=== PATIENT | female | born 1955 | race Caucasian/White ===

== ENCOUNTER → 2017-03-09 | Outpatient (CLI) | payer MEDICAID, SELFPAY | PROVIDERS: Visit Provider Internal Medicine | DX: R91.8 Other nonspecific abnormal finding of lung field (principal) | CPT/HCPCS: 71250 ==

== ENCOUNTER → 2017-06-13 14:07 | Outpatient (POV) | payer MEDICAID, SELFPAY | PROVIDERS: PCP Surgery; Visit Provider Internal Medicine | DX: Z00.00 Encounter for general adult medical examination without abnormal findings (principal) ==

== ENCOUNTER → 2017-10-31 14:48 | Outpatient (CLI) | payer MEDICAID, SELFPAY ==
--- NOTE | 2017-10-31 14:53 | CT_ITS ---
CT chest wo con HISTORY: Follow-up lung nodules ITS.REASON: MULTIPLE LUNG NODULES ORDERING PHYSICIAN: Jonh Baird MD PATIENT AGE: 62 years COMPARISON: None Technique: Axial images obtained with sagittal and coronal reformats. All CT scans at the facility use one or more dose reduction, viz: automated exposure control, ma/kV adjustment per patient size (including targeted exams where dose is matched to indication, i.e. head), or iterative reconstruction technique. FINDINGS: Scattered small lymph nodes are present within the mediastinum. Although these nodes do not meet criteria for adenopathy, they do appear slightly more bulkier than when compared to the previous exam. 4 extends, there is an AP window node which measured 1 x 0.7 cm previously measuring 0.7 x 0.6 cm. No hilar adenopathy is evident. There are coronary artery calcifications. There is mild pericardial thickening with normal heart size. No evidence of aortic aneurysm. Diffuse centrilobular emphysematous change. There is a new noncalcified nodule in the right upper lobe superiorly and posteriorly measures 8 mm x 5 mm. This is just superior to the previously mentioned nodule in the right upper lobe medially measuring approximately 6 mm. That nodules not significantly changed. There is mild diffuse bronchial thickening. A peripheral nodules present in the right upper lobe posteriorly at 6 mm only with some minimal linear thickening at this region. Small nodule in the right lung base laterally measures 4 mm only slightly larger. There are peripheral subpleural opacities in the left lower lobe laterally and inferiorly which are more prominent with a few small nodular opacities in this region with no change in the 4 mm subpleural nodule left lower lobe laterally. Upper abdominal images are unremarkable. No bony destructive process. IMPRESSION: 1. Multiple small pulmonary nodules are once again noted some of which are more prominent. There is a new nodule in the right upper lobe superiorly and posteriorly. These findings are concerning for metastatic disease. An ongoing inflammatory/infectious process is also a consideration. Does the patient have a known primary carcinoma? There are small nodes in mediastinum which do not meet criteria for adenopathy but are slightly larger when compared to previous exam. None of these nodules are readily accessible to percutaneous CT directed biopsy. 2. Centrilobular emphysema/COPD. Mild pericardial thickening. Coronary artery calcifications.
== END ==
PROVIDERS: PCP Physician Assistant; Visit Provider Internal Medicine
DX: R91.8 Other nonspecific abnormal finding of lung field (principal)
CPT/HCPCS: 71250

== ENCOUNTER → 2017-11-14 14:40 | Outpatient (POV) | payer MEDICAID, SELFPAY | PROVIDERS: PCP Physician Assistant; Visit Provider Internal Medicine | DX: Z00.00 Encounter for general adult medical examination without abnormal findings (principal) ==

== ENCOUNTER → 2018-06-18 14:19 | Outpatient (POV) | payer MEDICAID, SELFPAY | PROVIDERS: Visit Provider Internal Medicine | DX: Z00.00 Encounter for general adult medical examination without abnormal findings (principal) ==

== ENCOUNTER → 2019-11-27 14:46 | Outpatient (CLI) | payer MEDICAID, SELFPAY ==
[2019-11-27 15:33] LABS: ABG Base Excess 8.7 mmol/L (-2.4-2.3); ABG HCO3 34.7 mmhg (22.0-26.0); ABG Oxygen Saturation 99 % (90-100); ABG PH 7.33 mmol/L (7.35-7.45); ABG PO2 155.4 mmhg (80-100); ABG TCO2 36.7 mmhg (23-27)
[2019-11-27 15:34] LABS: Oxygen 4LPM %
[2019-11-27 15:35] LABS: ABG PCO2 67.1 mmhg (35.0-45.0); Source R BRACHIAL
== END ==
PROVIDERS: PCP Nurse Practitioner Family; Visit Provider Internal Medicine Pulmonary Disease
DX: J44.9 Chronic obstructive pulmonary disease, unspecified (principal)
CPT/HCPCS: 82803

== ENCOUNTER → 2019-12-03 10:54 | Outpatient (CLI) | payer MEDICAID, SELFPAY ==
--- NOTE | 2019-12-03 11:09 | CT_ITS ---
PROCEDURE: CT CHEST WO CON CLINICAL INDICATION: PULMONARY NODULES nodules f/u copd emphysema follow-up pulmonary nodules COMPARISON: CT [facility] CT CHEST W/O CONTRAST from 11/18/[address] CHEST W/O CONTRAST from 03/09/[address] chest wo con from 10/31/2017 TECHNIQUE: Axial images obtained with sagittal and coronal reformats. All CT scans at the facility use one or more dose reduction, viz: automated exposure control, ma/kV adjustment per patient size (including targeted exams where dose is matched to indication, i.e. head), or iterative reconstruction technique. FINDINGS: HEART AND MEDIASTINAL STRUCTURES: There is extensive coronary artery calcification. There is minimal pericardial thickening anteriorly. No mediastinal or hilar mass or adenopathy. There is a stable 1 cm AP window node as well small nodes in the precarinal region not significantly changed. LUNGS AND PLEURAL SPACES: COPD changes with centrilobular emphysema. Previously noted 8 mm right upper lobe nodule is less apparent with only some minimal parenchymal opacity noted at this region. There is an ill-defined 7 mm right upper lobe nodule medially which is not significantly changed. There are scattered areas of scarring. Nodularity once again noted in the right minor fissure region not significantly changed. There is mild diffuse bronchial thickening. There is a parenchymal opacity in the right middle lobe laterally measuring 6 mm. This has developed since the previous exam and is nonspecific possibly due to an area of developing scarring or atelectatic change. Developing nodule not entirely excluded. 4 mm nodule right lower lobe laterally unchanged. There is a stable parenchymal opacity in left upper lobe laterally and may be due to an area of scarring. There are some atelectatic changes in the lingula laterally. Atelectasis or scarring noted in the left lung base. There is a stable 4 mm nodule in the left lower lobe laterally. Peripheral parenchymal opacity is present in the left lower lobe consistent with an area of atelectasis or fibrosis. No lobar consolidation or collapse. BONY STRUCTURES: There are degenerative changes in the thoracic spine. UPPER ABDOMEN: Unremarkable. ADDITIONAL FINDINGS: No other significant abnormalities. IMPRESSION: 1. COPD with centrilobular emphysema with multiple parenchymal abnormalities consistent with atelectasis or fibrosis as detailed above. Previously noted right upper lobe nodule is not significantly changed. There is a new 6 mm parenchymal opacity in the right middle lobe laterally. Consider six-month follow-up to confirm stability. 2. Severe coronary artery calcifications Dictated by: Liban Jaime MD 12/04/2019 10:51 Liban Jaime MD in [place] 12/04/2019 10:51
== END ==
PROVIDERS: PCP Nurse Practitioner Family; Visit Provider Internal Medicine Pulmonary Disease
DX: R91.1 Solitary pulmonary nodule (principal); R91.8 Other nonspecific abnormal finding of lung field
CPT/HCPCS: 71250

== ENCOUNTER 2020-02-12 18:14 | Inpatient (IN) | payer MEDICAID, SELFPAY ==
[2020-02-12] VITALS (7 sets, daily range): BP systolic 123–150; BP diastolic 79–91; PULSE 99–110; RESP 14–30; TEMP 36.6–37.2; O2SAT 91–98; BMI 28.8; BMI 28.7
--- NOTE | 2020-02-12 18:16 | XR_ITS ---
PROCEDURE: XR CHEST PORTABLE CLINICAL HISTORY: soa Shortness of breath COMPARISON: CR Chest from 09/18/[address] CHEST WO CON from 12/03/2019 FINDINGS: The cardiomediastinal silhouette and pulmonary vascularity are within normal limits. There are atelectatic changes in both lower lobes. Upper lobes are clear. No acute bony abnormalities. IMPRESSION: Bilateral lower lobe atelectasis Dictated by: Liban Jaime MD 02/12/2020 18:38 Liban Jaime MD in [place] 02/12/2020 18:38
--- NOTE | 2020-02-12 18:19 | HMH.EDGENADL ---
ED Disposition Clinical Impression: Acute exacerbation of chronic obstructive airways disease, COPD (chronic obstructive pulmonary disease), Community acquired pneumonia Disposition: Admitted As Inpatient Condition on Discharge: Good Referrals: Tashia De La Cruz APRN [Primary Care Provider] - - Critical Care Critical Care Time: No Attestation: On , the high probability of a clinically significant, sudden or life threatening deterioration of the following system(s) required my full and direct attention, intervention and personal management. The time I documented below is in addition to time spent performing reported procedures but includes the following listed in this critical care notation. Medical Decision Making - Medical Records Medical records reviewed: Yes: I reviewed the patient's medical records. - [place] Inquiry Pt receiving controlled substance: No Vital Signs: 02/12/20 18:14 Temperature 98.9 F Temperature Source Oral Pulse Rate [Right Radial] 107 H Respiratory Rate 28 H Blood Pressure [Right Arm] 136/88 Blood Pressure Mean [Right Arm] 104 02 Sat by Pulse Oximetry 94 L Oxygen Delivery Method Nasal Cannula Oxygen Flow Rate (LPM) 4 - Lab Data Lab Results 02/12/20 18:16: VBG pH 7.41, VBG pCO2 55.9 H, VBG pO2 84.7 H, VBG HCO3 34.6 H 02/12/20 18:24: Sodium 137, Potassium 5.0, Chloride 96 L, Carbon Dioxide 38 H, Anion Gap 8.0, BUN 25 H, Creatinine 0.60, Estimated Creat Clear 68, Estimated GFR 101, Est GFR ( Amer) 122, Glucose 231 H, Calcium 9.8, Magnesium 1.9 02/12/20 18:24: NT-Pro-B Natriuret Pep 3930 H Result diagrams: 02/12/20 18:24 Orders (Tests/Meds): ED MEDICATIONS Generic Name Dose Route Start Last Admin Trade Name Freq PRN Reason Stop Dose Admin Acetaminophen 650 mg 02/12/20 19:12 Acetaminophen 325mg Tab PO 03/13/20 19:11 Q4HP PRN As Needed for Fever or Pain Albuterol/Ipratropium 3 ml 02/12/20 18:15 Albuterol/Ipratropium 3 Ml Neb IH 03/13/20 18:14 Q1H NADIA Enoxaparin Sodium 40 mg 02/12/20 19:15 Enoxaparin 40mg/0.4ml Syringe SQ 03/13/20 19:14 DAILY NADIA Azithromycin 500 mg/ Sodium 250 mls @ 250 mls/hr 02/12/20 18:30 02/12/20 18:40 Chloride IV 02/26/20 18:29 250 mls/hr Q24H NADIA Administration Protocol Ceftriaxone Sodium 1 gm/ 50 mls @ 100 mls/hr 02/12/20 19:15 Sodium Chloride IV 02/26/20 19:14 Q24H NADIA Protocol Discontinued Medications Generic Name Dose Route Start Last Admin Trade Name Farhat PRN Reason Stop Dose Admin Dexamethasone Sodium Phosphate 8 mg 02/12/20 18:16 02/12/20 18:31 Dexamethasone 4mg/Ml 1ml Vial IV 02/12/20 18:17 8 mg ONCE ONE Administration ORDERS Category Date Time Status Complete Blood Count Auto Diff AMLAB Lab 02/13/20 06:00 Ordered Complete Blood Count Auto Diff Stat Lab 02/12/20 19:18 Received Comprehensive Metabolic Panel AMLAB Lab 02/13/20 06:00 Ordered Lactic Acid Stat Lab 02/12/20 19:18 Received Lipid Panel AMLAB Lab 02/13/20 06:00 Ordered Magnesium AMLAB Lab 02/13/20 06:00 Ordered Phosphorous AMLAB Lab 02/13/20 06:00 Ordered Blood Culture Stat Micro 02/12/20 19:18 Received VBG [Venous Blood Gas] Stat RT 02/12/20 18:16 Results Medical Decision Narrative: 64-year-old female with COPD exacerbation. She presented on her oxygen stable from home. Given DuoNeb dexamethasone and azithromycin upon arrival. Chest x-ray shows no pneumothorax Unlikely to be pulmonary embolism in the setting of known COPD. Chest x-ray without pulmonary edema that is overt. Symptomatically the patient has symptoms consistent with COPD exacerbation and pneumonia. On reexamination she is persistently tachypneic however her VBG did look within normal limits. I discussed the possibility that she is still recovering from her pneumonia that put her into [facility] and she requires longer time with antibiotics and treatment. Plan to admit for DuoNeb's a
[2020-02-12 18:33] LABS: VBG HCO3 34.6 mmol/L (23-30); VBG PH 7.41 mmol/L (7.31-7.41); VBG PO2 84.7 mmol/L (28-40)
[2020-02-12 18:34] LABS: VBG PCO2 55.9 mmol/L (35-51)
--- NOTE | 2020-02-12 18:35 | PC.NURSE ---
VBG results given to BORA MCMULLEN at this time
[2020-02-12 18:37] LABS: Chloride 96 mmol/L (98-107)
[2020-02-12 18:38] LABS: Sodium 137 mmol/L (136-145)
[2020-02-12 18:41] LABS: Blood Urea Nitrogen 25 mg/dl (7-17); Calcium 9.8 mg/dl (8.4-10.2); Carbon Dioxide 38 mmol/L (22.0-30.0); Creatinine Clearance Estimated 68 mL/min (50-200); Estimated Glomerular Filt Rate 101 ml/min (>60); GFR (African American) 122 ML/MIN (>60); Glucose 231 mg/dl (74-100); Magnesium 1.9 mg/dl (1.6-2.3)
[2020-02-12 18:51] LABS: NT Pro Brain Natriuretic Pep. 3930 pg/mL (0-125)
--- NOTE | 2020-02-12 19:09 | PC.NURSE ---
Dr. Honeycutt paged, for unassigned, Dr. De La Cruz on phone with Dr. Honeycutt at this time
--- NOTE | 2020-02-12 19:27 | PC.NURSE ---
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 information given: observation, pneumonia, [place]
[2020-02-12 19:33] LABS: Basophils # 0.1 K/mm3 (0-0.2); Basophils % 0.8 % (0.1-2.0); Hematocrit 39.2 % (37.0-47.0); Hemoglobin 12.6 g/dL (12.2-16.2); Lactic Acid 1.7 mmol/L (0.7-2.1); Lymphocytes % 9.2 % (10-50); Mean Corpuscular Volume 90.5 fl (81-99); Mean Platelet Volume 7.9 fl (7.4-10.4); Monocytes # 0.3 K/mm3 (0.1-1.0); Monocytes % 2.7 % (1.7-9.3); Neutrophils % 87.3 % (37.0-80.0); Platelet Count 276 K/mm3 (142-424); Red Blood Count 4.33 M/mm3 (4.20-5.40); Red Cell Distribution Width 15.4 % (11.5-17.5); White Blood Count 10.3 K/mm3 (4.8-10.8)
[2020-02-12 19:36] LABS: MANUAL DIFFERENTIAL MANUAL DIFFERENTIAL (MANUAL DIFF)
--- NOTE | 2020-02-12 19:36 | PC.NURSE ---
received report from day nurse to hold off on azithromycin until lab had collected the blood cultures and lactic. azithromycin hung at this time per this nurse.
[2020-02-12 19:48] LABS: Lymphocytes % 16 % (10-50); Monocytes % 3 % (2-9); Neutrophils % 79 % (42-76); Platelet Estimate Normal; RBC Morphology Normal; Total Cells Counted 100
[2020-02-12 20:22] LABS: Coronavirus 19 IgG Antibody Negative (Negative); Coronavirus 19 IgM Antibody Negative (Negative)
--- NOTE | 2020-02-12 21:03 | PC.NURSE ---
patient up to floor via stretcher.
[2020-02-13] VITALS (12 sets, daily range): BP systolic 117–157; BP diastolic 55–91; PULSE 91–120; RESP 18–30; TEMP 36.3–37; O2SAT 90–96; BMI 28.5
--- NOTE | 2020-02-13 02:43 | PC.NURSE ---
called at 2311, home meds reordered, at 2347 Luc Crowe called to verify dosage of morphine and to discuss hydroxyzine not being available in the correct form and dose that was needed, Luc stated that morphine dose should be 0.4 mg and that if patient had home hydroxyzine that it was ok to give for tonight, night dose verified with RICA Gaxiola
--- NOTE | 2020-02-13 05:34 | PC.NURSE ---
pt has rested well since putting trilogy on, did have some anxiety about putting it on but anxiety meds given per MAY and anxiety lessened, pt O2 on trilogy has been 90-93%, respirations on admission to floor were 30/min, respirations are now between 20-24/min, fine crackes on auscultation of lungs, other vital signs stable
[2020-02-13 06:59] LABS: VBG Base Excess 8.6 mmol/L (-2.4-2.3)
--- NOTE | 2020-02-13 07:13 | HMH.PHAVTE ---
[facility] Pharmacy VTE Monitoring - Patient Demographics Admission date: 02/13/20 Report Date: 02/13/20 Time: 07:13 Allergies/Adverse Reactions: Patient Allergies codeine Allergy (Intermediate, Verified 02/13/20 01:28) CHEST PAIN ketorolac [From Toradol] Allergy (Intermediate, Verified 02/13/20 01:28) MENTAL STATUS CHANGES prednisone Allergy (Intermediate, Verified 02/13/20 01:28) SWELLING Height: 1.63 m Weight: 76.005 kg Patient Problems: Current Active Problems COPD (chronic obstructive pulmonary disease) (Acute) Acute exacerbation of chronic obstructive airways disease (Acute) Community acquired pneumonia (Acute) - VTE Risk Labs: VTE Related Lab Results Hgb 12.6 g/dL (12.2-16.2) 02/12/20 19:18 Hct 39.2 % (37.0-47.0) 02/12/20 19:18 Plt Count 276 K/mm3 (142-424) 02/12/20 19:18 BUN 25 mg/dl (7-17) H 02/12/20 18:24 Creatinine 0.60 mg/dl (0.52-1.04) 02/12/20 18:24 Estimated Creat Clear 68 mL/min (50-200) 02/12/20 18:24 VTE Score: 8 VTE Risk Level: Moderate Risk - Prophylaxis VTE Prophylaxis Ordered?: Yes Types of VTE Prophylaxis: TEDS Knee High Location of Applied Device: Bilateral Lower Extremeties
--- NOTE | 2020-02-13 08:43 | HMH.HP ---
*Admission Date: 02/13/20 *Chief complaint: shortness of breath, cough *History of present illness: Ms. Barragan is a 64-year-old female who was just recently discharged from [facility] due to pneumonia. She states she went home and within a few days was feeling poorly again. She states she has felt bad for a total of 2 to 3 weeks. She is oxygen dependent at home on 4 L and states her shortness of breath became so bad that she presented to the emergency room here at [facility]. She is followed by the pulmonology at [facility]. She was evaluated and admitted with a COPD exacerbation. Her chest x-ray showed bilateral lower lobe atelectasis but no pneumonia. She was started on Zithromax, Rocephin, and duo nebs. She states she does have a history of anxiety and depression and became very anxious last night when she could not breathe. She was given some hydroxyzine, Seroquel, and some morphine and this seemed to calm her down and she was able to rest. She does feel better this morning. [facility] History Medical History: Reports:: Anxiety, Congestive Heart Failure, Chronic Obstructive Pulmonary Disease (COPD), Diabetes Mellitus Type 2, Hypertension Denies:: Cancer, Diabetes Mellitus Type 1, MRSA *Have you ever received a pneumonia vaccine?: No *Have you received a flu vaccine this season?: No Other Surgeries: Yes: Cholecystectomy, Colonoscopy, Hysterectomy-Total, Sinus Surgery Amputation: No Fractures: No - *Social History Smoking Status: Former smoker Tobacco Type: cigarettes Alcohol Intake: never *Occupational Status:: retired Housing: house Household Members: family *Travel in the last 8 weeks: None - Psychiatric History Pschychiatric History:: Reports:: Anxiety Family Hx:: Cancer, Heart Attack Review of Systems - Constitutional Reports fatigue, Reports weakness - Eyes Denies blurry vision, Denies double vision - ENT Reports nasal congestion, Reports sore throat - *Cardiovascular Reports shortness of breath, Reports rapid, pounding, or irregular heartbeat, Denies chest pain, Denies leg swelling - *Respiratory Reports chest congestion, Reports cough, Reports shortness of breath - *Gastrointestinal Reports abdominal pain (suprapubic pain), Denies loose stools, Denies nausea, Denies vomiting - *Genitourinary Reports painful urination - *Musculoskeletal Denies joint pain - *Neurologic Reports dizziness, Reports weakness, Denies abnormal walking, Denies abnormal speech Meds Home Medications Medication Instructions Recorded Confirmed Type aspirin 81 mg tablet,delayed 81 mg PO DAILY 11/27/19 02/13/20 History release carvedilol 25 mg tablet 25 mg PO BID 11/27/19 02/13/20 History cholecalciferol (vitamin D3) 25 25 mcg PO DAILY 11/27/19 02/13/20 History mcg (1,000 unit) capsule donepezil 10 mg tablet 10 mg PO DAILY 11/27/19 02/13/20 History famotidine 40 mg tablet 40 mg PO DAILY 11/27/19 02/13/20 History ferrous sulfate 325 mg (65 mg 65 mg PO DAILY tab 11/27/19 02/13/20 History iron) tablet fluticasone propionate 50 2 spray INTRANASAL DAILY 11/27/19 02/13/20 History mcg/actuation nasal spray,suspension furosemide 20 mg tablet 20 mg PO DAILY 11/27/19 02/13/20 History loratadine 10 mg tablet 10 mg PO DAILY 11/27/19 02/13/20 History montelukast 10 mg tablet 10 mg PO DAILY 11/27/19 02/13/20 History nitroglycerin 0.4 mg sublingual 0.4 mg SUBLINGUAL Q5M PRN 11/27/19 02/13/20 History tablet omeprazole 40 mg capsule,delayed 40 mg PO DAILY 11/27/19 02/13/20 History release Albuterol Sulfate [Albuterol 1.25 mg INHALATION QID PRN 02/13/20 02/13/20 History 0.042% 1.25mg/3mL neb] Albuterol Sulfate [Proventil Hfa] 1 inh INHALATION QID PRN 02/13/20 02/13/20 History Budesonide/Formoterol Fumarate 2 puff INHALATION BID 02/13/20 02/13/20 History [Budesonide-Formoterol 160-4.5] Fenofibrate Nanocrystallized 145 mg PO DAILY 02/13/20 02/13/20 History [Fenofibrate] Morphi
--- NOTE | 2020-02-13 08:44 | HMH.PHAINT ---
Medication reconciliation completed using pharmacy claims data and patient interview.
[2020-02-13 10:50] LABS: Microscopic, Urine URINE MICROSCOPIC (MICROSCOPIC)
[2020-02-13 11:02] LABS: Appearance,Urine CLEAR (Clear); Bilirubin,Urine Negative (Negative); Blood, Urine Negative (Negative); Color,Urine YELLOW (Yellow); Glucose,Urine (UA) Negative (Negative); Ketones,Urine Negative (Negative); Leukocyte Esterase,Urine Negative (Negative); Nitrate,Urine Negative (Negative); Protein,Urine Negative (Negative); Specific Gravity, Urine >= 1.030 (1.005-1.030); Urobilinogen,Urine 0.2 EU/dl (0.2)
[2020-02-13 11:17] LABS: Bacteria,Urine Trace /lpf
--- NOTE | 2020-02-13 18:40 | PC.NURSE ---
Pt is alert and oriented x 4 this shift and able to make needs known. RR even, has been slightly labored at times. 02 remains wnl on 4 L. Did recently give prn vistaril r/t anxiousness and shaking. Pt is still shaking slightly and states she is less anxious. Med given per mar. Lungs cta, bs x 4, s1s2. No edema noted. Will cont to mx. VSS.
[2020-02-13 22:42] LABS: POC Glucose,Bedside 129 (70-110)
--- NOTE | 2020-02-13 22:43 | PC.NURSE ---
Pt requested FS GLU to be obtained. Noted at 129.
--- NOTE | 2020-02-13 23:43 | PC.NURSE ---
Pt's daughter at bedside. Came out to [place] to inform this RN that her mother felt like she was going to pass out. Pt noted pallor and warm to touch. Applied cold wet washcloth to forehead and obtained V/S. B/P 121/55 HR 101 RR 24 O2 94% on 4 lnc Administered Vistaril at this time for anxiety. Checked O2 tubing for leaks, none found. Pt states that she felt her O2 was not coming out properly. Encouraged pt to wear Trilogy this HS. Pt more relaxed. Will continue to monitor. Daughter remains at bedside.
[2020-02-14] VITALS (7 sets, daily range): BP systolic 107–151; BP diastolic 68–95; PULSE 74–118; RESP 19–24; TEMP 36.4–36.7; O2SAT 83–92; BMI 28.1; BMI 28.2
--- NOTE | 2020-02-14 04:00 | PC.NURSE ---
Pt noted 88% O2 on trilogy this am. No respiratory distress noted. Pt lying in bed with calm demeanor. Denies SOA. RR noted even and unlabored. Encouraged deep breathing while sitting upright in bed.
--- NOTE | 2020-02-14 04:17 | PC.NURSE ---
Pt is alert and oriented x4. Noted very anxious this shift. Vistaril admin per MAR x1 thus far this shift, pt tolerated very well. Morphine admin x1 thus far as well. Pt tolerated very well. Rested well with eyes closed after administration of both meds per MAR. No acute changes noted from previous shift. Tolerated both 4 lnc and trilogy well with no c/o SOA. RR noted even and unlabored. BSC placed by bed, does well with standby assist. SOA noted with ambulation to and from BSC. Encouraged pt to focus on deep breathing and catching her breath. Adequate urine output noted. No edema noted. VSS. Remains safe. Call light within reach. Will continue to monitor.
--- NOTE | 2020-02-14 08:38 | PC.NURSE ---
RN aware of low o2 sats.
--- NOTE | 2020-02-14 08:46 | P.PN_ITS ---
Internal Medicine - PN: Subj *Date: 02/14/20 *Time: 08:46 Interval history: Patient states she feels much better today. She is still short of breath but it has improved slightly from yesterday. She slept better last night and ate breakfast this morning. She denies any pain. Exam Vital signs and Labs for Last 24 Hours: Temp Pulse Resp BP Pulse Ox 98.0 F 99 H 24 151/73 H 83 L 02/14/20 08:00 02/14/20 08:00 02/14/20 08:00 02/14/20 08:00 02/14/20 08:00 Laboratory Results - last 24 hr 02/13/20 10:06: Urine Color Yellow, Urine Appearance Clear, Urine pH 6.0, Ur Specific Sargeant >= 1.030, Urine Protein Negative, Urine Glucose (UA) Negative, Urine Ketones Negative, Urine Blood Negative, Urine Nitrate Negative, Urine Bilirubin Negative, Urine Urobilinogen 0.2, Ur Leukocyte Esterase Negative, Urine RBC 3-5, Urine WBC 10-20, Ur Squamous Epith Cells 3-5, Urine Bacteria Trace 02/13/20 22:35: POC Glucose 129 H I & O for Last 24 hours: Intake & Output 02/11/20 02/12/20 02/13/20 02/14/20 11:59 11:59 11:59 11:59 Intake Total 270 / 270 1030 / 1030 Output Total 700 / 700 2650 / 2650 Balance -430 / -430 -1620 / -1620 Weight 167 lb 9 oz 165 lb Microbiology Reports for the Last 24 Hours: Microbiology 02/13/20 11:40 Sputum - Expectorated Sputum Gram Stain - Final - Constitutional no acute distress - *Routine Respiratory Exam Present: decreased breath sounds - *Routine Cardiovascular Exam Present: RRR - *Routine Abdominal Exam Present: soft, normoactive bowel sounds. Absent: tenderness - *Routine Extremities Exam Absent: cyanosis, clubbing, edema - *Routine Skin Exam Present: warm. Absent: rash - *Routine Neurological Exam Present: alert, oriented X3 Assessment and Plan (1) Acute exacerbation of chronic obstructive airways disease Status: Acute Category: Medical Code(s): J44.1 - Chronic obstructive pulmonary disease with (acute) exacerbation (2) COPD (chronic obstructive pulmonary disease) Status: Chronic Category: Medical Code(s): J44.9 - Chronic obstructive pulmonary disease, unspecified (3) Anxiety Status: Chronic Category: Medical Code(s): F41.9 - Anxiety disorder, unspecified (4) Type 2 diabetes mellitus Status: Chronic Category: Medical Code(s): E11.9 - Type 2 diabetes mellitus without complications (5) Hyperlipidemia Status: Chronic Category: Medical Code(s): E78.5 - Hyperlipidemia, unspecified - Assessment and plan all Dx Assessment and Plan for all problems:: Still awaiting sputum culture results. We will continue antibiotics. Patient's oxygen sat is in the 80s on 4 L. She is normally on 4 L at home with sats in the low 90s. May need Vapotherm. Will discuss with Dr. Honeycutt.
[2020-02-14 10:28] LABS: ABG HCO3 41.1 mmhg (22.0-26.0); ABG Oxygen Saturation 96 % (90-100); ABG PH 7.38 mmol/L (7.35-7.45); ABG PO2 81.1 mmhg (80-100); ABG TCO2 43.2 mmhg (23-27)
[2020-02-14 10:31] LABS: Allen's Test Non Applicable; Source Left Brachial
[2020-02-14 10:34] LABS: ABG PCO2 70.7 mmhg (35.0-45.0)
--- NOTE | 2020-02-14 11:48 | XR_ITS ---
PROCEDURE: XR CHEST PORTABLE CLINICAL HISTORY: Follow up on lower lobe abnormalities Shortness of air, follow-up atelectasis COMPARISON: CR Chest from 09/18/[address] CHEST WO CON from 12/03/2019 CR XR CHEST PORTABLE from 02/12/2020 FINDINGS: The cardiomediastinal silhouette and pulmonary vascularity are within normal limits. COPD changes. Atelectatic changes are present in the right lower lobe not significantly changed. Atelectatic or fibrotic changes present in the left lower lobe also unchanged. Upper lobes are clear. IMPRESSION: No change COPD with bilateral lower lobe atelectatic change Dictated by: Liban Jaime MD 02/14/2020 13:47 Liban Jaime MD in [place] 02/14/2020 13:47
--- NOTE | 2020-02-14 11:49 | CA_ITS ---
APPROVED REPORT EXAM: Comprehensive 2D, Doppler, and color-flow Echocardiogram Point Of Care Specialist: Opal Pizano RT(R) Ht: 5 ft 4 in Wt: 168lbs BSA: 1.82 BP: 151/78 mmHg Indications: COPD, HTN, Hyperlipidemia, pneumonia, CHF, FILOMENA, anxiety, Patient was sitting completely upright due to extreme shortness of breath with pursed lip breathing. Limited imaging M-Mode Dimensions RVDd 2.98 cm (0.9-2.6) LVDd 4.16 cm (3.5-5.7) LVDs 3.16 cm (3.5-5.7) IVSd 0.72 cm (0.6-1.1) PWd 0.97 cm (0.6-1.1) EF (Teich) 48.30% FS 24.00% EDV (Teich) 76.80 mL ESV (Teich) 39.70 mL LV Diastology E Decel Time 150.00 (160-240 msec) E/A Ratio 0.6 MED E' 5.90 (< 7 cm/sec) E'/MED E' Ratio 7.17 (>14) LAT E' 7.60 (<10 cm/sec) E/LAT E' Ratio 5.57 (>14) Mitral Valve MV E Max Garry. 42.00 (40-130 cm/s) MV A Velocity 66.00 (40-130 cm/s) E/A Ratio 0.64 MV Decel. Time 150.00 (160-240 ms) MV PHT 44.00 ms Tricuspid Valve TR P. Velocity 325.00 cm/s RAP Estimate 15.00 mmHg RVSP 57.40 mmHg Left Ventricle Left atrium is mildly enlarged, left ventricle is normal size, hyperdynamic left ventricular systolic function, visually estimated ejection fraction over 65% with no regional wall motion abnormality, endocardial surfaces are poorly visualized, grade 1 diastolic dysfunction seen without tissue Doppler evidence of raise left atrial pressure. Right Ventricle Right atrium and right ventricle moderately enlarged, contractility of the right ventricle is moderately reduced. Aortic Valve Aortic valve is minimally thickened and fibrosed, there is no aortic stenosis or aortic insufficiency. Mitral Valve Mitral valve is grossly normal, there is mild mitral regurgitation. Tricuspid Valve Tricuspid valve is grossly normal, there is mild tricuspid regurgitation, calculated right ventricular systolic pressure is 57 mmHg. Pulmonic Valve Pulmonic valve is poorly visualized. Great Vessels Aortic root is normal size. Pericardium No significant pericardial effusion noted. Conclusion 1. Biatrial enlargement, normal left ventricular size, hyperdynamic left ventricular systolic function, visually estimated ejection fraction was 65% with no regional wall motion abnormality, grade 1 diastolic dysfunction seen without tissue Doppler evidence of raise left atrial pressure. 2. Moderately enlarged right ventricle with moderate reduction in right ventricular contractility. 3. Mild mitral and tricuspid regurgitation, calculated right ventricular systolic pressure is 57 mmHg. Inferior vena cava is not well visualized 4. No significant pericardial effusion noted. Electronically signed by : Maximo Yeung, 02/14/2020 13:57:28
--- NOTE | 2020-02-14 11:50 | HMH.CNCARD ---
History of Present Illness Consult date: 02/14/20 Requesting physician: Neris Honeycutt Consult reason: congestive heart failure, shortness of breath Chief complaint: SOA Additional Medical History:: 1. Diabetes mellitus type 2, treated for about 5 years 2. History of tobacco use, 1 pack/day - 2 packs/day for 20 years, discontinued in 2004 A. COPD with home oxygen use up to 4 L by nasal cannula 3. FILOMENA, home BiPAP therapy 4. Remote history of congestive heart failure per patient 5. History of cardiac catheterization several years ago by Dr. Reese in [place], [place] with no intervention needed. Reportedly had a branch disease that rerouted itself . 6. History of anxiety and chronic antianxiety medication use 7. Hyperlipidemia 8. History of hypertension History of present illness: Ms. Barragan is a 64-year-old female who was just recently discharged from [facility] due to pneumonia. She states she went home and within a few days was feeling poorly again. She states she has felt bad for a total of 2 to 3 weeks. She is oxygen dependent at home on 4 L and states her shortness of breath became so bad that she presented to the emergency room here at [facility]. She is followed by the pulmonology at [facility] [place] [facility]. She was evaluated and admitted with a COPD exacerbation. Her chest x-ray showed bilateral lower lobe atelectasis but no pneumonia. She was started on Zithromax, Rocephin, and duo nebs. She states she does have a history of anxiety and depression and became very anxious last night when she could not breathe. She was given some hydroxyzine, Seroquel, and some morphine and this seemed to calm her down and she was able to rest. She does feel better this morning. The above per Aleksandra Oconnell PA-C for Dr. Honeycutt Patient confirms the above events and also relates some chest heaviness but denies pain. Breathing is only slightly better today versus admission. Cardiology consulted due to history of congestive heart failure with elevated BNP at 3930. Initial troponin is normal. EKG is pending. Patient has conversational dyspnea just a few words. [facility] History Medical History: Reports:: Anxiety, Congestive Heart Failure, Chronic Obstructive Pulmonary Disease (COPD), Diabetes Mellitus Type 2, Hypertension Denies:: Cancer, Diabetes Mellitus Type 1, MRSA *Have you ever received a pneumonia vaccine?: No *Have you received a flu vaccine this season?: No Other Surgeries: Yes: Cholecystectomy, Colonoscopy, Hysterectomy-Total, Sinus Surgery Amputation: No Fractures: No - *Social History Smoking Status: Former smoker Tobacco Type: cigarettes Alcohol Intake: never *Occupational Status:: retired Housing: house Household Members: family *Travel in the last 8 weeks: None - Psychiatric History Pschychiatric History:: Reports:: Anxiety Family Hx:: Cancer, Heart Attack Meds Home Medications Medication Instructions Recorded Confirmed Type aspirin 81 mg tablet,delayed 81 mg PO DAILY 11/27/19 02/13/20 History release carvedilol 25 mg tablet 25 mg PO BID 11/27/19 02/13/20 History cholecalciferol (vitamin D3) 25 25 mcg PO DAILY 11/27/19 02/13/20 History mcg (1,000 unit) capsule donepezil 10 mg tablet 10 mg PO DAILY 11/27/19 02/13/20 History famotidine 40 mg tablet 40 mg PO DAILY 11/27/19 02/13/20 History ferrous sulfate 325 mg (65 mg 65 mg PO DAILY tab 11/27/19 02/13/20 History iron) tablet fluticasone propionate 50 2 spray INTRANASAL DAILY 11/27/19 02/13/20 History mcg/actuation nasal spray,suspension furosemide 20 mg tablet 20 mg PO DAILY 11/27/19 02/13/20 History loratadine 10 mg tablet 10 mg PO DAILY 11/27/19 02/13/20 History montelukast 10 mg tablet 10 mg PO DAILY 11/27/19 02/13/20 History nitroglycerin 0.4 mg sublingual 0.4 mg SUBLINGUAL Q5M PRN 11/27/19 02/13/20 History tablet omeprazole 40 mg capsule,delayed 40 mg PO DAILY 11/27/19 02/13/20 History release Albuterol Sulfate [
--- NOTE | 2020-02-14 14:12 | ECG_ITS ---
APPROVED REPORT Exam: Resting ECG HR:100 bpm ECG Measurements Heart Rate 100 AXES MA 86 P 43 QRSd 74 QRS 56 QT 308 T 217 QTc 397 Conclusion Sinus rhythm with short MA Nonspecific T wave abnormality Abnormal ECG Electronically signed by : Ricardo Myers, 02/16/2020 20:00:08
--- NOTE | 2020-02-14 14:29 | CT_ITS ---
PROCEDURE: CT ANGIO CHEST CLINCIAL INDICATION: Hypoxemia, SOA, Right heart failure COMPARISON: No exams were available for comparison TECHNIQUE: IV Contrast: 70ML Isovue 370 Axial images obtained with sagittal and coronal reformats. All CT scans at the facility use one or more dose reduction, viz: automated exposure control, ma/kV adjustment per patient size (including targeted exams where dose is matched to indication, i.e. head), or iterative reconstruction technique. FINDINGS: HEART AND MEDIASTINAL STRUCTURES: No evidence of aortic aneurysm or dissection. Coronary artery calcifications are present. There are numerous bilateral pulmonary emboli present within the segmental branches of upper and lower lobes on both sides. There is straightening of the interventricular septum and the inferior vena cava is slightly prominent at 3 cm with some reflux of contrast into the hepatic portion of the IVC. These findings may be seen with right heart strain. Pulmonary arteries are somewhat prominent. The pulmonary artery/aortic ratio is approximately 1 with mild prominence of both right and left main pulmonary artery. LUNGS AND PLEURAL SPACES: There is hyperinflation consistent with small airway disease/air trapping. There are scattered areas of scarring/atelectatic change. BONY STRUCTURES: Degenerative changes thoracic spine UPPER ABDOMEN: Unremarkable. ADDITIONAL FINDINGS: No other significant abnormalities. IMPRESSION: 1. Acute bilateral pulmonary emboli with a moderate burden with possible mild right heart strain. No saddle embolus evident. No emboli evident within the main pulmonary artery. 2. Hyperinflation with suspected small airway disease with scattered areas of atelectasis or fibrosis. 3. Coronary artery calcification. 4. Nelsy Yang, the patient's nurse was notified of the above findings by telephone 02/14/2020 at 4:40 p.m. Dictated by: Liban Jaime MD 02/14/2020 16:49 Liban Jaime MD in OV 02/14/2020 16:49
[2020-02-14 18:28] LABS: Prothrombin Time 11.5 seconds (9.4-11.8)
[2020-02-14 18:29] LABS: INR 1.04 (0.9-1.1)
--- NOTE | 2020-02-14 21:27 | PC.NURSE ---
PT IS SITTING UP IN BED. NO COMPLAINTS OF DISCOMFORT. PT GETS VERY SOA WITH ANY EXERTION. O2 SATURATION HAS MAINTAINED 88-92% ON 4 L NC. NEW IV ACCESS NOTED TO THE LAC FOR CT. PCP WAS NOTIFIED ABOUT PT'S CT RESULTS. PCP ORDERED FOR PT TO BE ON HEPARIN DRIP. BASELINE PTT WAS ORDERED. DONALD VICK FROM PHARMACY WAS NOTIFIED. HEPARIN 5000 UNIT BOLUS ORDERED AND HEPARIN DRIP TO START AT 1300 UNITS/HR. PHARMACY NOTIFIED ABOUT BASELINE PTT. REPEAT PTT ORDERED FOR 0100. PT HAS BEEN ALERT AND ORIENTED T/O THE SHIFT. UP TO THE [facility] WITH 1 ASSIST. LUNG SOUNDS HAVE SCATTERED WHEEZES. ABDOMEN SOFT/ NON TENDER WITH ACTIVE BOWEL SOUNDS. VSS. REPORT HANDOFF TO POLINA NIEVES RN
[2020-02-15] VITALS (9 sets, daily range): BP systolic 106–160; BP diastolic 70–92; PULSE 82–107; RESP 17–25; TEMP 36.4–37.2; O2SAT 90–94; BMI 28.2
[2020-02-15 01:42] LABS: Activated Partial Thrombo Time 60.3 seconds (23.6-34.0)
--- NOTE | 2020-02-15 03:00 | PC.NURSE ---
0142 Bobbi called and stated to leave heparin at 26 mL/hr as it was currently set at, also stated that it was ok to give hydroxyzine from pt's home medications since we didn't have it available in the building
--- NOTE | 2020-02-15 03:52 | PC.NURSE ---
pt has rested on and off this shift, remained on 4L NC until around 0130 when she switched to her trilogy, pt anxious about putting it on, PRN morphine and vistaril given, lung sounds diminished with expiratory wheezing heard in the upper lobes, O2 sats 91-93%, HR 118 at beginning of shift, HR 82 at 0400 vitals, heparin remains at 1300 u/hr
--- NOTE | 2020-02-15 09:00 | HMH.ACPN2 ---
Internal Medicine - PN: Subj *Date: 02/15/20 *Time: 09:00 Interval history: Patient states she is feeling a little bit better today. CTA from yesterday revealed bilateral PEs and she was started on heparin. She states she did sleep well last night and ate a good breakfast this morning. She denies any pain. Exam Vital signs and Labs for Last 24 Hours: Temp Pulse Resp BP Pulse Ox 98.4 F 103 H 17 106/79 L 90 L 02/15/20 08:00 02/15/20 08:00 02/15/20 08:00 02/15/20 08:00 02/15/20 08:00 Laboratory Results - last 24 hr 02/14/20 09:18: Specimen Source Left brachial, O2 % 4lmp nc, ABG pH 7.38, ABG pCO2 70.7 H, ABG pO2 81.1, ABG HCO3 41.1 H, ABG Total CO2 43.2 H, ABG O2 Saturation 96, ABG Base Excess 16.0 H, Liban Test Non applicable 02/14/20 17:17: PT 11.5, INR 1.04, APTT 21.0 L 02/15/20 01:20: APTT 60.3 H* D I & O for Last 24 hours: Intake & Output 02/12/20 02/13/20 02/14/20 02/15/20 11:59 11:59 11:59 11:59 Intake Total 270 / 270 1030 / 1030 1036 / 1036 Output Total 700 / 700 2850 / 2850 4000 / 4000 Balance -430 / -430 -1820 / -1820 -2964 / -2964 Weight 167 lb 9 oz 165 lb 165 lb 5 oz Microbiology Reports for the Last 24 Hours: Microbiology 02/12/20 19:18 Blood Blood Culture - Preliminary Gram Positive Cocci 02/13/20 11:40 Sputum - Expectorated Sputum Gram Stain - Final 02/13/20 11:40 Sputum - Expectorated Sputum Sputum Culture - Final Normal Respiratory Barbie 02/12/20 19:18 Blood Blood Culture - Preliminary NO GROWTH AFTER 48 HOURS 02/13/20 10:06 Urine,Clean Catch Urine Culture - Preliminary NO GROWTH AFTER 24 HOURS - Constitutional no acute distress - *Routine Respiratory Exam Present: decreased breath sounds Comments: Pursed lip breathing - *Routine Cardiovascular Exam Present: RRR - *Routine Abdominal Exam Present: soft, normoactive bowel sounds. Absent: tenderness - *Routine Extremities Exam Absent: cyanosis, clubbing, edema - *Routine Skin Exam Present: warm. Absent: rash - *Routine Neurological Exam Present: alert, oriented X3 Assessment and Plan (1) Pulmonary emboli Status: Acute Category: Medical Code(s): I26.99 - Other pulmonary embolism without acute cor pulmonale (2) Acute exacerbation of chronic obstructive airways disease Status: Acute Category: Medical Code(s): J44.1 - Chronic obstructive pulmonary disease with (acute) exacerbation (3) COPD (chronic obstructive pulmonary disease) Status: Chronic Category: Medical Code(s): J44.9 - Chronic obstructive pulmonary disease, unspecified (4) Anxiety Status: Chronic Category: Medical Code(s): F41.9 - Anxiety disorder, unspecified (5) Type 2 diabetes mellitus Status: Chronic Category: Medical Code(s): E11.9 - Type 2 diabetes mellitus without complications (6) Hyperlipidemia Status: Chronic Category: Medical Code(s): E78.5 - Hyperlipidemia, unspecified (7) History of congestive heart failure Status: Acute Category: Medical Code(s): Z86.79 - Personal history of other diseases of the circulatory system (8) Elevated brain natriuretic peptide (BNP) level Status: Acute Category: Medical Code(s): R79.89 - Other specified abnormal findings of blood chemistry (9) Bacteremia Status: Acute Category: Medical Code(s): R78.81 - Bacteremia - Assessment and plan all Dx Assessment and Plan for all problems:: Patient has been started on a heparin drip and will likely need to be converted over to Coumadin or Xarelto depending on insurance coverage. Her blood cultures are growing gram-positive cocci. Will await final culture report.
[2020-02-15 09:08] LABS: Chloride 84 mmol/L (98-107); Potassium 4.2 mmoL/L (3.5-5.1); Sodium 134 mmol/L (136-145)
[2020-02-15 09:11] LABS: Blood Urea Nitrogen 29 mg/dl (7-17); Creatinine Clearance Estimated 67 mL/min (50-200); Estimated Glomerular Filt Rate 72 ml/min (>60); GFR (African American) 87 ML/MIN (>60)
[2020-02-15 09:12] LABS: Calcium 9.1 mg/dl (8.4-10.2); Glucose 327 mg/dl (74-100)
--- NOTE | 2020-02-15 09:15 | CA_ITS ---
APPROVED REPORT Bilateral Lower Extremity Venous Study for DVT. Landscaper: RISHABH Indications Pulmonary Embolism Shortness of breath History of Smoking Pulmonary emboli Risk Factors Immobility History of Smoking Patient leads a sedentary lifestyle secondary to COPD and difficulty breathing. Past History DVT : Date : 2004 per patient Medications Aspirin 81 mg ASA daily. Patient is currently on a Heparin drip Vein Imaging CFV (R): compressive, spontaneous, phasic, augmentation FEM (R): compressive, spontaneous, phasic, augmentation POP (R): Thrombus PTV (R): Compressible GSV (R): compressive, spontaneous, phasic, augmentation Peroneals (R):Not Visualized CFV (L): compressive, spontaneous, phasic, augmentation FEM (L): compressive, spontaneous, phasic, augmentation POP (L): compressive, spontaneous, phasic, augmentation PTV (L): Compressible GSV (L): compressive, spontaneous, phasic, augmentation Peroneals (L):Compressible Findings DVT seen in the Right Popliteal vein. No SVT seen in the right lower extremity. No evidence of DVT or superficial thrombophlebitis in the veins scanned of the left lower extremity. Conclusion DVT seen in the Right Popliteal vein. No SVT seen in the right lower extremity. No evidence of DVT or superficial thrombophlebitis in the veins scanned of the left lower extremity. Critical Notification Critical Value: Yes Date: 02/15/2020 Time: 15:20 Physician Name: Enmanuel, 2nd floor cashier, RN unavailable Electronically signed by : Liban Jaime MD 02/17/2020 17:34:15
[2020-02-15 09:20] LABS: Anion Gap 13.2 mEq/L (5-15); Carbon Dioxide 41 mmol/L (22.0-30.0)
[2020-02-15 09:38] LABS: Activated Partial Thrombo Time 68.3 seconds (23.6-34.0)
--- NOTE | 2020-02-15 15:04 | HMH.PHAHEP ---
[facility] Pharmacy Heparin Dosing - Demographic Data Admission date:: 02/14/20 Date: 02/15/20 Time: 15:14 Allergies/Adverse Reactions: Allergies Allergy/AdvReac Type Severity Reaction Status Date / Time codeine Allergy Intermediate CHEST PAIN Verified 02/13/20 01:28 ketorolac [From Toradol] Allergy Intermediate MENTAL Verified 02/13/20 01:28 STATUS CHANGES prednisone Allergy Intermediate SWELLING Verified 02/13/20 01:28 Height: 1.63 m Weight: 74.9 kg - Indication Medication therapy:: Heparin Current Indications:: PE Patient Problems: Current Active Problems COPD (chronic obstructive pulmonary disease) (Chronic) Acute exacerbation of chronic obstructive airways disease (Acute) Community acquired pneumonia (Acute) Anxiety (Chronic) Type 2 diabetes mellitus (Chronic) Hyperlipidemia (Chronic) History of congestive heart failure (Acute) Elevated brain natriuretic peptide (BNP) level (Acute) Pulmonary emboli (Acute) Bacteremia (Acute) Deep vein thrombosis (DVT) of popliteal vein of left lower extremity (Acute) Deep vein thrombosis (DVT) of popliteal vein of right lower extremity (Acute) CVA?: No Bleeding problem?: No Kidney disease?: No [place]?: No Desired PTT range:: 60-80 seconds - Monitoring Dose Monitor 1 Date: 02/14/20 Time: 17:17 PTT Result:: 21.0 Infusion Rate:: 1,300 UNITS/HR Comment:: 5,000 UNIT BOLUS [id number] Dose Monitor 2 Date: 02/15/20 Time: 01:20 PTT Result:: 60.3 Infusion Rate:: 1,300 UNITS/HR Dose Monitor 3 Date: 02/15/20 Time: 08:08 PTT Result:: 68.3 Infusion Rate:: 1,300 UNITS/HR Dose Monitor 4 Date: 02/15/20 Time: 14:00 PTT Result:: 37.2 Infusion Rate:: INCREASE TO 1,400 UNITS/HR Dose Monitor 5 Date: 02/16/20 Time: 01:15 PTT Result:: 56.3 Infusion Rate:: RATE INCREASED TO 1,450 UNITS/HR Dose Monitor 6 Date: 02/16/20 Time: 09:14 PTT Result:: 88.5 Infusion Rate:: RATE DECREASED TO 1,350 UNITS/HR Dose Monitor 7 Date: 02/16/20 Time: 17:00 PTT Result:: 65.9 Infusion Rate:: 1350 UNITS/HR Dose Monitor 8 Date: 02/16/20 Time: 23:30 PTT Result:: 71.7 Infusion Rate:: 1,350 UNITS/HR Dose Monitor 9 Date: 02/17/20 Time: 05:52 PTT Result:: 77.1 Infusion Rate:: DECREASE TO 1,300 UNITS/HR Comment:: CBC ORDERED PLT 334K Dose Monitor 10 Date: 02/17/20 Time: 15:00 PTT Result:: 19.4 Infusion Rate:: 1300 UNITS/HR Comment:: GAVE ONE DOSE OF WARFARIN 10MG Dose Monitor 11 Date: 02/17/20 Time: 23:30 PTT Result:: 21.3 Infusion Rate:: INCREASE RATE TO 1,400 UNITS/HR Comment:: 3000 UNIT BOLUS Dose Monitor 12 Date: 02/18/20 Time: 05:30 PTT Result:: 83.1 Infusion Rate:: 1,400 UNITS/HR Comment:: [id number] Dose Monitor 13 Date: 02/18/20 Time: 12:00 Comment:: STOPPING DRIP. WARFARIN ONLY INR=2.04 - Core Measures Is INR > or = 2 at discharge?: Yes Most Recent Labs:: Laboratory Results - last 24 hr 02/14/20 17:17: PT 11.5, INR 1.04, APTT 21.0 L 02/15/20 01:20: APTT 60.3 H* D 02/15/20 08:08: Sodium 134 L, Potassium 4.2, Chloride 84 L, Carbon Dioxide 41 H*, Anion Gap 13.2, BUN 29 H, Creatinine 0.80 D, Glucose 327 H, Calcium 9.1 02/15/20 08:08: APTT 68.3 H* D Were Heparin and Warfarin started on the same day?: Yes
--- NOTE | 2020-02-15 18:29 | PC.NURSE ---
SHE IS AO*4, ABLE TO MAKE NEEDS KNOW TO STAFF, HAS BEEN TOLERATING 3LNC T/O SHIFT, SHE IS TOSHE DENIES PAIN, N/V/D, VITAL SINGS STABLE WEAR TRILOGY FOR O2 SUPPORT HS, WILL CONTINUE TO MONITOR.
--- NOTE | 2020-02-15 18:36 | PC.NURSE ---
CALLED AND REPORTED FINDINGS OF DVT ULTASOUND OF LOWER EXTREMITIES TO MD HAYDEN. CONTINUE HEPARIN
[2020-02-15 18:49] LABS: Activated Partial Thrombo Time 37.2 seconds (23.6-34.0)
--- NOTE | 2020-02-15 19:35 | PC.NURSE ---
CONTACTED PHARM ASSIGNMENT EDITOR Remington CAMARENA R/T INFILTRATION OF SOLU-MEDROL. NO ACTION NEED BECAUSE DRUG IS NOT A VESICANT.
--- NOTE | 2020-02-15 21:00 | PC.NURSE ---
Pt's daughter is at bedside at this time. She is requesting another ABG to be drawn to see if the pt's CO2 has went down with use of Trilogy at PM. Told her we would have to speak with MD in am upon rounds about her request.
--- NOTE | 2020-02-15 23:35 | PC.NURSE ---
Pt rang out with c/o SOA. Upon administering PM meds at 2039, this RN encouraged pt to use Trilogy after catching her breath. Pt easily gets SOA with talking or getting OOB. Upon answering her call light due to SOA, pt is noted with [address] Pt refusing to use trilogy per daughter in room. Pt states she does not want to wear the trilogy until she catches her breath. This RN this educated pt that the Trilogy machine helps blow off her CO2, in which she needs right now. CO2 noted elevated per last ABG. pt states she understands what the Trilogy machine does. Encouraged pt to wear Trilogy in which would decrease her SOA. Pt agreed to try it . Remains sitting upright in bed with HOB elevated.
[2020-02-16] VITALS (11 sets, daily range): BP systolic 116–142; BP diastolic 67–88; PULSE 71–106; RESP 18–28; TEMP 36.4–36.9; O2SAT 87–96; BMI 28.5
--- NOTE | 2020-02-16 01:18 | PC.NURSE ---
Nurse aware of high vitals
[2020-02-16 01:49] LABS: Activated Partial Thrombo Time 56.3 seconds (23.6-34.0)
--- NOTE | 2020-02-16 01:51 | PC.NURSE ---
Spoke with Maninder Narayan nuclear weapons mechanical specialist. He gave new orders to increase Heparin gtt rate to 1,450 units/hr and to redraw PTT levels at 0800.
--- NOTE | 2020-02-16 03:13 | PC.NURSE ---
Pt is alert and oriented x4. Noted restless and anxious with SOA before wearing Trilogy. After agreeing to wear her Trilogy, she has rested comfortably with eyes closed and no further c/o SOA. Tolerated Trilogy well. Bilateral lungs noted clear upon auscultation. No edema noted. Refused teds. Heparin gtt infusing at 29 ml/hr. VSS. Remains safe. Call light within reach. Will continue to monitor.
[2020-02-16 10:51] LABS: Activated Partial Thrombo Time 88.5 seconds (23.6-34.0)
--- NOTE | 2020-02-16 12:05 | P.PN_ITS ---
Internal Medicine - PN: Subj *Date: 02/16/20 *Time: 12:05 Interval history: Feeling somewhat better. She sits up in bed and is blow breathing. Her daughter is present and we discussed the patient's situation. The patient is on Medicaid. I am not sure if this will impact her receiving Coumadin versus Eliquis or Xarelto. We will involve case management tomorrow. Exam Vital signs and Labs for Last 24 Hours: Temp Pulse Resp BP Pulse Ox 98.2 F 91 H 18 116/79 93 L 02/16/20 08:00 02/16/20 10:35 02/16/20 08:00 02/16/20 08:00 02/16/20 10:35 Laboratory Results - last 24 hr 02/15/20 08:08: Estimated Creat Clear 67, Estimated GFR 72, Est GFR ( Amer) 87 D 02/15/20 17:55: APTT 37.2 H D 02/16/20 01:15: APTT 56.3 H* D 02/16/20 09:14: APTT 88.5 H* D I & O for Last 24 hours: Intake & Output 02/14/20 02/15/20 02/16/20 02/17/20 11:59 11:59 11:59 11:59 Intake Total 1030 / 1030 1036 / 1036 1088 / 1088 Output Total 2850 / 2850 4000 / 4000 3000 / 3000 Balance -1820 / -1820 -2964 / -2964 -1912 / -1912 Weight 165 lb 165 lb 5 oz 167 lb 2 oz Microbiology Reports for the Last 24 Hours: Microbiology 02/12/20 19:18 Blood Blood Culture - Final Staphylococcus epidermidis 02/13/20 10:06 Urine,Clean Catch Urine Culture - Final NO GROWTH AFTER 48 HOURS - Constitutional no acute distress - *Routine HEENT Exam Eye: Present: PERRL ENT: Present: mucous membranes moist - *Routine Respiratory Exam Present: decreased breath sounds, wheezes - *Routine Cardiovascular Exam Present: RRR - *Routine Extremities Exam Present: edema (Trace to 1+) Assessment and Plan (1) Pulmonary emboli Status: Acute Category: Medical Code(s): I26.99 - Other pulmonary embolism without acute cor pulmonale (2) Acute exacerbation of chronic obstructive airways disease Status: Acute Category: Medical Code(s): J44.1 - Chronic obstructive p ulmonary disease with (acute) exacerbation (3) COPD (chronic obstructive pulmonary disease) Status: Chronic Category: Medical Code(s): J44.9 - Chronic obstructive pulmonary disease, unspecified (4) Anxiety Status: Chronic Category: Medical Code(s): F41.9 - Anxiety disorder, unspecified (5) Type 2 diabetes mellitus Status: Chronic Category: Medical Code(s): E11.9 - Type 2 diabetes mellitus without complications (6) Hyperlipidemia Status: Chronic Category: Medical Code(s): E78.5 - Hyperlipidemia, unspecified (7) History of congestive heart failure Status: Acute Category: Medical Code(s): Z86.79 - Personal history of other diseases of the circulatory system (8) Elevated brain natriuretic peptide (BNP) level Status: Acute Category: Medical Code(s): R79.89 - Other specified abnormal findings of blood chemistry (9) Bacteremia Status: Acute Category: Medical Code(s): R78.81 - Bacteremia - Assessment and plan all Dx Assessment and Plan for all problems:: Continue heparin at this point. Coumadin versus Eliquis versus Xarelto as outpatient.
--- NOTE | 2020-02-16 13:06 | HMH.ACPN ---
Internal Medicine - PN: Subj *Date: 02/16/20 *Time: 13:06 Exam Vital signs and Labs for Last 24 Hours: Temp Pulse Resp BP Pulse Ox 98.1 F 98 H 20 142/88 H 90 L 02/16/20 12:00 02/16/20 12:00 02/16/20 12:00 02/16/20 12:00 02/16/20 12:00 Laboratory Results - last 24 hr 02/15/20 08:08: Estimated Creat Clear 67, Estimated GFR 72, Est GFR ( Amer) 87 D 02/15/20 17:55: APTT 37.2 H D 02/16/20 01:15: APTT 56.3 H* D 02/16/20 09:14: APTT 88.5 H* D I & O for Last 24 hours: Intake & Output 02/13/20 02/14/20 02/15/20 02/16/20 23:59 23:59 23:59 23:59 Intake Total 930 / 930 850 / 850 1036 / 1036 608 / 608 Output Total 2200 / 2200 4650 / 4650 1999 / 1999 1000 / 1000 Balance -1270 / -1270 -3800 / -3800 -964 / -964 -392 / -392 Weight 76.005 kg 75 kg 74.9 kg 75.807 kg Microbiology Reports for the Last 24 Hours: Microbiology 02/12/20 19:18 Blood Blood Culture - Final Staphylococcus epidermidis 02/13/20 10:06 Urine,Clean Catch Urine Culture - Final NO GROWTH AFTER 48 HOURS Assessment and Plan (1) Pulmonary emboli Status: Acute Category: Medical Code(s): I26.99 - Other pulmonary embolism without acute cor pulmonale (2) Acute exacerbation of chronic obstructive airways disease Status: Acute Category: Medical Code(s): J44.1 - Chronic obstructive pulmonary disease with (acute) exacerbation (3) COPD (chronic obstructive pulmonary disease) Status: Chronic Category: Medical Code(s): J44.9 - Chronic obstructive pulmonary disease, unspecified (4) Anxiety Status: Chronic Category: Medical Code(s): F41.9 - Anxiety disorder, unspecified (5) Type 2 diabetes mellitus Status: Chronic Category: Medical Code(s): E11.9 - Type 2 diabetes mellitus without complications (6) Hyperlipidemia Status: Chronic Category: Medical Code(s): E78.5 - Hyperlipidemia, unspecified (7) History of congestive heart failure Status: Acute Category: Medical Code(s): Z86.79 - Personal history of other diseases of the circulatory system (8) Elevated brain natriuretic peptide (BNP) level Status: Acute Category: Medical Code(s): R79.89 - Other specified abnormal findings of blood chemistry (9) Bacteremia Status: Acute Category: Medical Code(s): R78.81 - Bacteremia The patient's infection will respond to the chosen ABx?: Yes Is the patient receiving the right drug, dose, and route?: Yes Could a more targeted ABx be ordered?: No (WBC WNL, AFEBRILE, STAPH EPI BLD CX X1, OTHER BLD CX NO GROWTH.)
[2020-02-16 17:57] LABS: Activated Partial Thrombo Time 65.9 seconds (23.6-34.0)
--- NOTE | 2020-02-16 18:32 | PC.NURSE ---
PER [facility], HEPARIN DRIP IS TO STAY AT 27ML/HR
--- NOTE | 2020-02-16 19:58 | PC.NURSE ---
PATIENT A&O X4, LUNGS DIMINISHED, PULSES EQUAL. PATIENT WAS ANXIOUS THRU THIS RN SHIFT. PATIENT TOLERATED MEALS WELL, TOLERATED LASIX ADMINISTRATION WITH ADEQUATE OUTPUT. NO NEW CONCERNS AT THIS TIME.
[2020-02-17] VITALS (11 sets, daily range): BP systolic 119–162; BP diastolic 80–86; PULSE 48–104; RESP 16–24; TEMP 36.3–36.8; O2SAT 86–96; BMI 28.4
[2020-02-17 00:47] LABS: Activated Partial Thrombo Time 71.7 seconds (23.6-34.0)
--- NOTE | 2020-02-17 00:50 | PC.NURSE ---
Spoke with elvie rivera pension agent. Gave okay to continue infusing Heparin at current rate of 27 ml/hr.
--- NOTE | 2020-02-17 01:26 | PC.NURSE ---
Nurse notified of low O2.
--- NOTE | 2020-02-17 06:31 | PC.NURSE ---
Pt rested well with eyes closed. Alert and oriented x4. Tolerated Trilogy well t/o night. Sats noted 86-88% while on trilogy and resting. No respiratory distress noted. 94% noted on 4 lnc while awake this shift. No SOA noted while resting with eyes closed this shift. Pt tolerated Vistaril and Morphine per MAR well with no further complaints. No edema noted. VSS. Remains safe. Call light within reach. Will continue to monitor.
[2020-02-17 07:47] LABS: Activated Partial Thrombo Time 77.1 seconds (23.6-34.0)
[2020-02-17 08:28] LABS: Basophils % 0.2 % (0.1-2.0); Hemoglobin 13.3 g/dL (12.2-16.2); Lymphocytes # 0.8 K/mm3 (0.7-4.5); Lymphocytes % 5.4 % (10-50); Mean Corpuscular HGB Conc 31.6 g/dL (31.8-35.4); Mean Corpuscular Hemoglobin 28.8 pg (27.0-31.2); Mean Corpuscular Volume 91.3 fl (81-99); Mean Platelet Volume 8.9 fl (7.4-10.4); Monocytes # 0.5 K/mm3 (0.1-1.0); Monocytes % 3.3 % (1.7-9.3); Neutrophils # 12.6 K/mm3 (1.8-7.8); Platelet Count 334 K/mm3 (142-424); Red Cell Distribution Width 15.7 % (11.5-17.5); White Blood Count 13.9 K/mm3 (4.8-10.8)
[2020-02-17 08:30] LABS: MANUAL DIFFERENTIAL MANUAL DIFFERENTIAL (MANUAL DIFF)
--- NOTE | 2020-02-17 08:30 | HMH.ACPN2 ---
Internal Medicine - PN: Subj *Date: 02/17/20 *Time: 08:30 Interval history: Patient does not know if she is feeling better or not. She states her breathing is at baseline. She denies chest pain. She is eating and drinking without difficulty. Is been up to the bedside commode several times. She did sleep last night. She is voiding QS. CBC with a white blood cell count of 13,900 hemoglobin is 13.3 and hematocrit 42. Blood culture reveals staph epi dermatitis, possible contaminant. Sputum culture reveals normal respiratory benjamin urine culture shows no growth after 48 hours. Venous Doppler study to be completed today. Patient remains on a heparin drip and is receiving Solu-Medrol 80 mg IV every 8 hours. She still requires morphine for pain Exam Vital signs and Labs for Last 24 Hours: Temp Pulse Resp BP Pulse Ox 97.4 F L 101 H 16 134/80 92 L 02/17/20 04:00 02/17/20 06:20 02/17/20 04:00 02/17/20 04:00 02/17/20 06:31 Laboratory Results - last 24 hr 02/16/20 09:14: APTT 88.5 H* D 02/16/20 17:25: APTT 65.9 H* D 02/16/20 23:30: APTT 71.7 H* 02/17/20 05:52: APTT 77.1 H* I & O for Last 24 hours: Intake & Output 02/14/20 02/15/20 02/16/20 02/17/20 11:59 11:59 11:59 11:59 Intake Total 1030 / 1030 1036 / 1036 1088 / 1088 1067 / 1067 Output Total 2850 / 2850 4000 / 4000 3000 / 3000 3650 / 3650 Balance -1820 / -1820 -2964 / -2964 -1912 / -1912 -2583 / -2583 Weight 165 lb 165 lb 5 oz 167 lb 2 oz 166 lb 8 oz Microbiology Reports for the Last 24 Hours: Microbiology 02/12/20 19:18 Blood Blood Culture - Final Staphylococcus epidermidis - Constitutional no acute distress Comments: Sitting up in the bed eating breakfast. She appears comfortable. - *Routine Respiratory Exam Present: crackles (Few fine bibasilar crackles posteriorly) - *Routine Cardiovascular Exam Present: RRR - *Routine Abdominal Exam Present: soft, normoactive bowel sounds. Absent: tenderness - *Routine Extremities Exam Absent: edema, calf tenderness - *Routine Neurological Exam Present: alert, oriented X3 Assessment and Plan (1) Pulmonary emboli Status: Acute Category: Medical Code(s): I26.99 - Other pulmonary embolism without acute cor pulmonale (2) Acute exacerbation of chronic obstructive airways disease Status: Acute Category: Medical Code(s): J44.1 - Chronic obstructive pulmonary disease with (acute) exacerbation (3) COPD (chronic obstructive pulmonary disease) Status: Chronic Category: Medical Code(s): J44.9 - Chronic obstructive pulmonary disease, unspecified (4) Anxiety Status: Chronic Category: Medical Code(s): F41.9 - Anxiety disorder, unspecified (5) Type 2 diabetes mellitus Status: Chronic Category: Medical Code(s): E11.9 - Type 2 diabetes mellitus without complications (6) Hyperlipidemia Status: Chronic Category: Medical Code(s): E78.5 - Hyperlipidemia, unspecified (7) History of congestive heart failure Status: Acute Category: Medical Code(s): Z86.79 - Personal history of other diseases of the circulatory system (8) Elevated brain natriuretic peptide (BNP) level Status: Acute Category: Medical Code(s): R79.89 - Other specified abnormal findings of blood chemistry (9) Bacteremia Status: Acute Category: Medical Code(s): R78.81 - Bacteremia - Assessment and plan all Dx Assessment and Plan for all problems:: Continue with heparin drip. Encourage ambulation. Increase in white blood cell count may be due to steroids
[2020-02-17 08:51] LABS: Eosinophils % 4 % (0-3); Lymphocytes % 4 % (10-50); Monocytes % 2 % (2-9); Neutrophils % 88 % (42-76); Platelet Estimate Normal; RBC Morphology Normal; Total Cells Counted 100
--- NOTE | 2020-02-17 13:15 | DIET.NUTRFU ---
PO intakes 75-100%. BG moderate-high- 231, 129, 327. Weight stable. Pt to start Coumadin therapy today, diet education for possible diet/medication interaction with Vit K given. Pt voiced understanding, written education provided for daughter/roofing machine operator as well. No further nutritional concerns at this time, continuing to monitor.
--- NOTE | 2020-02-17 14:07 | HMH.PNCARD ---
Subjective Date: 02/17/20 Time: 01:00 Principal diagnosis: COPD, Pneumonia Interval history: 65 year old female admitted to [facility] for Pneumonia and COPD. While being admitted to this facility, Chest CTA was performed and revealed: 1. Acute bilateral pulmonary emboli with a moderate burden with possible mild right heart strain. No saddle embolus evident. No emboli evident within the main pulmonary artery. 2. Hyperinflation with suspected small airway disease with scattered areas of atelectasis or fibrosis. 3. Coronary artery calcification. PCP started on Heparin and Coumadin. Pt continues to have increase shortness of breath and requires non-rebreather. Pt stated that she feels some better. Pt has history of COPD and CAD. Pt denies chest pain, tightness or pressure. Pt does follow a [employer] in [place], [place]. Last seen Cardiology unknown per pt. Pt is resting quietly in her bed. Denies fever, nausea or vomiting. Spoke with Dr. Honeycutt regarding pt's plan of care. Will defer plan of care to PCP unless Cardiology is notified. Thank you for letting Cardiology participate in the care of this pt. Exam Vital signs and Labs for Last 24 Hours: Temp Pulse Resp BP Pulse Ox 98.3 F 103 H 22 162/84 H 90 L 02/17/20 08:00 02/17/20 14:03 02/17/20 08:00 02/17/20 08:00 02/17/20 10:16 Laboratory Results - last 24 hr 02/16/20 17:25: APTT 65.9 H* D 02/16/20 23:30: APTT 71.7 H* 02/17/20 05:52: APTT 77.1 H* 02/17/20 05:52: WBC 13.9 H, RBC 4.60, Hgb 13.3, Hct 42.0, MCV 91.3, MCH 28.8, MCHC 31.6 L, RDW 15.7, Plt Count 334, MPV 8.9, Neut % (Auto) 91.0 H, Lymph % (Auto) 5.4 L, [place] % (Auto) 3.3, Eos % (Auto) 0.0 L, Baso % (Auto) 0.2, Neut # (Auto) 12.6 H, Lymph # (Auto) 0.8, [place] # (Auto) 0.5, Eos # (Auto) 0.0, Baso # (Auto) 0.0, Total Counted 100, Neutrophils % (Manual) 88 H, Band Neutrophils % 2.0, Lymphocytes % (Manual) 4 L, Monocytes % (Manual) 2, Eosinophils % (Manual) 4 H, Platelet Estimate Normal, RBC Morphology Normal I & O for Last 24 hours: Intake & Output 02/14/20 02/15/20 02/16/20 02/17/20 23:59 23:59 23:59 23:59 Intake Total 850 / 850 1036 / 1036 1314 / 1314 1321 / 1321 Output Total 4650 / 4650 1999 / 1999 3800 / 3800 2350 / 2350 Balance -3800 / -3800 -964 / -964 -2486 / -2486 -1029 / -1029 Weight 165 lb 5.547 oz 165 lb 2.02 oz 167 lb 2 oz 166 lb 8 oz Microbiology Reports for the Last 24 Hours: Microbiology 02/12/20 19:18 Blood Blood Culture - Final Staphylococcus epidermidis - Constitutional moderate distress, cooperative - *Routine HEENT Exam ENT: Present: mucous membranes dry - *Routine Neck Exam Present: supple, full ROM, normal carotid upstroke. Absent: JVD, carotid bruit, lymphadenopathy - Routine Chest/Breast/Axilla Exam Chest wall: Present: tenderness. Absent: mass, pacemaker - *Routine Respiratory Exam Present: wheezes, diminished air movement - *Routine Cardiovascular Exam Present: RRR, Normal S1, Normal S2. Absent: irregular rhythm, irregularly irregular, JVD - *Routine Abdominal Exam Present: soft, normoactive bowel sounds. Absent: guarding, firm - *Routine Extremities Exam Present: full ROM, pulses intact, normal capillary refill. Absent: edema - *Routine Skin Exam Present: intact, warm. Absent: erythema, lesions - *Routine Neurological Exam Present: alert, oriented X3, CN II-XII intact, normal reflexes, moving all extremities, normal speech - Routine Psychiatric Exam Present: normal affect, normal thought process, cooperative Progress Note: A&P (1) Pulmonary emboli Status: Acute (2) Acute exacerbation of chronic obstructive airways disease Status: Acute (3) COPD (chronic obstructive pulmonary disease) Status: Chronic (4) Anxiety Status: Chronic (5) Type 2 diabetes mellitus Status: Chronic (6) Hyperlipidemia Status: Chronic (7) History of congestive heart failure Status: Acute
[2020-02-17 19:23] LABS: Activated Partial Thrombo Time 19.4 seconds (23.6-34.0)
[2020-02-18] VITALS (10 sets, daily range): BP systolic 143–158; BP diastolic 79–89; PULSE 78–118; RESP 17–22; TEMP 36.4–36.9; O2SAT 90–94; BMI 28.5
[2020-02-18 00:29] LABS: Activated Partial Thrombo Time 21.3 seconds (23.6-34.0)
--- NOTE | 2020-02-18 01:29 | PC.NURSE ---
Spoke with Irena Sprague, pharmacy regarding pt's 2330 APTT value of 21.3. New Orders: 3,000 unit bolus of Heparin increase Heparin gtt to 28 ml/hr repeat PTT labs drawn in 6 hours All orders repeated verbally, sent to [facility] pharmacy, and administered to pt.
--- NOTE | 2020-02-18 04:34 | PC.NURSE ---
Pt is A&Ox4. Lung sounds are diminished t/o. Pt is currently wearing her Trilogy appropriately. Pt has requested PRN anxiety meds x1 this shift and has favorable results from them. Heparin gtt is currently set to 28 ml/hr per pharmacy, SEE PREVIOUS NOTE. No BM noted this shift. No other complaints or acute changes. Will continue to monitor.
[2020-02-18 06:10] LABS: Chloride 81 mmol/L (98-107); Potassium 3.8 mmoL/L (3.5-5.1); Sodium 133 mmol/L (136-145)
[2020-02-18 06:13] LABS: Blood Urea Nitrogen 39 mg/dl (7-17); Calcium 9.2 mg/dl (8.4-10.2); Creatinine Clearance Estimated 68 mL/min (50-200); Estimated Glomerular Filt Rate 101 ml/min (>60); GFR (African American) 122 ML/MIN (>60); Glucose 273 mg/dl (74-100)
[2020-02-18 06:31] LABS: Basophils # 0.1 K/mm3 (0-0.2); Basophils % 0.4 % (0.1-2.0); Hematocrit 41.4 % (37.0-47.0); Hemoglobin 13.3 g/dL (12.2-16.2); Lymphocytes # 0.7 K/mm3 (0.7-4.5); Lymphocytes % 5.5 % (10-50); Mean Corpuscular HGB Conc 32.1 g/dL (31.8-35.4); Mean Corpuscular Hemoglobin 29.7 pg (27.0-31.2); Mean Corpuscular Volume 92.5 fl (81-99); Mean Platelet Volume 8.9 fl (7.4-10.4); Monocytes # 0.6 K/mm3 (0.1-1.0); Monocytes % 4.6 % (1.7-9.3); Neutrophils # 10.7 K/mm3 (1.8-7.8); Neutrophils % 89.5 % (37.0-80.0); Platelet Count 305 K/mm3 (142-424); Red Blood Count 4.47 M/mm3 (4.20-5.40); Red Cell Distribution Width 15.7 % (11.5-17.5)
[2020-02-18 06:39] LABS: Anion Gap 7.8 mEq/L (5-15); Carbon Dioxide 48 mmol/L (22.0-30.0)
[2020-02-18 07:06] LABS: MANUAL DIFFERENTIAL MANUAL DIFFERENTIAL (MANUAL DIFF)
[2020-02-18 07:59] LABS: Activated Partial Thrombo Time 83.1 seconds (23.6-34.0)
[2020-02-18 08:35] LABS: Lymphocytes % 5 % (10-50); Monocytes % 2 % (2-9); Neutrophils % 93 % (42-76); Platelet Estimate Normal; RBC Morphology Normal; Total Cells Counted 100
--- NOTE | 2020-02-18 09:03 | HMH.ACPN2 ---
Internal Medicine - PN: Subj *Date: 02/18/20 *Time: 09:03 Interval history: Patient states she is somewhat better. Her breathing has been stable. She denies chest pain. She eats satisfactory. She has been up to the bedside commode as necessary and does well. This a.m. CBC shows a white blood cell count of 12,000. Blood chemistries show sodium of 133 and potassium of 3.8. Renal function with a BUN of 39 and creatinine of 0.6. Venous Doppler study reveals a DVT seen in the right popliteal vein. Exam Vital signs and Labs for Last 24 Hours: Temp Pulse Resp BP Pulse Ox 98.1 F 101 H 17 158/87 H 90 L 02/18/20 08:00 02/18/20 08:00 02/18/20 08:00 02/18/20 08:00 02/18/20 08:00 Laboratory Results - last 24 hr 02/17/20 13:00: APTT 02/17/20 18:36: APTT 19.4 L 02/17/20 23:30: APTT 21.3 L 02/18/20 05:28: WBC 12.0 H, RBC 4.47, Hgb 13.3, Hct 41.4, MCV 92.5, MCH 29.7, MCHC 32.1, RDW 15.7, Plt Count 305, MPV 8.9, Neut % (Auto) 89.5 H, Lymph % (Auto) 5.5 L, [place] % (Auto) 4.6, Eos % (Auto) 0.0 L, Baso % (Auto) 0.4, Neut # (Auto) 10.7 H, Lymph # (Auto) 0.7, [place] # (Auto) 0.6, Eos # (Auto) 0.0, Baso # (Auto) 0.1, Total Counted 100, Neutrophils % (Manual) 93 H, Lymphocytes % (Manual) 5 L, Monocytes % (Manual) 2, Platelet Estimate Normal, RBC Morphology Normal 02/18/20 05:28: Sodium 133 L, Potassium 3.8, Chloride 81 L, Carbon Dioxide 48 H*, Anion Gap 7.8, BUN 39 H D, Creatinine 0.60 D, Estimated Creat Clear 68, Estimated GFR 101, Est GFR ( Amer) 122 D, Glucose 273 H, Calcium 9.2 02/18/20 05:28: APTT 83.1 H* D I & O for Last 24 hours: Intake & Output 02/15/20 02/16/20 02/17/20 02/18/20 11:59 11:59 11:59 11:59 Intake Total 1036 / 1036 1088 / 1088 1787 / 1787 840 / 840 Output Total 4000 / 4000 3000 / 3000 5150 / 5150 450 / 450 Balance -2964 / -2964 -1912 / -1912 -3363 / -3363 390 / 390 Weight 165 lb 5 oz 167 lb 2 oz 166 lb 8 oz 167 lb Microbiology Reports for the Last 24 Hours: Microbiology 02/12/20 19:18 Blood Blood Culture - Final NO GROWTH AFTER 5 DAYS - Constitutional no acute distress Comments: Sitting up in the bed and has just completed breakfast. - *Routine Respiratory Exam Present: CTA bilaterally (Anteriorly and posteriorly), prolonged expiratory phase, distant breath sounds - *Routine Cardiovascular Exam Present: RRR - *Routine Abdominal Exam Present: soft, normoactive bowel sounds. Absent: tenderness, distended - *Routine Extremities Exam Absent: edema, calf tenderness - *Routine Neurological Exam Present: alert, oriented X3 Assessment and Plan (1) Pulmonary emboli Status: Acute Category: Medical Code(s): I26.99 - Other pulmonary embolism without acute cor pulmonale (2) Acute exacerbation of chronic obstructive airways disease Status: Acute Category: Medical Code(s): J44.1 - Chronic obstructive pulmonary disease with (acute) exacerbation (3) COPD (chronic obstructive pulmonary disease) Status: Chronic Category: Medical Code(s): J44.9 - Chronic obstructive pulmonary disease, unspecified (4) Anxiety Status: Chronic Category: Medical Code(s): F41.9 - Anxiety disorder, unspecified (5) Type 2 diabetes mellitus Status: Chronic Category: Medical Code(s): E11.9 - Type 2 diabetes mellitus without complications (6) Hyperlipidemia Status: Chronic Category: Medical Code(s): E78.5 - Hyperlipidemia, unspecified (7) History of congestive heart failure Status: Acute Category: Medical Code(s): Z86.79 - Personal history of other diseases of the circulatory system (8) Elevated brain natriuretic peptide (BNP) level Status: Acute Category: Medical Code(s): R79.89 - Other specified abnormal findings of blood chemistry (9) Bacteremia Status: Acute Category: Medical Code(s): R78.81 - Bacteremia (10) Deep vein thrombosis (DVT) of popliteal vein of left lower extremity Status: Acute Category: Medica
[2020-02-18 10:23] LABS: INR 2.04 (0.9-1.1); Prothrombin Time 21.2 seconds (9.4-11.8)
--- NOTE | 2020-02-18 11:35 | HMH.PHAINT ---
INR = 2.04 THIS MORNING. CONTINUE WARFARIN ONLY AND STOP HEPARIN DRIP PER DR HAYDEN.
--- NOTE | 2020-02-18 11:35 | PC.NURSE ---
Made dr jacques aware of INR of 2.04 and he is going to stop heparin gtt and made Yudelka in pharmacy aware as well.
--- NOTE | 2020-02-18 12:02 | HMH.PTEV ---
Physical Therapy Evaluation Rehab PT IP Evaluation Start: 02/18/20 09:19 Freq: ONCE Status: Active Protocol: Document 02/18/20 11:57 RACQUEL (Rec: 02/18/20 12:02 RACQUEL [id number]) Subjective/History History History THis is the initial IP PT evaluation for Tyrese Barragan. Pt is a 64 y/o female admitted to [facility] for COPD exacerbation. Pt reports she was in [facility] for a time and returned home. Pt reports after she came home she did not progress, and got worse w/ breathing. Pt came to [facility] thru ED for sig. breathing distress. Subjective Subjective Pt reports she is willing to participate w/ therapy but needs to take her time. Pt reports she uses w/c and electric scooter at [facility] for most motorvation, but can transfer Independently Rehab PT IP Eval Objective Appearance Patient Behavior Appropriate,Cooperative Patient Orientation Person,Place,Time Difficulty following instructions none Speech Pattern Clear,Appropriate Ambulation Patient Able to Ambulate Yes Ambulation Observation IP General Gait Pattern Observation Shuffling Step Ambulation Distance (feet) 5 Ambulation Assistive Device None Ambulation Ability Supervision/Stand by Balance Ability to Arise Able, uses arms to help Sitting Balance Steady, safe Standing Balance Narrow stance w/o support Dynamic Sitting Balance Ability Normal Dynamic Standing Balance Ability Good Transfers Bed Transfer Ability Independent Chair Transfer Ability Independent Sit to Stand Bed Transfer Ability Independent Sit to Stand Chair Transfer Ability Independent ROM All Extremities PT ROM Status WFL MMT All Extremities PT MMT WFL Rehab PT IP prob,goals,plan Problems Date of Evaluation: 02/18/20 Rehab Potential Rehab Potential Innapropriate for Skilled Therapy Discharge Plan PT Discharge Plan Pt safe to return home at [facility] once medically stable G -code Required No Eval Complexity Eval Charge Codes 45605 - Low Complexity
--- NOTE | 2020-02-18 13:58 | HMH.ACPN ---
Internal Medicine - PN: Subj *Date: 02/18/20 *Time: 13:58 Exam Vital signs and Labs for Last 24 Hours: Temp Pulse Resp BP Pulse Ox 98.1 F 91 H 17 158/87 H 94 L 02/18/20 08:00 02/18/20 10:01 02/18/20 08:00 02/18/20 08:00 02/18/20 10:01 Laboratory Results - last 24 hr 02/17/20 13:00: APTT 02/17/20 18:36: APTT 19.4 L 02/17/20 23:30: APTT 21.3 L 02/18/20 05:28: WBC 12.0 H, RBC 4.47, Hgb 13.3, Hct 41.4, MCV 92.5, MCH 29.7, MCHC 32.1, RDW 15.7, Plt Count 305, MPV 8.9, Neut % (Auto) 89.5 H, Lymph % (Auto) 5.5 L, [place] % (Auto) 4.6, Eos % (Auto) 0.0 L, Baso % (Auto) 0.4, Neut # (Auto) 10.7 H, Lymph # (Auto) 0.7, [place] # (Auto) 0.6, Eos # (Auto) 0.0, Baso # (Auto) 0.1, Total Counted 100, Neutrophils % (Manual) 93 H, Lymphocytes % (Manual) 5 L, Monocytes % (Manual) 2, Platelet Estimate Normal, RBC Morphology Normal 02/18/20 05:28: Sodium 133 L, Potassium 3.8, Chloride 81 L, Carbon Dioxide 48 H*, Anion Gap 7.8, BUN 39 H D, Creatinine 0.60 D, Estimated Creat Clear 68, Estimated GFR 101, Est GFR ( Amer) 122 D, Glucose 273 H, Calcium 9.2 02/18/20 05:28: APTT 83.1 H* D 02/18/20 09:48: PT 21.2 H, INR 2.04 H I & O for Last 24 hours: Intake & Output 02/15/20 02/16/20 02/17/20 02/18/20 23:59 23:59 23:59 23:59 Intake Total 1036 / 1036 1314 / 1314 1561 / 1561 360 / 360 Output Total 1999 3800 / 3800 2800 / 2800 Balance -964 / -964 -2486 / -2486 -1239 / -1239 360 / 360 Weight 74.9 kg 75.807 kg 75.523 kg 75.75 kg Microbiology Reports for the Last 24 Hours: Microbiology 02/12/20 19:18 Blood Blood Culture - Final NO GROWTH AFTER 5 DAYS Assessment and Plan (1) Pulmonary emboli Status: Acute Category: Medical Code(s): I26.99 - Other pulmonary embolism without acute cor pulmonale (2) Acute exacerbation of chronic obstructive airways disease Status: Acute Category: Medical Code(s): J44.1 - Chronic obstructive pulmonary disease with (acute) exacerbation (3) COPD (chronic obstructive pulmonary disease) Status: Chronic Category: Medical Code(s): J44.9 - Chronic obstructive pulmonary disease, unspecified (4) Anxiety Status: Chronic Category: Medical Code(s): F41.9 - Anxiety disorder, unspecified (5) Type 2 diabetes mellitus Status: Chronic Category: Medical Code(s): E11.9 - Type 2 diabetes mellitus without complications (6) Hyperlipidemia Status: Chronic Category: Medical Code(s): E78.5 - Hyperlipidemia, unspecified (7) History of congestive heart failure Status: Acute Category: Medical Code(s): Z86.79 - Personal history of other diseases of the circulatory system (8) Elevated brain natriuretic peptide (BNP) level Status: Acute Category: Medical Code(s): R79.89 - Other specified abnormal findings of blood chemistry (9) Bacteremia Status: Acute Category: Medical Code(s): R78.81 - Bacteremia (10) Deep vein thrombosis (DVT) of popliteal vein of left lower extremity Status: Acute Category: Medical Code(s): I82.432 - Acute embolism and thrombosis of left popliteal vein (11) Deep vein thrombosis (DVT) of popliteal vein of right lower extremity Status: Acute Category: Medical Code(s): I82.431 - Acute embolism and thrombosis of right popliteal vein The patient's infection will respond to the chosen ABx?: Yes Is the patient receiving the right drug, dose, and route?: Yes Could a more targeted ABx be ordered?: No
--- NOTE | 2020-02-18 19:23 | PC.NURSE ---
Alert and oriented x4 and able to make needs known. Remains on 4 L NC. IV's both SL. CB in reach. Lungs cta, s1,s2, BS x 4. Pt did have episode this am of abd pain and anxiety. Encouraged deep breathing and helped pt to bsc where she had a XL BM and abd felt much better. Pt has been calm since. VSS. Meds given per may.
[2020-02-19] VITALS: BP 133/90; PULSE 68; RESP 20; TEMP -14.1; TEMP 6.7; O2SAT 90
[2020-02-19 04:00] VITALS: BP 137/89; PULSE 87; RESP 18; TEMP 36.4; O2SAT 93
[2020-02-19 05:17] VITALS: BMI 28.5
--- NOTE | 2020-02-19 05:40 | PC.NURSE ---
Pt is A&Ox4. Expiratory wheezing heard t/o per auscultation. No edema noted. No BM noted. Pt wore Trilogy during sleeping hours and 4 L NC during awake hours. PRN anxiety meds given per MAR with favorable results. Pt took self to BSC x2 this shift and urinated clear, yellow urine. No other acute changes or complaints at this time. Will continue to monitor.
[2020-02-19 05:55] VITALS: PULSE 94; PULSE 96; O2SAT 90
[2020-02-19 07:45] VITALS: O2SAT 92
[2020-02-19 08:00] VITALS: BP 154/82; PULSE 113; RESP 18; TEMP 36.4; O2SAT 92
--- NOTE | 2020-02-19 08:18 | HMH.ACPN2 ---
Internal Medicine - PN: Subj *Date: 02/19/20 *Time: 08:18 Interval history: Patient states she seems a little bit more short of breath this morning. She did sleep well last night and ate breakfast. She had a breathing treatment approximately an hour and a half ago. She denies any pain this morning. Exam Vital signs and Labs for Last 24 Hours: Temp Pulse Resp BP Pulse Ox 97.6 F 96 H 18 137/89 90 L 02/19/20 04:00 02/19/20 05:55 02/19/20 04:00 02/19/20 04:00 02/19/20 05:55 Laboratory Results - last 24 hr 02/18/20 05:28: Total Counted 100, Neutrophils % (Manual) 93 H, Lymphocytes % (Manual) 5 L, Monocytes % (Manual) 2, Platelet Estimate Normal, RBC Morphology Normal 02/18/20 09:48: PT 21.2 H, INR 2.04 H I & O for Last 24 hours: Intake & Output 02/16/20 02/17/20 02/18/20 02/19/20 11:59 11:59 11:59 11:59 Intake Total 1088 / 1088 1787 / 1787 840 / 840 2140 / 2140 Output Total 3000 / 3000 5150 / 5150 450 / 450 1810 / 1810 Balance -1912 / -1912 -3363 / -3363 390 / 390 330 / 330 Weight 167 lb 2 oz 166 lb 8 oz 167 lb 167 lb 5 oz - Constitutional no acute distress - *Routine Respiratory Exam Present: decreased breath sounds - *Routine Cardiovascular Exam Present: RRR - *Routine Abdominal Exam Present: soft, normoactive bowel sounds. Absent: tenderness - *Routine Extremities Exam Absent: cyanosis, clubbing, edema - *Routine Skin Exam Present: warm. Absent: rash - *Routine Neurological Exam Present: alert, oriented X3 Assessment and Plan (1) Pulmonary emboli Status: Acute Category: Medical Code(s): I26.99 - Other pulmonary embolism without acute cor pulmonale (2) Acute exacerbation of chronic obstructive airways disease Status: Acute Category: Medical Code(s): J44.1 - Chronic obstructive pulmonary disease with (acute) exacerbation (3) COPD (chronic obstructive pulmonary disease) Status: Chronic Category: Medical Code(s): J44.9 - Chronic obstructive pulmonary disease, unspecified (4) Anxiety Status: Chronic Category: Medical Code(s): F41.9 - Anxiety disorder, unspecified (5) Type 2 diabetes mellitus Status: Chronic Category: Medical Code(s): E11.9 - Type 2 diabetes mellitus without complications (6) Hyperlipidemia Status: Chronic Category: Medical Code(s): E78.5 - Hyperlipidemia, unspecified (7) History of congestive heart failure Status: Acute Category: Medical Code(s): Z86.79 - Personal history of other diseases of the circulatory system (8) Elevated brain natriuretic peptide (BNP) level Status: Acute Category: Medical Code(s): R79.89 - Other specified abnormal findings of blood chemistry (9) Bacteremia Status: Acute Category: Medical Code(s): R78.81 - Bacteremia (10) Deep vein thrombosis (DVT) of popliteal vein of left lower extremity Status: Acute Category: Medical Code(s): I82.432 - Acute embolism and thrombosis of left popliteal vein (11) Deep vein thrombosis (DVT) of popliteal vein of right lower extremity Status: Acute Category: Medical Code(s): I82.431 - Acute embolism and thrombosis of right popliteal vein - Assessment and plan all Dx Assessment and Plan for all problems:: Steroid dose was decreased and she has been started on Coumadin. Will discuss further care with Dr. Honeycutt.
[2020-02-19 09:24] VITALS: PULSE 88; PULSE 89; O2SAT 95
[2020-02-19 09:36] LABS: INR 5.78 (0.9-1.1); Prothrombin Time 54.7 seconds (9.4-11.8)
--- NOTE | 2020-02-19 10:50 | PC.NURSE ---
Late Entry 08:20- Routine assessment completed. Lungs CTA, Heart at RR, BS present x4. Pt. denies pain and needs, will continue to monitor.
--- NOTE | 2020-02-19 10:58 | SW/DCPLANNER ---
Addendum entered by Melissa Galloway 02/26/20 10:33: PATIENT IS DISCHARGING HOME TODAY AND WILL BE FOLLOWED BY [facility]... I HAVE SENT REFERRAL FOR SERVICES TO START IN THE AM.... Addendum entered by Pam Castro 02/19/20 11:36: Jacqueline with [facility] called back stating that patient information has been reviewed and services will begin this week for this patient. Original Note: I have spoke with this patient regarding discharge plans. Patient resides at home with family and PT has stated that patient is stable for discharge back home. Patient is agreeable to home health services and prefers [facility]. Patient information has been faxed to [facility]. Patient already has home O2 and Trilogy from [facility] and stated that everything is fine with home O2 and Trilogy. Patient will discharge home today.
--- NOTE | 2020-02-19 14:48 | HMH.DCSUM ---
General - General Admission date:: 02/12/20 Discharge date: 02/19/20 HPI HPI: Ms. Barragan is a 64-year-old female who was just recently discharged from [facility] due to pneumonia. She states she went home and within a few days was feeling poorly again. She states she has felt bad for a total of 2 to 3 weeks. She is oxygen dependent at home on 4 L and states her shortness of breath became so bad that she presented to the emergency room here at [facility]. She is followed by the pulmonology at [facility]. She was evaluated and admitted with a COPD exacerbation. Her chest x-ray showed bilateral lower lobe atelectasis but no pneumonia. She was started on Zithromax, Rocephin, and duo nebs. She states she does have a history of anxiety and depression and became very anxious last night when she could not breathe. She was given some hydroxyzine, Seroquel, and some morphine and this seemed to calm her down and she was able to rest. She does feel better this morning. Hospital Course Hospital Course: The patient was admitted and started on Zithromax and Rocephin as well as duo nebs. She was also given dexamethasone in the ER. Cardiology was consulted due to an elevated BNP. They ordered a CTA and increased her Lasix. She was also started on Solu-Medrol 80 mg IV every 8 hours. Her sats were in the 80s on 4 L. Her CTA came back positive for bilateral PEs. She was immediately started on a heparin drip. Cardiology also ordered an echo which showed an EF of 65% with grade 1 diastolic dysfunction and a right ventricular systolic pressure of 57 mmHg. Venous Dopplers were ordered and a DVT was seen in the right popliteal vein. The patient began feeling somewhat better. Her blood cultures did return positive for Staph epidermidis. The patient was initiated on Coumadin. Her breathing returned to baseline. Her Solu-Medrol dose was weaned and her pro time became therapeutic. She was stable and ready for discharge and was continued on Coumadin 5 mg a day and will need to follow-up with her PCP. She was also discharged on cefdinir and will need to follow-up with pulmonology. Objective Vital signs: Temp Pulse Resp BP Pulse Ox 97.6 F 89 18 154/82 H 95 02/19/20 08:00 02/19/20 09:24 02/19/20 08:00 02/19/20 08:00 02/19/20 09:24 Narrative: - Constitutional no acute distress - *Routine HEENT Exam Head: Present: normocephalic Eye: Present: EOMI, PERRL ENT: Present: mucous membranes dry - *Routine Neck Exam Present: supple. Absent: lymphadenopathy - *Routine Respiratory Exam Present: decreased breath sounds - *Routine Cardiovascular Exam Present: RRR - *Routine Abdominal Exam Present: soft, normoactive bowel sounds, tenderness (suprapubic) - *Routine Extremities Exam Present: edema (trace bilaterally). Absent: cyanosis, clubbing - *Routine Skin Exam Present: warm. Absent: rash - *Routine Neurological Exam Present: alert, oriented X3 Results Labs on day of discharge: Labs from last 24 hours 02/19/20 08:49 PT 54.7 H INR 5.78 H DS: Diagnosis - Discharge Diagnosis (1) Pulmonary emboli Status: Acute (2) Acute exacerbation of chronic obstructive airways disease Status: Acute (3) COPD (chronic obstructive pulmonary disease) Status: Chronic (4) Anxiety Status: Chronic (5) Type 2 diabetes mellitus Status: Chronic (6) Hyperlipidemia Status: Chronic (7) History of congestive heart failure Status: Acute (8) Elevated brain natriuretic peptide (BNP) level Status: Acute (9) Bacteremia Status: Acute (10) Deep vein thrombosis (DVT) of popliteal vein of left lower extremity Status: Acute (11) Deep vein thrombosis (DVT) of popliteal vein of right lower extremity Status: Acute Discharge Plan - Patient Discharge Instructions ACTIVITY: Limited activity DIET: advance to your usual diet Patient Instruc
== END 2020-02-19 12:45 | disposition home health service (06) | DRG 175 ==
LOC: ER 19:34 → 2ND 19:48
PROVIDERS: Nurse Practitioner Family; Physician Assistant; Admitting Provider Family Medicine; Emergency Provider Emergency Medicine; PCP Nurse Practitioner Family; Visit Provider Family Medicine
DX: I26.99 Other pulmonary embolism without acute cor pulmonale (principal); I50.33 Acute on chronic diastolic (congestive) heart failure; J44.1 Chronic obstructive pulmonary disease with (acute) exacerbation; I82.431 Acute embolism and thrombosis of right popliteal vein; R78.81 Bacteremia; I11.0 Hypertensive heart disease with heart failure; E11.9 Type 2 diabetes mellitus without complications; Z99.81 Dependence on supplemental oxygen; Z88.8 Allergy status to other drugs, medicaments and biological substances; Z88.5 Allergy status to narcotic agent; Z79.82 Long term (current) use of aspirin; Z79.51 Long term (current) use of inhaled steroids; Z79.01 Long term (current) use of anticoagulants
CPT/HCPCS: 36415; 71045; 71275; 80048; 81001; 81241; 82803; 82962; 83605; 83735; 83880; 85007; 85025; 85610; 85730; 86328; 87040; 87070; 87077; 87086; 87186; 87205; 93005; 93306; 93970; 94640; 94761; 96365; 96375; 97161; 99283; J0456; Q9967

== ENCOUNTER 2020-02-20 10:36 | Emergency (ER) | payer MEDICAID, SELFPAY ==
[2020-02-20 10:36] VITALS: BP 188/113; PULSE 68; RESP 22; TEMP 36.6; O2SAT 98; BMI 28.8
--- NOTE | 2020-02-20 10:44 | HMH.EDGENADL ---
ED Disposition Clinical Impression: Epistaxis Disposition: Home, Self-Care Condition on Discharge: Good Instructions: DI for Nosebleed Additional Instructions: Additional instructions for NOSE BLEED: Use Afrin spray in each nostril twice a day for 3 days. Avoid blowing your nose, bending forward at the waist, or straining. If nosebleed starts again, squeeze your nostrils together with thumb and forefinger for 5 minutes. If unable to stop the bleeding, return to the emergency department. Call Dr. Ash, your ENT doctor, for follow-up if nosebleeds recur. Referrals: PCP,No [Primary Care Provider] - - Critical Care Critical Care Time: No Attestation: On , the high probability of a clinically significant, sudden or life threatening deterioration of the following system(s) required my full and direct attention, intervention and personal management. The time I documented below is in addition to time spent performing reported procedures but includes the following listed in this critical care notation. Medical Decision Making - [place] Inquiry Pt receiving controlled substance: No Vital Signs: 02/20/20 10:36 02/20/20 10:52 02/20/20 11:06 Temperature 98 F Temperature Source Oral Pulse Rate [Radial] 68 115 H 121 H Respiratory Rate 22 Blood Pressure [Right Arm] 188/113 H 179/105 H 165/113 H Blood Pressure Mean [Right Arm] 138 129 130 Blood Pressure Source [Right Arm] Automatic Cuff Automatic Cuff Blood Pressure Position [Right Arm] Sitting Sitting Sitting 02 Sat by Pulse Oximetry 98 100 90 L Oxygen Delivery Method Nasal Cannula Nasal Cannula Room Air Oxygen Flow Rate (LPM) 4 4 02/20/20 11:31 Temperature Temperature Source Pulse Rate [Radial] 105 H Respiratory Rate Blood Pressure [Right Arm] 155/100 H Blood Pressure Mean [Right Arm] 118 Blood Pressure Source [Right Arm] Automatic Cuff Blood Pressure Position [Right Arm] Sitting 02 Sat by Pulse Oximetry 93 L Oxygen Delivery Method Nasal Cannula Oxygen Flow Rate (LPM) 4 - Lab Data Lab Results 02/20/20 10:50: WBC 16.3 H D, RBC 4.88, Hgb 14.1, Hct 49.2 H, MCV 101.0 H, MCH 28.9, MCHC 28.7 L, RDW 17.6 H, Plt Count 311, MPV 13.0 H, Neut % (Auto) 81.1 H, Lymph % (Auto) 11.0, Morrison % (Auto) 4.6, Eos % (Auto) 1.4, Baso % (Auto) 1.8, Neut # (Auto) 13.2 H, Lymph # (Auto) 1.8, Morrison # (Auto) 0.8, Eos # (Auto) 0.2, Baso # (Auto) 0.3 H, Total Counted 100, Neutrophils % (Manual) 81 H, Lymphocytes % (Manual) 9 L, Monocytes % (Manual) 9, Eosinophils % (Manual) 1, Platelet Estimate Normal, Microcytosis 1+ 02/20/20 10:50: PT 35.3 H, INR 3.57 H 02/20/20 10:50: Sodium 133 L, Potassium 3.8, Chloride 79 L, Carbon Dioxide 51 H*, Anion Gap 6.8, BUN 39 H, Creatinine 0.70, Estimated Creat Clear 68, Estimated GFR 84, Est GFR ( Amer) 102, Glucose 182 H, Calcium 9.3, Total Bilirubin 0.6, AST 52 H, ALT 42, Alkaline Phosphatase 53, Total Protein 6.4, Albumin 3.8, Globulin 2.6, Albumin/Globulin Ratio 1.5 Result diagrams: 02/20/20 10:50 02/20/20 10:50 Orders (Tests/Meds): ED MEDICATIONS Discontinued Medications Generic Name Dose Route Start Last Admin Trade Name Thompsonq PRN Reason Stop Dose Admin Oxymetazoline HCl 2 ml 02/20/20 10:50 02/20/20 10:51 Oxymetazoline Nasal [place] 0.05% 15ml NS 02/20/20 10:51 2 sprays ONCE ONE Administration Silver Nitrate 1 each 02/20/20 11:10 02/20/20 11:16 Silver Nitrate Applicator TP 02/20/20 11:11 1 each ONCE ONE Administration - Reevaluation(s) Time: 12:10 Reevaluation #1: No bleeding. Daughter is here with patient. Home health care is to draw her blood tomorrow for INR to determine what her Coumadin dose will be. She is not going to take Coumadin today. I cut off the right prong on her nasal cannula to keep it from rubbing the area of epistaxis. I instructed her on how to stop a nosebleed with pressure if it recurs. General Adult HPI - General Stated complaint: Nose Bleed Time Seen by Jeffry
[2020-02-20 10:52] VITALS: BP 179/105; PULSE 115; O2SAT 100
[2020-02-20 11:05] LABS: Potassium 3.8 mmoL/L (3.5-5.1); Sodium 133 mmol/L (136-145)
[2020-02-20 11:06] VITALS: BP 165/113; PULSE 121; O2SAT 90
[2020-02-20 11:06] LABS: Basophils # 0.3 K/mm3 (0-0.2); Basophils % 1.8 % (0.1-2.0); Eosinophils # 0.2 K/mm3 (0.0-0.4); Eosinophils % 1.4 % (0.1-12.0); Hematocrit 49.2 % (37.0-47.0); Hemoglobin 14.1 g/dL (12.2-16.2); Lymphocytes # 1.8 K/mm3 (0.7-4.5); Mean Corpuscular HGB Conc 28.7 g/dL (31.8-35.4); Mean Corpuscular Hemoglobin 28.9 pg (27.0-31.2); Monocytes # 0.8 K/mm3 (0.1-1.0); Monocytes % 4.6 % (1.7-9.3); Neutrophils # 13.2 K/mm3 (1.8-7.8); Neutrophils % 81.1 % (37.0-80.0); Platelet Count 311 K/mm3 (142-424); Red Blood Count 4.88 M/mm3 (4.20-5.40); Red Cell Distribution Width 17.6 % (11.5-17.5); White Blood Count 16.3 K/mm3 (4.8-10.8)
[2020-02-20 11:07] LABS: Chloride 79 mmol/L (98-107)
[2020-02-20 11:08] LABS: Alanine Aminotransferase 42 U/L (12-78); Albumin Level 3.8 g/dl (3.5-5.0); Albumin/Globulin Ratio 1.5 (1.1-1.8); Alkaline Phosphatase 53 U/L (38-126); Aspartate Amino Transferase 52 U/L (14-36); Bilirubin,Total 0.6 mg/dl (0.2-1.3); Blood Urea Nitrogen 39 mg/dl (7-17); Creatinine Clearance Estimated 68 mL/min (50-200); Estimated Glomerular Filt Rate 84 ml/min (>60); GFR (African American) 102 ML/MIN (>60); Globulin 2.6 g/dL (1.3-3.2); MANUAL DIFFERENTIAL MANUAL DIFFERENTIAL (MANUAL DIFF); Total Protein,Serum 6.4 g/dl (6.3-8.2)
[2020-02-20 11:09] LABS: Calcium 9.3 mg/dl (8.4-10.2); Glucose 182 mg/dl (74-100)
[2020-02-20 11:19] LABS: Anion Gap 6.8 mEq/L (5-15); Carbon Dioxide 51 mmol/L (22.0-30.0)
--- NOTE | 2020-02-20 11:19 | PC.NURSE ---
DR BUTLER INFORMED OF CO2 OF 51
[2020-02-20 11:24] LABS: Eosinophils % 1 % (0-3); Lymphocytes % 9 % (10-50); Monocytes % 9 % (2-9); Neutrophils % 81 % (42-76); Platelet Estimate Normal; Total Cells Counted 100
[2020-02-20 11:25] LABS: Microcytosis 1+
[2020-02-20 11:26] LABS: INR 3.57 (0.9-1.1); Prothrombin Time 35.3 seconds (9.4-11.8)
[2020-02-20 11:31] VITALS: BP 155/100; PULSE 105; O2SAT 93
[2020-02-20 12:17] VITALS: BP 153/104; PULSE 115; O2SAT 100
[2020-02-20 12:37] VITALS: BP 145/99; PULSE 78; RESP 22; TEMP 36.6; O2SAT 94
[2020-02-20 23:24] LABS: ABG Base Excess 19.5 mmol/L (-2.4-2.3); ABG HCO3 44.4 mmhg (22.0-26.0); ABG Oxygen Saturation 82 % (90-100); ABG PH 7.39 mmol/L (7.35-7.45); ABG TCO2 46.7 mmhg (23-27)
[2020-02-20 23:25] LABS: Allen's Test Patient Unable; Source Right Radial
[2020-02-20 23:26] LABS: ABG PCO2 74.9 mmhg (35.0-45.0); ABG PO2 46.8 mmhg (80-100)
== END 2020-02-20 12:40 | disposition home or self-care (01) ==
PROVIDERS: Emergency Provider Emergency Medicine
DX: R04.0 Epistaxis (principal); J44.9 Chronic obstructive pulmonary disease, unspecified; Z99.81 Dependence on supplemental oxygen; I10 Essential (primary) hypertension; E11.9 Type 2 diabetes mellitus without complications; F41.9 Anxiety disorder, unspecified; I50.9 Heart failure, unspecified; Z87.891 Personal history of nicotine dependence
CPT/HCPCS: 30901; 80053; 82803; 85007; 85025; 85610; 99283

== ENCOUNTER 2020-02-20 23:36 | Inpatient (IN) | payer MEDICAID, SELFPAY ==
--- NOTE | 2020-02-20 23:27 | ECG_ITS ---
APPROVED REPORT Exam: Resting ECG HR:113 bpm ECG Measurements Heart Rate 113 AXES [place] 82 P 72 QRSd 78 QRS 76 QT 330 T 65 QTc 452 Conclusion Sinus tachycardia with short [place] with premature atrial complexes with aberrant conduction Nonspecific T wave abnormality Abnormal ECG Electronically signed by : Ricardo Myers, 02/21/2020 08:03:07
[2020-02-20 23:36] VITALS: BP 100/78; PULSE 113; RESP 24; TEMP 37.4; O2SAT 86; BMI 32.2
[2020-02-20 23:37] VITALS: BMI 32.2
--- NOTE | 2020-02-20 23:38 | XR_ITS ---
PROCEDURE: XR CHEST PORTABLE CLINICAL HISTORY: SOA COMPARISON: CR Chest from 09/18/2018 CR XR CHEST PORTABLE from 02/12/[address] ANGIO CHEST from 02/14/2020 CR XR CHEST PORTABLE from 02/14/2020 FINDINGS: The cardiomediastinal silhouette and pulmonary vascularity are within normal limits. No lobar consolidation or collapse. There is increased density in the right lower lobe which is felt to be related to soft tissue attenuation. No acute bony abnormalities. IMPRESSION: No acute findings. Dictated by: Liban Jaime MD 02/21/2020 06:48 Liban Jaime MD in OV 02/21/2020 06:48
[2020-02-20 23:49] LABS: Basophils # 0.1 K/mm3 (0-0.2); Basophils % 0.4 % (0.1-2.0); Eosinophils # 0.2 K/mm3 (0.0-0.4); Eosinophils % 1.5 % (0.1-12.0); Hematocrit 43.9 % (37.0-47.0); Hemoglobin 13.9 g/dL (12.2-16.2); Lymphocytes # 1.5 K/mm3 (0.7-4.5); Lymphocytes % 11.2 % (10-50); Mean Corpuscular HGB Conc 31.6 g/dL (31.8-35.4); Mean Corpuscular Hemoglobin 29.1 pg (27.0-31.2); Mean Platelet Volume 8.2 fl (7.4-10.4); Monocytes # 0.6 K/mm3 (0.1-1.0); Monocytes % 4.7 % (1.7-9.3); Neutrophils # 10.8 K/mm3 (1.8-7.8); Platelet Count 263 K/mm3 (142-424); Red Blood Count 4.77 M/mm3 (4.20-5.40); Red Cell Distribution Width 15.4 % (11.5-17.5); White Blood Count 13.2 K/mm3 (4.8-10.8)
[2020-02-20 23:57] LABS: Alanine Aminotransferase 37 U/L (12-78); Albumin Level 3.7 g/dl (3.5-5.0); Albumin/Globulin Ratio 1.5 (1.1-1.8); Alkaline Phosphatase 54 U/L (38-126); Aspartate Amino Transferase 29 U/L (14-36); Bilirubin,Total 0.7 mg/dl (0.2-1.3); Blood Urea Nitrogen 35 mg/dl (7-17); Calcium 9.3 mg/dl (8.4-10.2); Creatinine Clearance Estimated 77 mL/min (50-200); Estimated Glomerular Filt Rate 72 ml/min (>60); GFR (African American) 87 ML/MIN (>60); Globulin 2.5 g/dL (1.3-3.2); Glucose 290 mg/dl (74-100); Lactic Acid 1.2 mmol/L (0.7-2.1); Potassium 4.1 mmoL/L (3.5-5.1); Sodium 131 mmol/L (136-145); Total Protein,Serum 6.2 g/dl (6.3-8.2)
[2020-02-21] VITALS (23 sets, daily range): BP systolic 92–166; BP diastolic 53–114; PULSE 80–116; RESP 6–29; TEMP 36.2–37.4; O2SAT 88–99; BMI 25.1; BMI 25.0
[2020-02-21] LABS: Microscopic, Urine URINE MICROSCOPIC (MICROSCOPIC)
[2020-02-21 00:02] LABS: C-Reactive Protein 14.5 mg/L (0-4)
[2020-02-21 00:08] LABS: NT Pro Brain Natriuretic Pep. 1890 pg/mL (0-125)
[2020-02-21 00:11] LABS: Anion Gap 8.1 mEq/L (5-15); Chloride 76 mmol/L (98-107)
[2020-02-21 00:12] LABS: Carbon Dioxide 51 mmol/L (22.0-30.0)
[2020-02-21 00:14] LABS: Appearance,Urine Turbid (Clear); Bilirubin,Urine Negative (Negative); Blood, Urine Negative (Negative); Color,Urine YELLOW (Yellow); Glucose,Urine (UA) Negative (Negative); Ketones,Urine Negative (Negative); Leukocyte Esterase,Urine Negative (Negative); Nitrate,Urine Negative (Negative); Protein,Urine Negative (Negative); Specific Gravity, Urine >= 1.030 (1.005-1.030); Urobilinogen,Urine 0.2 EU/dl (0.2)
[2020-02-21 00:16] LABS: Procalcitonin 0.132 ng/mL (0.0-2.0)
[2020-02-21 00:20] LABS: Coronavirus 19 IgG Antibody Negative (Negative); Coronavirus 19 IgM Antibody Negative (Negative)
[2020-02-21 00:24] LABS: Bacteria,Urine Trace /lpf
[2020-02-21 00:42] LABS: Adenovirus,PCR Not Detected (NotDetected); Bordetella Pertussis Not Detected (NotDetected); Chlamydophila Pneumoniae, PCR Not Detected (NotDetected); Coronavirus 19, PCR Not Detected (NotDetected); Coronavirus 229E Not Detected (NotDetected); Coronavirus NL63 Not Detected (NotDetected); Coronavirus OC43 Not Detected (NotDetected); Coronovirus HKU1,PCR Not Detected (NotDetected); Human Metapneumovirus Not Detected (NotDetected); Influenza A, PCR Not Detected (NotDetected); Influenza AH1, 2009 Not Detected (NotDetected); Influenza AH1, PCR Not Detected (NotDetected); Influenza AH3,PCR Not Detected (NotDetected); Influenza B, PCR Not Detected (NotDetected); Mycoplasma Pneumoniae, PCR Not Detected (NotDetected); Parainfluenza 1, PCR Not Detected (NotDetected); Parainfluenza 2, PCR Not Detected (NotDetected); Parainfluenza 3, PCR Not Detected (NotDetected); Parainfluenza 4, PCR Not Detected (NotDetected); Respiratory Syncytial Virus Not Detected (NotDetected); Rhinovirus/Enterovirus Not Detected (NotDetected)
--- NOTE | 2020-02-21 01:06 | PC.NURSE ---
Pt placed on BIPAP at 0000
[2020-02-21 01:12] LABS: Erythrocyte Sedimentation Rate 20 mm/hr (0-30)
[2020-02-21 01:16] LABS: INR 2.34 (0.9-1.1)
--- NOTE | 2020-02-21 01:20 | HMH.EDSOB ---
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 The time I documented below is in addition to time spent performing reported procedures but includes the following listed in this critical care notation. Medical Decision Making - Medical Records Medical records reviewed: Yes: I reviewed the patient's medical records. - [place] Inquiry Pt receiving controlled substance: No Vital Signs: 02/20/20 23:36 02/21/20 00:00 02/21/20 00:30 Temperature 99.4 F Temperature Source Rectal Pulse Rate [Apical] 113 H 87 101 H Respiratory Rate 24 28 H 24 Blood Pressure [Right Arm] 100/78 L 114/68 103/69 L Blood Pressure Mean [Right Arm] 85 83 80 Blood Pressure Source [Right Arm] Automatic Cuff Automatic Cuff Automatic Cuff Blood Pressure Position [Right Arm] Supine Supine Supine 02 Sat by Pulse Oximetry 86 L 88 L 97 Oxygen Delivery Method CPAP Trilogy BiPAP Oxygen Flow Rate (LPM) 6 6 02/21/20 01:02 02/21/20 01:30 02/21/20 02:00 Temperature Temperature Source Pulse Rate [Apical] 99 H 98 H 108 H Respiratory Rate 20 20 21 Blood Pressure [Right Arm] 111/73 107/73 L 121/79 Blood Pressure Mean [Right Arm] 85 84 93 Blood Pressure Source [Right Arm] Automatic Cuff Automatic Cuff Automatic Cuff Blood Pressure Position [Right Arm] Supine Supine Supine 02 Sat by Pulse Oximetry 97 92 L 90 L Oxygen Delivery Method BiPAP BiPAP BiPAP Oxygen Flow Rate (LPM) 02/21/20 02:45 Temperature Temperature Source Pulse Rate [Apical] 107 H Respiratory Rate 25 H Blood Pressure [Right Arm] 120/68 Blood Pressure Mean [Right Arm] 85 Blood Pressure Source [Right Arm] Automatic Cuff Blood Pressure Position [Right Arm] Right Lateral 02 Sat by Pulse Oximetry 94 L Oxygen Delivery Method BiPAP Oxygen Flow Rate (LPM) - Lab Data Lab results reviewed: Yes: I reviewed the patient's lab results. Lab Results 02/20/20 00:00: PT 24.0 H, INR 2.34 H 02/20/20 23:35: WBC 13.2 H, RBC 4.77, Hgb 13.9, Hct 43.9, MCV 92.0, MCH 29.1, MCHC 31.6 L, RDW 15.4, Plt Count 263, MPV 8.2, Neut % (Auto) 82.0 H, Lymph % (Auto) 11.2, [place] % (Auto) 4.7, Eos % (Auto) 1.5, Baso % (Auto) 0.4, Neut # (Auto) 10.8 H, Lymph # (Auto) 1.5, [place] # (Auto) 0.6, Eos # (Auto) 0.2, Baso # (Auto) 0.1, ESR 20 02/20/20 23:35: Sodium 131 L, Potassium 4.1, Chloride 76 L, Carbon Dioxide 51 H*, Anion Gap 8.1, BUN 35 H, Creatinine 0.80, Estimated Creat Clear 77, Estimated GFR 72, Est GFR ( Amer) 87, Glucose 290 H D, Calcium 9.3, Total Bilirubin 0.7, AST 29 D, ALT 37, Alkaline Phosphatase 54, C-Reactive Protein 14.5 H, Total Protein 6.2 L, Albumin 3.7, Globulin 2.5, Albumin/Globulin Ratio 1.5, Procalcitonin 0.132 02/20/20 23:35: Lactate 1.2 02/20/20 23:35: SARS-CoV-2 IgG Ab (Rapid) Negative, SARS-CoV-2 IgM Ab (Rapid) Negative 02/20/20 23:35: NT-Pro-B Natriuret Pep 1890 H 02/20/20 23:58: Urine Color Yellow, Urine Appearance Turbid, Urine pH 5.0, Ur Specific Gravit
[2020-02-21 01:59] LABS: Troponin I 0.06 ng/ml (0.00-0.034)
[2020-02-21 02:18] LABS: ABG Base Excess 19.8 mmol/L (-2.4-2.3); ABG HCO3 44.8 mmhg (22.0-26.0); ABG Oxygen Saturation 92 % (90-100); ABG PH 7.39 mmol/L (7.35-7.45); ABG PO2 64.2 mmhg (80-100); ABG TCO2 47.1 mmhg (23-27)
[2020-02-21 02:20] LABS: Oxygen 40% %; Vent Rate BIPAP 20/10
[2020-02-21 02:21] LABS: ABG PCO2 75.3 mmhg (35.0-45.0); Allen's Test Patient Unable; Source Right Radial
--- NOTE | 2020-02-21 02:53 | PC.NURSE ---
Mathew Echevarria at 0360
--- NOTE | 2020-02-21 02:54 | PC.NURSE ---
Devin speaking to Wale
--- NOTE | 2020-02-21 04:08 | PC.NURSE ---
Pt meets severe sepsis with organ disfunction, pt has High BNP with CHF, pt not given bolus due to CHF exacerbation
--- NOTE | 2020-02-21 04:22 | PC.NURSE ---
Pt escorted to 2nd floor by this RN and Luli, Medic, pt arrived to floor at this time.
--- NOTE | 2020-02-21 04:23 | PC.NURSE ---
PT ARRIVED TO THE FLOOR VIA STRETCHER FROM ED W/STAFF AT 1322
--- NOTE | 2020-02-21 04:35 | PC.NURSE ---
Pt's home meds are with her daughter Ifrah.
[2020-02-21 05:38] LABS: Basophils # 0.1 K/mm3 (0-0.2); Basophils % 0.6 % (0.1-2.0); Chloride 83 mmol/L (98-107); Eosinophils % 0.3 % (0.1-12.0); Hematocrit 40.6 % (37.0-47.0); Hemoglobin 13.3 g/dL (12.2-16.2); Lymphocytes # 0.4 K/mm3 (0.7-4.5); Lymphocytes % 3.6 % (10-50); Mean Corpuscular HGB Conc 32.8 g/dL (31.8-35.4); Mean Corpuscular Hemoglobin 29.8 pg (27.0-31.2); Mean Platelet Volume 8.1 fl (7.4-10.4); Monocytes # 0.3 K/mm3 (0.1-1.0); Monocytes % 2.6 % (1.7-9.3); Neutrophils # 11.6 K/mm3 (1.8-7.8); Platelet Count 234 K/mm3 (142-424); Red Blood Count 4.47 M/mm3 (4.20-5.40); Red Cell Distribution Width 15.5 % (11.5-17.5); White Blood Count 12.5 K/mm3 (4.8-10.8)
[2020-02-21 05:39] LABS: Potassium 4.7 mmoL/L (3.5-5.1); Sodium 133 mmol/L (136-145)
[2020-02-21 05:42] LABS: Blood Urea Nitrogen 34 mg/dl (7-17); Calcium 8.4 mg/dl (8.4-10.2); Estimated Glomerular Filt Rate 124 ml/min (>60); GFR (African American) 150 ML/MIN (>60); Glucose 288 mg/dl (74-100); Magnesium 1.8 mg/dl (1.6-2.3)
[2020-02-21 05:48] LABS: MANUAL DIFFERENTIAL MANUAL DIFFERENTIAL (MANUAL DIFF)
[2020-02-21 05:54] LABS: Troponin I 0.04 ng/ml (0.00-0.034)
--- NOTE | 2020-02-21 06:17 | PC.NURSE ---
Pt requesting a one time dose of Vistaril as she takes it at home for anxiety, she states that with the bipap, it is making her anxiety worse. Order obtained for Vistaril 10mg PO x once from , however medication is unavailable at this time. Pharmacy paged at this time as this medication is not available, patient requesting to take her home medication.
[2020-02-21 06:18] LABS: Anion Gap 9.7 mEq/L (5-15); Carbon Dioxide 45 mmol/L (22.0-30.0); Creatinine Clearance Estimated 67 mL/min (50-200)
--- NOTE | 2020-02-21 06:42 | PC.NURSE ---
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
--- NOTE | 2020-02-21 06:42 | PC.NURSE ---
Since arriving to floor, patient has rested off and on. She reports being anxious, more so with the bipap on. Pt respirations have slowed down to around 20 per minute. Pt still using abdominal muscles with breathing. Requesting to sit straight up in the bed. Respirations do seem to be less labored. LS still very diminished t/o. F/C patent and draining at bedside. F/C care performed. Pt has had good urine output. Bipap remains in place at 40% FiO2. VSS. No other complaints at this time, just requesting Vistaril, informed patient that medication was unavailable. Informed patient and daughter that I was still waiting on pharmacy.
--- NOTE | 2020-02-21 06:49 | HMH.PHAVTE ---
[facility] Pharmacy VTE Monitoring - Patient Demographics Admission date: 02/21/20 Report Date: 02/21/20 Time: 06:49 Allergies/Adverse Reactions: Patient Allergies codeine Allergy (Intermediate, Verified 02/21/20 05:18) CHEST PAIN ketorolac [From Toradol] Allergy (Intermediate, Verified 02/21/20 05:18) MENTAL STATUS CHANGES prednisone Allergy (Intermediate, Verified 02/21/20 05:18) SWELLING Height: 1.73 m Weight: 75.013 kg Patient Problems: Current Active Problems Acute exacerbation of chronic obstructive airways disease (Acute) Type 2 diabetes mellitus (Chronic) Elevated brain natriuretic peptide (BNP) level (Acute) Respiratory failure (Acute) Obesity (BMI 30-39.9) (Acute) - VTE Risk Labs: VTE Related Lab Results Hgb 13.3 g/dL (12.2-16.2) 02/21/20 04:55 Hct 40.6 % (37.0-47.0) 02/21/20 04:55 Plt Count 234 K/mm3 (142-424) 02/21/20 04:55 PT 24.0 seconds (9.4-11.8) H 02/20/20 00:00 INR 2.34 (0.9-1.1) H 02/20/20 00:00 BUN 34 mg/dl (7-17) H 02/21/20 04:55 Creatinine 0.50 mg/dl (0.52-1.04) L D 02/21/20 04:55 Estimated Creat Clear 67 mL/min (50-200) 02/21/20 04:55 Was VTE Risk Assessment Performed: Yes VTE Score: 8 VTE Risk Level: Moderate Risk - Prophylaxis VTE Prophylaxis Ordered?: Yes Types of VTE Prophylaxis: TEDS Knee High, Pharmacological Location of Applied Device: Bilateral Lower Extremeties Pharmacologic Type: Warfarin
[2020-02-21 06:59] LABS: INR 2.19 (0.9-1.1); Prothrombin Time 22.6 seconds (9.4-11.8)
[2020-02-21 07:09] LABS: POC Glucose,Bedside 287 (70-110)
--- NOTE | 2020-02-21 07:16 | HMH.PHAINT ---
Medication reconciliation completed using discharge summary from 02/19/20 and pharmacy claims data.
[2020-02-21 07:49] LABS: Lymphocytes % 3 % (10-50); Monocytes % 3 % (2-9); Neutrophils % 94 % (42-76); Total Cells Counted 100
[2020-02-21 07:50] LABS: Platelet Estimate Normal; RBC Morphology Normal
[2020-02-21 08:38] LABS: Troponin I 0.03 ng/ml (0.00-0.034)
--- NOTE | 2020-02-21 10:33 | HMH.HP ---
*Admission Date: 02/21/20 *Chief complaint: shortness of breath, hypoxia *History of present illness: Ms. Barragan is a 64-year-old female who was just recently discharged from [facility] after an admission for COPD exacerbation and bilateral pulmonary emboli. She went home and yesterday morning her daughter states she had a severe nosebleed. She presented to the ER and had to have electrocautery of the nosebleed. Her daughter states she went home and after this began getting more more short of breath. She states her oxygen sats dropped into the 80s and then into the 70s. She began having altered mental status and her daughter was able to place her trilogy device. Her oxygen did not improve and she called 911. She was transported to the emergency room for further evaluation and treatment. Her chest x-ray showed nothing acute. Her white blood cell count was slightly elevated. Her blood gas showed a pH of 7.39 with a PCO2 of 75 and a PO2 of 64. Her sodium was low and her troponin was slightly elevated. She had a BNP of 1890. She was admitted and placed on BiPAP. [facility] History I have reviewed the patient's past medical history: Yes Medical History: Reports:: Anxiety, Congestive Heart Failure, Chronic Obstructive Pulmonary Disease (COPD), Deep Vein Thrombosis, Diabetes Mellitus Type 2, Hypertension, Pulmonary Embolism Denies:: Cancer, Diabetes Mellitus Type 1, Internal Pacemaker, MRSA *Have you ever received a pneumonia vaccine?: No (ref) *Have you received a flu vaccine this season?: No (ref) Other Surgeries: Yes: Cholecystectomy, Colonoscopy, Hysterectomy-Total, Sinus Surgery. No: Pacemaker Amputation: No Fractures: No - *Social History Last grade of school completed: High school graduate Smoking Status: Former smoker Tobacco Type: cigarettes # Packs/Day (cigarettes): 1 Alcohol Intake: never *Occupational Status:: retired, disabled Housing: house Household Members: family *Travel in the last 8 weeks: None - Psychiatric History Pschychiatric History:: Reports:: Anxiety Family Hx:: Cancer, Heart Attack Review of Systems - Constitutional Reports weakness, Denies chills, Denies fever(s) - Eyes Denies blurry vision, Denies double vision - ENT Reports nasal congestion, Denies sore throat - *Cardiovascular Reports shortness of breath, Denies chest pain - *Respiratory Reports shortness of breath, Denies cough - *Gastrointestinal Denies abdominal pain, Denies loose stools, Denies nausea, Denies vomiting - *Genitourinary Denies difficulty urinating, Denies painful urination - *Musculoskeletal Denies joint pain - *Neurologic Reports dizziness, Reports weakness, Denies seizure-like activity Meds Home Medications Medication Instructions Recorded Confirmed Type aspirin 81 mg tablet,delayed 81 mg PO DAILY 11/27/19 02/21/20 History release carvedilol 25 mg tablet 25 mg PO BID 11/27/19 02/21/20 History cholecalciferol (vitamin D3) 25 25 mcg PO DAILY 11/27/19 02/21/20 History mcg (1,000 unit) capsule donepezil 10 mg tablet 10 mg PO DAILY 11/27/19 02/21/20 History ferrous sulfate 325 mg (65 mg 325 mg PO DAILY tab 11/27/19 02/21/20 History iron) tablet fluticasone propionate 50 2 spray INTRANASAL DAILY 11/27/19 02/21/20 History mcg/actuation nasal spray,suspension furosemide 20 mg tablet 20 mg PO DAILY 11/27/19 02/21/20 History nitroglycerin 0.4 mg sublingual 0.4 mg SUBLINGUAL Q5M PRN 11/27/19 02/21/20 History tablet omeprazole 40 mg capsule,delayed 40 mg PO DAILY 11/27/19 02/21/20 History release Albuterol Sulfate [Albuterol 1.25 mg INHALATION QID PRN 02/13/20 02/21/20 History 0.042% 1.25mg/3mL neb] Albuterol Sulfate [Proventil Hfa] 1 inh INHALATION QID PRN 02/13/20 02/21/20 History Budesonide/Formoterol Fumarate 2 puff INHALATION BID 02/13/20 02/21/20 History [Budesonide-Formoterol 160-4.5] Morphine Sulfate 0.25 ml SUBLINGUAL BID 02/13/20 02/21/20 History Quetiapine Fumarate 200 mg PO
--- NOTE | 2020-02-21 10:39 | CT_ITS ---
PROCEDURE: CT ANGIO CHEST CLINCIAL INDICATION: hx PE's, decline in status Follow-up pulmonary embolus, declining status COMPARISON: CT CT ANGIO CHEST from 02/14/2020 TECHNIQUE: IV Contrast: 70ML Isovue 370 Axial images obtained with sagittal and coronal reformats. All CT scans at the facility use one or more dose reduction, viz: automated exposure control, ma/kV adjustment per patient size (including targeted exams where dose is matched to indication, i.e. head), or iterative reconstruction technique. FINDINGS: HEART AND MEDIASTINAL STRUCTURES: Extensive bilateral pulmonary emboli are once again noted.. Overall the emboli burden appears somewhat less on today's exam. No evidence of aortic aneurysm or dissection. LUNGS AND PLEURAL SPACES: COPD changes. Patchy areas of peripheral increased density are noted as before. No effusions. BONY STRUCTURES: No acute bony abnormalities apparent. UPPER ABDOMEN: Unremarkable. ADDITIONAL FINDINGS: No other significant abnormalities. IMPRESSION: Overall slight improvement in the pulmonary emboli. No new areas of embolic disease evident. COPD with no change scattered areas of atelectasis versus patchy infiltrate or fibrosis Dictated by: Liban Jaime MD 02/21/2020 16:24 Liban Jiame MD in OV 02/21/2020 16:24
[2020-02-21 12:32] LABS: ABG PH 7.39 mmol/L (7.35-7.45)
[2020-02-21 12:33] LABS: ABG Base Excess 19.5 mmol/L (-2.4-2.3); ABG HCO3 44.4 mmhg (22.0-26.0); ABG Oxygen Saturation 82 % (90-100); ABG PCO2 74.9 mmhg (35.0-45.0); ABG PO2 46.8 mmhg (80-100); ABG TCO2 46.7 mmhg (23-27); Allen's Test ACCEPTABLE; Oxygen 6LPM %
[2020-02-21 12:34] LABS: Source R RADIAL
[2020-02-21 13:07] LABS: POC Glucose,Bedside 194 (70-110)
[2020-02-21 16:46] LABS: POC Glucose,Bedside 149 (70-110)
--- NOTE | 2020-02-21 18:43 | PC.NURSE ---
PT IS RESTING IN BED WITH FAMILY IN THE ROOM. PT CONTINUES ON BIPAP. ATTEMPTED TO SWITCH PT OVER TO 4 L NC FOR DINNER BUT PT WAS ONLY ABLE TO TOLERATE A FEW BITES BEFORE O2 SATURATION DROPPED TO THE 70'S. PT IS BACK ON BIPAP AT 40%. 02 SATURATION 95%.PT HAS BEEN SINUS TACH ON THE MONITOR T/O THE SHIFT. LUNG SOUNDS DIMINISHED. ABDOMEN SOFT/NON TENDER WITH ACTIVE BOWEL SOUNDS. ALERT AND ORIENTED X4. NEW IV ACCESS NOTED TO THE JAVAD (ULTRASOUND GUIDED) SCATTERED BRUISING NOTED TO BUE. WILL CONTINUE TO MONITOR.
[2020-02-21 20:39] LABS: POC Glucose,Bedside 207 (70-110)
[2020-02-22] VITALS (14 sets, daily range): BP systolic 123–146; BP diastolic 73–87; PULSE 71–98; RESP 2–28; TEMP 36.1–36.9; O2SAT 88–97
--- NOTE | 2020-02-22 05:08 | PC.NURSE ---
patient has not rested well due to bipap alarm sounding. moving more air throughout all lung dugan this am. sats remained greater than 90% on 4 l nc with rr less than 30 while doing oral care and nasal care this am. breathing pattern much less labored. director asset shows sr-sa from 70s to 90s. martinez draining to gravity clear yellow urine.
[2020-02-22 05:42] LABS: POC Glucose,Bedside 161 (70-110)
--- NOTE | 2020-02-22 08:40 | PC.NURSE ---
let nurse know that patient's o2 was below 90
[2020-02-22 11:31] LABS: POC Glucose,Bedside 183 (70-110)
--- NOTE | 2020-02-22 11:47 | HMH.ACPN2 ---
Internal Medicine - PN: Subj *Date: 02/22/20 *Time: 11:47 Interval history: She is better. She is sitting up in chair and states that she feels better when she is sitting up. Her heart rhythm is controlled and regular. She is moving air better. She is on 4 L of nasal O2. She was on BiPAP during the night. We discussed the use of prednisone. She has had some swelling with it in the past but no true allergic reactions. I will add 20 mg of prednisone daily. Exam Vital signs and Labs for Last 24 Hours: Temp Pulse Resp BP Pulse Ox 98.5 F 77 18 145/74 H 93 L 02/22/20 08:00 02/22/20 10:48 02/22/20 08:00 02/22/20 08:00 02/22/20 10:48 Laboratory Results - last 24 hr 02/20/20 23:27: Specimen Source R radial, O2 % 6lpm, ABG pH 7.39, ABG pCO2 74.9 H, ABG pO2 46.8 L, ABG HCO3 44.4 H, ABG Total CO2 46.7 H, ABG O2 Saturation 82 L*, ABG Base Excess 19.5 H, Liban Test Acceptable 02/21/20 12:32: POC Glucose 194 H 02/21/20 16:39: POC Glucose 149 H 02/21/20 20:14: POC Glucose 207 H 02/22/20 05:35: POC Glucose 161 H 02/22/20 10:38: POC Glucose 183 H I & O for Last 24 hours: Intake & Output 02/19/20 02/20/20 02/21/20 02/22/20 11:59 11:59 11:59 11:59 Intake Total 1050 / 1050 1530 / 1530 Output Total 900 / 900 850 / 850 Balance 150 / 150 680 / 680 Weight 165 lb 6 oz 165 lb 5.547 oz - Constitutional no acute distress - *Routine HEENT Exam Head: Present: normocephalic Eye: Present: PERRL ENT: Present: mucous membranes moist - *Routine Neck Exam Absent: JVD - *Routine Respiratory Exam Present: decreased breath sounds, CTA bilaterally - *Routine Cardiovascular Exam Present: RRR - *Routine Abdominal Exam Present: soft. Absent: tenderness - *Routine Extremities Exam Absent: edema - *Routine Neurological Exam Present: alert, oriented X3 Assessment and Plan (1) Respiratory failure Status: Acute Qualifiers: Chronicity: acute on chronic Respiratory failure complication: hypoxia and hypercapnia Qualified Code(s): J96.21 - Acute and chronic respiratory failure with hypoxia; J96.22 - Acute and chronic respiratory failure with hypercapnia Category: Medical Code(s): J96.90 - Respiratory failure, unspecified, unspecified whether with hypoxia or hypercapnia (2) Acute exacerbation of chronic obstructive airways disease Status: Acute Category: Medical Code(s): J44.1 - Chronic obstructive pulmonary disease with (acute) exacerbation (3) Elevated brain natriuretic peptide (BNP) level Status: Acute Category: Medical Code(s): R79.89 - Other specified abnormal findings of blood chemistry (4) Type 2 diabetes mellitus Status: Chronic Qualifiers: Diabetes mellitus alf insulin use: unspecified alf insulin use status Diabetes mellitus complication status: with other specified complication Qualified Code(s): E11.69 - Type 2 diabetes mellitus with other specified complication Category: Medical Code(s): E11.9 - Type 2 diabetes mellitus without complications (5) Bacteremia Status: Acute Category: Medical Code(s): R78.81 - Bacteremia (6) Deep vein thrombosis (DVT) of popliteal vein of left lower extremity Status: Acute Category: Medical Code(s): I82.432 - Acute embolism and thrombosis of left popliteal vein (7) Epistaxis Status: Resolved Category: Medical Code(s): R04.0 - Epistaxis (8) History of congestive heart failure Status: Chronic Category: Medical Code(s): Z86.79 - Personal history of other diseases of the circulatory system (9) Pulmonary emboli Status: Acute Category: Medical Code(s): I26.99 - Other pulmonary embolism without acute cor pulmonale (10) COPD (chronic obstructive pulmonary disease) Status: Chronic Category: Medical Code(s): J44.9 - Chronic obstructive pulmonary disease, unspecified (11) Hyperlipidemia Status: Chronic Category: Medical Code(s): E78.5 - Hyperlipidemia, unspecified
--- NOTE | 2020-02-22 12:01 | PC.NURSE ---
Delaney is allergic to prednisone, states that it makes her swell. MD is aware of allergy and spoke at patient bedside regarding the allergy and is proceeding with ordering prednisone as he does not feel that the risks outweigh the benefits. Will monitor patient for reactions and issues.
[2020-02-22 16:29] LABS: POC Glucose,Bedside 233 (70-110)
--- NOTE | 2020-02-22 18:06 | PC.NURSE ---
Patient is resting in bed eating supper. Has had moments of anxiety today, was able to get vistiril dosage changed to accomodate patient anxiety. Patient is alert and oriented x 4, just gets anxious when she feels like she can't breathe. Pupils are equal, marketing systems analyst equal. GI patient has had 2 large loose bowel movements. Appetite is good, patient has eaten 100% of meals. No n/v. Blood glucose levels monitored, insulin given to treat blood glucose levels. : amrtinez catheter. Urine output is adequate. Urine pale yellow. Skin is intact, scattered bruising. Patient states that the bruising is from the IV attempts. Patient has been on the bipap today 2hrs on, 2 hrs off. Bipap is at 40%. Oxygen is at 4L nc. Patient has an incentive spirometer but only uses it when prompted. Patient has been ordered po prednisone today, which patient is allergic to and causes swelling per patient. No swelling noted. MD aware of the allergy and spoke with patient prior to giving the medication. Patient spent several hours in her recliner today. Ambulates assist x 1. Will continue to monitor patient.
[2020-02-22 21:03] LABS: POC Glucose,Bedside 266 (70-110)
[2020-02-23] VITALS (14 sets, daily range): BP systolic 125–159; BP diastolic 76–89; PULSE 60–100; RESP 19–22; TEMP 36.3–36.8; O2SAT 31–98; BMI 25.0
[2020-02-23 05:51] LABS: INR 3.84 (0.9-1.1); Prothrombin Time 36.3 seconds (9.4-11.8)
--- NOTE | 2020-02-23 05:56 | PC.NURSE ---
patient has rested well throughout shift. patient had no significant desat periods last night. when up to bsc patietn continued to sat greater than 90% with rr below 24 on 4 l nc. has tolerated bipap without difficulty. moving more air throughout lungs this am
[2020-02-23 10:16] LABS: POC Glucose,Bedside 109 (70-110)
[2020-02-23 10:44] LABS: POC Glucose,Bedside 202 (70-110)
--- NOTE | 2020-02-23 13:32 | HMH.ACPN2 ---
Internal Medicine - PN: Subj *Date: 02/23/20 *Time: 13:32 Interval history: She seems to be doing better but she does not admit to that. Still not resting well. She does not want her catheter removed. She complains of pain in the right knee. She does not have a history of gout. Exam Vital signs and Labs for Last 24 Hours: Temp Pulse Resp BP Pulse Ox 97.8 F 83 22 150/85 H 98 02/23/20 12:00 02/23/20 12:00 02/23/20 12:00 02/23/20 12:00 02/23/20 12:00 Laboratory Results - last 24 hr 02/22/20 16:21: POC Glucose 233 H 02/22/20 20:31: POC Glucose 266 H 02/23/20 05:19: POC Glucose 109 02/23/20 05:30: PT 36.3 H, INR 3.84 H 02/23/20 10:30: POC Glucose 202 H I & O for Last 24 hours: Intake & Output 02/21/20 02/22/20 02/23/20 02/24/20 11:59 11:59 11:59 11:59 Intake Total 1050 / 1050 1530 / 1530 1755 / 1755 Output Total 900 / 900 850 / 850 800 / 800 Balance 150 / 150 680 / 680 955 / 955 Weight 165 lb 6 oz 165 lb 5.547 oz 165 lb Microbiology Reports for the Last 24 Hours: Microbiology 02/20/20 23:35 Blood Blood Culture - Preliminary NO GROWTH AFTER 48 HOURS 02/20/20 23:35 Blood Blood Culture - Preliminary NO GROWTH AFTER 48 HOURS - Constitutional no acute distress - *Routine HEENT Exam Head: Present: normocephalic Eye: Present: PERRL ENT: Present: mucous membranes moist - *Routine Respiratory Exam Present: decreased breath sounds, CTA bilaterally (Moving air better) - *Routine Cardiovascular Exam Present: RRR - *Routine Abdominal Exam Present: soft. Absent: tenderness - *Routine Extremities Exam Absent: edema (The right knee does not appear swollen.) - *Routine Neurological Exam Present: alert, oriented X3 Assessment and Plan (1) Respiratory failure Status: Acute Qualifiers: Chronicity: acute on chronic Respiratory failure complication: hypoxia and hypercapnia Qualified Code(s): J96.21 - Acute and chronic respiratory failure with hypoxia; J96.22 - Acute and chronic respiratory failure with hypercapnia Category: Medical Code(s): J96.90 - Respiratory failure, unspecified, unspecified whether with hypoxia or hypercapnia (2) Acute exacerbation of chronic obstructive airways disease Status: Acute Category: Medical Code(s): J44.1 - Chronic obstructive pulmonary disease with (acute) exacerbation (3) Elevated brain natriuretic peptide (BNP) level Status: Acute Category: Medical Code(s): R79.89 - Other specified abnormal findings of blood chemistry (4) Type 2 diabetes mellitus Status: Chronic Qualifiers: Diabetes mellitus penitentiary insulin use: unspecified penitentiary insulin use status Diabetes mellitus complication status: with other specified complication Qualified Code(s): E11.69 - Type 2 diabetes mellitus with other specified complication Category: Medical Code(s): E11.9 - Type 2 diabetes mellitus without complications (5) Bacteremia Status: Acute Category: Medical Code(s): R78.81 - Bacteremia (6) Deep vein thrombosis (DVT) of popliteal vein of left lower extremity Status: Acute Category: Medical Code(s): I82.432 - Acute embolism and thrombosis of left popliteal vein (7) Epistaxis Status: Resolved Category: Medical Code(s): R04.0 - Epistaxis (8) History of congestive heart failure Status: Chronic Category: Medical Code(s): Z86.79 - Personal history of other diseases of the circulatory system (9) Pulmonary emboli Status: Acute Category: Medical Code(s): I26.99 - Other pulmonary embolism without acute cor pulmonale (10) COPD (chronic obstructive pulmonary disease) Status: Chronic Category: Medical Code(s): J44.9 - Chronic obstructive pulmonary disease, unspecified (11) Hyperlipidemia Status: Chronic Category: Medical Code(s): E78.5 - Hyperlipidemia, unspecified (12) Right knee pain Status: Acute Category:
[2020-02-23 14:08] LABS: Uric Acid 5.6 mg/dl (2.5-6.2)
[2020-02-23 14:27] LABS: Erythrocyte Sedimentation Rate 18 mm/hr (0-30)
[2020-02-23 17:22] LABS: POC Glucose,Bedside 253 (70-110)
--- NOTE | 2020-02-23 18:36 | PC.NURSE ---
Pt remains on 4 L O2 per nasal cannula, tolerated well. Remains on cont pulse ox. W/ movement and ambulation pt will desat to low 80's but recovers w/in 10 minutes. At times pt does admit anxiety and SOA, prn vesteril given per MAY. Pt c/o pain in (L) knee, reported to Dr. Honeycutt. Orders placed by Md for work-up for gout. Pt is a standby assist when using BSC, staff there for safety. Milton cath to drain at bedside w/ clear yellow urine noted. Pt has ate most of all meals this shift. No needs voiced this shift. Call dimitri w/in reach.
[2020-02-23 20:23] LABS: POC Glucose,Bedside 187 (70-110)
--- NOTE | 2020-02-23 23:09 | PC.NURSE ---
o2 sats 97% on 4 lnc, o2 titrated down to 3.[address] about home chinyere rose am
[2020-02-24] VITALS (13 sets, daily range): BP systolic 131–165; BP diastolic 71–97; PULSE 65–98; RESP 19–24; TEMP 36.4–36.9; O2SAT 88–97; BMI 26.2
--- NOTE | 2020-02-24 02:26 | PC.NURSE ---
patient has been unable to sleep tonight, feeling anxious on bipap. dose of vistaril given po.
--- NOTE | 2020-02-24 05:21 | PC.NURSE ---
patient only wore bipap approximately 5 hours tonight, more anxious requiring additional dose of vistaril then previous 2 nights. breath sounds remain diminished. cardiac exercise specialist has shown sr to st throughout shift. nasal spray done per patient request due to nares sticking together
[2020-02-24 05:24] LABS: POC Glucose,Bedside 109 (70-110)
[2020-02-24 06:01] LABS: Basophils % 0.3 % (0.1-2.0); Eosinophils # 0.2 K/mm3 (0.0-0.4); Eosinophils % 2.2 % (0.1-12.0); Hematocrit 36.2 % (37.0-47.0); Hemoglobin 11.5 g/dL (12.2-16.2); Lymphocytes # 2.4 K/mm3 (0.7-4.5); Lymphocytes % 23.5 % (10-50); Mean Corpuscular HGB Conc 31.8 g/dL (31.8-35.4); Mean Corpuscular Hemoglobin 29.7 pg (27.0-31.2); Mean Corpuscular Volume 93.5 fl (81-99); Mean Platelet Volume 7.8 fl (7.4-10.4); Monocytes # 0.6 K/mm3 (0.1-1.0); Neutrophils # 6.9 K/mm3 (1.8-7.8); Platelet Count 206 K/mm3 (142-424); Red Blood Count 3.87 M/mm3 (4.20-5.40); Red Cell Distribution Width 15.8 % (11.5-17.5); White Blood Count 10.1 K/mm3 (4.8-10.8)
[2020-02-24 06:09] LABS: Blood Urea Nitrogen 15 mg/dl (7-17); Calcium 8.5 mg/dl (8.4-10.2); Chloride 99 mmol/L (98-107); Creatinine Clearance Estimated 70 mL/min (50-200); Estimated Glomerular Filt Rate 124 ml/min (>60); GFR (African American) 150 ML/MIN (>60); Glucose 95 mg/dl (74-100); Potassium 3.6 mmoL/L (3.5-5.1); Sodium 138 mmol/L (136-145)
[2020-02-24 06:16] LABS: Anion Gap 4.6 mEq/L (5-15); Carbon Dioxide 38 mmol/L (22.0-30.0)
--- NOTE | 2020-02-24 08:23 | HMH.ACPN2 ---
Internal Medicine - PN: Subj *Date: 02/24/20 *Time: 08:23 Interval history: States she feels badly this morning. She is cold. She did not sleep last night. She thinks insomnia is because she is not receiving her usual nighttime Seroquel. She denies chest pain. She is short of breath at times. She is not hungry this morning but denies nausea. Bowels have not moved. She does state she has some pain around her right knee. She continues with Milton catheter to bedside drainage. CBC with normal white blood cell count this morning blood chemistries show normal sodium and potassium. Uric acid is 5.6. INR is 3.84 today. Exam Vital signs and Labs for Last 24 Hours: Temp Pulse Resp BP Pulse Ox 97.9 F 86 19 159/86 H 94 L 02/24/20 07:16 02/24/20 07:16 02/24/20 07:16 02/24/20 07:16 02/24/20 07:16 Laboratory Results - last 24 hr 02/23/20 05:19: POC Glucose 109 02/23/20 10:30: POC Glucose 202 H 02/23/20 13:19: ESR 18 02/23/20 13:19: Uric Acid 5.6 02/23/20 16:07: POC Glucose 253 H 02/23/20 20:15: POC Glucose 187 H 02/24/20 05:07: POC Glucose 109 02/24/20 05:10: WBC 10.1, RBC 3.87 L, Hgb 11.5 L, Hct 36.2 L, MCV 93.5, MCH 29.7, MCHC 31.8, RDW 15.8, Plt Count 206, MPV 7.8, Neut % (Auto) 68.0, Lymph % (Auto) 23.5, [place] % (Auto) 6.0, Eos % (Auto) 2.2, Baso % (Auto) 0.3, Neut # (Auto) 6.9, Lymph # (Auto) 2.4, [place] # (Auto) 0.6, Eos # (Auto) 0.2, Baso # (Auto) 0.0 02/24/20 05:10: Sodium 138, Potassium 3.6, Chloride 99, Carbon Dioxide 38 H, Anion Gap 4.6 L, BUN 15, Creatinine 0.50 L, Estimated Creat Clear 70, Estimated GFR 124, Est GFR ( Amer) 150, Glucose 95, Calcium 8.5 I & O for Last 24 hours: Intake & Output 02/21/20 02/22/20 02/23/20 02/24/20 11:59 11:59 11:59 11:59 Intake Total 1050 / 1050 1530 / 1530 1755 / 1755 1297 / 1297 Output Total 900 / 900 850 / 850 800 / 800 300 / 300 Balance 150 / 150 680 / 680 955 / 955 997 / 997 Weight 165 lb 6 oz 165 lb 5.547 oz 165 lb 173 lb 2 oz - Constitutional no acute distress Comments: Appears pale. - *Routine Respiratory Exam Present: wheezes (Occasional), diminished air movement (Posteriorly) Comments: Dyspnea with talking - *Routine Cardiovascular Exam Present: RRR (Monitor showing sinus rhythm in the 80s) - *Routine Extremities Exam Absent: edema, calf tenderness Comments: Right popliteal and right knee is nontender to palpation. No edema, no masses or cords felt - *Routine Neurological Exam Present: alert, oriented X3 Assessment and Plan (1) Respiratory failure Status: Acute Qualifiers: Chronicity: acute on chronic Respiratory failure complication: hypoxia and hypercapnia Qualified Code(s): J96.21 - Acute and chronic respiratory failure with hypoxia; J96.22 - Acute and chronic respiratory failure with hypercapnia Category: Medical Code(s): J96.90 - Respiratory failure, unspecified, unspecified whether with hypoxia or hypercapnia (2) Acute exacerbation of chronic obstructive airways disease Status: Acute Category: Medical Code(s): J44.1 - Chronic obstructive pulmonary disease with (acute) exacerbation (3) Elevated brain natriuretic peptide (BNP) level Status: Acute Category: Medical Code(s): R79.89 - Other specified abnormal findings of blood chemistry (4) Type 2 diabetes mellitus Status: Chronic Qualifiers: Diabetes mellitus watermaster insulin use: unspecified watermaster insulin use status Diabetes mellitus complication status: with other specified complication Qualified Code(s): E11.69 - Type 2 diabetes mellitus with other specified complication Category: Medical Code(s): E11.9 - Type 2 diabetes mellitus without complications (5) Bacteremia Status: Acute Category: Medical Code(s): R78.81 - Bacteremia (6) Deep vein thrombosis (DVT) of popliteal vein of left lower extremity Status: Acute Category: Medical Code(s): I82.432 - Acute embolism and thrombosis of left popliteal vein
--- NOTE | 2020-02-24 12:16 | PC.NURSE ---
turned oxygen up to 5l while eating. patient sats dropped in low 80s upper 70s while eating.
--- NOTE | 2020-02-24 13:06 | DIET.NUTRFU ---
PO intakes 75%. Pt with 6# total weight gain t/o stay-3 days. BG are moderate-high- ~200. No further nutritional needs at this time, continuing to monitor.
[2020-02-24 13:57] LABS: POC Glucose,Bedside 204 (70-110)
--- NOTE | 2020-02-24 15:27 | PC.NURSE ---
patient has been sleeping off and on most of day. when daughter was here was more awake. starting to move left arm more now. has been answering yes or no questions, but is still drowsy. still breathing fast. would not take a sip of water so no po meds at this time. phosphorus level given to md. bp with automatic cuff has been slightly elevated. manually it had been 140/80s. patient is warm. rectal temp of 99.0. has remained tachy. daughter felt patient was at baseline considering her condition. no complaints. did not want to set up a password at this time, stated if patient came and visited to ask him. lovenox injection give. remains at 15units/hr of insulin, but is also on d5ns with 20k per md order. just switched fluids over remains at 150ml/hr. continues to have acetone. placed orders for next bmp and acetone level per written protocol. daughter voiced concerns about patient possibly needing placement, but would readdress once discussion of possible discharge. some moaning still noted at times when asked if okay she nods yes. turned every 2 hours. some dried blood on tongue, so oral care provided frequently. vitals stable will continue to monitor.
--- NOTE | 2020-02-24 15:36 | PC.NURSE ---
patient has done okay this shift. some decrease in sats to lower 80s at times but is able to recover back. currently sating about 88-91% on the 4 l. humidification applied to oxygen. rings out as needed. one episode of leaking from martinez with a large amount of urine. upon assessment martinez remained intact and draining. will continue to monitor this. patient up to chair now. stated she did not feel she could get up and down a lot at this time. vital stable will continue to monitor.
[2020-02-24 17:06] LABS: POC Glucose,Bedside 218 (70-110)
--- NOTE | 2020-02-24 20:51 | PC.NURSE ---
nurse made aware of blood pressure
[2020-02-25] VITALS (13 sets, daily range): BP systolic 111–162; BP diastolic 57–92; PULSE 70–112; RESP 20–32; TEMP 36.4–36.9; O2SAT 81–99; BMI 26.5
[2020-02-25 00:24] LABS: POC Glucose,Bedside 159 (70-110)
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
--- NOTE | 2020-02-25 05:05 | PC.NURSE ---
0400 room air O2 saturation not done per order of nurse
[2020-02-25 05:16] LABS: POC Glucose,Bedside 103 (70-110)
--- NOTE | 2020-02-25 07:47 | PC.NURSE ---
pt sats in the mid 80s while eating breakfast. She has finished eating and sats are now in the high 70s/low 80s on 4L NC. She is able to pull 1000mL on IS. Denies dyspnea. Has COPD. Called RT (Jeannie) and asked that pt be placed back on Bipap.
--- NOTE | 2020-02-25 08:12 | PC.NURSE ---
RT (Jeannie) increased liter flow to 5L cont. Pt refused Bipap at this time. O2 sat 90% on 5L NC.
--- NOTE | 2020-02-25 08:44 | HMH.PULMCON ---
*Admission Date: 02/21/20 *Reason for consult:: COPD exacerbation *History of present illness: Ms. Barragan is 64-year-old male with severe COPD follows with the pulmonary clinic severe anxiety issues on long-term oxygen therapy for chronic hypoxic respiratory failure, on trilogy for hypercarbic respiratory failure recent diagnosis of PE during her admission was presented to the hospital again for worsening hypoxic hypercarbic respiratory failure and pulmonary was consulted for further management. Patient on this further questioning states that her recent episode of hypoxia [place] respiratory failure did more suddenly triggered by her anxiety issues. Patient denies any cough or fevers or any chills. Patient admits compliance with her inhalers, however stated that she is not using her BiPAP early since her recent discharge given her anxiety issues. Patient admits compliance with that before. [facility] History Medical History: Reports:: Anxiety, Congestive Heart Failure, Chronic Obstructive Pulmonary Disease (COPD), Deep Vein Thrombosis, Diabetes Mellitus Type 2, Hypertension, Pulmonary Embolism Denies:: Cancer, Diabetes Mellitus Type 1, Internal Pacemaker, MRSA *Have you ever received a pneumonia vaccine?: No (ref) *Have you received a flu vaccine this season?: No (ref) Other Surgeries: Yes: Cholecystectomy, Colonoscopy, Hysterectomy-Total, Sinus Surgery. No: Pacemaker Amputation: No Fractures: No - *Social History Last grade of school completed: High school graduate Smoking Status: Former smoker Tobacco Type: cigarettes # Packs/Day (cigarettes): 1 Alcohol Intake: never *Occupational Status:: retired, disabled Housing: house Household Members: family *Travel in the last 8 weeks: None - Psychiatric History Pschychiatric History:: Reports:: Anxiety Family Hx:: Cancer, Heart Attack ROS - Review of Systems Review of systems:: pertinent systems reviewed and negative unless documented below - Card Reports shortness of breath with activity, Denies generalized swelling, Denies leg swelling - Resp Respiratory: Yes system reviewed and no additional complaints, except as docu, No change in phlegm color, Yes chest congestion, Yes cough, Yes non-productive cough, Yes dyspnea, Yes dyspnea on exertion, No excessive phlegm production, No coughing up blood - GI Gastrointestingal: Reports: system reviewed and no additional complaints, except as docu - [place] Musculoskeletal: Reports system reviewed and no additional complaints, except as docu - Psych Reports abnormal sleep pattern Meds Home Medications Medication Instructions Recorded Confirmed Type aspirin 81 mg tablet,delayed 81 mg PO DAILY 11/27/19 02/21/20 History release carvedilol 25 mg tablet 25 mg PO BID 11/27/19 02/21/20 History cholecalciferol (vitamin D3) 25 25 mcg PO DAILY 11/27/19 02/21/20 History mcg (1,000 unit) capsule donepezil 10 mg tablet 10 mg PO DAILY 11/27/19 02/21/20 History ferrous sulfate 325 mg (65 mg 325 mg PO DAILY tab 11/27/19 02/21/20 History iron) tablet fluticasone propionate 50 2 spray INTRANASAL DAILY 11/27/19 02/21/20 History mcg/actuation nasal spray,suspension furosemide 20 mg tablet 20 mg PO DAILY 11/27/19 02/21/20 History nitroglycerin 0.4 mg sublingual 0.4 mg SUBLINGUAL Q5M PRN 11/27/19 02/21/20 History tablet omeprazole 40 mg capsule,delayed 40 mg PO DAILY 11/27/19 02/21/20 History release Albuterol Sulfate [Albuterol 1.25 mg INHALATION QID PRN 02/13/20 02/21/20 History 0.042% 1.25mg/3mL neb] Albuterol Sulfate [Proventil Hfa] 1 inh INHALATION QID PRN 02/13/20 02/21/20 History Budesonide/Formoterol Fumarate 2 puff INHALATION BID 02/13/20 02/21/20 History [Budesonide-Formoterol 160-4.5] Morphine Sulfate 0.25 ml SUBLINGUAL BID 02/13/20 02/21/20 History Quetiapine Fumarate 200 mg PO BID 02/13/20 02/21/20 History Tiotropium [place] [Spiriva 2 puff INHALATION DAILY 02/13/20 02/21/20 History Respimat] hydrOXYzi
--- NOTE | 2020-02-25 08:44 | HMH.ACPN2 ---
<Frida Egan - Last Filed: 02/25/20 08:44> Internal Medicine - PN: Subj *Date: 02/25/20 *Time: 08:44 Interval history: Patient feels about the same today. Her oxygen did drop when choking on her breakfast this morning. She also states she awakened frightened on the BiPAP last night due to the difference in the messaging here and when she has at home. She states it was horrifying. She was to keep her Milton because she was so dyspneic when getting out of bed. She did sit up in a chair yesterday. She is eating some now. Bowels have moved. She denies chest pain Exam Vital signs and Labs for Last 24 Hours: Temp Pulse Resp BP Pulse Ox 98.5 F 98 H 29 H 120/57 L 90 L 02/25/20 07:45 02/25/20 07:45 02/25/20 07:45 02/25/20 07:45 02/25/20 08:09 Laboratory Results - last 24 hr 02/24/20 11:35: POC Glucose 204 H 02/24/20 16:26: POC Glucose 218 H 02/24/20 20:38: POC Glucose 159 H 02/25/20 05:10: POC Glucose 103 I & O for Last 24 hours: Intake & Output 02/22/20 02/23/20 02/24/20 02/25/20 11:59 11:59 11:59 11:59 Intake Total 1530 / 1530 1755 / 1755 1297 / 1297 1040 / 1040 Output Total 850 / 850 800 / 800 300 / 300 1000 / 1000 Balance 680 / 680 955 / 955 997 / 997 40 / 40 Weight 165 lb 5.547 oz 165 lb 173 lb 2 oz 175 lb 4 oz - Constitutional no acute distress Comments: Awakened for exam. - *Routine Respiratory Exam Present: wheezes (Rare), diminished air movement (Posteriorly) - *Routine Cardiovascular Exam Present: RRR (Monitor showing sinus rhythm in the 80s) - *Routine Abdominal Exam Present: soft, normoactive bowel sounds. Absent: tenderness - *Routine Extremities Exam Absent: edema, calf tenderness - *Routine Neurological Exam Present: alert, oriented X3 Assessment and Plan (1) Respiratory failure Status: Acute Category: Medical Code(s): J96.90 - Respiratory failure, unspecified, unspecified whether with hypoxia or hypercapnia (2) Acute exacerbation of chronic obstructive airways disease Status: Acute Category: Medical Code(s): J44.1 - Chronic obstructive pulmonary disease with (acute) exacerbation (3) Elevated brain natriuretic peptide (BNP) level Status: Acute Category: Medical Code(s): R79.89 - Other specified abnormal findings of blood chemistry (4) Type 2 diabetes mellitus Status: Chronic Category: Medical Code(s): E11.9 - Type 2 diabetes mellitus without complications (5) Bacteremia Status: Acute Category: Medical Code(s): R78.81 - Bacteremia (6) Deep vein thrombosis (DVT) of popliteal vein of left lower extremity Status: Acute Category: Medical Code(s): I82.432 - Acute embolism and thrombosis of left popliteal vein (7) Epistaxis Status: Resolved Category: Medical Code(s): R04.0 - Epistaxis (8) History of congestive heart failure Status: Chronic Category: Medical Code(s): Z86.79 - Personal history of other diseases of the circulatory system (9) Pulmonary emboli Status: Acute Category: Medical Code(s): I26.99 - Other pulmonary embolism without acute cor pulmonale (10) COPD (chronic obstructive pulmonary disease) Status: Chronic Category: Medical Code(s): J44.9 - Chronic obstructive pulmonary disease, unspecified (11) Hyperlipidemia Status: Chronic Category: Medical Code(s): E78.5 - Hyperlipidemia, unspecified (12) Right knee pain Status: Acute Category: Medical Code(s): M25.561 - Pain in right knee - Assessment and plan all Dx Assessment and Plan for all problems:: Continue with current pulmonary care. Dr. Orozco to see today. <Alfonso Echevarria - Last Filed: 02/25/20 18:25> Internal Medicine - PN: Subj *Date: 02/25/20 *Time: 18:25 Exam Vital signs and Labs for Last 24 Hours: Temp Pulse Resp BP Pulse Ox 98.1 F 101 H 31 H 142/92 H 96 02/25/20 16:00 02/25/20 18:02 02/25/20 16:00 02/25/20 16:00 02/25/20 16:00 Laboratory Results - last 24 hr 1
[2020-02-25 10:29] LABS: INR 1.51 (0.9-1.1); Prothrombin Time 16.1 seconds (9.4-11.8)
[2020-02-25 11:24] LABS: POC Glucose,Bedside 208 (70-110)
--- NOTE | 2020-02-25 14:10 | HMH.ACPN ---
Internal Medicine - PN: Subj *Date: 02/25/20 *Time: 14:10 Exam Vital signs and Labs for Last 24 Hours: Temp Pulse Resp BP Pulse Ox 97.8 F 92 H 32 H 140/83 96 02/25/20 12:00 02/25/20 12:00 02/25/20 12:00 02/25/20 12:00 02/25/20 12:00 Laboratory Results - last 24 hr 02/24/20 16:26: POC Glucose 218 H 02/24/20 20:38: POC Glucose 159 H 02/25/20 05:10: POC Glucose 103 02/25/20 09:08: PT 16.1 H, INR 1.51 H 02/25/20 11:16: POC Glucose 208 H I & O for Last 24 hours: Intake & Output 02/22/20 02/23/20 02/24/20 02/25/20 23:59 23:59 23:59 23:59 Intake Total 2040 / 2040 1657 / 1657 840 / 860 560 / 560 Output Total 900 / 900 500 / 500 300 / 300 700 / 700 Balance 1140 / 1140 1157 / 1157 540 / 560 -140 / -140 Weight 74.843 kg 78.528 kg 79.492 kg Assessment and Plan (1) Respiratory failure Status: Acute Qualifiers: Chronicity: acute on chronic Respiratory failure complication: hypoxia and hypercapnia Qualified Code(s): J96.21 - Acute and chronic respiratory failure with hypoxia; J96.22 - Acute and chronic respiratory failure with hypercapnia Category: Medical Code(s): J96.90 - Respiratory failure, unspecified, unspecified whether with hypoxia or hypercapnia (2) Acute exacerbation of chronic obstructive airways disease Status: Acute Category: Medical Code(s): J44.1 - Chronic obstructive pulmonary disease with (acute) exacerbation (3) Elevated brain natriuretic peptide (BNP) level Status: Acute Category: Medical Code(s): R79.89 - Other specified abnormal findings of blood chemistry (4) Type 2 diabetes mellitus Status: Chronic Qualifiers: Diabetes mellitus ferry terminal 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 insulin use: unspecified ferry terminal supervisor insulin use status Diabetes mellitus complication status: with other specified complication Qualified Code(s): E11.69 - Type 2 diabetes mellitus with other specified complication Category: Medical Code(s): E11.9 - Type 2 diabetes mellitus without complications (5) Bacteremia Status: Acute Category: Medical Code(s): R78.81 - Bacteremia (6) Deep vein thrombosis (DVT) of popliteal vein of left lower extremity Status: Acute Category: Medical Code(s): I82.432 - Acute embolism and thrombosis of left popliteal vein (7) Epistaxis Status: Resolved Category: Medical Code(s): R04.0 - Epistaxis (8) History of congestive heart failure Status: Chronic Category: Medical Code(s): Z86.79 - Personal history of other diseases of the circulatory system (9) Pulmonary emboli Status: Acute Category: Medical Code(s): I26.99 - Other pulmonary embolism without acute cor pulmonale (10) COPD (chronic obstructive pulmonary disease) Status: Chronic Category: Medical Code(s): J44.9 - Chronic obstructive pulmonary disease, unspecified (11) Hyperlipidemia Status: Chronic Category: Medical Code(s): E78.5 - Hyperlipidemia, unspecified (12) Right knee pain Status: Acute Category: Medical Code(s): M25.561 - Pain in right knee The patient's infection will respond to the chosen ABx?: Yes Is the patient receiving the right drug, dose, and route?: Yes Could a more targeted ABx be ordered?: No
--- NOTE | 2020-02-25 16:19 | PC.NURSE ---
martinez catheter leaking around insertion site. Martinez taken out and pt is agreeable to use BSC.
[2020-02-25 17:40] LABS: POC Glucose,Bedside 192 (70-110)
--- NOTE | 2020-02-25 18:25 | PC.NURSE ---
shift note: has been on 5L NC most of the shift. Lives on 4L NC cont @ home. Sats drop to 70s when eating, drinking, or getting OOB. Offered Bipap or Trelogy multiple times today but she refused. Milton catheter taken out secondary to it leaking. She is now using BSC. Tolerates a diabetic diet. No other issues noted.
[2020-02-25 20:18] LABS: POC Glucose,Bedside 265 (70-110)
--- NOTE | 2020-02-25 20:50 | PC.NURSE ---
respiratory therapist at bedside
[2020-02-26] VITALS (7 sets, daily range): BP systolic 122–152; BP diastolic 73–83; PULSE 70–98; RESP 18–24; TEMP 36.5–36.8; O2SAT 90–96; BMI 26.7
--- NOTE | 2020-02-26 00:05 | PC.NURSE ---
patient has been resting with trilogy on. heart rate 60s to 80s while asleep, rr 16 to 20, sats 92-96%
--- NOTE | 2020-02-26 02:40 | PC.NURSE ---
patient continues to rest with trilogy on sats remaining 92-92% rr remains below 20
[2020-02-26 05:50] LABS: POC Glucose,Bedside 88 (70-110)
--- NOTE | 2020-02-26 06:00 | PC.NURSE ---
since 2200 patient has rested all night [facility] without incident. sats have remained greater than 90% with rr below 20. monitor and storage bin tender has shown sr/sa with rate from 60 to 90. patient awakens for care then returns to sleep. breath sound remain diminished throughout all dugan. one medium sized, formed bowel movement noted. voiding clear yellow urine.
--- NOTE | 2020-02-26 08:33 | HMH.ACPN2 ---
Internal Medicine - PN: Subj *Date: 02/26/20 *Time: 08:33 Interval history: Patient states she feels about the same today. She did sleep well last night. She continues with some shortness of breath at rest. She states she ate all her breakfast this morning and denies any pain. Exam Vital signs and Labs for Last 24 Hours: Temp Pulse Resp BP Pulse Ox 97.7 F 80 18 126/78 90 L 02/26/20 04:00 02/26/20 06:08 02/26/20 04:00 02/26/20 04:00 02/26/20 06:08 Laboratory Results - last 24 hr 02/25/20 09:08: PT 16.1 H, INR 1.51 H 02/25/20 11:16: POC Glucose 208 H 02/25/20 17:17: POC Glucose 192 H 02/25/20 19:49: POC Glucose 265 H 02/26/20 05:43: POC Glucose 88 I & O for Last 24 hours: Intake & Output 02/23/20 02/24/20 02/25/20 02/26/20 11:59 11:59 11:59 11:59 Intake Total 1755 / 1755 1297 / 1297 1040 / 1040 600 / 600 Output Total 800 / 800 300 / 300 1000 / 1000 601 / 601 Balance 955 / 955 997 / 997 40 / 40 -1 / -1 Weight 165 lb 173 lb 2 oz 175 lb 4 oz 176 lb 5 oz Microbiology Reports for the Last 24 Hours: Microbiology 02/20/20 23:35 Blood Blood Culture - Final NO GROWTH AFTER 5 DAYS 02/20/20 23:35 Blood Blood Culture - Final NO GROWTH AFTER 5 DAYS - Constitutional no acute distress - *Routine Respiratory Exam Present: decreased breath sounds - *Routine Cardiovascular Exam Present: RRR - *Routine Abdominal Exam Present: soft, normoactive bowel sounds. Absent: tenderness - *Routine Extremities Exam Absent: cyanosis, clubbing, edema - *Routine Skin Exam Present: warm. Absent: rash - *Routine Neurological Exam Present: alert, oriented X3 Assessment and Plan (1) Respiratory failure Status: Acute Qualifiers: Chronicity: acute on chronic Respiratory failure complication: hypoxia and hypercapnia Qualified Code(s): J96.21 - Acute and chronic respiratory failure with hypoxia; J96.22 - Acute and chronic respiratory failure with hypercapnia Category: Medical Code(s): J96.90 - Respiratory failure, unspecified, unspecified whether with hypoxia or hypercapnia (2) Acute exacerbation of chronic obstructive airways disease Status: Acute Category: Medical Code(s): J44.1 - Chronic obstructive pulmonary disease with (acute) exacerbation (3) Elevated brain natriuretic peptide (BNP) level Status: Acute Category: Medical Code(s): R79.89 - Other specified abnormal findings of blood chemistry (4) Type 2 diabetes mellitus Status: Chronic Qualifiers: Diabetes mellitus termite treater helper insulin use: unspecified termite treater helper insulin use status Diabetes mellitus complication status: with other specified complication Qualified Code(s): E11.69 - Type 2 diabetes mellitus with other specified complication Category: Medical Code(s): E11.9 - Type 2 diabetes mellitus without complications (5) Bacteremia Status: Acute Category: Medical Code(s): R78.81 - Bacteremia (6) Deep vein thrombosis (DVT) of popliteal vein of left lower extremity Status: Acute Category: Medical Code(s): I82.432 - Acute embolism and thrombosis of left popliteal vein (7) Epistaxis Status: Resolved Category: Medical Code(s): R04.0 - Epistaxis (8) History of congestive heart failure Status: Chronic Category: Medical Code(s): Z86.79 - Personal history of other diseases of the circulatory system (9) Pulmonary emboli Status: Acute Category: Medical Code(s): I26.99 - Other pulmonary embolism without acute cor pulmonale (10) COPD (chronic obstructive pulmonary disease) Status: Chronic Category: Medical Code(s): J44.9 - Chronic obstructive pulmonary disease, unspecified (11) Hyperlipidemia Status: Chronic Category: Medical Code(s): E78.5 - Hyperlipidemia, unspecified (12) Right knee pain Status: Acute Category: Medical Code(s): M25.561 - Pain in right knee - Assessment and plan al
--- NOTE | 2020-02-26 09:04 | HMH.PULMPN ---
Internal Medicine - PN: Subj *Date: 02/26/20 *Time: 10:28 Interval history: Acute events overnight. Patient respiratory status remained stable. Exam - Constitutional Constitutional:: no acute distress, comfortable - HENMT Exam HENMT: normocephalic - Eye Exam Eyes:: normal appearance both eyes and related structures - Neck Exam Neck:: normal visual inspection, thyroid normal, no lymphadenopathy - Respiratory Exam Respiratory:: able to speak in complete sentences Comments: Bilateral distant breath sounds. No audible wheeze heard. - Cardiovascular Exam Cardiac:: regular rhythm, S1, S2 - GI Exam GI:: soft, no hepatosplenomegaly - Skin Exam Skin: warm, no rash - Neurological Exam Neurological: alert, awake, normal cognition - Extremities Exam Extremities: no cyanosis, no clubbing, no edema - Psychiatric Exam Psychiatric: normal affect Assessment and Plan (1) Respiratory failure Status: Acute Qualifiers: Chronicity: acute on chronic Respiratory failure complication: hypoxia and hypercapnia Qualified Code(s): J96.21 - Acute and chronic respiratory failure with hypoxia; J96.22 - Acute and chronic respiratory failure with hypercapnia Category: Medical Code(s): J96.90 - Respiratory failure, unspecified, unspecified whether with hypoxia or hypercapnia (2) Acute exacerbation of chronic obstructive airways disease Status: Acute Category: Medical Code(s): J44.1 - Chronic obstructive pulmonary disease with (acute) exacerbation (3) Elevated brain natriuretic peptide (BNP) level Status: Acute Category: Medical Code(s): R79.89 - Other specified abnormal findings of blood chemistry (4) Type 2 diabetes mellitus Status: Chronic Qualifiers: Diabetes mellitus 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 marine oil terminal insulin use: unspecified alf insulin use status Diabetes mellitus complication status: with other specified complication Qualified Code(s): E11.69 - Type 2 diabetes mellitus with other specified complication Category: Medical Code(s): E11.9 - Type 2 diabetes mellitus without complications (5) Bacteremia Status: Acute Category: Medical Code(s): R78.81 - Bacteremia (6) Deep vein thrombosis (DVT) of popliteal vein of left lower extremity Status: Acute Category: Medical Code(s): I82.432 - Acute embolism and thrombosis of left popliteal vein (7) Epistaxis Status: Resolved Category: Medical Code(s): R04.0 - Epistaxis (8) History of congestive heart failure Status: Chronic Category: Medical Code(s): Z86.79 - Personal history of other diseases of the circulatory system (9) Pulmonary emboli Status: Acute Category: Medical Code(s): I26.99 - Other pulmonary embolism without acute cor pulmonale (10) COPD (chronic obstructive pulmonary disease) Status: Chronic Category: Medical Code(s): J44.9 - Chronic obstructive pulmonary disease, unspecified (11) Hyperlipidemia Status: Chronic Category: Medical Code(s): E78.5 - Hyperlipidemia, unspecified (12) Right knee pain Status: Acute Category: Medical Code(s): M25.561 - Pain in right knee - Assessment and plan all Dx Assessment and Plan for all problems:: #Acute on chronic hypoxic and hypercarbic respiratory failure: #COPD exacerbation: #Recent history of PE on warfarin: 64-year-old with severe COPD chronic hypoxic hyper respiratory failure on long-term 4 L nasal cannula on triple inhaler therapy recent diagnosis of PE presented with hypoxic hypercarbic respiratory failure. CT did not show any evidence of pulmonary consolidation or pneumonia. Clot burden decreasing in size, compliant with her warfarin. Trilogy usage has been copliant (reviewed data sheet), except after her recent admission she has been noncompliant. Patient etiology for current is likely from noncompliance with trilogy along with her anxiety COPD exacerbation. ABG this morning showed baseline hypercarbia normal pH and hypoxic respiratory fail
[2020-02-26 09:52] LABS: ABG Base Excess 10.9 mmol/L (-2.4-2.3); ABG HCO3 35.8 mmhg (22.0-26.0); ABG Oxygen Saturation 93 % (90-100); ABG PO2 67.2 mmhg (80-100); ABG TCO2 37.6 mmhg (23-27)
[2020-02-26 09:54] LABS: Allen's Test Acceptable; Oxygen 4 LPM NC %; Source Right Brachial
[2020-02-26 09:56] LABS: ABG PCO2 59.8 mmhg (35.0-45.0)
[2020-02-26 11:03] LABS: POC Glucose,Bedside 139 (70-110)
--- NOTE | 2020-02-26 11:44 | PC.NURSE ---
1024 - Notified daughter of DC order @ this time. Daughter states pt has home health that was previously set up at last discharge. Follow up appointments have been made w/ Dr. Orozco and Mitra De La Cruz @ [facility] (formerly [facility] Pharmacy has also been in to speak w/ pt about medications @ DC, pt verbalized understanding.
--- NOTE | 2020-02-26 11:57 | HMH.DCSUM ---
General - General Admission date:: 02/21/20 Discharge date: 02/26/20 HPI HPI: Ms. Barragan is a 64-year-old female who was just recently discharged from & after an admission for COPD exacerbation and bilateral pulmonary emboli. She went home and yesterday morning her daughter states she had a severe nosebleed. She presented to the ER and had to have electrocautery of the nosebleed. Her daughter states she went home and after this began getting more more short of breath. She states her oxygen sats dropped into the 80s and then into the 70s. She began having altered mental status and her daughter was able to place her trilogy device. Her oxygen did not improve and she called 911. She was transported to the emergency room for further evaluation and treatment. Her chest x-ray showed nothing acute. Her white blood cell count was slightly elevated. Her blood gas showed a pH of 7.39 with a PCO2 of 75 and a PO2 of 64. Her sodium was low and her troponin was slightly elevated. She had a BNP of 1890. She was admitted and placed on BiPAP. Hospital Course Hospital Course: The patient's initial chest x-ray showed nothing acute. She was admitted and placed on BiPAP due to respiratory failure. She was also started on antibiotics. A CTA was reordered to check the status of her pulmonary emboli. The CTA showed slight improvement and no new areas of embolic disease. The patient did improve with BiPAP. She was able to be weaned down to 4 L of nasal oxygen during the day but remained on BiPAP at night. Prednisone was added to her medication regimen. She did complain of some knee pain and a uric acid was ordered and was normal. Her sed rate was also normal. She had a respiratory panel along with Covid antibodies and all were negative. Seroquel was added to help her sleep and pulmonology was consulted. Dr. Orozco did see the patient and recommended changing her Rocephin to Levaquin and completing a total of a 5-day course for COPD exacerbation. He also wanted to continue her on duo nebs every 6 hours and remain on BiPAP at night. She did began feeling better and her shortness of breath was back to baseline. She was stable to be discharged home and will follow up with pulmonology next week. Objective Vital signs: Temp Pulse Resp BP Pulse Ox 98.1 F 98 H 22 141/73 H 91 L 02/26/20 08:00 02/26/20 09:44 02/26/20 08:00 02/26/20 08:00 02/26/20 08:00 Narrative: - Constitutional Comments: History obtained from patient's daughter as she has AMS. She sleeps through the entire exam. - *Routine HEENT Exam Head: Present: normocephalic Eye: Present: EOMI, PERRL ENT: Present: mucous membranes dry - *Routine Respiratory Exam Present: decreased breath sounds Comments: BIPAP in place - *Routine Cardiovascular Exam Present: RRR - *Routine Abdominal Exam Present: soft, normoactive bowel sounds. Absent: tenderness - *Routine Extremities Exam Present: edema (1+ pretibial edema bilaterally). Absent: cyanosis, clubbing - *Routine Skin Exam Present: warm. Absent: rash - *Routine Neurological Exam Present: altered mental status Results Labs on day of discharge: Labs from last 24 hours 02/26/20 02/26/20 02/26/20 10:51 09:45 05:43 Specimen Source Right brachial O2 % 4 lpm nc ABG pH 7.40 ABG pCO2 59.8 H ABG pO2 67.2 L ABG HCO3 35.8 H ABG Total CO2 37.6 H ABG O2 Saturation 93 ABG Base Excess 10.9 H Liban Test Acceptable POC Glucose 139 H 88 02/25/20 02/25/20 19:49 17:17 Specimen Source O2 % ABG pH ABG pCO2 ABG pO2 ABG HCO3 ABG Total CO2 ABG O2 Saturation ABG Base Excess Liban Test POC Glucose 265 H 192 H DS: Diagnosis - Discharge Diagnosis (1) Respiratory failure Status: Acute (2) Acute exacerbation of chronic obstructive airways disease Status: Acute (3) Elevated brain natriuretic peptide (BNP) level
[2020-02-27 16:08] LABS: Antinuclear Antibodies (ANA) NEGATIVE
== END 2020-02-26 13:20 | disposition home health service (06) | DRG 175 ==
LOC: ER 02-21 03:02 → 2ND 02-21 03:10
PROVIDERS: Admitting Provider Family Medicine; Emergency Provider Emergency Medicine; PCP Nurse Practitioner Family; Visit Provider Family Medicine
DX: I26.99 Other pulmonary embolism without acute cor pulmonale (principal); J96.21 Acute and chronic respiratory failure with hypoxia; J96.22 Acute and chronic respiratory failure with hypercapnia; I82.432 Acute embolism and thrombosis of left popliteal vein; I11.0 Hypertensive heart disease with heart failure; I50.9 Heart failure, unspecified; M25.561 Pain in right knee; Z87.891 Personal history of nicotine dependence; Z79.01 Long term (current) use of anticoagulants; Z79.82 Long term (current) use of aspirin; Z88.5 Allergy status to narcotic agent; Z79.51 Long term (current) use of inhaled steroids; Z79.899 Other long term (current) drug therapy; E11.9 Type 2 diabetes mellitus without complications; R04.0 Epistaxis; Z99.81 Dependence on supplemental oxygen
CPT/HCPCS: 36415; 71045; 71275; 80048; 80053; 81001; 82803; 82962; 83605; 83735; 83880; 84145; 84484; 84550; 85007; 85025; 85610; 85651; 86038; 86140; 86328; 87040; 87581; 87633; 87798; 93005; 94640; 94660; 96365; 96367; 96375; 99283; 99285; Q9967

== ENCOUNTER → 2020-03-09 11:15 | Outpatient (CLI) | payer MEDICAID, SELFPAY ==
[2020-03-09 14:39] LABS: INR 1.77 (0.9-1.1); Prothrombin Time 18.7 seconds (9.4-11.8)
== END ==
PROVIDERS: Visit Provider Nurse Practitioner Family
DX: R79.1 Abnormal coagulation profile (principal)
CPT/HCPCS: 85610

== ENCOUNTER → 2020-03-16 11:21 | Outpatient (CLI) | payer MEDICAID, SELFPAY ==
[2020-03-16 15:24] LABS: INR 3.22 (0.9-1.1); Prothrombin Time 32.1 seconds (9.4-11.8)
== END ==
PROVIDERS: Visit Provider Nurse Practitioner Family
DX: Z51.81 Encounter for therapeutic drug level monitoring (principal); Z79.01 Long term (current) use of anticoagulants
CPT/HCPCS: 85610

== ENCOUNTER → 2020-03-23 11:24 | Outpatient (CLI) | payer MEDICAID, SELFPAY ==
[2020-03-23 16:08] LABS: INR 2.65 (0.9-1.1); Prothrombin Time 26.9 seconds (9.4-11.8)
== END ==
PROVIDERS: Visit Provider Nurse Practitioner Family
DX: R79.1 Abnormal coagulation profile (principal)
CPT/HCPCS: 85610

== ENCOUNTER → 2020-04-06 11:06 | Outpatient (CLI) | payer MEDICAID, SELFPAY ==
[2020-04-06 15:23] LABS: Prothrombin Time 35.6 seconds (9.4-11.8)
== END ==
PROVIDERS: Visit Provider Nurse Practitioner Family
DX: Z51.81 Encounter for therapeutic drug level monitoring (principal); Z79.01 Long term (current) use of anticoagulants
CPT/HCPCS: 85610

== ENCOUNTER → 2020-04-20 11:46 | Outpatient (CLI) | payer MEDICARE, MEDICAID, SELFPAY ==
[2020-04-20 15:23] LABS: INR 2.54 (0.9-1.1); Prothrombin Time 24.6 seconds (9.4-11.8)
== END ==
PROVIDERS: Visit Provider Nurse Practitioner Family
DX: Z51.81 Encounter for therapeutic drug level monitoring (principal); Z79.01 Long term (current) use of anticoagulants
CPT/HCPCS: 85610

== ENCOUNTER → 2020-04-27 11:21 | Outpatient (CLI) | payer MEDICARE, MEDICAID, SELFPAY ==
[2020-04-27 15:28] LABS: INR 2.88 (0.9-1.1); Prothrombin Time 27.7 seconds (9.4-11.8)
== END ==
PROVIDERS: Visit Provider Nurse Practitioner Family
DX: Z51.81 Encounter for therapeutic drug level monitoring (principal); Z79.01 Long term (current) use of anticoagulants
CPT/HCPCS: 85610

== ENCOUNTER → 2020-05-25 11:58 | Outpatient (CLI) | payer MEDICARE, MEDICAID, SELFPAY ==
[2020-05-25 16:41] LABS: INR 2.42 (0.9-1.1); Prothrombin Time 26.7 seconds (9.4-11.8)
== END ==
PROVIDERS: Visit Provider Nurse Practitioner Family
DX: Z51.81 Encounter for therapeutic drug level monitoring (principal); Z79.01 Long term (current) use of anticoagulants
CPT/HCPCS: 85610

== ENCOUNTER → 2020-06-02 10:59 | Outpatient (CLI) | payer MEDICARE, MEDICAID, SELFPAY ==
[2020-06-02 14:58] LABS: INR 2.02 (0.9-1.1); Prothrombin Time 22.6 seconds (10.1-12.5)
== END ==
PROVIDERS: Visit Provider Nurse Practitioner Family
DX: Z51.81 Encounter for therapeutic drug level monitoring (principal); Z79.01 Long term (current) use of anticoagulants
CPT/HCPCS: 85610

== ENCOUNTER → 2020-06-08 14:15 | Outpatient (CLI) | payer MEDICARE, MEDICAID, SELFPAY ==
[2020-06-08 16:16] LABS: INR 2.24 (0.9-1.1); Prothrombin Time 24.9 seconds (10.1-12.5)
== END ==
PROVIDERS: Visit Provider Nurse Practitioner Family
DX: Z51.81 Encounter for therapeutic drug level monitoring (principal); Z79.01 Long term (current) use of anticoagulants
CPT/HCPCS: 85610

== ENCOUNTER → 2020-06-23 11:54 | Outpatient (CLI) | payer MEDICARE, MEDICAID, SELFPAY ==
[2020-06-23 14:34] LABS: INR 2.31 (0.9-1.1); Prothrombin Time 25.6 seconds (10.1-12.5)
== END ==
PROVIDERS: Visit Provider Nurse Practitioner Family
DX: Z51.81 Encounter for therapeutic drug level monitoring (principal); Z79.01 Long term (current) use of anticoagulants
CPT/HCPCS: 85610

== ENCOUNTER 2020-08-27 15:51 | Emergency (ER) | payer MEDICARE, MEDICAID, SELFPAY ==
[2020-08-27] VITALS (8 sets, daily range): BP systolic 147–158; BP diastolic 76–91; PULSE 86–89; RESP 16–28; TEMP 36.6; O2SAT 94–98; BMI 27.1
--- NOTE | 2020-08-27 15:44 | ECG_ITS ---
APPROVED REPORT Exam: Resting ECG HR:87 bpm ECG Measurements Heart Rate 87 AXES RI 100 P 44 QRSd 66 QRS 52 QT 376 T 42 QTc 452 Conclusion Undetermined rhythm Nonspecific ST and T wave abnormality Abnormal ECG Electronically signed by : Ricardo Myers, 08/27/2020 21:58:28
--- NOTE | 2020-08-27 15:59 | XR_ITS ---
PROCEDURE: XR CHEST PORTABLE CLINICAL HISTORY: SOB COMPARISON: CR XR CHEST PORTABLE from 02/12/2020 CR XR CHEST PORTABLE from 02/14/2020 CR XR CHEST PORTABLE from 02/20/[address] ANGIO CHEST from 02/21/2020 FINDINGS: Some underlying COPD changes with mild bibasilar scar versus atelectasis. No definite focal infiltrate. No pleural effusion or pneumothorax. No acute bony abnormality. Heart is mildly enlarged. IMPRESSION: Some underlying COPD changes with mild bibasilar scar versus atelectasis. No focal infiltrate or overt failure. Dictated by: Jonh Pepe MD 08/27/2020 16:14 Jonh Pepe MD in [place] 08/27/2020 16:14
[2020-08-27 16:16] LABS: Basophils # 0.1 K/mm3 (0-0.2); Basophils % 0.9 % (0.1-2.0); Eosinophils # 0.2 K/mm3 (0.0-0.4); Eosinophils % 3.1 % (0.1-12.0); Hemoglobin 11.2 g/dL (12.2-16.2); Lymphocytes # 1.6 K/mm3 (0.7-4.5); Lymphocytes % 24.1 % (10-50); Mean Corpuscular HGB Conc 32.1 g/dL (31.8-35.4); Mean Corpuscular Hemoglobin 26.3 pg (27.0-31.2); Mean Corpuscular Volume 82.1 fl (81-99); Mean Platelet Volume 7.6 fl (7.4-10.4); Monocytes # 0.5 K/mm3 (0.1-1.0); Monocytes % 6.8 % (1.7-9.3); Neutrophils # 4.4 K/mm3 (1.8-7.8); Neutrophils % 65.2 % (37.0-80.0); Platelet Count 394 K/mm3 (142-424); Red Blood Count 4.27 M/mm3 (4.20-5.40); Red Cell Distribution Width 14.6 % (11.5-17.5); White Blood Count 6.8 K/mm3 (4.8-10.8)
--- NOTE | 2020-08-27 16:17 | HMH.EDSOB ---
ED Disposition Clinical Impression: Acute exacerbation of chronic obstructive airways disease, Subtherapeutic international normalized ratio (INR) Disposition: Home, Self-Care Condition on Discharge: Good Instructions: DI for Chronic Obstructive Pulmonary Disease, DI for Shortness of Breath Additional Instructions: Call your case technician tomorrow morning to ascertain that you are to start Xarelto. It is important that you either increase your dose of Coumadin as directed by your physician, or start Xarelto for appropriate anticoagulation. Take steroids as prescribed starting tomorrow 08/28/2020. Prescriptions: predniSONE [Prednisone 50mg Tab] 50 mg PO DAILY #5 tab Prescription Printed Referrals: Tashia De La Cruz APRN [Primary Care Provider] - 08/31/20 - Critical Care Critical Care Time: No Attestation: On 08/27/20, the high probability of a clinically significant, sudden or life threatening deterioration of the following system(s) required my full and direct attention, intervention and personal management. The time I documented below is in addition to time spent performing reported procedures but includes the following listed in this critical care notation. Medical Decision Making - Medical Records Medical records reviewed: Yes: I reviewed the patient's medical records. - [place] Inquiry Pt receiving controlled substance: No Vital Signs: 08/27/20 15:52 08/27/20 17:00 08/27/20 17:07 Temperature 98 F Temperature Source Oral Pulse Rate 87 Pulse Rate [Radial] 86 Respiratory Rate 28 H 16 Blood Pressure 158/76 H 152/87 H Blood Pressure [Right Arm] 153/86 H Blood Pressure Mean 115 115 Blood Pressure Mean [Right Arm] 108 Blood Pressure Position [Right Arm] Sitting 02 Sat by Pulse Oximetry 96 96 Oxygen Delivery Method Nasal Cannula Oxygen Flow Rate (LPM) 4 - Lab Data Lab results reviewed: Yes: I reviewed the patient's lab results. Lab Results 08/27/20 15:58: WBC 6.8, RBC 4.27, Hgb 11.2 L, Hct 35.0 L, MCV 82.1, MCH 26.3 L, MCHC 32.1, RDW 14.6, Plt Count 394, MPV 7.6, Neut % (Auto) 65.2, Lymph % (Auto) 24.1, [place] % (Auto) 6.8, Eos % (Auto) 3.1, Baso % (Auto) 0.9, Neut # (Auto) 4.4, Lymph # (Auto) 1.6, [place] # (Auto) 0.5, Eos # (Auto) 0.2, Baso # (Auto) 0.1 08/27/20 15:58: Sodium 136, Potassium 4.9, Chloride 93 L, Carbon Dioxide 38 H, Anion Gap 9.9, BUN 5 L, Creatinine 0.50 L, Estimated Creat Clear 63, Estimated GFR 124, Est GFR ( Amer) 150, Glucose 114 H, Calcium 8.9, Troponin I < 0.01 08/27/20 16:23: PT 14.5 H, INR 1.25 H Result diagrams: 08/27/20 15:58 08/27/20 15:58 Orders (Tests/Meds): ED MEDICATIONS Discontinued Medications Generic Name Dose Route Start Last Admin Trade Name Freq PRN Reason Stop Dose Admin Albuterol/Ipratropium 3 ml 08/27/20 16:00 08/27/20 16:28 Ipratropium/Albuterol 3 Ml Neb IH 08/27/20 16:01 3 ml ONCE ONE Administration Methylprednisolone Sodium Succinate 125 mg 08/27/20 16:49 08/27/20 16:51 Methylprednisolone Sod Succ 125mg Vial IV 08/27/20 16:50 125 mg ONCE ONE Administration ORDERS Category Date Time Status Troponin I Q3H Lab 08/27/20 19:00 Ordered Troponin I Q3H Lab 08/27/20 22:00 Ordered - Radiology Data #1 Image(s): Chest Image Reviewed: Yes I reviewed the patient's radiology results Some underlying COPD changes with mild bibasilar scar versus atelectasis. No focal infiltrate or overt failure. - ECG Data Tracing #1 EKG at 1544 shows a a lot of motion artifact, but grossly no STEMI in a rate of 87. EKG interpreted by me. Medical Decision Narrative: Patient with no hypoxia here. She speaks in complete sentences though she is somewhat tachypneic. She has improvement with DuoNeb and Solu-Medrol. Suspect acute on chronic COPD problems associated with nasal congestion and seasonal allergies. She has no chest pain or hypoxia, lower suspicion for PE. Daughter later arrives and stat
[2020-08-27 16:19] LABS: Chloride 93 mmol/L (98-107); Potassium 4.9 mmoL/L (3.5-5.1); Sodium 136 mmol/L (136-145)
[2020-08-27 16:22] LABS: Blood Urea Nitrogen 5 mg/dl (7-17); Calcium 8.9 mg/dl (8.4-10.2); Carbon Dioxide 38 mmol/L (22.0-30.0); Creatinine Clearance Estimated 63 mL/min (50-200); Estimated Glomerular Filt Rate 124 ml/min (>60); GFR (African American) 150 ML/MIN (>60); Glucose 114 mg/dl (74-100)
[2020-08-27 16:23] LABS: Anion Gap 9.9 mEq/L (5-15)
[2020-08-27 16:37] LABS: Troponin I < 0.01 ng/ml (0.00-0.034)
[2020-08-27 17:08] LABS: Prothrombin Time 14.5 seconds (10.1-12.5)
[2020-08-27 17:12] LABS: INR 1.25 (0.9-1.1)
== END 2020-08-27 18:13 | disposition home or self-care (01) ==
PROVIDERS: Emergency Provider Emergency Medicine; PCP Nurse Practitioner Family
DX: J44.1 Chronic obstructive pulmonary disease with (acute) exacerbation (principal); R79.1 Abnormal coagulation profile; E11.9 Type 2 diabetes mellitus without complications; I10 Essential (primary) hypertension; I50.9 Heart failure, unspecified; Z86.718 Personal history of other venous thrombosis and embolism; Z79.01 Long term (current) use of anticoagulants; F41.9 Anxiety disorder, unspecified; Z87.891 Personal history of nicotine dependence; Z79.899 Other long term (current) drug therapy
CPT/HCPCS: 71045; 80048; 84484; 85025; 85610; 93005; 96374; 96375; 99282

== ENCOUNTER 2021-01-24 21:56 | Inpatient (IN) | payer MEDICAID, MEDICARE, SELFPAY ==
[2021-01-24 21:51] VITALS: BP 115/66; PULSE 97; RESP 24; TEMP 36.9; O2SAT 89; BMI 25.7
[2021-01-24 22:00] VITALS: BP 115/66; PULSE 90; O2SAT 94
--- NOTE | 2021-01-24 22:08 | XR_ITS ---
PROCEDURE INFORMATION: Exam: XR Chest Exam date and time: 01/24/2021 10:08 PM Age: 65 years old Clinical indication: Shortness of breath; Additional info: SOA TECHNIQUE: Imaging protocol: XR of the chest. Views: 1 view. COMPARISON: CR XR CHEST PORTABLE 08/27/2020 4:07 PM FINDINGS: Lungs: The hyperinflation with diffuse interstitial coarsening suggesting COPD. Chronic linear scarring at the lung bases. There is new patchy airspace disease throughout the right lung base, either pneumonia or atelectasis. Pleural spaces: Small layering right pleural effusion. No definite left pleural effusion. No pneumothorax. Heart/Mediastinum: Normal heart size. Aortic atherosclerosis. Bones/joints: Unremarkable. IMPRESSION: 1. Right lung base pneumonia or atelectasis. 2. Small right pleural effusion. 3. COPD.
--- NOTE | 2021-01-24 22:09 | ECG_ITS ---
APPROVED REPORT Exam: Resting ECG HR:89 bpm ECG Measurements Heart Rate 89 AXES CO 114 P 41 QRSd 74 QRS 53 QT 352 T 53 QTc 428 Conclusion Normal sinus rhythm Normal ECG Electronically signed by : Ricardo Myers MD 01/25/2021 20:15:59
[2021-01-24 22:28] LABS: ABG Base Excess 1.4 mmol/L (-2.4-2.3); ABG HCO3 27.6 mmhg (22.0-26.0); ABG Oxygen Saturation 94 % (90-100); ABG PH 7.31 mmol/L (7.35-7.45); ABG PO2 75.7 mmhg (80-100); ABG TCO2 29.4 mmhg (23-27)
[2021-01-24 22:29] LABS: Allen's Test Y; Oxygen 4 %; Source R/R
[2021-01-24 22:30] LABS: ABG PCO2 56.3 mmhg (35.0-45.0)
[2021-01-24 22:31] VITALS: BP 117/81; PULSE 92; O2SAT 91
[2021-01-24 22:36] LABS: Coronavirus 19, PCR Not Detected (NotDetected); Influenza A, PCR Not Detected (NotDetected); Influenza B, PCR Not Detected (NotDetected)
--- NOTE | 2021-01-24 22:41 | CT_ITS ---
PROCEDURE INFORMATION: Exam: CTA Chest With Contrast Exam date and time: 01/24/2021 10:41 PM Age: 65 years old Clinical indication: Shortness of breath; Additional info: SOA, pleuritic cp h/o pulm emboli TECHNIQUE: Imaging protocol: Computed tomographic angiography of the chest with contrast. 3D rendering (Not supervised by radiologist): MIP and/or 3D reconstructed images were created by the technologist. Radiation optimization: All CT scans at this facility use at least one of these dose optimization techniques: automated exposure control; mA and/or kV adjustment per patient size (includes targeted exams where dose is matched to clinical indication); or iterative reconstruction. Contrast material: ISOVUE 370; Contrast volume: 70 ml; Contrast route: INTRAVENOUS (IV); COMPARISON: CT ANGIO CHEST 02/21/2020 3:36 PM FINDINGS: Pulmonary arteries: There are linear, nonocclusive, peripheral web-like filling defects present within scattered segmental/subsegmental pulmonary arteries bilaterally. 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 There is also mild artifactual heterogeneity affecting the distal segmental and subsegmental pulmonary arteries. No convincing new/acute embolus. Aorta: Fusiform ectasia of the ascending thoracic aorta measuring up to 3.6 cm in caliber, unchanged. No dissection. Scattered atherosclerotic plaque. Left vertebral artery arises directly from the aortic arch, normal anatomic variation. Lungs: Emphysema/hyperinflation compatible with COPD. Scattered linear scarring is noted. There is airspace consolidation involving the majority of the right middle lobe, compatible with pneumonia. Dependent atelectasis. Pleural spaces: Trace right pleural effusion. No pneumothorax. Heart: Heart size is within normal limits. There is trace pericardial effusion, nonspecific. Lymph nodes: There is a new enlarged right hilar lymph node measuring 1.1 cm in short axis, probably reactive to the pneumonia. There is interval enlarged right pretracheal lymph node, now measuring 1.4 x 2.0 cm. Gallbladder and bile ducts: Cholecystectomy with mild prominence of the common bile duct likely reflecting reservoir effect. Kidneys and ureters: Exophytic 1.5 x 1.0 cm right renal cyst. Bones/joints: Osteopenia. Exaggerated thoracic kyphosis. Few old rib fractures are noted. No acute fracture. Lower cervical degenerative changes, with mild thoracic spondylosis. Soft tissues: Unremarkable. IMPRESSION: 1. Since 02/21/2020, interval resolution of most previously demonstrated pulmonary emboli. Scattered linear, nonocclusive, web-like filling defects within bilateral segmental/subsegmental pulmonary arteries are favored to reflect a combination of chronic embolic disease and artifact. No convincing new/acute emboli. 2. Right middle lobe pneumonia. Follow-up to resolution advised. 3. Trace right pleural effusion. 4. COPD. Other chronic/ancillary findings as above. COMMENTS: Consistent with the [employer]'s Incidental Findings Committee white paper (J Am Fredy Radiol 2018): Any incidental renal lesion less than 1 cm or classified as too small to characterize, or any incidental cystic renal lesion characterized as simple-appearing, is likely benign. No follow-up imaging is recommended for these lesions per consensus recommendations based on imaging criteria.
[2021-01-24 22:44] LABS: Chloride 93 mmol/L (98-107); Potassium 4.9 mmoL/L (3.5-5.1); Sodium 135 mmol/L (136-145)
[2021-01-24 22:47] LABS: Alanine Aminotransferase 8 U/L (12-78); Albumin/Globulin Ratio 1.4 (1.1-1.8); Alkaline Phosphatase 74 U/L (38-126); Anion Gap 9.9 mEq/L (5-15); Aspartate Amino Transferase 26 U/L (14-36); Bilirubin,Total 0.2 mg/dl (0.2-1.3); Blood Urea Nitrogen 9 mg/dl (7-17); Calcium 8.8 mg/dl (8.4-10.2); Carbon Dioxide 37 mmol/L (22.0-30.0); Creatinine Clearance Estimated 60 mL/min (50-200); Estimated Glomerular Filt Rate 124 ml/min (>60); GFR (African American) 150 ML/MIN (>60); Globulin 2.9 g/dL (1.3-3.2); Glucose 133 mg/dl (74-100); Lactic Acid 0.6 mmol/L (0.7-2.1); Total Protein,Serum 6.9 g/dl (6.3-8.2)
[2021-01-24 22:48] LABS: Basophils # 0.1 K/mm3 (0-0.2); Basophils % 0.8 % (0.1-2.0); Eosinophils # 0.2 K/mm3 (0.0-0.4); Eosinophils % 1.8 % (0.1-12.0); Hematocrit 35.7 % (37.0-47.0); Hemoglobin 11.4 g/dL (12.2-16.2); Lymphocytes # 1.7 K/mm3 (0.7-4.5); Lymphocytes % 19.4 % (10-50); Mean Corpuscular HGB Conc 31.9 g/dL (31.8-35.4); Mean Corpuscular Hemoglobin 27.3 pg (27.0-31.2); Mean Corpuscular Volume 85.6 fl (81-99); Mean Platelet Volume 8.1 fl (7.4-10.4); Monocytes # 0.5 K/mm3 (0.1-1.0); Monocytes % 5.6 % (1.7-9.3); Neutrophils # 6.3 K/mm3 (1.8-7.8); Neutrophils % 72.3 % (37.0-80.0); Platelet Count 255 K/mm3 (142-424); Red Blood Count 4.17 M/mm3 (4.20-5.40); Red Cell Distribution Width 13.9 % (11.5-17.5); White Blood Count 8.7 K/mm3 (4.8-10.8)
[2021-01-24 22:56] LABS: Microscopic, Urine URINE MICROSCOPIC (MICROSCOPIC)
[2021-01-24 22:57] LABS: Appearance,Urine CLEAR (Clear); Bilirubin,Urine Negative (Negative); Blood, Urine Negative (Negative); Color,Urine YELLOW (Yellow); Glucose,Urine (UA) Negative (Negative); Ketones,Urine Negative (Negative); Leukocyte Esterase,Urine 1+ (Negative); Nitrate,Urine Negative (Negative); Protein,Urine Negative (Negative); Urobilinogen,Urine 0.2 EU/dl (0.2)
[2021-01-24 23:00] VITALS: BP 114/66; PULSE 88; O2SAT 93
[2021-01-24 23:15] LABS: Troponin I < 0.01 ng/ml (0.00-0.034)
[2021-01-25] VITALS (14 sets, daily range): BP systolic 115–143; BP diastolic 68–82; PULSE 78–114; RESP 18–23; TEMP 36.6–37; O2SAT 90–100; BMI 25.6
--- NOTE | 2021-01-25 00:05 | PC.NURSE ---
updated daughter on pt status and poc. She does have trilogy machine if pt is going to be adx.
--- NOTE | 2021-01-25 01:02 | HMH.EDGENADL ---
ED Disposition Clinical Impression: COPD with exacerbation Pneumonia Qualifiers: Pneumonia type: due to unspecified organism Laterality: right Lung location: middle lobe of lung Qualified Code(s): J18.9 - Pneumonia, unspecified organism Urinary tract infection Qualifiers: Urinary tract infection type: acute cystitis Disposition: Admitted As Inpatient Condition on Discharge: Fair Referrals: Tashia De La Cruz APRN [Primary Care Provider] - - Critical Care Critical Care Time: No Attestation: On 01/24/21, the high probability of a clinically significant, sudden or life threatening deterioration of the following system(s) required my full and direct attention, intervention and personal management. The time I documented below is in addition to time spent performing reported procedures but includes the following listed in this critical care notation. Medical Decision Making - Medical Records Medical records reviewed: Yes: I reviewed the patient's medical records. - [place] Inquiry Pt receiving controlled substance: No Vital Signs: 01/24/21 21:51 01/24/21 22:00 01/24/21 22:31 Temperature 98.4 F Temperature Source Oral Pulse Rate 90 92 H Pulse Rate [Right] 97 H Respiratory Rate 24 Blood Pressure 115/66 117/81 Blood Pressure [Right Arm] 115/66 Blood Pressure Mean [Right Arm] 82 02 Sat by Pulse Oximetry 89 L 94 L 91 L Oxygen Delivery Method Nasal Cannula Nasal Cannula Nasal Cannula Oxygen Flow Rate (LPM) 4 4 4 01/24/21 23:00 01/25/21 00:00 01/25/21 00:30 Temperature Temperature Source Pulse Rate 88 91 H 96 H Pulse Rate [Right] Respiratory Rate Blood Pressure 114/66 124/72 129/82 Blood Pressure [Right Arm] Blood Pressure Mean [Right Arm] 02 Sat by Pulse Oximetry 93 L 92 L 90 L Oxygen Delivery Method Nasal Cannula Nasal Cannula Nasal Cannula Oxygen Flow Rate (LPM) 4 4 4 - Lab Data Lab results reviewed: Yes: I reviewed the patient's lab results. Lab Results 01/24/21 22:09: Specimen Source R/r, O2 % 4, ABG pH 7.31 L, ABG pCO2 56.3 H, ABG pO2 75.7 L, ABG HCO3 27.6 H, ABG Total CO2 29.4 H, ABG O2 Saturation 94, ABG Base Excess 1.4, [place] Test Y 01/24/21 22:22: WBC 8.7, RBC 4.17 L, Hgb 11.4 L, Hct 35.7 L, MCV 85.6, MCH 27.3, MCHC 31.9, RDW 13.9, Plt Count 255, MPV 8.1, Neut % (Auto) 72.3, Lymph % (Auto) 19.4, [place] % (Auto) 5.6, Eos % (Auto) 1.8, Baso % (Auto) 0.8, Neut # (Auto) 6.3, Lymph # (Auto) 1.7, [place] # (Auto) 0.5, Eos # (Auto) 0.2, Baso # (Auto) 0.1 01/24/21 22:22: Sodium 135 L, Potassium 4.9, Chloride 93 L, Carbon Dioxide 37 H, Anion Gap 9.9, BUN 9, Creatinine 0.50 L, Estimated Creat Clear 60, Estimated GFR 124, Est GFR ( Amer) 150, Glucose 133 H, Calcium 8.8, Total Bilirubin 0.2, AST 26, ALT 8 L, Alkaline Phosphatase 74, Total Protein 6.9, Albumin 4.0, Globulin 2.9, Albumin/Globulin Ratio 1.4 01/24/21 22:22: Lactate 0.6 L 01/24/21 22:22: Troponin I < 0.01 01/24/21 22:32: SARS-CoV-2 (PCR) Not detected, Influenza A Untype (PCR) Not detected, Influenza Type B (PCR) Not detected 01/24/21 22:53: Urine Color Yellow, Urine Appearance Clear, Urine pH 6.0, Ur Specific [place] 1.010, Urine Protein Negative, Urine Glucose (UA) Negative, Urine Ketones Negative, Urine Blood Negative, Urine Nitrate Negative, Urine Bilirubin Negative, Urine Urobilinogen 0.2, Ur Leukocyte Esterase 1+ A, Urine WBC 10-20 Result diagrams: 01/24/21 22:22 01/24/21 22:22 Orders (Tests/Meds): ED MEDICATIONS Generic Name Dose Route Start Last Admin Trade Name Freq PRN Reason Stop Dose Admin Sodium Chloride 10 ml 01/24/21 23:42 Sodium Chloride 0.9% 10ml Vial IV 02/23/21 23:41 NEEDED PRN to Dilute Lorazepam inj Discontinued Medications Generic Name Dose Route Start Last Admin Trade Name Freq PRN Reason Stop Dose Admin Magnesium Sulfate 2 gm/ Sodium 104 mls @ 100 mls/hr 01/24/21 22:44 01/24/21 22:55 Chloride IV 01/24/21 23:46 100 mls/hr ONCE ONE Administratio
--- NOTE | 2021-01-25 01:22 | PC.NURSE ---
Repeat abg ordered by md. Will with respiratory notified. States he is en route.
--- NOTE | 2021-01-25 02:00 | PC.NURSE ---
s/w Dr. Echevarria for poss admission
--- NOTE | 2021-01-25 02:10 | PC.NURSE ---
Notified House for bed assignment.
--- NOTE | 2021-01-25 02:26 | PC.NURSE ---
Gave report to Agustina Toussaint RN
[2021-01-25 02:31] LABS: Troponin I < 0.01 ng/ml (0.00-0.034)
--- NOTE | 2021-01-25 02:52 | PC.NURSE ---
patient up to floor via stretcher @ this time.
--- NOTE | 2021-01-25 03:35 | PC.NURSE ---
MD Echevarria notified that pt meets criteria for sepsis due to new placement of Bipap. No new orders at time. Pt is currently resting in bed. She is tolerating Bipap. Will continue to monitor.
--- NOTE | 2021-01-25 07:29 | P.CONPHA_ITS ---
[facility] Pharmacy VTE Monitoring - Patient Demographics Admission date: 01/25/21 Report Date: 01/25/21 Time: 07:29 Allergies/Adverse Reactions: Patient Allergies codeine Allergy (Intermediate, Verified 07/09/20 11:24) CHEST PAIN ketorolac [From Toradol] Allergy (Intermediate, Verified 07/09/20 11:24) MENTAL STATUS CHANGES Height: 1.63 m Weight: 68.039 kg Patient Problems: Current Active Problems COPD with exacerbation (Acute) Pneumonia (Acute) Urinary tract infection (Acute) - VTE Risk Labs: VTE Related Lab Results Hgb 11.4 g/dL (12.2-16.2) L 01/24/21 22:22 Hct 35.7 % (37.0-47.0) L 01/24/21 22:22 Plt Count 255 K/mm3 (142-424) 01/24/21 22:22 BUN 9 mg/dl (7-17) 01/24/21 22:22 Creatinine 0.50 mg/dl (0.52-1.04) L 01/24/21 22:22 Estimated Creat Clear 60 mL/min (50-200) 01/24/21 22:22 Clinical Trial Participant: No - Prophylaxis VTE Prophylaxis Ordered?: Yes Types of VTE Prophylaxis: TEDS Knee High Location of Applied Device: Bilateral Lower Extremeties
--- NOTE | 2021-01-25 08:09 | HMH.PHAINT ---
Addendum entered and electronically signed by Hyacinth Fraser PharmD 01/25/21 09:10: clarified home medication list using list from [facility] after nurse verified using prescription bottles. Original Note: Verified home medications with pharmacy
[2021-01-25 08:49] LABS: ABG PO2 79.4 mmhg (80-100)
[2021-01-25 08:50] LABS: ABG Base Excess 7.6 mmol/L (-2.4-2.3); ABG HCO3 36.5 mmhg (22.0-26.0); ABG Oxygen Saturation 95 % (90-100); ABG TCO2 38.8 mmhg (23-27); Oxygen 40% %; Tidal Volume BIPAP 14/7
--- NOTE | 2021-01-25 09:02 | HMH.PULMCON ---
*Admission Date: 01/25/21 *Reason for consult:: Acute on chronic hypercarbic respiratory failure. COPD exacerbation. *History of present illness: Ms. Noonan a 65-year-old female history of COPD on triple inhaler therapy, prior pulmonary embolism presented to the hospital with worsening respiratory and found to be COPD exacerbation needing noninvasive ventilator support and pulmonary was called for further management. [facility] History Medical History: Reports:: Anxiety, Cancer (uterine), Congestive Heart Failure, Chronic Obstructive Pulmonary Disease (COPD), Deep Vein Thrombosis, Diabetes Mellitus Type 2, Hypertension, Pulmonary Embolism Denies:: Diabetes Mellitus Type 1, Internal Pacemaker, MRSA *Have you ever received a pneumonia vaccine?: Yes *Have you received a flu vaccine this season?: Yes Other Surgeries: Yes: Cardiac Catheterization, Cholecystectomy, Colonoscopy, Hysterectomy-Total, Sinus Surgery. No: Pacemaker Amputation: No Fractures: No - *Social History Smoking Status: Former smoker Tobacco Type: cigarettes # Packs/Day (cigarettes): 2 Alcohol Intake: former *Occupational Status:: disabled Housing: house Household Members: family *Travel in the last 8 weeks: None - Psychiatric History Pschychiatric History:: Reports:: Anxiety Family Hx:: Asthma, Cancer, Diabetes, Hypertension ROS - Cons Reports chills, Denies anorexia, Denies body ache(s) - Eyes Denies sensitivity to light - ENT Denies bleeding gums - Card Reports shortness of breath, Reports shortness of breath with activity - Resp Respiratory: Reports shortness of breath, Reports dyspnea, Denies dyspnea on exertion, Reports excessive phlegm production, Denies coughing up blood, Reports cough with sputum production - GI Gastrointestingal: Denies: abdominal pain - Psych Reports abnormal sleep pattern Meds Home Medications Medication Instructions Recorded Confirmed Type aspirin 81 mg tablet,delayed 81 mg PO DAILY 11/27/19 01/24/21 History release carvedilol 25 mg tablet 25 mg PO BID 11/27/19 01/24/21 History cholecalciferol (vitamin D3) 25 25 mcg PO DAILY 11/27/19 01/24/21 History mcg (1,000 unit) capsule donepezil 10 mg tablet 10 mg PO DAILY 11/27/19 01/24/21 History fluticasone propionate 50 2 spray INTRANASAL DAILY 11/27/19 01/24/21 History mcg/actuation nasal spray,suspension furosemide 20 mg tablet 20 mg PO DAILY 11/27/19 01/24/21 History nitroglycerin 0.4 mg sublingual 0.4 mg SUBLINGUAL Q5M PRN 11/27/19 01/24/21 History tablet Albuterol Sulfate [Albuterol 1.25 mg INHALATION QID PRN 02/13/20 01/24/21 History 0.042% 1.25mg/3mL neb] Quetiapine Fumarate 200 mg PO BID 02/13/20 01/24/21 History hydrOXYzine HCL [Hydroxyzine HCl] 10 mg PO Q8HP PRN 02/13/20 01/25/21 History Montelukast Sodium [Singulair 10mg 10 mg PO HS 02/17/20 01/24/21 History tablet] Loratadine [Claritin] 10 mg PO DAILY 02/21/20 01/24/21 History albuterol sulfate 90 mcg/actuation 1 inh INHALATION QID PRN #8.5 g 07/09/20 01/24/21 Rx aerosol inhaler Azithromycin 250 mg PO MOWEFR 01/24/21 01/25/21 History Fluticasone/Vilanterol [Breo 1 inh INHALATION DAILY 01/24/21 01/24/21 History Ellipta] Metformin HCl 500 mg PO BID 01/24/21 01/24/21 History Rivaroxaban [Xarelto 20mg Tablet*] 20 mg PO DAILY 01/24/21 01/24/21 History Tiotropium [place] [Spiriva 2 puff INHALATION DAILY 01/24/21 01/24/21 History Respimat] Allergies Allergy/AdvReac Type Severity Reaction Status Date / Time codeine Allergy Intermediate CHEST PAIN Verified 07/09/20 11:24 ketorolac [From Toradol] Allergy Intermediate MENTAL Verified 07/09/20 11:24 STATUS CHANGES prednisone Allergy Intermediate Unknown Verified 01/25/21 08:04 allergy reaction Exam - Constitutional Constitutional:: Present: no acute distress, comfortable - HENMT Exam HENMT: Present: normocephalic - Eye Exam Eyes:: Present: normal appearance both eyes and related structur
--- NOTE | 2021-01-25 09:28 | HMH.HP ---
*Admission Date: 01/25/21 <Batsheva Martinez 01/25/21 09:43> *Chief complaint: COPD Exacerbation, Right Middle Lobe Pneumonia <Batsheva Martinez 01/25/21 09:43> *History of present illness: Ms. Barragan is a 65yo white female with history significant for COPD dependent on 4 L of O2 at home, CHF, T2DM, HTN, and bilateral pulmonary emboli on 20 mg of daily Xarelto is presenting for right-sided sharp chest pain associated with dyspnea, cough with sputum production. Differential diagnosis includes, but is not limited to, pneumonia, recurrent pulmonary embolus, pleural effusion, ACS, urinary tract infection, pyelonephritis, intra-abdominal pathology. On initial assessment, patient is hemodynamically stable, nontoxic-appearing and afebrile. She does have an increased oxygen requirement and requires 4.5 to 5 L to maintain SPO2 above 90. Exam is significant for rhonchi in the right lower lobe associated with right CVA tenderness. Patient was evaluated with lab work and imaging which showed mild acidemia with hypoxia and hypercarbia. No leukocytosis. In addition, for the last several days has been experiencing dysuria and UA is positive for infection. CT imaging showed resolving pulmonary emboli but was consistent with a new pneumonia in the right middle lobe. I spoke with the daughter on the phone who stated that patient has been confused at home for the past few days. Given patient's complex history she was admitted for inpatient treatment for acute on chronic COPD exacerbation due to community-acquired pneumonia and urinary tract infection. The above per ER physician This morning she is resting in bed and reports she feels she is breathing better, now on bipap. She denies any pain other than right rib/flank discomfort to touch or with deep breathing. She has no appetite. Pulmonology has been consulted. <Batsheva Martinez 01/25/21 09:43> [facility] History Medical History: Reports:: Anxiety, Cancer (uterine), Congestive Heart Failure, Chronic Obstructive Pulmonary Disease (COPD), Deep Vein Thrombosis, Diabetes Mellitus Type 2, Hypertension, Pulmonary Embolism Denies:: Diabetes Mellitus Type 1, Internal Pacemaker, MRSA <JuanBatsheva 01/25/21 09:43> *Have you ever received a pneumonia vaccine?: Yes <JuanBatsheva 01/25/21 09:43> *Have you received a flu vaccine this season?: Yes <Juan01/25/21 09:43> Other Surgeries: Yes: Cardiac Catheterization, Cholecystectomy, Colonoscopy, Hysterectomy-Total, Sinus Surgery. No: Pacemaker <Juan01/25/21 09:43> Amputation: No <01/25/21 09:43> Fractures: No <Juan01/25/21 09:43> - *Social History Smoking Status: Former smoker <Juan01/25/21 09:43> Tobacco Type: cigarettes <01/25/21 09:43> # Packs/Day (cigarettes): 2 <Juan,01/25/21 09:43> Alcohol Intake: former <01/25/21 09:43> *Occupational Status:: disabled <Juan01/25/21 09:43> Housing: house <Juan01/25/21 09:43> Household Members: family <01/25/21 09:43> *Travel in the last 8 weeks: None <01/25/21 09:43> - Psychiatric History Pschychiatric History:: Reports:: Anxiety <Juan01/25/21 09:43> Family Hx:: Asthma, Cancer, Diabetes, Hypertension <Juan01/25/21 09:43> Review of Systems - Constitutional Reports body ache(s), Reports fever(s), Reports headache(s) <Daniel Martinez01/25/21 09:43> - Eyes Denies change in vision <Juan01/25/21 09:43> - ENT Reports dizziness, Denies nasal congestion, Denies sore throat <Juan01/25/21 09:43> - *Cardiovascular Reports chest pain, Reports chest pain at rest, Reports shortness of breath, Reports shortness of breath with activity, Reports lightheadedness <Juan01/25/21 09:43> - *Respiratory Reports chest congestion, Reports cough, Reports shortness of breath, Reports shortness of breath with activity, Reports pain with cough <Batsheva Martinez - 01/25/21 09:43
[2021-01-25 12:52] LABS: POC Glucose,Bedside 114 (70-110)
[2021-01-26] VITALS (8 sets, daily range): BP systolic 100–148; BP diastolic 48–71; PULSE 96–113; RESP 18–22; TEMP 36.7–37.4; O2SAT 87–99
--- NOTE | 2021-01-26 02:55 | PC.NURSE ---
No acute changes. Pt has c/o nasal congestion this shift. She is currently on 6L high flow NC. Lungs are diminished. Has not c/o any other discomfort. Used bedpan x1 thus far. She has been tachycardic this shift. No other concerns. Medication administered per may. Will continue to monitor.
[2021-01-26 06:52] LABS: Basophils # 0.1 K/mm3 (0-0.2); Basophils % 0.7 % (0.1-2.0); Eosinophils # 0.3 K/mm3 (0.0-0.4); Eosinophils % 3.9 % (0.1-12.0); Hematocrit 36.2 % (37.0-47.0); Hemoglobin 11.2 g/dL (12.2-16.2); Lymphocytes # 1.3 K/mm3 (0.7-4.5); Lymphocytes % 17.2 % (10-50); Mean Corpuscular Hemoglobin 26.5 pg (27.0-31.2); Mean Corpuscular Volume 85.6 fl (81-99); Mean Platelet Volume 8.2 fl (7.4-10.4); Monocytes # 0.5 K/mm3 (0.1-1.0); Monocytes % 6.4 % (1.7-9.3); Neutrophils # 5.4 K/mm3 (1.8-7.8); Neutrophils % 71.8 % (37.0-80.0); Platelet Count 295 K/mm3 (142-424); Red Blood Count 4.23 M/mm3 (4.20-5.40); Red Cell Distribution Width 13.9 % (11.5-17.5); White Blood Count 7.5 K/mm3 (4.8-10.8)
[2021-01-26 07:07] LABS: Blood Urea Nitrogen 9 mg/dl (7-17); Calcium 8.7 mg/dl (8.4-10.2); Chloride 94 mmol/L (98-107); Creatinine Clearance Estimated 60 mL/min (50-200); Estimated Glomerular Filt Rate 100 ml/min (>60); GFR (African American) 121 ML/MIN (>60); Glucose 108 mg/dl (74-100); Potassium 4.8 mmoL/L (3.5-5.1); Sodium 137 mmol/L (136-145)
[2021-01-26 07:14] LABS: Anion Gap 7.8 mEq/L (5-15); Carbon Dioxide 40 mmol/L (22.0-30.0)
--- NOTE | 2021-01-26 08:26 | HMH.ACPN2 ---
<Batsheva Martinez - Last Filed: 01/26/21 08:35> Internal Medicine - PN: Subj *Date: 01/26/21 *Time: 08:35 Interval history: She is sitting up in bed eating breakfast. She is dyspneic with conversation and continues to have right lateral rib and flank pain with coughing and deep breathing. She has been maintaining sats >90% with O2 per nasal cannula. Exam Vital signs and Labs for Last 24 Hours: Temp Pulse Resp BP Pulse Ox 99.4 F 109 H 22 148/70 H 99 01/26/21 04:00 01/26/21 06:07 01/26/21 04:00 01/26/21 04:00 01/26/21 06:07 Laboratory Results - last 24 hr 01/25/21 01:40: O2 % 40%, ABG pH 7.30 L, ABG pCO2 76.0 H, ABG pO2 79.4 L, ABG HCO3 36.5 H, ABG Total CO2 38.8 H, ABG O2 Saturation 95, ABG Base Excess 7.6 H, Tidal Volume Bipap 147 01/25/21 12:37: POC Glucose 114 H 01/26/21 06:08: WBC 7.5, RBC 4.23, Hgb 11.2 L, Hct 36.2 L, MCV 85.6, MCH 26.5 L, MCHC 31.0 L, RDW 13.9, Plt Count 295, MPV 8.2, Neut % (Auto) 71.8, Lymph % (Auto) 17.2, Park % (Auto) 6.4, Eos % (Auto) 3.9, Baso % (Auto) 0.7, Neut # (Auto) 5.4, Lymph # (Auto) 1.3, Park # (Auto) 0.5, Eos # (Auto) 0.3, Baso # (Auto) 0.1 01/26/21 06:08: Sodium 137, Potassium 4.8, Chloride 94 L, Carbon Dioxide 40 H, Anion Gap 7.8, BUN 9, Creatinine 0.60, Estimated Creat Clear 60, Estimated GFR 100, Est GFR ( Amer) 121, Glucose 108 H, Calcium 8.7 I & O for Last 24 hours: Intake & Output 01/23/21 01/24/21 01/25/2121 11:59 11:59 11:59 11:59 Intake Total 400 / 400 120 / 120 Output Total 300 / 300 Balance 400 / 400 -180 / -180 Weight 150 lb 0.005 oz 149 lb 14.629 oz Microbiology Reports for the Last 24 Hours: Microbiology 01/25/21 16:00 Sputum - Expectorated Sputum Gram Stain - Final 01/25/21 16:00 Sputum - Expectorated Sputum Sputum Culture - Preliminary Gram Positive Cocci 01/24/21 22:53 Urine,Clean Catch Urine Culture - Preliminary NO GROWTH AFTER 24 HOURS - Constitutional no acute distress - *Routine HEENT Exam Head: Present: normocephalic ENT: Present: mucous membranes dry - *Routine Respiratory Exam Absent: respiratory distress Comments: breath sounds are diminished bilaterally with wheezes throughout, she is dyspneic with conversation - *Routine Cardiovascular Exam Present: RRR - *Routine Abdominal Exam Present: soft, normoactive bowel sounds, obese. Absent: tenderness, distended - *Routine Extremities Exam Present: pulses intact. Absent: edema, calf tenderness, extremity cold to touch Comments: bilateral LILA hose in place - *Routine Neurological Exam Present: alert, oriented X3, moving all extremities Assessment and Plan (1) Hx of pulmonary embolus Status: Acute Category: Medical Code(s): Z86.711 - Personal history of pulmonary embolism (2) Hypercapnic respiratory failure Status: Acute Category: Medical Code(s): J96.92 - Respiratory failure, unspecified with hypercapnia (3) COPD with exacerbation Status: Acute Category: Medical Code(s): J44.1 - Chronic obstructive pulmonary disease with (acute) exacerbation (4) Pneumonia Status: Acute Qualifiers: Pneumonia type: due to unspecified organism Laterality: right Lung location: middle lobe of lung Qualified Code(s): J18.9 - Pneumonia, unspecified organism Category: Medical Code(s): J18.9 - Pneumonia, unspecified organism (5) Urinary tract infection Status: Acute Qualifiers: Urinary tract infection type: acute cystitis Category: Medical Code(s): N39.0 - Urinary tract infection, site not specified - Assessment and plan all Dx Assessment and Plan for all problems:: Preliminary urine culture with no growth at 24hrs. Preliminary sputum culture with moderate growth of gram positive cocci. Blood cultures pending. Further per Dr. Echevarria. <Alfonso Echevarria - Last Filed: 01/26/21 18:23> Internal Medicine - PN: Subj *Date: 01/26/21 *
--- NOTE | 2021-01-26 11:34 | HMH.SLDYSPHA ---
Speech & Language Evaluation Speech/Language Dysphagia Evaluation Start: 01/26/21 11:22 Freq: ONCE Status: Active Protocol: Document 01/26/21 11:22 JHOANA (Rec: 01/26/21 11:34 JHOANA [id number]) Dysphagia Assess/Goals/Plan Assessment Date of Evaluation: 01/26/21 Evaluation Type Initial Certification Assessment/Problems Dysphagia Does Patient Qualify for Service No Qualify/Failure Comment No signs of dysphagia were noted during evaluation. Recommendations PHYSICIAN CERTIFICATION: The specified therapy services are required, authorized, and reviewed every 30 days. Diet Recommendations Mechanical Soft Liquid Type Recommendations Normal/Thin SL Swallow Guidelines Standard Aspiration Prec. Dysphagia Swallow Precautions/Strategies Small Bites and Sips,Alternate Liquids/Solids Plan Pt/Guardian verbally ack understanding Yes of dx/prognosis/goals G -code Required No Speech & Language HPI Language Primary Language [place] Islander General Information General Current Food Consistancy Mechanical Soft,Ground Meats, Thin Liquids Dentition Edentulous Oxygen Status Nasal Cannula Facial Symmetry Symmetrical Patient Orientation Person,Place,Time,Situation Ability to Follow Directions Excellent Communication Ability No Impairment Dysphagia:Food Presentation Evaluation Food Type Pureed,Mechanical Soft,Regular ,Liquid,Pudding Dysphagia Evaluation Summary Ms. Barragan was given the following consistencies: thins via straw and open cup, pudding, pureed, mechanical soft, and regular. Ms. Barragan exhibited a natural chin tuck and reached for her water to alternate bite and sip without any cues. At this time, it is recommended Ms. Barragan be placed on mechanical soft diet with chopped meats with sauce/gravy with thin liquids. Therapy is not warranted at this time. Stroke Dysphagia Assessment PHYSICIAN CERTIFICATION: I certify the specified therapy services for Tyrese Barragan are required, authorized, and reviewed every 30 days.
--- NOTE | 2021-01-26 13:05 | HMH.PULMPN ---
Internal Medicine - PN: Subj *Date: 01/26/21 *Time: 13:05 Interval history: Patient denies any new respiratory complaints. No acute respiratory events overnight. Exam - Constitutional Constitutional:: Present: no acute distress, comfortable - HENMT Exam HENMT: Present: normocephalic, atraumatic - Eye Exam Eyes:: Present: normal appearance both eyes and related structures - Neck Exam Neck:: Present: normal visual inspection - Respiratory Exam Respiratory:: Present: able to speak in complete sentences, respiratory distress. Absent: crackles, wheezing - Cardiovascular Exam Cardiac:: Present: S1, S2 - GI Exam GI:: Present: soft - Skin Exam Skin: Present: warm - Neurological Exam Neurological: Present: alert, awake, normal cognition - Extremities Exam Extremities: Present: no cyanosis, no clubbing, no edema - Psychiatric Exam Psychiatric: Present: normal affect Assessment and Plan (1) Hx of pulmonary embolus Status: Acute Category: Medical Code(s): Z86.711 - Personal history of pulmonary embolism (2) Hypercapnic respiratory failure Status: Acute Category: Medical Code(s): J96.92 - Respiratory failure, unspecified with hypercapnia (3) COPD with exacerbation Status: Acute Category: Medical Code(s): J44.1 - Chronic obstructive pulmonary disease with (acute) exacerbation (4) Pneumonia Status: Acute Qualifiers: Pneumonia type: due to unspecified organism Laterality: right Lung location: middle lobe of lung Qualified Code(s): J18.9 - Pneumonia, unspecified organism Category: Medical Code(s): J18.9 - Pneumonia, unspecified organism (5) Urinary tract infection Status: Acute Qualifiers: Urinary tract infection type: acute cystitis Category: Medical Code(s): N39.0 - Urinary tract infection, site not specified - Assessment and plan all Dx Assessment and Plan for all problems:: #COPD exacerbation: #Community-acquired pneumonia: Ms. Barragan is a 65-year-old female greater than [id number] smoking history prior smoker, chronic hypoxic respiratory failure on 3 to 4 L nasal cannula at baseline, was following in the pulmonary clinic for her exertional dyspnea, COPD, chronic hypoxic respiratory failure on long-term oxygen therapy, hypercarbic respiratory failure currently on trilogy noninvasive ventilation, lung cancer screening pulmonary nodules, unprovoked pulmonary embolism on February 14, 2020, initiated warfarin eventually changed to Xarelto secondary to noncompliance on presented to the hospital today complaining worsening respiratory distress CTA performed showed no new embolus however showed chronic clot burden improving from prior along with right middle lobe infiltrate. No evidence of leukocytosis. Afebrile. ABG on admission showed hypercarbic respiratory failure. Interval update: Patient weaned from BiPAP to nasal cannula at 4 L saturating 88% and above. Admits improvement in her symptoms. Urine culture no growth 48 hours, blood cultures pending. Sputum culture showing gram-positive cocci moderate growth. On auscultation breath sounds improved from yesterday. Plan: -Continue ceftriaxone azithromycin. Follow with final sputum, blood and urine cultures. -Change inhaler to DuoNebs every 6 hours scheduled along with budesonide every 12 scheduled. -Continue nasal cannula and supplementation to maintain O2 saturation goal of 88% and above. #Thank you involving pulmonary in this patient care. We will continue to follow.
--- NOTE | 2021-01-26 19:40 | PC.NURSE ---
NO ACUTE CHANGES THIS SHIFT. 6LNC T/O SHIFT AND PT PLACED ON TRELOGY THIS EVENING. MEDICATIONS ADMIN PER MAR
[2021-01-27] VITALS (12 sets, daily range): BP systolic 104–120; BP diastolic 64–72; PULSE 65–104; RESP 16–26; TEMP 36.2–37; O2SAT 88–98
--- NOTE | 2021-01-27 03:27 | PC.NURSE ---
A&OX4. TOLERATING BIPAP WHILE ASLEEP TONIGHT. PT HAS HAD DRY, HACKING AND INTERMITTENT COUGH. PT HAS BEEN ASLEEP MAJORITY OF NIGHT. PURE WICK IN PLACE, DRAINING BRIGHT YELLOW URINE, TOLERATING WELL. PT HAS C/O BACK PAIN X1 THIS SHIFT, REQUESTING TYLENOL. ON REASSESSMENT PT IS RESTING IN BED. NO OTHER C/O THUS FAR, VSS WILL CONTINUE TO MONITOR.
--- NOTE | 2021-01-27 08:34 | HMH.ACPN2 ---
<Aleksandra Oconnell - Last Filed: 01/27/21 08:34> Internal Medicine - PN: Subj *Date: 01/27/21 *Time: 08:34 Interval history: Patient states she is feeling a little bit better today. She is still coughing up sputum. She denies any pain. She states she slept better last night and is just tired this morning. Exam Vital signs and Labs for Last 24 Hours: Temp Pulse Resp BP Pulse Ox 98.6 F 88 16 112/72 96 01/27/21 08:00 01/27/21 08:00 01/27/21 08:00 01/27/21 08:00 01/27/21 08:00 I & O for Last 24 hours: Intake & Output 01/24/21 01/25/21 01/26/21 01/27/21 11:59 11:59 11:59 11:59 Intake Total 400 / 400 120 / 120 480 / 480 Output Total 300 / 300 500 / 500 Balance 400 / 400 -180 / -180 -20 / -20 Weight 150 lb 0.005 oz 149 lb 14.629 oz Microbiology Reports for the Last 24 Hours: Microbiology 01/24/21 22:53 Urine,Clean Catch Urine Culture - Final NO GROWTH AFTER 48 HOURS 01/24/21 22:22 Blood Blood Culture - Preliminary NO GROWTH AFTER 48 HOURS 01/24/21 22:22 Blood Blood Culture - Preliminary NO GROWTH AFTER 48 HOURS 01/25/21 16:00 Sputum - Expectorated Sputum Gram Stain - Final 01/25/21 16:00 Sputum - Expectorated Sputum Sputum Culture - Preliminary Gram Positive Cocci - Constitutional no acute distress - *Routine Respiratory Exam Present: decreased breath sounds, wheezes - *Routine Cardiovascular Exam Present: RRR - *Routine Abdominal Exam Present: soft, normoactive bowel sounds. Absent: tenderness - *Routine Extremities Exam Absent: cyanosis, clubbing, edema - *Routine Skin Exam Present: warm. Absent: rash - *Routine Neurological Exam Present: alert, oriented X3 Assessment and Plan (1) Hx of pulmonary embolus Status: Acute Category: Medical Code(s): Z86.711 - Personal history of pulmonary embolism (2) Hypercapnic respiratory failure Status: Acute Category: Medical Code(s): J96.92 - Respiratory failure, unspecified with hypercapnia (3) COPD with exacerbation Status: Acute Category: Medical Code(s): J44.1 - Chronic obstructive pulmonary disease with (acute) exacerbation (4) Pneumonia Status: Acute Qualifiers: Pneumonia type: due to unspecified organism Laterality: right Lung location: middle lobe of lung Qualified Code(s): J18.9 - Pneumonia, unspecified organism Category: Medical Code(s): J18.9 - Pneumonia, unspecified organism (5) Urinary tract infection Status: Acute Qualifiers: Urinary tract infection type: acute cystitis Category: Medical Code(s): N39.0 - Urinary tract infection, site not specified - Assessment and plan all Dx Assessment and Plan for all problems:: Blood and urine cultures have shown no growth at 48 hours. Still awaiting sputum culture results. We will discuss further care with Dr. Echevarria. <Alfonso Echevarria - Last Filed: 01/27/21 12:15> Internal Medicine - PN: Subj *Date: 01/27/21 *Time: 12:15 Exam Vital signs and Labs for Last 24 Hours: Temp Pulse Resp BP Pulse Ox 98.6 F 88 16 112/72 96 01/27/21 08:00 01/27/21 08:00 01/27/21 08:00 01/27/21 08:00 01/27/21 08:00 I & O for Last 24 hours: Intake & Output 01/25/21 01/26/21 01/27/21 01/28/21 11:59 11:59 11:59 11:59 Intake Total 400 / 400 120 / 120 480 / 480 Output Total 300 / 300 500 / 500 Balance 400 / 400 -180 / -180 -20 / -20 Weight 150 lb 0.005 oz 149 lb 14.629 oz Microbiology Reports for the Last 24 Hours: Microbiology 01/24/21 22:53 Urine,Clean Catch Urine Culture - Final NO GROWTH AFTER 48 HOURS 01/24/21 22:22 Blood Blood Culture - Preliminary NO GROWTH AFTER 48 HOURS 01/24/21 22:22 Blood Blood Culture - Preliminary NO GROWTH AFTER 48 HOURS 01/25
--- NOTE | 2021-01-27 09:23 | HMH.PULMPN ---
Internal Medicine - PN: Subj *Date: 01/27/21 *Time: 13:01 Interval history: No acute respiratory meds overnight. Patient remained stable on 4 L nasal cannula. Denies any new respiratory complaints. Admits continued improvement in symptoms. Exam - Constitutional Constitutional:: Present: no acute distress, comfortable - HENMT Exam HENMT: Present: normocephalic, atraumatic - Eye Exam Eyes:: Present: normal appearance both eyes and related structures - Neck Exam Neck:: Present: normal visual inspection - Respiratory Exam Respiratory:: Present: able to speak in complete sentences, respiratory distress, rhonchi, wheezing - Cardiovascular Exam Cardiac:: Present: S1, S2 - GI Exam GI:: Present: soft - Skin Exam Skin: Present: warm, no rash - Neurological Exam Neurological: Present: alert, awake, normal cognition - Extremities Exam Extremities: Present: no cyanosis, no clubbing, no edema Assessment and Plan (1) Hx of pulmonary embolus Status: Acute Category: Medical Code(s): Z86.711 - Personal history of pulmonary embolism (2) Hypercapnic respiratory failure Status: Acute Category: Medical Code(s): J96.92 - Respiratory failure, unspecified with hypercapnia (3) COPD with exacerbation Status: Acute Category: Medical Code(s): J44.1 - Chronic obstructive pulmonary disease with (acute) exacerbation (4) Pneumonia Status: Acute Qualifiers: Pneumonia type: due to unspecified organism Laterality: right Lung location: middle lobe of lung Qualified Code(s): J18.9 - Pneumonia, unspecified organism Category: Medical Code(s): J18.9 - Pneumonia, unspecified organism (5) Urinary tract infection Status: Acute Qualifiers: Urinary tract infection type: acute cystitis Category: Medical Code(s): N39.0 - Urinary tract infection, site not specified - Assessment and plan all Dx Assessment and Plan for all problems:: #COPD exacerbation: #Community-acquired pneumonia: Ms. Barragan is a 65-year-old female greater than [id number] smoking history prior smoker, chronic hypoxic hypercarbic respiratory failure on 3 to 4 L nasal cannula at baseline along with nocturnal noninvasive ventilatory therapy was following in the pulmonary clinic for her exertional dyspnea, COPD, chronic hypoxic respiratory failure on long-term oxygen therapy, hypercarbic respiratory failure currently on trilogy noninvasive ventilation, lung cancer screening pulmonary nodules, unprovoked pulmonary embolism on February 14, 2020, initiated warfarin eventually changed to Xarelto secondary to noncompliance on presented to the hospital today complaining worsening respiratory distress CTA performed showed no new embolus however showed chronic clot burden improving from prior along with right middle lobe infiltrate. No evidence of leukocytosis. Afebrile. ABG on admission showed hypercarbic respiratory failure. Urine culture no growth 48 hours, blood cultures pending. Sputum culture showing gram-positive cocci moderate growth. Interval update: Patient continued to admit improvement respiratory symptoms. She continued to maintain saturation 88% upon her home 4 L nasal oxygen supplementation. Continue to use BiPAP during the night, not used it yesterday. Plan: -CXR -Levofloxacin to complete a total of 7-day course. Follow with final sputum, blood and urine cultures. - DuoNebs every 6 hours scheduled along with budesonide every 12 scheduled. -Continue nasal cannula and supplementation to maintain O2 saturation goal of 88% and above. #Thank you involving pulmonary in this patient care. We will continue to follow.
--- NOTE | 2021-01-27 10:25 | PC.NURSE ---
RESP CARE NOTE: Oxygen decreased to [address] Orozco v/o, SPO2 decreased to 87%. Oxygen increased to previous setting of 4 lpm. 01/27/2021 102
--- NOTE | 2021-01-27 13:03 | XR_ITS ---
PROCEDURE: XR CHEST PORTABLE CLINICAL HISTORY: pnm, COMPARISON: CR XR CHEST PORTABLE from 02/20/2020 CR XR CHEST PORTABLE from 08/27/[address] ANGIO CHEST PE PROTOCOL from 01/24/2021 CR XR CHEST PORTABLE from 01/24/2021 FINDINGS: The cardiomediastinal silhouette and pulmonary vascularity are within normal limits. There is bibasilar airspace disease which is slightly worse on the right consistent with atelectasis and or infiltrate. Atelectatic changes have also developed on the left. Upper lobes are clear with COPD changes. No acute bony abnormalities. IMPRESSION: Worsening bibasilar airspace disease Dictated by: Liban Jaime MD 01/27/2021 16:40 Liban Jaime MD in [facility] 01/27/2021 16:40
--- NOTE | 2021-01-27 13:55 | HMH.PTEV ---
Physical Therapy Evaluation Rehab PT IP Evaluation Start: 01/27/21 12:16 Freq: ONCE Status: Active Protocol: Document 01/27/21 13:38 RACQUEL (Rec: 01/27/21 13:55 RACQUEL [id number]) Subjective/History History History This is the initial evaluation for Tyrese Barragan. Pt is a 65 y/o female admitted to [facility] for c/o right-sided sharp chest pain associated with dyspnea, cough with sputum production. Pt has significant PMH of COPD as well as CHF, T2DM, HTN, and bilateral pulmonary emboli treated with daily Xarelto. Pt dependent on 4 L of O2 at home. - note done by Arlen Boles, SPT Subjective Subjective Pt states she lives at home alone but her daughter stays with her at night. Pt reports she has friends visit with her some times during the day. Pt states she has both an electric w/c and walker, but that she rarely uses the w/c and only uses the walker to get to/from bathroom and car. Pt states that she doesn't move much and feels very weak . Rehab PT IP Eval Objective Appearance Patient Behavior Appropriate,Cooperative Patient Orientation Place,Name,Birthday,Situation Difficulty following instructions none Speech Pattern Clear,Appropriate,Coherent Ambulation Patient Able to Ambulate Yes Ambulation Observation IP General Gait Pattern Observation Narrow Based Gait,Shuffling Step Ambulation Distance (feet) 4 Ambulation Ability Contact Guard/Hand Hold Balance Ability to Arise Able, uses arms to help Sitting Balance Steady, safe Standing Balance Steady, wide stance Dynamic Sitting Balance Ability Good Dynamic Standing Balance Ability Fair Transfers Bed Transfer Ability Supervision/Stand by Chair Transfer Ability Supervision/Stand by Sit to Stand Bed Transfer Ability Contact Guard/Hand Hold Rehab PT IP prob,goals,plan Problems Date of Evaluation: 01/27/21 PT IP Problems Bed Mobility,Transfers,Gait, Balance,Self care,Safety Rehab Potential Rehab Potential
--- NOTE | 2021-01-27 14:13 | PC.NURSE ---
PT IS SITTING UP IN THE CHAIR. PT WAS 1 ASSIST TO GET OOB TO CHAIR. PT PARTICIPATED WITH PHYSICAL THERAPY. ALERT AND ORIENTED X4. LUNG SOUNDS DIMINISHED WITH SCATTERED WHEEZES. O2 SATURATION HAS MAINTAINED 90-94% ON 6 L NC. PT WAS UNABLE TO MAINTAIN O2 SATURATION >85 ON 4-5 L. ABDOMEN SOFT/NON TENDER WITH ACTIVE BOWEL SOUNDS. TEDS NOTED TO BLE. WILL CONTINUE TO MONITOR.
--- NOTE | 2021-01-27 14:25 | DIET.NUTRFU ---
Addendum entered by Makenna Barkley RD, LD 01/28/21 14:30: PO intakes 50%, BG moderate avg. 115. Original Note: PO intakes 50%, BG moderate avg. 115. Pt given soft mechanical diet per [employer] for edentulism. She does tell me she got a little choked on her meat at lunch, but states she does not think she needs ground meats and that she will eat slower/take sips between bites. Gravy with meats added to order.
[2021-01-28] VITALS (11 sets, daily range): BP systolic 115–163; BP diastolic 75–88; PULSE 78–105; RESP 10–27; TEMP 36.4–37.2; O2SAT 86–93; BMI 25.6
--- NOTE | 2021-01-28 05:15 | PC.NURSE ---
A&OX4. TOLERATING BIPAP T/O MAJORITY OF SHIFT. PT HAS HAD NO C/O THUS FAR. NO COUGH NOTED TONIGHT. PURE WICK DRAINING BRIGHT YELLOW URINE. PT HAS SLEPT INTERMITTENTLY T/O SHIFT. PT UP TO CHAIR WITH X1 STANDBY ASSIST. VSS WILL CONTINUE TO MONITOR.
--- NOTE | 2021-01-28 08:47 | HMH.ACPN2 ---
<Batsheva Martinez - Last Filed: 01/28/21 08:47> Internal Medicine - PN: Subj *Date: 01/28/21 *Time: 08:47 Interval history: Patient reports she is feeling better this morning. Her pain has improved. Her appetite is returning. She feels her breathing is closer to baseline. She is looking forward to being up in the chair today. Exam Vital signs and Labs for Last 24 Hours: Temp Pulse Resp BP Pulse Ox 98.9 F 104 H 22 159/84 H 86 L 01/28/21 07:24 01/28/21 07:24 01/28/21 07:24 01/28/21 07:24 01/28/21 08:00 I & O for Last 24 hours: Intake & Output 01/25/21 01/26/21 01/27/21 01/28/21 11:59 11:59 11:59 11:59 Intake Total 400 / 400 120 / 120 480 / 480 840 / 840 Output Total 300 / 300 500 / 500 Balance 400 / 400 -180 / -180 -20 / -20 840 / 840 Weight 150 lb 0.005 oz 149 lb 14.629 oz 149 lb 14.629 oz Microbiology Reports for the Last 24 Hours: Microbiology 01/25/21 16:00 Sputum - Expectorated Sputum Gram Stain - Final 01/25/21 16:00 Sputum - Expectorated Sputum Sputum Culture - Final Staphylococcus aureus - Constitutional no acute distress - *Routine HEENT Exam Head: Present: normocephalic, atraumatic ENT: Present: mucous membranes moist - *Routine Respiratory Exam Absent: respiratory distress Comments: generally diminished with wheezes throughout - *Routine Cardiovascular Exam Present: RRR - *Routine Abdominal Exam Present: soft, normoactive bowel sounds, obese. Absent: tenderness, distended - *Routine Extremities Exam Present: pulses intact. Absent: edema, calf tenderness, extremity cold to touch Comments: bilateral LILA hose in place - *Routine Neurological Exam Present: alert, oriented X3, moving all extremities Assessment and Plan (1) Hx of pulmonary embolus Status: Acute Category: Medical Code(s): Z86.711 - Personal history of pulmonary embolism (2) Hypercapnic respiratory failure Status: Acute Category: Medical Code(s): J96.92 - Respiratory failure, unspecified with hypercapnia (3) COPD with exacerbation Status: Acute Category: Medical Code(s): J44.1 - Chronic obstructive pulmonary disease with (acute) exacerbation (4) Pneumonia Status: Acute Qualifiers: Pneumonia type: due to unspecified organism Laterality: right Lung location: middle lobe of lung Qualified Code(s): J18.9 - Pneumonia, unspecified organism Category: Medical Code(s): J18.9 - Pneumonia, unspecified organism (5) Urinary tract infection Status: Acute Qualifiers: Urinary tract infection type: acute cystitis Category: Medical Code(s): N39.0 - Urinary tract infection, site not specified - Assessment and plan all Dx Assessment and Plan for all problems:: Oral clindamycin was started for growth of Staph aureus in her sputum. Further per Dr. Echevarria. <Alfonso Echevarria - Last Filed: 01/28/21 20:32> Internal Medicine - PN: Subj *Date: 01/28/21 *Time: 20:30 Exam Vital signs and Labs for Last 24 Hours: Temp Pulse Resp BP Pulse Ox 98.9 F 98 H 22 159/88 H 90 L 01/28/21 15:59 01/28/21 19:25 01/28/21 15:59 01/28/21 15:59 01/28/21 15:59 I & O for Last 24 hours: Intake & Output 01/26/21 01/27/21 01/28/21 01/29/21 11:59 11:59 11:59 11:59 Intake Total 120 / 120 480 / 480 840 / 840 720 / 720 Output Total 300 / 300 500 / 500 Balance -180 / -180 -20 / -20 840 / 840 720 / 720 Weight 149 lb 14.629 oz 149 lb 14.629 oz Assessment and Plan (1) Pneumonia Status: Acute Qualifiers: Pneumonia type: due to unspecified organism Laterality: right Lung location: middle lobe of lung Qualified Code(s): J18.9 - Pneumonia, unspecified organism Category: Medical Code(s): J18.9 - Pneumonia, unspecified organism (2) MSSA (methicillin susceptible Staphylococcus aureus) Status: Acute Category: Medical Code(s): A49.01 - Methicillin susceptible Staphylococcus aureus infect
--- NOTE | 2021-01-28 09:24 | SW/DCPLANNER ---
Addendum entered by Pam Castro 01/29/21 09:18: Jacqueline w/ [facility] called and said they plan to admit this patient on Monday. Addendum entered by Pam Castro 01/29/21 08:41: Patient information/order has been faxed to [facility]. I will follow up with Jacqueline from [facility] once patient information is reviewed. Original Note: This patient currently resides at home w/ family present most of the time. I had a discussion with patient regarding PT/OT evaluation and recommending placement. Patient is adamant to return home at time of discharge. Patient is not interested in placement but is willing to have home health and has requested [facility]. Patient is already established with [facility] for home O2. Patient has no further needs at this time. I will set patient up with home health services at time of discharge.
--- NOTE | 2021-01-28 09:28 | HMH.PULMPN ---
Internal Medicine - PN: Subj *Date: 01/28/21 *Time: 11:43 Interval history: No acute respiratory vents overnight. Patient has been noncompliant with her BiPAP. Exam - Constitutional Constitutional:: Present: no acute distress, comfortable - HENMT Exam HENMT: Present: normocephalic, atraumatic - Eye Exam Eyes:: Present: normal appearance both eyes and related structures - Neck Exam Neck:: Present: normal visual inspection - Respiratory Exam Respiratory:: Present: able to speak in complete sentences, respiratory distress, wheezing - Cardiovascular Exam Cardiac:: Present: S1, S2 - GI Exam GI:: Present: soft - Skin Exam Skin: Present: warm, no rash - Neurological Exam Neurological: Present: alert, awake, normal cognition - Extremities Exam Extremities: Present: no cyanosis, no clubbing, no edema Assessment and Plan (1) Hx of pulmonary embolus Status: Acute Category: Medical Code(s): Z86.711 - Personal history of pulmonary embolism (2) Hypercapnic respiratory failure Status: Acute Category: Medical Code(s): J96.92 - Respiratory failure, unspecified with hypercapnia (3) COPD with exacerbation Status: Acute Category: Medical Code(s): J44.1 - Chronic obstructive pulmonary disease with (acute) exacerbation (4) Pneumonia Status: Acute Qualifiers: Pneumonia type: due to unspecified organism Laterality: right Lung location: middle lobe of lung Qualified Code(s): J18.9 - Pneumonia, unspecified organism Category: Medical Code(s): J18.9 - Pneumonia, unspecified organism (5) Urinary tract infection Status: Acute Qualifiers: Urinary tract infection type: acute cystitis Category: Medical Code(s): N39.0 - Urinary tract infection, site not specified - Assessment and plan all Dx Assessment and Plan for all problems:: #COPD exacerbation: #Community-acquired pneumonia: Ms. Barragan is a 65-year-old female greater than [id number] smoking history prior smoker, chronic hypoxic hypercarbic respiratory failure on 3 to 4 L nasal cannula at baseline along with nocturnal noninvasive ventilatory therapy was following in the pulmonary clinic for her exertional dyspnea, COPD, chronic hypoxic respiratory failure on long-term oxygen therapy, hypercarbic respiratory failure currently on trilogy noninvasive ventilation, lung cancer screening pulmonary nodules, unprovoked pulmonary embolism on February 14, 2020, initiated warfarin eventually changed to Xarelto secondary to noncompliance on presented to the hospital today complaining worsening respiratory distress CTA performed showed no new embolus however showed chronic clot burden improving from prior along with right middle lobe infiltrate. No evidence of leukocytosis. Afebrile. ABG on admission showed hypercarbic respiratory failure. Urine culture no growth 48 hours, blood cultures pending. Sputum culture showing gram-positive cocci moderate growth. Interval update: Patient continued to remain on 4 L nasal cannula with nocturnal BiPAP therapy antibiotics were changed to clindamycin to cover her MRSA pneumonia. Chest x-ray showed slight worsening of right middle lobe pulmonary infiltrate. She has been noncompliant with her BiPAP in hospital and upon discussing with her daughter patient has been noncompliant even at home. Plan: - Continue clindamycin to complete a total of 14-day course for MRSA pneumonia. Sputum cultures positive for MRSA. Will resume azithromycin Monday after completion of current antibiotic course. - DuoNebs every 6 hours scheduled along with budesonide every 12 scheduled. - Continue nasal cannula and supplementation to maintain O2 saturation goal of 88% and above. #Thank you involving pulmonary in this patient care. We will follow the patient in pulmonary clinic in 4 weeks with a repeat chest x-ray.
--- NOTE | 2021-01-28 17:45 | PC.NURSE ---
pt is sitting up in the chair with family in the room. alert and oriented x4. eating and drinking well. pt has been voiding per bsc. lung sounds diminished. abdomen soft/non tender with active bowel sounds. vss. o2 saturation has maintained 88-94% on 4 l nc. will continue to monitor.
[2021-01-29] VITALS: BP 118/71; PULSE 84; RESP 18; TEMP 36.7; O2SAT 91
[2021-01-29 02:16] VITALS: RESP 20
[2021-01-29 04:00] VITALS: BP 131/75; PULSE 62; RESP 22; TEMP 36.8; O2SAT 100
[2021-01-29 06:16] VITALS: PULSE 82; PULSE 85; O2SAT 93
--- NOTE | 2021-01-29 08:33 | HMH.ACPN2 ---
<Batsheva Martinez - Last Filed: 01/29/21 08:33> Internal Medicine - PN: Subj *Date: 01/29/21 *Time: 08:33 Interval history: Pt is sitting up in the chair getting ready to eat breakfast. She denies pain and reports feeling better than she has since admission. She rested well overnight and feels her breathing has returned to baseline. Exam Vital signs and Labs for Last 24 Hours: Temp Pulse Resp BP Pulse Ox 98.3 F 85 22 131/75 93 L 01/29/21 04:00 01/29/21 06:16 01/29/21 04:00 01/29/21 04:00 01/29/21 06:16 I & O for Last 24 hours: Intake & Output 01/26/21 01/27/21 01/28/21 01/29/21 11:59 11:59 11:59 11:59 Intake Total 120 / 120 480 / 480 840 / 840 720 / 720 Output Total 300 / 300 500 / 500 Balance -180 / -180 -20 / -20 840 / 840 720 / 720 Weight 149 lb 14.629 oz 149 lb 14.629 oz - Constitutional no acute distress - *Routine HEENT Exam Head: Present: normocephalic, atraumatic ENT: Present: mucous membranes moist - *Routine Respiratory Exam Absent: respiratory distress Comments: generally diminished with wheezes throughout, improved air movement - *Routine Cardiovascular Exam Present: RRR - *Routine Abdominal Exam Present: soft, normoactive bowel sounds, obese. Absent: distended, rebound - *Routine Extremities Exam Present: full ROM, pulses intact. Absent: edema, calf tenderness, extremity cold to touch Comments: bilateral LILA hose in place - *Routine Neurological Exam Present: alert, oriented X3, moving all extremities Assessment and Plan (1) Pneumonia Status: Acute Qualifiers: Pneumonia type: due to unspecified organism Laterality: right Lung location: middle lobe of lung Qualified Code(s): J18.9 - Pneumonia, unspecified organism Category: Medical Code(s): J18.9 - Pneumonia, unspecified organism (2) MSSA (methicillin susceptible Staphylococcus aureus) Status: Acute Category: Medical Code(s): A49.01 - Methicillin susceptible Staphylococcus aureus infection, unspecified site (3) Hx of pulmonary embolus Status: Acute Category: Medical Code(s): Z86.711 - Personal history of pulmonary embolism (4) Hypercapnic respiratory failure Status: Acute Category: Medical Code(s): J96.92 - Respiratory failure, unspecified with hypercapnia (5) COPD with exacerbation Status: Acute Category: Medical Code(s): J44.1 - Chronic obstructive pulmonary disease with (acute) exacerbation (6) Urinary tract infection Status: Acute Qualifiers: Urinary tract infection type: acute cystitis Category: Medical Code(s): N39.0 - Urinary tract infection, site not specified - Assessment and plan all Dx Assessment and Plan for all problems:: Possible discharge today. <Alfonso Echevarria - Last Filed: 02/06/21 23:05> Internal Medicine - PN: Subj *Date: 02/06/21 *Time: 23:05 Exam Vital signs and Labs for Last 24 Hours: Temp Pulse Resp BP Pulse Ox 98.3 F 85 22 131/75 93 L 01/29/21 04:00 01/29/21 06:16 01/29/21 04:00 01/29/21 04:00 01/29/21 06:16 Assessment and Plan (1) Pneumonia Status: Acute Qualifiers: Pneumonia type: due to unspecified organism Laterality: right Lung location: middle lobe of lung Qualified Code(s): J18.9 - Pneumonia, unspecified organism Category: Medical Code(s): J18.9 - Pneumonia, unspecified organism (2) MSSA (methicillin susceptible Staphylococcus aureus) Status: Acute Category: Medical Code(s): A49.01 - Methicillin susceptible Staphylococcus aureus infection, unspecified site (3) Hx of pulmonary embolus Status: Acute Category: Medical Code(s): Z86.711 - Personal history of pulmonary embolism (4) Hypercapnic respiratory failure Status: Acute Category: Medical Code(s): J96.92 - Respiratory failure, unspecified with hypercapnia (5) COPD with exacerbation Status: Acute Category: Medical Code(s): J44.1 - Chronic obstructive pulmonary disease
--- NOTE | 2021-01-29 09:11 | XR_ITS ---
PROCEDURE: XR CHEST PORTABLE CLINICAL HISTORY: pnm COMPARISON: CR XR CHEST PORTABLE from 08/27/[address] ANGIO CHEST PE PROTOCOL from 01/24/2021 CR XR CHEST PORTABLE from 01/24/2021 CR XR CHEST PORTABLE from 01/27/2021 FINDINGS: The cardiomediastinal silhouette and pulmonary vascularity are within normal limits. Right basilar airspace disease once again noted there appears somewhat improved. No change left basilar atelectasis. No acute bony abnormalities. IMPRESSION: Improving right basilar airspace disease. No change in left basilar atelectasis Dictated by: Liban Jaime MD 01/29/2021 14:00 Liban Jaime MD in [facility] 01/29/2021 14:00
--- NOTE | 2021-01-29 12:09 | HMH.PULMPN ---
Internal Medicine - PN: Subj *Date: 01/29/21 *Time: 12:09 Exam - Constitutional Constitutional:: Present: no acute distress, comfortable - HENMT Exam HENMT: Present: normocephalic, atraumatic - Eye Exam Eyes:: Present: normal appearance both eyes and related structures - Neck Exam Neck:: Present: normal visual inspection - Respiratory Exam Respiratory:: Present: able to speak in complete sentences, respiratory distress. Absent: wheezing - Cardiovascular Exam Cardiac:: Present: S1, S2 - GI Exam GI:: Present: soft - Skin Exam Skin: Present: warm, no rash - Neurological Exam Neurological: Present: alert, awake, normal cognition - Extremities Exam Extremities: Present: no cyanosis, no clubbing, no edema Assessment and Plan (1) Pneumonia Status: Acute Qualifiers: Pneumonia type: due to unspecified organism Laterality: right Lung location: middle lobe of lung Qualified Code(s): J18.9 - Pneumonia, unspecified organism Category: Medical Code(s): J18.9 - Pneumonia, unspecified organism (2) MSSA (methicillin susceptible Staphylococcus aureus) Status: Acute Category: Medical Code(s): A49.01 - Methicillin susceptible Staphylococcus aureus infection, unspecified site (3) Hx of pulmonary embolus Status: Acute Category: Medical Code(s): Z86.711 - Personal history of pulmonary embolism (4) Hypercapnic respiratory failure Status: Acute Category: Medical Code(s): J96.92 - Respiratory failure, unspecified with hypercapnia (5) COPD with exacerbation Status: Acute Category: Medical Code(s): J44.1 - Chronic obstructive pulmonary disease with (acute) exacerbation (6) Urinary tract infection Status: Acute Qualifiers: Urinary tract infection type: acute cystitis Category: Medical Code(s): N39.0 - Urinary tract infection, site not specified - Assessment and plan all Dx Assessment and Plan for all problems:: #COPD exacerbation: #Community-acquired pneumonia: Ms. Barragan is a 65-year-old female greater than [id number] smoking history prior smoker, chronic hypoxic hypercarbic respiratory failure on 3 to 4 L nasal cannula at baseline along with nocturnal noninvasive ventilatory therapy was following in the pulmonary clinic for her exertional dyspnea, COPD, chronic hypoxic respiratory failure on long-term oxygen therapy, hypercarbic respiratory failure currently on trilogy noninvasive ventilation, lung cancer screening pulmonary nodules, unprovoked pulmonary embolism on February 14, 2020, initiated warfarin eventually changed to Xarelto secondary to noncompliance on presented to the hospital today complaining worsening respiratory distress CTA performed showed no new embolus however showed chronic clot burden improving from prior along with right middle lobe infiltrate. No evidence of leukocytosis. Afebrile. ABG on admission showed hypercarbic respiratory failure. Urine culture no growth 48 hours, blood cultures NG Patient was initially started on ceftriaxone azithromycin urinary her sputum cultures grew MRSA sensitive to clindamycin and she was changed to clindamycin. Chest x-ray immediately after changing to clindamycin showed slight worsening on 01/27/2021 however her subsequent chest x-ray from 01/29/2021 showed improvement in her right middle lobe pulmonary infiltrates. Patient on discharge appear at her baseline on 4 L nasal cannula. She appears to be noncompliant with her noninvasive ventilator therapy as per her daughter. Have talked to the patient and consents was her mouth getting dry and have advised the patient to use humidifier with her oxygen that will improve her symptoms. Patient also [facility] prior to discharge. Plan: - Continue clindamycin to complete a total of 14-day course for MRSA pneumonia. Sputum cultures positive for MRSA. Will resume azithromycin Monday after completion of current antibiotic co
--- NOTE | 2021-01-31 18:27 | HMH.DCSUM ---
General - General Admission date:: 01/25/21 <Alfonos Echevarria - 04/01/21 17:47> 01/25/21 <Aleksandra Oconnell - 01/31/21 18:36> Discharge date: 01/29/21 <AnishAleksandra - 01/31/21 18:36> HPI HPI: Ms. Barragan is a 65yo white female with history significant for COPD dependent on 4 L of O2 at home, CHF, T2DM, HTN, and bilateral pulmonary emboli on 20 mg of daily Xarelto is presenting for right-sided sharp chest pain associated with dyspnea, cough with sputum production. Differential diagnosis includes, but is not limited to, pneumonia, recurrent pulmonary embolus, pleural effusion, ACS, urinary tract infection, pyelonephritis, intra-abdominal pathology. On initial assessment, patient is hemodynamically stable, nontoxic-appearing and afebrile. She does have an increased oxygen requirement and requires 4.5 to 5 L to maintain SPO2 above 90. Exam is significant for rhonchi in the right lower lobe associated with right CVA tenderness. Patient was evaluated with lab work and imaging which showed mild acidemia with hypoxia and hypercarbia. No leukocytosis. In addition, for the last several days has been experiencing dysuria and UA is positive for infection. CT imaging showed resolving pulmonary emboli but was consistent with a new pneumonia in the right middle lobe. I spoke with the daughter on the phone who stated that patient has been confused at home for the past few days. Given patient's complex history she was admitted for inpatient treatment for acute on chronic COPD exacerbation due to community-acquired pneumonia and urinary tract infection. The above per ER physician This morning she is resting in bed and reports she feels she is breathing better, now on bipap. She denies any pain other than right rib/flank discomfort to touch or with deep breathing. She has no appetite. Pulmonology has been consulted. <Aleksandra Oconnell - 01/31/21 18:36> Hospital Course Hospital Course: The patient does follow with Dr. Orozco, therefore he was consulted. She was continued on Rocephin and Zithromax as well as BiPAP and duo nebs. Pulmonology did see the patient and he agreed with her care. He did want her weaned from BiPAP to nasal cannula. She was able to keep her sats above 90% with oxygen per nasal cannula. She continued to cough up sputum but denied any pain. Her blood cultures and urine culture showed no growth. A PT evaluation was ordered and they felt the patient would benefit from skilled therapy. Pulmonology wanted the patient to use BiPAP during the night and nasal cannula during the day. He switched her antibiotics to Levaquin due to gram-positive cocci growth in her sputum. A repeat chest x-ray showed worsening bibasilar airspace disease. Her sputum grew staph aureus and she was started on oral clindamycin. Care management spoke with the patient regarding discharge planning and she wished to return to her own home with home health. Pulmonology did discuss the patient's noncompliance with her BiPAP. By 01/29/2021, she was sitting up in a chair and eating well. She denies any pain and reported she was feeling much better. She felt her breathing had returned to baseline and she was resting well. She was stable to discharge home. She did have a repeat chest x-ray showing improved right basilar airspace disease. She will follow with pulmonology and will need to complete a 14-day course of clindamycin. She will also resume azithromycin Monday and Monday after completion of her clindamycin course. <Aleksandra Oconnell - 01/31/21 18:36> Objective Vital signs: Temp Pulse Resp BP Pulse Ox 98.3 F 85 22 131/75 93 L 01/29/21 04:00 01/29/21 06:16 01/29/21 04:00 01/29/21 04:00 01/29/21 06:16 <Alfonso Echevarria - 04/01/21 17:47> Temp Pulse Resp BP Pulse Ox 98.3 F 85 22 131/75 93 L 01/29/21 04:00 01/29/21 06:16 01/29/21 04:00 01/29/21 04:00 01/29/21 06:16 <Aleksandra Oconnell -
== END 2021-01-29 11:25 | disposition home health service (06) | DRG 177 ==
LOC: ER 01-25 01:30 → 2ND 01-25 07:43
PROVIDERS: Admitting Provider Family Medicine; Emergency Provider Emergency Medicine; PCP Nurse Practitioner Family; Visit Provider Family Medicine
DX: J15.211 Pneumonia due to Methicillin susceptible Staphylococcus aureus (principal); J96.02 Acute respiratory failure with hypercapnia; J44.1 Chronic obstructive pulmonary disease with (acute) exacerbation; N39.0 Urinary tract infection, site not specified; J96.11 Chronic respiratory failure with hypoxia; J44.0 Chronic obstructive pulmonary disease with (acute) lower respiratory infection; Z20.822 Contact with and (suspected) exposure to COVID-19; Z86.711 Personal history of pulmonary embolism; I11.0 Hypertensive heart disease with heart failure; I50.9 Heart failure, unspecified; E11.9 Type 2 diabetes mellitus without complications; Z79.01 Long term (current) use of anticoagulants; Z99.81 Dependence on supplemental oxygen; Z85.42 Personal history of malignant neoplasm of other parts of uterus; Z86.718 Personal history of other venous thrombosis and embolism; Z87.891 Personal history of nicotine dependence; Z79.84 Long term (current) use of oral hypoglycemic drugs
CPT/HCPCS: 36415; 71045; 71275; 80048; 80053; 81001; 82803; 82962; 83605; 84484; 85025; 87040; 87070; 87077; 87086; 87186; 87205; 92610; 93005; 94640; 94660; 94761; 96365; 96366; 96367; 96375; 97110; 97162; 99284; C9803; J0456; Q9967; U0003; U0005

== ENCOUNTER → 2021-02-02 11:18 | Outpatient (CLI) | payer MEDICARE, MEDICAID, SELFPAY ==
[2021-02-02 15:12] LABS: Hemoglobin A1C 5.6 % (4.0-6.0)
== END ==
PROVIDERS: Visit Provider Nurse Practitioner Family
DX: E11.9 Type 2 diabetes mellitus without complications (principal); Z79.84 Long term (current) use of oral hypoglycemic drugs
CPT/HCPCS: 83036

== ENCOUNTER → 2021-02-17 10:25 | Outpatient (CLI) | payer MEDICARE, MEDICAID, SELFPAY ==
[2021-02-17 14:37] LABS: Basophils # 0.1 K/mm3 (0-0.2); Basophils % 1.3 % (0.1-2.0); Eosinophils # 0.3 K/mm3 (0.0-0.4); Hematocrit 36.1 % (37.0-47.0); Hemoglobin 11.8 g/dL (12.2-16.2); Lymphocytes # 1.8 K/mm3 (0.7-4.5); Lymphocytes % 29.3 % (10-50); Mean Corpuscular HGB Conc 32.6 g/dL (31.8-35.4); Mean Corpuscular Hemoglobin 27.2 pg (27.0-31.2); Mean Corpuscular Volume 83.4 fl (81-99); Mean Platelet Volume 8.7 fl (7.4-10.4); Monocytes # 0.5 K/mm3 (0.1-1.0); Monocytes % 7.3 % (1.7-9.3); Neutrophils # 3.6 K/mm3 (1.8-7.8); Neutrophils % 57.1 % (37.0-80.0); Platelet Count 310 K/mm3 (142-424); Red Blood Count 4.33 M/mm3 (4.20-5.40); Red Cell Distribution Width 14.5 % (11.5-17.5); White Blood Count 6.3 K/mm3 (4.8-10.8)
[2021-02-17 14:43] LABS: Alanine Aminotransferase 11 U/L (12-78); Albumin Level 3.9 g/dl (3.5-5.0); Albumin/Globulin Ratio 1.6 (1.1-1.8); Alkaline Phosphatase 48 U/L (38-126); Anion Gap 6.8 mEq/L (5-15); Aspartate Amino Transferase 24 U/L (14-36); Bilirubin,Total 0.2 mg/dl (0.2-1.3); Blood Urea Nitrogen 12 mg/dl (7-17); Calcium 9.1 mg/dl (8.4-10.2); Carbon Dioxide 35 mmol/L (22.0-30.0); Chloride 95 mmol/L (98-107); Cholesterol 217 mg/dl (140-200); Estimated Glomerular Filt Rate 100 ml/min (>60); GFR (African American) 121 ML/MIN (>60); Globulin 2.5 g/dL (1.3-3.2); Glucose 91 mg/dl (74-100); HDL Cholesterol 73 mg/dl (40-60); Potassium 3.8 mmoL/L (3.5-5.1); Sodium 133 mmol/L (136-145); Total Protein,Serum 6.4 g/dl (6.3-8.2); Triglycerides 197 mg/dl (30-150); VLDL Cholesterol 39 mg/dL (0-40)
[2021-02-17 14:55] LABS: Direct LDL Cholesterol 116.59 mg/dL (100-129)
[2021-02-17 15:18] LABS: 25-OH Vitamin D, Total < 12.8 ng/mL (30-100); Hemoglobin A1C 5.7 % (4.0-6.0)
== END ==
PROVIDERS: Visit Provider Nurse Practitioner Family
DX: E11.9 Type 2 diabetes mellitus without complications (principal); E78.5 Hyperlipidemia, unspecified; I10 Essential (primary) hypertension; D64.9 Anemia, unspecified; E55.9 Vitamin D deficiency, unspecified; Z79.84 Long term (current) use of oral hypoglycemic drugs
CPT/HCPCS: 80053; 80061; 82306; 83036; 85025

== ENCOUNTER → 2021-02-18 13:56 | Outpatient (CLI) | payer MEDICARE, MEDICAID, SELFPAY ==
[2021-02-18 20:29] LABS: Microalbumin < 6.000 mg/L (0-16.7)
== END ==
PROVIDERS: Visit Provider Nurse Practitioner Family
DX: I10 Essential (primary) hypertension (principal); E11.9 Type 2 diabetes mellitus without complications; E55.9 Vitamin D deficiency, unspecified; E78.5 Hyperlipidemia, unspecified; D64.9 Anemia, unspecified; Z79.84 Long term (current) use of oral hypoglycemic drugs
CPT/HCPCS: 82043

== ENCOUNTER 2021-08-21 06:34 | Inpatient (IN) | payer MEDICAID, MEDICARE, SELFPAY ==
[2021-08-21] VITALS (33 sets, daily range): BP systolic 89–129; BP diastolic 49–68; PULSE 85–118; RESP 16–24; TEMP 36.4–37; O2SAT 4–100; BMI 31.4
--- NOTE | 2021-08-21 06:26 | ECG_ITS ---
APPROVED REPORT Exam: Resting ECG HR:111 bpm ECG Measurements Heart Rate 111 AXES OK 106 P 83 QRSd 71 QRS 73 QT 279 T 92 QTc 345 Conclusion SINUS TACHYCARDIA WITH SHORT OK INTERVAL WITH FREQUENT SUPRAVENTRICULAR PREMATURE COMPLEXES NONSPECIFIC ST & T-WAVE ABNORMALITY ABNORMAL RHYTHM ECG UNCONFIRMED REPORT Electronically signed by : Ricardo Myers MD 08/21/2021 20:16:33
--- NOTE | 2021-08-21 06:31 | HMH.EDGENADL ---
ED Disposition Clinical Impression: Symptomatic anemia Disposition: Still a Patient Condition on Discharge: Good Referrals: Tashia De La Cruz APRN [Primary Care Provider] - - Critical Care Critical Care Time: No Attestation: On , the high probability of a clinically significant, sudden or life threatening deterioration of the following system(s) required my full and direct attention, intervention and personal management. The time I documented below is in addition to time spent performing reported procedures but includes the following listed in this critical care notation. Medical Decision Making - Medical Records Medical records reviewed: Yes: I reviewed the patient's medical records. - [place] Inquiry Pt receiving controlled substance: No Vital Signs: 08/21/21 06:22 08/21/21 07:13 Temperature 98.0 F Temperature Source Oral Pulse Rate 104 H Pulse Rate [Right] 109 H Respiratory Rate 24 Blood Pressure [Right Arm] 129/68 Blood Pressure Mean [Right Arm] 88 Blood Pressure Source [Right Arm] Automatic Cuff 02 Sat by Pulse Oximetry 95 Oxygen Delivery Method Nasal Cannula Oxygen Flow Rate (LPM) 4 - Lab Data Lab Results 08/21/21 06:32: WBC 12.4 H, RBC 2.07 L, Hgb 5.0 L*, Hct 16.0 L*, MCV 77.4 L, MCH 23.6 L, MCHC 30.5 L, RDW 19.1 H, Plt Count 494 H, MPV 8.3, Neut % (Auto) 69.9, Lymph % (Auto) 21.2, [place] % (Auto) 7.9, Eos % (Auto) 0.4, Baso % (Auto) 0.6, Neut # (Auto) 8.6 H, Lymph # (Auto) 2.6, [place] # (Auto) 1.0, Eos # (Auto) 0.1, Baso # (Auto) 0.1 08/21/21 06:32: PT 14.1 H, INR 1.27 H 08/21/21 06:32: Sodium 132 L, Potassium 3.5, Chloride 97 L, Carbon Dioxide 34 H, Anion Gap 4.5 L, BUN 13, Creatinine 0.50 L, Estimated Creat Clear 77, Estimated GFR 123, Est GFR ( Amer) 149, Glucose 111 H, Calcium 8.2 L, Total Bilirubin 0.1 L, AST 24, ALT 12, Alkaline Phosphatase 44, Troponin I < 0.01, Total Protein 5.1 L, Albumin 2.7 L, Globulin 2.4, Albumin/Globulin Ratio 1.1, Lipase 106 08/21/21 06:32: D-Dimer 0.51 H 08/21/21 06:32: NT-Pro-B Natriuret Pep 2500 H Result diagrams: 08/21/21 06:32 08/21/21 06:32 Orders (Tests/Meds): ED MEDICATIONS Generic Name Dose Route Start Last Admin Trade Name [place] PRN Reason Stop Dose Admin Albuterol Sulfate 1.25 mg 08/21/21 07:51 Albuterol Sulfate 1.25 Mg/3 Ml Vial.[facility] 09/20/21 07:50 QID PRN Shortness Of Breath Carvedilol 25 mg 08/21/21 09:00 Carvedilol 25mg Tablet PO 09/20/21 08:59 BID NADIA Fluticasone Propionate 2 spray 08/21/21 09:00 Fluticasone Prop 50mcg Nasal [place] 16gm NS 09/20/21 08:59 DAILY NADIA Furosemide 20 mg 08/21/21 09:00 Furosemide 20mg Tablet PO 09/20/21 08:59 DAILY NADIA Sodium Chloride 1,000 mls @ 999 mls/hr 08/21/21 07:00 08/21/21 07:05 Sod Chlor 0.9% 1000ml Bag IV 08/21/21 08:00 999 mls/hr .Q1H1M NADIA Administration Montelukast Sodium 10 mg 08/21/21 21:00 Montelukast Sodium 10mg Tab PO 09/20/21 20:59 HS NADIA Non-Formulary Medication 1 inh 08/21/21 09:00 Fluticasone/Vilanterol [Breo Ellipta 100-25 Mcg Inh] INHALATION 09/20/21 08:59 DAILY NADIA Discontinued Medications Generic Name Dose Route Start Last Admin Trade Name Freq PRN Reason Stop Dose Admin Albuterol/Ipratropium 3 ml 08/21/21 06:51 08/21/21 07:13 Ipratropium/Albuterol 3 Ml [facility] 08/21/21 06:52 3 ml ONCE ONE Administration Methylprednisolone Sodium Succinate 125 mg 08/21/21 06:51 08/21/21 07:13 Methylprednisolone Sod Succ 125mg Vial IM 08/21/21 06:52 Not Given ONCE ONE Methylprednisolone Sodium Succinate 125 mg 08/21/21 07:16 08/21/21 07:16 Methylprednisolone Sod Succ 125mg Vial IV 08/21/21 07:17 125 mg ONCE ONE Administration ORDERS Category Date Time Status Type and Screen Stat BBK 08/21/21 07:40 Received Lactic Acid Stat Lab 08/21/21 07:40 Received Procalcitonin Stat Lab 08/21/21 06:32 Received Rapid PCR Covid and Flu A/B Stat Lab 08/21/21 07:4
--- NOTE | 2021-08-21 06:50 | XR_ITS ---
PROCEDURE INFORMATION: Exam: XR Chest Exam date and time: 08/21/2021 6:56 AM Age: 66 years old Clinical indication: Shortness of breath; Additional info: Dyspnea and chest pain TECHNIQUE: Imaging protocol: XR of the chest. Views: 1 view. COMPARISON: CR XR CHEST PORTABLE 01/29/2021 9:13 AM FINDINGS: Lungs: Unremarkable. No consolidation. There is no focal mass. Pleural spaces: Unremarkable. No pleural effusion. No pneumothorax. Heart/Mediastinum: Unremarkable. No cardiomegaly. Diaphragm: There is flattening of the hemidiaphragm with volume expansion. Bones/joints: Unremarkable. There is no acute fracture present. IMPRESSION: 1. COPD versus asthma. 2. No evidence for underlying pneumonia.
[2021-08-21 07:06] LABS: Basophils # 0.1 K/mm3 (0-0.2); Basophils % 0.6 % (0.1-2.0); Chloride 97 mmol/L (98-107); Eosinophils # 0.1 K/mm3 (0.0-0.4); Eosinophils % 0.4 % (0.1-12.0); Lymphocytes # 2.6 K/mm3 (0.7-4.5); Lymphocytes % 21.2 % (10-50); Mean Corpuscular HGB Conc 30.5 g/dL (31.8-35.4); Mean Corpuscular Hemoglobin 23.6 pg (27.0-31.2); Mean Corpuscular Volume 77.4 fl (81-99); Mean Platelet Volume 8.3 fl (7.4-10.4); Monocytes % 7.9 % (1.7-9.3); Neutrophils # 8.6 K/mm3 (1.8-7.8); Neutrophils % 69.9 % (37.0-80.0); Platelet Count 494 K/mm3 (142-424); Red Blood Count 2.07 M/mm3 (4.20-5.40); Red Cell Distribution Width 19.1 % (11.5-17.5); White Blood Count 12.4 K/mm3 (4.8-10.8)
[2021-08-21 07:07] LABS: Potassium 3.5 mmoL/L (3.5-5.1); Sodium 132 mmol/L (136-145)
[2021-08-21 07:09] LABS: Blood Urea Nitrogen 13 mg/dl (7-17); Creatinine Clearance Estimated 77 mL/min (50-200); Estimated Glomerular Filt Rate 123 ml/min (>60); GFR (African American) 149 ML/MIN (>60)
[2021-08-21 07:10] LABS: Alanine Aminotransferase 12 U/L (12-78); Albumin Level 2.7 g/dl (3.5-5.0); Albumin/Globulin Ratio 1.1 (1.1-1.8); Alkaline Phosphatase 44 U/L (38-126); Anion Gap 4.5 mEq/L (5-15); Aspartate Amino Transferase 24 U/L (14-36); Calcium 8.2 mg/dl (8.4-10.2); Carbon Dioxide 34 mmol/L (22.0-30.0); Globulin 2.4 g/dL (1.3-3.2); Glucose 111 mg/dl (74-100); Lipase 106 U/L (23-300); Total Protein,Serum 5.1 g/dl (6.3-8.2)
[2021-08-21 07:12] LABS: INR 1.27 (0.9-1.1); Prothrombin Time 14.1 seconds (10.1-12.5)
[2021-08-21 07:19] LABS: NT Pro Brain Natriuretic Pep. 2500 pg/mL (0-125)
[2021-08-21 07:25] LABS: Bilirubin,Total 0.1 mg/dl (0.2-1.3); Troponin I < 0.01 ng/ml (0.00-0.034)
--- NOTE | 2021-08-21 07:27 | PC.NURSE ---
Brittanie from lab called critical on patient, hemoglobin 4.9 and Hematacrit 16. Repeated and confirmed.
[2021-08-21 07:39] LABS: D-Dimer 0.51 ug/mL (0.0-0.5)
--- NOTE | 2021-08-21 07:40 | PC.NURSE ---
Brittanie from lab at the for blood collection
--- NOTE | 2021-08-21 07:46 | PC.NURSE ---
Called RT for vbg collection
--- NOTE | 2021-08-21 07:47 | PC.NURSE ---
speaking to dr howard for admission
[2021-08-21 07:49] LABS: Procalcitonin 0.092 ng/mL (0.0-2.0)
[2021-08-21 07:56] LABS: Coronavirus 19, PCR Not Detected (NotDetected); Influenza A, PCR Not Detected (NotDetected); Influenza B, PCR Not Detected (NotDetected)
[2021-08-21 07:56] LABS: VBG Base Excess 6.3 mmol/L (-2.4-2.3); VBG HCO3 30.9 mmol/L (23-30); VBG Oxygen Saturation 97.3 % (50-70); VBG PO2 101.9 mmol/L (28-40); VBG Total CO2 32.5 mmol/L (23-27)
[2021-08-21 07:57] LABS: VBG PCO2 49.8 mmol/L (35-51); VBG PH 7.41 mmol/L (7.31-7.41)
--- NOTE | 2021-08-21 08:08 | PC.NURSE ---
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
--- NOTE | 2021-08-21 08:11 | PC.NURSE ---
attempted to call report
[2021-08-21 08:18] LABS: Lactic Acid 0.9 mmol/L (0.7-2.1)
--- NOTE | 2021-08-21 08:20 | PC.NURSE ---
report called to Larisa miller
--- NOTE | 2021-08-21 08:20 | PC.NURSE ---
pt and daughter updated on plan of care
--- NOTE | 2021-08-21 09:08 | PC.NURSE ---
pt transported to med surg at this time
--- NOTE | 2021-08-21 10:40 | P.CONPHA_ITS ---
[facility] Pharmacy VTE Monitoring - Patient Demographics Admission date: 08/21/21 Report Date: 08/21/21 Time: 10:40 Allergies/Adverse Reactions: Patient Allergies codeine Allergy (Intermediate, Verified 07/09/20 11:24) CHEST PAIN ketorolac [From Toradol] Allergy (Intermediate, Verified 07/09/20 11:24) MENTAL STATUS CHANGES prednisone Allergy (Intermediate, Verified 01/25/21 08:04) Unknown allergy reaction Height: 1.68 m Weight: 88.451 kg Patient Problems: Current Active Problems Symptomatic anemia (Acute) - VTE Risk Labs: VTE Related Lab Results Hgb 5.0 g/dL (12.2-16.2) L* 08/21/21 06:32 Hct 16.0 % (37.0-47.0) L* 08/21/21 06:32 Plt Count 494 K/mm3 (142-424) H 08/21/21 06:32 PT 14.1 seconds (10.1-12.5) H 08/21/21 06:32 INR 1.27 (0.9-1.1) H 08/21/21 06:32 BUN 13 mg/dl (7-17) 08/21/21 06:32 Creatinine 0.50 mg/dl (0.52-1.04) L 08/21/21 06:32 Estimated Creat Clear 77 mL/min (50-200) 08/21/21 06:32 Clinical Trial Participant: No - Prophylaxis VTE Prophylaxis Ordered?: Yes Types of VTE Prophylaxis: TEDS Knee High
--- NOTE | 2021-08-21 10:45 | HMH.PHAINT ---
verified home medication list using lists from [facility] and Dr Orozco's office
[2021-08-21 11:01] LABS: Troponin I < 0.01 ng/ml (0.00-0.034)
[2021-08-21 14:16] LABS: Troponin I < 0.01 ng/ml (0.00-0.034)
--- NOTE | 2021-08-21 14:52 | HMH.HP ---
*Admission Date: 08/21/21 *Chief complaint: weakness *History of present illness: Ms. Barragan is a 66yo female with history significant for COPD dependent on 4 L of O2 at home, CHF, T2DM, HTN, and bilateral pulmonary emboli on 20 mg of daily Xarelto who presented to the ER for weakness, increased shortness of breath, and some mild chest/abdominal pain. Symptoms have been worsening for the past week. Pain in her belly worse when she eats. Her daughter is with her at bedside. States she has had a cough that is mildly productive. Denies melena, hematochezia, bright red blood per rectum. Initial work-up concerning for marked anemia, chest x-ray with some hyperinflation but no focal consolidation, tachycardia, mild electrolyte abnormalities, and elevated BNP. Admitted to medicine for severe anemia and COPD exacerbation. After arriving to the floor, I evaluated her at bedside. Daughter at bedside with her. Report consistent as per report from the ER. Currently on her home trilogy device. She wears it 4 hours on 4 hours off. Started on steroids, antibiotics, breathing treatments, diuretics, and receiving her second unit of blood. Feeling some slight improvement. Is alert and oriented and answers questions appropriately. Further history elicits that she has been in the hospital twice in the past 4 months necessitating intubation. Once in April and once again exactly a month ago. Both times were due to hypercarbic respiratory failure. First time in April there was discussion about possibly placing a trach. Follows with Dr. Fleming with pulmonology. [facility] History I have reviewed the patient's past medical history: Yes Medical History: Reports:: Anxiety, Atrial Fibrillation, Cancer, Congestive Heart Failure, Chronic Obstructive Pulmonary Disease (COPD), Deep Vein Thrombosis, Diabetes Mellitus Type 2, Hypertension, Pulmonary Embolism Denies:: Diabetes Mellitus Type 1, Internal Pacemaker, MRSA *Have you ever received a pneumonia vaccine?: No *Have you received a flu vaccine this season?: Yes Other Medical History: Reports: Anemia Other Surgeries: Yes: Cardiac Catheterization, Cholecystectomy, Colonoscopy, Hysterectomy-Total, Sinus Surgery. No: Pacemaker Amputation: No Fractures: No - *Social History Last grade of school completed: 7th or 8th Smoking Status: Former smoker Tobacco Type: cigarettes # Packs/Day (cigarettes): 2 Alcohol Intake: never *Occupational Status:: disabled Housing: apartment Household Members: children *Travel in the last 8 weeks: None - Psychiatric History Pschychiatric History:: Reports:: Anxiety Family Hx:: Asthma, Cancer, Diabetes, Hypertension Review of Systems - Review of Systems Review of systems:: pertinent systems reviewed and negative unless documented below (14 point review of systems performed, pertinent positives and negatives as per HPI) Meds Home Medications Medication Instructions Recorded Confirmed Type carvedilol 25 mg tablet 25 mg PO BID 11/27/19 08/21/21 History fluticasone propionate 50 2 spray INTRANASAL DAILY 11/27/19 08/21/21 History mcg/actuation nasal spray,suspension furosemide 20 mg tablet 20 mg PO DAILY 11/27/19 08/21/21 History Albuterol Sulfate [Albuterol 1 neb INHALATION Q4-6H PRN 02/13/20 08/21/21 History 0.042% 1.25mg/3mL neb] Montelukast Sodium [Singulair 10mg 10 mg PO HS 02/17/20 08/21/21 History tablet] albuterol sulfate 90 mcg/actuation 1 inh INHALATION QID PRN #8.5 g 07/09/20 08/21/21 Rx aerosol inhaler Fluticasone/Vilanterol [Breo 1 inh INHALATION DAILY 01/24/21 08/21/21 History Ellipta 100-25 Mcg INH] Rivaroxaban [Xarelto 20mg Tablet*] 20 mg PO DAILY 01/24/21 08/21/21 History Azithromycin 250 mg PO MOWEFR 08/21/21 08/21/21 History Tiotropium [place] [Spiriva 4 gm IH DAILY 08/21/21 08/21/21 History Respimat] Allergies Allergy/AdvReac Type Severity Reaction Status Date / Time codeine Allergy Intermediate CHEST PAIN Verifie
[2021-08-21 20:56] LABS: POC Glucose,Bedside 156 (70-110)
[2021-08-21 21:50] LABS: Hematocrit 22.2 % (37.0-47.0)
[2021-08-21 22:08] LABS: Hemoglobin 7.2 g/dL (12.2-16.2)
[2021-08-22] VITALS (12 sets, daily range): BP systolic 77–131; BP diastolic 45–65; PULSE 65–92; RESP 18–22; TEMP 36.4–36.8; O2SAT 4–99; BMI 31.3
--- NOTE | 2021-08-22 05:07 | PC.NURSE ---
Pt A&O x 4. 2nd unit of PRBCs finished 08/21/21 @ 2020. 1 hour post H&H results relayed to Dr. Borrego. Per MD, hold 3rd unit for now, will re-evaluate with morning labs. Pt did have one medium sized, soft, dark BM - MD aware. Put pt on her trilogy machine at 2100, pt has stayed on it all night. Pt has maintained O2 sat greater than 90% on 4 L NC, and on trilogy w/ 4 L O2. Pt voiding per [place] - with good urine output. VSS, at this time. Turning q2hrs. Pt is on clear liquid diet, tolerating well. Call light in reach. No complaints or needs voiced per patient at this time.
[2021-08-22 05:44] LABS: POC Glucose,Bedside 95 (70-110)
[2021-08-22 06:01] LABS: POC Glucose,Bedside 244 (70-110)
[2021-08-22 10:07] LABS: Basophils # 0.1 K/mm3 (0-0.2); Basophils % 0.6 % (0.1-2.0); Eosinophils # 0.1 K/mm3 (0.0-0.4); Eosinophils % 0.7 % (0.1-12.0); Hematocrit 23.7 % (37.0-47.0); Hemoglobin 7.7 g/dL (12.2-16.2); Lymphocytes # 2.1 K/mm3 (0.7-4.5); Lymphocytes % 16.7 % (10-50); Mean Corpuscular HGB Conc 32.6 g/dL (31.8-35.4); Mean Corpuscular Volume 79.7 fl (81-99); Mean Platelet Volume 8.2 fl (7.4-10.4); Monocytes % 7.8 % (1.7-9.3); Neutrophils # 9.3 K/mm3 (1.8-7.8); Neutrophils % 74.2 % (37.0-80.0); Platelet Count 408 K/mm3 (142-424); Red Blood Count 2.97 M/mm3 (4.20-5.40); Red Cell Distribution Width 18.2 % (11.5-17.5); White Blood Count 12.5 K/mm3 (4.8-10.8)
[2021-08-22 10:10] LABS: Chloride 100 mmol/L (98-107); Potassium 3.9 mmoL/L (3.5-5.1); Sodium 132 mmol/L (136-145)
[2021-08-22 10:13] LABS: Alanine Aminotransferase 16 U/L (12-78); Albumin Level 2.7 g/dl (3.5-5.0); Albumin/Globulin Ratio 1.2 (1.1-1.8); Alkaline Phosphatase 42 U/L (38-126); Anion Gap 3.9 mEq/L (5-15); Aspartate Amino Transferase 24 U/L (14-36); Bilirubin,Total 0.3 mg/dl (0.2-1.3); Blood Urea Nitrogen 12 mg/dl (7-17); Calcium 8.3 mg/dl (8.4-10.2); Carbon Dioxide 32 mmol/L (22.0-30.0); Creatinine Clearance Estimated 77 mL/min (50-200); Estimated Glomerular Filt Rate 100 ml/min (>60); GFR (African American) 121 ML/MIN (>60); Globulin 2.2 g/dL (1.3-3.2); Glucose 111 mg/dl (74-100); Magnesium 1.7 mg/dl (1.6-2.3); Total Protein,Serum 4.9 g/dl (6.3-8.2)
--- NOTE | 2021-08-22 12:25 | HMH.ACPN2 ---
Internal Medicine - PN: Subj *Date: 08/22/21 *Time: 12:25 Exam Vital signs and Labs for Last 24 Hours: Temp Pulse Resp BP Pulse Ox 97.6 F 115 H 28 H 102/56 L 93 L 08/22/21 08:00 08/22/21 08:00 08/22/21 08:00 08/22/21 08:00 08/22/21 08:00 Laboratory Results - last 24 hr 08/21/21 06:32: VBG pH 7.41, VBG pCO2 49.8, VBG pO2 101.9 H, VBG HCO3 30.9 H, VBG Total CO2 32.5 H, VBG O2 Saturation 97.3 H, VBG Base Excess 6.3 H 08/21/21 07:40: Blood Type A Positive, Antibody Screen Negative, Crossmatch (AHG) See Detail 08/21/21 07:40: Blood Type Confirm A Positive 08/21/21 13:16: Troponin I < 0.01 08/21/21 13:26: POC Glucose 244 H 08/21/21 20:35: POC Glucose 156 H 08/21/21 21:30: Hgb 7.2 L D, Hct 22.2 L 08/22/21 05:36: POC Glucose 95 08/22/21 09:58: WBC 12.5 H, RBC 2.97 L D, Hgb 7.7 L, Hct 23.7 L, MCV 79.7 L, MCH 26.0 L, MCHC 32.6, RDW 18.2 H, Plt Count 408, MPV 8.2, Neut % (Auto) 74.2, Lymph % (Auto) 16.7, [place] % (Auto) 7.8, Eos % (Auto) 0.7, Baso % (Auto) 0.6, Neut # (Auto) 9.3 H, Lymph # (Auto) 2.1, [place] # (Auto) 1.0, Eos # (Auto) 0.1, Baso # (Auto) 0.1 08/22/21 09:58: Sodium 132 L, Potassium 3.9, Chloride 100, Carbon Dioxide 32 H, Anion Gap 3.9 L, BUN 12, Creatinine 0.60, Estimated Creat Clear 77, Estimated GFR 100, Est GFR ( Amer) 121, Glucose 111 H, Calcium 8.3 L, Magnesium 1.7, Total Bilirubin 0.3, AST 24, ALT 16 D, Alkaline Phosphatase 42, Total Protein 4.9 L, Albumin 2.7 L, Globulin 2.2, Albumin/Globulin Ratio 1.2 I & O for Last 24 hours: Intake & Output 08/19/21 08/20/21 08/21/21 08/22/21 23:59 23:59 23:59 23:59 Intake Total 460.31 / 460.31 240 / 240 Output Total 200 / 800 600 / 600 Balance 260.31 / -339.69 -360 / -360 Weight 88.451 kg 88.479 kg Narrative: - Constitutional moderate distress, obese, chronically ill appearing, cooperative - *Routine HEENT Exam Head: Present: normocephalic, cushingoid faces Eye: Present: EOMI, PERRL ENT: Present: mucous membranes moist - *Routine Neck Exam Present: supple. Absent: lymphadenopathy - *Routine Respiratory Exam Present: respiratory distress. Absent: wheezes, crackles Comments: Mechanical breath sounds as she is on BiPAP - *Routine Cardiovascular Exam Present: RRR - *Routine Abdominal Exam Present: soft, normoactive bowel sounds, tenderness (Diffuse nonfocal) - *Routine Rectal Exam Rectal:: deferred - *Routine Genitalia Exam Genitalia:: deferred - *Routine Extremities Exam Present: edema (1+ to knees). Absent: cyanosis, clubbing - *Routine Skin Exam Present: pallor, warm. Absent: rash - *Routine Neurological Exam Present: alert, oriented X3 Assessment and Plan (1) Symptomatic anemia Status: Acute Category: Medical Code(s): D64.9 - Anemia, unspecified (2) Acute exacerbation of chronic obstructive airways disease Status: Acute Category: Medical Code(s): J44.1 - Chronic obstructive pulmonary disease with (acute) exacerbation (3) Obesity (BMI 30-39.9) Status: Acute Category: Medical Code(s): E66.9 - Obesity, unspecified (4) Acute on chronic respiratory failure with hypoxemia Status: Acute Category: Medical Code(s): J96.21 - Acute and chronic respiratory failure with hypoxia (5) Hx of pulmonary embolus Status: Chronic Category: Medical Code(s): Z86.711 - Personal history of pulmonary embolism (6) Type 2 diabetes mellitus Status: Chronic Qualifiers: Diabetes mellitus usp insulin use: 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
--- NOTE | 2021-08-22 17:06 | PC.NURSE ---
Dr Borrego notified of patient continuing to be hypotensive despite fluid bolus, not symptomatic at this time, MD states he believes its from her coreg dose, given order to dc coreg and continue to monitor patient, if she becomes symptomatic notify MD for further orders.
[2021-08-22 19:14] LABS: Microscopic, Urine URINE MICROSCOPIC (MICROSCOPIC)
[2021-08-22 19:30] LABS: Appearance,Urine CLEAR (Clear); Bilirubin,Urine Negative (Negative); Blood, Urine Negative (Negative); Color,Urine YELLOW (Yellow); Glucose,Urine (UA) Negative (Negative); Ketones,Urine Negative (Negative); Leukocyte Esterase,Urine Negative (Negative); Nitrate,Urine Negative (Negative); Protein,Urine Negative (Negative); Urobilinogen,Urine 0.2 EU/dl (0.2)
[2021-08-22 21:46] LABS: POC Glucose,Bedside 111 (70-110)
[2021-08-22 21:46] LABS: POC Glucose,Bedside 86 (70-110)
[2021-08-23] VITALS (22 sets, daily range): BP systolic 87–142; BP diastolic 49–84; PULSE 90–113; RESP 17–24; TEMP 36.2–36.9; O2SAT 89–100; BMI 23.1
--- NOTE | 2021-08-23 04:25 | PC.NURSE ---
Pt has rested well this shift. BP is soft this AM. Other VSS. Pt has been on trilegy with 4L since 2300 last night. New IV placed #20 to LAC. No c/o discomfort. Purewick in place with 500 ml plus 1 unmeasured void. No BM. Pt is NPO for consult this AM. No other concerns. Will continue to monitor.
[2021-08-23 05:33] LABS: POC Glucose,Bedside 74 (70-110)
--- NOTE | 2021-08-23 05:57 | PC.NURSE ---
notified of pt FSBS 74 and hypotension. Pt NPO for GI consult. New orders received: D5 NS @ 100 ml/hr.
[2021-08-23 06:37] LABS: Chloride 105 mmol/L (98-107); Potassium 4.8 mmoL/L (3.5-5.1); Sodium 135 mmol/L (136-145)
[2021-08-23 06:40] LABS: Anion Gap 4.8 mEq/L (5-15); Blood Urea Nitrogen 13 mg/dl (7-17); Carbon Dioxide 30 mmol/L (22.0-30.0); Creatinine Clearance Estimated 57 mL/min (50-200); Estimated Glomerular Filt Rate 160 ml/min (>60); GFR (African American) 193 ML/MIN (>60)
[2021-08-23 06:41] LABS: Calcium 7.9 mg/dl (8.4-10.2); Glucose 72 mg/dl (74-100)
[2021-08-23 06:54] LABS: Basophils % 0.1 % (0.1-2.0); Eosinophils # 0.1 K/mm3 (0.0-0.4); Eosinophils % 0.8 % (0.1-12.0); Hemoglobin 7.3 g/dL (12.2-16.2); Lymphocytes # 1.7 K/mm3 (0.7-4.5); Lymphocytes % 14.5 % (10-50); Mean Corpuscular HGB Conc 31.8 g/dL (31.8-35.4); Mean Corpuscular Hemoglobin 24.7 pg (27.0-31.2); Mean Corpuscular Volume 77.6 fl (81-99); Mean Platelet Volume 8.5 fl (7.4-10.4); Monocytes % 8.7 % (1.7-9.3); Neutrophils % 75.9 % (37.0-80.0); Platelet Count 314 K/mm3 (142-424); Red Blood Count 2.96 M/mm3 (4.20-5.40); Red Cell Distribution Width 16.5 % (11.5-17.5); White Blood Count 11.9 K/mm3 (4.8-10.8)
--- NOTE | 2021-08-23 07:41 | HMH.GSCON ---
*Admission Date: 08/21/21 *Reason for consult:: Suspected GI bleed, ?EGD *History of present illness: Patient is a 66-year-old female from [facility] with history of severe COPD, end-stage, on 4 L oxygen at home. History of congestive heart failure, type 2 diabetes, hypertension, bilateral pulmonary emboli, atrial fibrillation, on Xarelto. She presented to the emergency department a couple days ago with weakness and increased shortness of breath with some mild chest/abdominal pain. This has been progressive over about 1 week leading up to her admission. She has abdominal pain which seems to be worse postprandially. Evaluation in the emergency department revealed hemoglobin of 5. She was transfused 2 units with post-transfusion Hgb of 7.2. She had some melena. Surgical consultation was obtained this morning for possible EGD. Of note, the patient does have significant COPD. She has been admitted to the hospital twice in the past several months requiring intubation due to hypercarbic respiratory failure. There had been discussion of possible tracheostomy. Review of Systems - Review of Systems Review of systems:: pertinent systems reviewed and negative unless documented below [facility] History I have reviewed the patient's past medical history: Yes Medical History: Reports:: Anxiety, Atrial Fibrillation, Cancer, Congestive Heart Failure, Chronic Obstructive Pulmonary Disease (COPD), Deep Vein Thrombosis, Diabetes Mellitus Type 2, Hypertension, Pulmonary Embolism Denies:: Diabetes Mellitus Type 1, Internal Pacemaker, MRSA *Have you ever received a pneumonia vaccine?: No *Have you received a flu vaccine this season?: Yes Other Medical History: Reports: Anemia Other Surgeries: Yes: Cardiac Catheterization, Cholecystectomy, Colonoscopy, Hysterectomy-Total, Sinus Surgery. No: Pacemaker Amputation: No Fractures: No - *Social History Last grade of school completed: 7th or 8th Smoking Status: Former smoker Tobacco Type: cigarettes # Packs/Day (cigarettes): 2 Alcohol Intake: never *Occupational Status:: disabled Housing: apartment Household Members: children *Travel in the last 8 weeks: None - Psychiatric History Pschychiatric History:: Reports:: Anxiety Family Hx:: Asthma, Cancer, Diabetes, Hypertension Meds Home Medications Medication Instructions Recorded Confirmed Type carvedilol 25 mg tablet 25 mg PO BID 11/27/19 08/21/21 History fluticasone propionate 50 2 spray INTRANASAL DAILY 11/27/19 08/21/21 History mcg/actuation nasal spray,suspension furosemide 20 mg tablet 20 mg PO DAILY 11/27/19 08/21/21 History Albuterol Sulfate [Albuterol 1 neb INHALATION Q4-6H PRN 02/13/20 08/21/21 History 0.042% 1.25mg/3mL neb] Montelukast Sodium [Singulair 10mg 10 mg PO HS 02/17/20 08/21/21 History tablet] albuterol sulfate 90 mcg/actuation 1 inh INHALATION QID PRN #8.5 g 07/09/20 08/21/21 Rx aerosol inhaler Fluticasone/Vilanterol [Breo 1 inh INHALATION DAILY 01/24/21 08/21/21 History Ellipta 100-25 Mcg INH] Rivaroxaban [Xarelto 20mg Tablet*] 20 mg PO DAILY 01/24/21 08/21/21 History Azithromycin 250 mg PO MOWEFR 08/21/21 08/21/21 History Tiotropium [place] [Spiriva 4 gm IH DAILY 08/21/21 08/21/21 History Respimat] Allergies Allergy/AdvReac Type Severity Reaction Status Date / Time codeine Allergy Intermediate CHEST PAIN Verified 07/09/20 11:24 ketorolac [From Toradol] Allergy Intermediate MENTAL Verified 07/09/20 11:24 STATUS CHANGES prednisone Allergy Intermediate Unknown Verified 01/25/21 08:04 allergy reaction Exam Vital signs and Labs for Last 24 Hours: Temp Pulse Resp BP Pulse Ox 98.0 F 93 H 18 88/54 L 95 08/23/21 04:00 08/23/21 04:00 08/23/21 04:00 08/23/21 04:00 08/23/21 06:34 Laboratory Results - last 24 hr 08/21/21 07:40: Crossmatch (AHG) See Detail 08/22/21 09:58: WBC 12.5 H, RBC 2.97 L D, Hgb 7.7 L, Hct 23.7 L, MCV 79.7 L, MCH 26.0 L, MCHC 32.6, R
--- NOTE | 2021-08-23 08:39 | HMH.ACPN2 ---
Internal Medicine - PN: Subj *Date: 08/23/21 *Time: 08:39 Interval history: Patient continues to feel tired, has not noticed further melanotic stools or upper GI bleeding stigmata. Exam Vital signs and Labs for Last 24 Hours: Temp Pulse Resp BP Pulse Ox 98.3 F 97 H 24 110/55 L 95 08/23/21 08:00 08/23/21 08:00 08/23/21 08:00 08/23/21 08:00 08/23/21 06:34 Laboratory Results - last 24 hr 08/21/21 07:40: Crossmatch (AHG) See Detail 08/22/21 09:58: WBC 12.5 H, RBC 2.97 L D, Hgb 7.7 L, Hct 23.7 L, MCV 79.7 L, MCH 26.0 L, MCHC 32.6, RDW 18.2 H, Plt Count 408, MPV 8.2, Neut % (Auto) 74.2, Lymph % (Auto) 16.7, [place] % (Auto) 7.8, Eos % (Auto) 0.7, Baso % (Auto) 0.6, Neut # (Auto) 9.3 H, Lymph # (Auto) 2.1, [place] # (Auto) 1.0, Eos # (Auto) 0.1, Baso # (Auto) 0.1 08/22/21 09:58: Sodium 132 L, Potassium 3.9, Chloride 100, Carbon Dioxide 32 H, Anion Gap 3.9 L, BUN 12, Creatinine 0.60, Estimated Creat Clear 77, Estimated GFR 100, Est GFR ( Amer) 121, Glucose 111 H, Calcium 8.3 L, Magnesium 1.7, Total Bilirubin 0.3, AST 24, ALT 16 D, Alkaline Phosphatase 42, Total Protein 4.9 L, Albumin 2.7 L, Globulin 2.2, Albumin/Globulin Ratio 1.2 08/22/21 11:47: POC Glucose 111 H 08/22/21 18:05: Urine Color Yellow, Urine Appearance Clear, Urine pH 6.0, Ur Specific [place] 1.020, Urine Protein Negative, Urine Glucose (UA) Negative, Urine Ketones Negative, Urine Blood Negative, Urine Nitrate Negative, Urine Bilirubin Negative, Urine Urobilinogen 0.2, Ur Leukocyte Esterase Negative, Urine RBC None, Urine WBC None, Ur Squamous Epith Cells None, Urine Bacteria None 08/22/21 20:49: POC Glucose 86 08/23/21 05:09: POC Glucose 74 08/23/21 05:53: WBC 11.9 H, RBC 2.96 L, Hgb 7.3 L, Hct 23.0 L, MCV 77.6 L, MCH 24.7 L, MCHC 31.8, RDW 16.5, Plt Count 314, MPV 8.5, Neut % (Auto) 75.9, Lymph % (Auto) 14.5, [place] % (Auto) 8.7, Eos % (Auto) 0.8, Baso % (Auto) 0.1, Neut # (Auto) 9.0 H, Lymph # (Auto) 1.7, [place] # (Auto) 1.0, Eos # (Auto) 0.1, Baso # (Auto) 0.0 08/23/21 05:53: Sodium 135 L, Potassium 4.8 D, Chloride 105, Carbon Dioxide 30, Anion Gap 4.8 L, BUN 13, Creatinine 0.40 L D, Estimated Creat Clear 57, Estimated GFR 160, Est GFR ( Amer) 193 D, Glucose 72 L D, Calcium 7.9 L I & O for Last 24 hours: Intake & Output 08/20/21 08/21/21 08/22/21 08/23/21 11:59 11:59 11:59 11:59 Intake Total 700.31 / 700.31 1340 / 1340 Output Total 800 / 800 1700 / 1700 Balance -99.69 / -99.69 -360 / -360 Weight 195 lb 195 lb 1 oz 143 lb 9.6 oz Microbiology Reports for the Last 24 Hours: Microbiology 08/21/21 07:40 Blood Blood Culture - Preliminary NO GROWTH AFTER 48 HOURS 08/21/21 07:40 Blood Blood Culture - Preliminary NO GROWTH AFTER 48 HOURS Narrative: Dyspnea but at baseline. Lungs have good air movement heart rate regular. Abdomen soft, no edema or clubbing. Alert and oriented x3. Oropharynx moist and clear. Assessment and Plan (1) Symptomatic anemia Status: Acute Category: Medical Code(s): D64.9 - Anemia, unspecified (2) Acute exacerbation of chronic obstructive airways disease Status: Acute Category: Medical Code(s): J44.1 - Chronic obstructive pulmonary disease with (acute) exacerbation (3) Obesity (BMI 30-39.9) Status: Acute Category: Medical Code(s): E66.9 - Obesity, unspecified (4) Acute on chronic respiratory failure with hypoxemia Status: Acute Category: Medical Code(s): J96.21 - Acute and chronic respiratory failure with hypoxia (5) Hx of pulmonary embolus Status: Chronic Category: Medical Code(s): Z86.711 - Personal history of pulmonary embolism (6) Type 2 diabetes mellitus Status: Chronic Qualifiers: 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
--- NOTE | 2021-08-23 09:18 | HMH.ANESCL ---
[facility] Anesthesia Checklist - Patient Identification Patient Identification: Arm Band - Structural Data Admitted From: Inpatient Planned Operative Procedure/s: EGD Consent for Planned Operative Procedure(s) Verified: Yes Verified Documents: Surgical Consent, History and Physical - NPO Status Verified Time NPO: 00:00 - Additional verifications Anesthesia Reactions: No - Airway Assessment C-Spine Mobility Assessed: Yes (mp2) TMJ Mobility Assessed: Yes Dentition: Edentulous - Neurological Assessment Level of Consciousness: Awake, Alert - Anesthesia Plan Anesthesia Risk discussed: Yes Anesthesia Plan: Verified ASA Class: IV Anesthesia Type: MAC [facility] History I have reviewed the patient's past medical history: Yes Medical History: Reports:: Anxiety, Atrial Fibrillation, Cancer, Congestive Heart Failure, Chronic Obstructive Pulmonary Disease (COPD), Deep Vein Thrombosis, Diabetes Mellitus Type 2, Hypertension, Pulmonary Embolism Denies:: Diabetes Mellitus Type 1, Internal Pacemaker, MRSA *Have you ever received a pneumonia vaccine?: No *Have you received a flu vaccine this season?: Yes Other Medical History: Reports: Anemia Anesthesia experience/problems:: nac Other Surgeries: Yes: Cardiac Catheterization, Cholecystectomy, Colonoscopy, Hysterectomy-Total, Sinus Surgery. No: Pacemaker Amputation: No Fractures: No - *Social History Last grade of school completed: 7th or 8th Smoking Status: Former smoker Tobacco Type: cigarettes # Packs/Day (cigarettes): 2 Alcohol Intake: never Substance Use Type: denies use *Occupational Status:: disabled Housing: apartment Household Members: children *Travel in the last 8 weeks: None - Psychiatric History Pschychiatric History:: Reports:: Anxiety Family Hx:: Asthma, Cancer, Diabetes, Hypertension
[2021-08-23 09:22] LABS: POC Glucose,Bedside 83 (70-110)
--- NOTE | 2021-08-23 09:30 | HMH.SCOPE ---
- Procedure: Date: 08/23/21 Patient Date of :: 1955 Procedure Performed:: Esophagogastroduodenoscopy Indications:: Patient is a 66-year-old female from [facility] with history of severe COPD, end-stage, on 4 L oxygen at home. History of congestive heart failure, type 2 diabetes, hypertension, bilateral pulmonary emboli, atrial fibrillation, on Xarelto. She presented to the emergency department a couple days ago with weakness and increased shortness of breath with some mild chest/abdominal pain. This has been progressive over about 1 week leading up to her admission. She has abdominal pain which seems to be worse postprandially. Evaluation in the emergency department revealed hemoglobin of 5. She was transfused 2 units with post-transfusion Hgb of 7.2. She had some melena. Surgical consultation was obtained this morning for possible EGD. Of note, the patient does have significant COPD. She has been admitted to the hospital twice in the past several months requiring intubation due to hypercarbic respiratory failure. There had been discussion of possible tracheostomy. Plan was made to proceed with diagnostic endoscopy. Performing Provider:: Cj Wright MD Referring Provider:: Adonay Borrego MD Sedation:: MAC sedation Procedure:: Patient was taken to endoscopy procedure room. She was positioned in lateral decubitus position. Adequate intravenous sedation was achieved with anesthesia titration of propofol. Olympus endoscope was inserted via the oropharynx. Esophagus was cannulated. Overall esophagus appeared unremarkable. Gastroesophageal junction was encountered at approximately 38 cm from the incisors. Stomach was cannulated and insufflated. Retroflexion was performed which revealed no evidence of any appreciable hiatal hernia. There was noted to be a moderate deep nonbleeding somewhat inflamed appearing prepyloric ulcer. Pylorus was traversed. Within the duodenal bulb there was a moderately large nonbleeding ulcer with exudative base. There was no evidence of any bleeding or stigmata of recent bleeding. However there may be a red spot present in the exudate. Due to the high risk of initiating active bleeding intervention was not performed. The endoscope was able to be advanced beyond this. Distal duodenum appeared unremarkable. Stomach was desufflated and the endoscope was withdrawn. Findings:: Gastroesophageal junction at 38 cm Prepyloric nonbleeding ulcer, surrounding edematous tissue Moderately large nonbleeding duodenal ulcer Recommendations:: Continue medical management of ulcer. Ideally with holding anticoagulants would be optimal. Complications:: None immediately apparent Estimated blood obtained (mL): 0
--- NOTE | 2021-08-23 10:43 | SW/DCPLANNER ---
Addendum entered by Pam Castro 08/24/21 10:00: During morning rounds patient expressed that she prefers to return home: daughter is present 03/10, patient receives waiver services including a nurse at home for 40 hours a week, has home O2 and Trilogy machine and will resume home health services with [facility]. I did call and discuss this with daughter and she concurs with discharge plan assuring that someone is with patient 03/10. I also called and spoke with Nayana at [facility] and they will send someone up to adjust patient's Trilogy machine. The plan for this patient is to discharge home later today. I will fax all information to [facility]/ Osei. Dr Borrego also discussed Hospice services at home and daughter stated they are not interested in Hospice services at this time due to having to drop Waiver services. Original Note: This patient currently receives home health services from [facility]. I will follow up with [facility]/ [facility] once patient is medically stable for discharge.
[2021-08-23 11:34] LABS: POC Glucose,Bedside 88 (70-110)
--- NOTE | 2021-08-23 13:26 | HMH.PTEV ---
Physical Therapy Evaluation Rehab PT IP Evaluation Start: 08/23/21 07:00 Freq: ONCE Status: Active Protocol: Document 08/23/21 13:19 ELLYFLORIDALMA (Rec: 08/23/21 13:25 ELLYFLORIDALMA [id number]) Subjective/History History History Ms. Barragan is a 66yo female with history significant for COPD dependent on 4 L of O2 at home, CHF, T2DM, HTN, and bilateral pulmonary emboli on 20 mg of daily Xarelto who presented to the ER for weakness, increased shortness of breath, and some mild chest /abdominal pain. Symptoms have been worsening for the past week. Pain in her belly worse when she eats. Subjective Subjective Pt reports she has been almost bed bound last few month due to multiple hospitalizations and intubation. Pt reports she is very weak and cannot stand Rehab PT IP Eval Objective Appearance Patient Behavior Fatigued,Fearful Patient Orientation Person,Place,Time Difficulty following instructions none Speech Pattern Appropriate,Soft-Spoken Ambulation Patient Able to Ambulate No Transfers Bed Transfer Ability Supervision/Stand by,Contact Guard/Hand Hold MMT All Extremities PT MMT WFL Abnormal MMT Grade gross 3+/5 Rehab PT IP prob,goals,plan Problems Date of Evaluation: 08/23/21 PT IP Problems Bed Mobility,Transfers,Gait, Self care,Safety Rehab Potential Rehab Potential Fair Equipment Needs Assistive Devices Rolling / Wheeled Walker Plan PT Intervention Plan Bed Mobility,Gait,Balance, Therapeutic Exercise PT Plan Frequency BID Duration LOS Discharge Goals Bed Transfer Ability Supervision/Stand by,Contact Guard/Hand Hold Discharge Plan PT Discharge Plan Due to pt's severe deconditioning, multiple hospitalizations recently and severe respiratory issues pt would benefit from skilled therapy to allow some improvment in function. Pt
--- NOTE | 2021-08-23 14:52 | PC.NURSE ---
rounded on patient. daughter stating she had to leave. did look over procedure notes from [facility] and talked to daughter about plan of care from this point. daughter was worried about missing another procedure today and educated at this time does not appear to need another procedure especially today. did educate we could notify her if this changes. assisted with janelle, and ensured call light within each.
--- NOTE | 2021-08-23 15:38 | DIET.NUTRFU ---
RD meet with patient, she has no teeth and will need softer foods, She also has multiple food limitation based and IBS. Will start glucerna 2x day to help meet needs. See assessment for further information
[2021-08-23 16:44] LABS: POC Glucose,Bedside 119 (70-110)
[2021-08-24] VITALS (7 sets, daily range): BP systolic 105–133; BP diastolic 49–65; PULSE 86–124; RESP 18–20; TEMP 36.8–37.1; O2SAT 92–98; BMI 23.1
--- NOTE | 2021-08-24 04:19 | PC.NURSE ---
Pt has done fine this shift. Pt has had x2 incontinent episodes this shift. Pt was incontinent of urine. Pt is able to turn herself in bed. Pt currently resting in bed w/ trilogy device in place. No other acute changes or complaints, will monitor.
[2021-08-24 06:52] LABS: Basophils % 0.2 % (0.1-2.0); Eosinophils # 0.1 K/mm3 (0.0-0.4); Eosinophils % 0.6 % (0.1-12.0); Hematocrit 22.5 % (37.0-47.0); Hemoglobin 7.4 g/dL (12.2-16.2); Lymphocytes # 1.6 K/mm3 (0.7-4.5); Lymphocytes % 17.2 % (10-50); Mean Corpuscular HGB Conc 32.8 g/dL (31.8-35.4); Mean Corpuscular Hemoglobin 25.9 pg (27.0-31.2); Mean Corpuscular Volume 78.9 fl (81-99); Mean Platelet Volume 8.3 fl (7.4-10.4); Monocytes # 0.7 K/mm3 (0.1-1.0); Monocytes % 7.8 % (1.7-9.3); Neutrophils # 6.9 K/mm3 (1.8-7.8); Neutrophils % 74.2 % (37.0-80.0); Platelet Count 297 K/mm3 (142-424); Red Blood Count 2.86 M/mm3 (4.20-5.40); Red Cell Distribution Width 18.4 % (11.5-17.5); White Blood Count 9.2 K/mm3 (4.8-10.8)
[2021-08-24 06:56] LABS: Chloride 102 mmol/L (98-107); Sodium 135 mmol/L (136-145)
[2021-08-24 06:59] LABS: Blood Urea Nitrogen 7 mg/dl (7-17); Creatinine Clearance Estimated 57 mL/min (50-200); Estimated Glomerular Filt Rate 160 ml/min (>60); GFR (African American) 193 ML/MIN (>60)
[2021-08-24 07:00] LABS: Anion Gap 3.9 mEq/L (5-15); Calcium 7.7 mg/dl (8.4-10.2); Carbon Dioxide 32 mmol/L (22.0-30.0); Glucose 78 mg/dl (74-100)
--- NOTE | 2021-08-24 07:07 | PC.NURSE ---
received call from lab ([facility]ude) reporting K 2.9. Name and verified. Dr. Borrego updated.
[2021-08-24 07:09] LABS: Potassium 2.9 mmoL/L (3.5-5.1)
--- NOTE | 2021-08-24 07:44 | HMH.GSPN ---
Subjective Narrative: Patient states she is smothering . Denies abdominal pain. No clinical bleeding. Progress Note: A&P (1) Symptomatic anemia Status: Acute (2) Acute exacerbation of chronic obstructive airways disease Status: Acute (3) Obesity (BMI 30-39.9) Status: Acute (4) Acute on chronic respiratory failure with hypoxemia Status: Acute (5) Hx of pulmonary embolus Status: Chronic (6) Type 2 diabetes mellitus Status: Chronic (7) Abdominal pain Status: Acute (8) GI bleed Status: Acute Assessment and plan: Hgb stable on PPI inhibitors. Will advance diet. Exam Vital signs and Labs for Last 24 Hours: Temp Pulse Resp BP Pulse Ox 98.4 F 97 H 18 105/49 L 98 08/24/21 04:00 08/24/21 06:06 08/24/21 04:00 08/24/21 04:00 08/24/21 06:06 Laboratory Results - last 24 hr 08/21/21 07:40: Crossmatch (AHG) See Detail 08/23/21 09:15: POC Glucose 83 08/23/21 11:21: POC Glucose 88 08/23/21 16:35: POC Glucose 119 H 08/24/21 05:44: WBC 9.2, RBC 2.86 L, Hgb 7.4 L, Hct 22.5 L, MCV 78.9 L, MCH 25.9 L, MCHC 32.8, RDW 18.4 H, Plt Count 297, MPV 8.3, Neut % (Auto) 74.2, Lymph % (Auto) 17.2, Isabella % (Auto) 7.8, Eos % (Auto) 0.6, Baso % (Auto) 0.2, Neut # (Auto) 6.9, Lymph # (Auto) 1.6, Isabella # (Auto) 0.7, Eos # (Auto) 0.1, Baso # (Auto) 0.0 08/24/21 05:44: Sodium 135 L, Potassium 2.9 L* D, Chloride 102, Carbon Dioxide 32 H, Anion Gap 3.9 L, BUN 7 D, Creatinine 0.40 L, Estimated Creat Clear 57, Estimated GFR 160, Est GFR ( Amer) 193, Glucose 78, Calcium 7.7 L I & O for Last 24 hours: Intake & Output 08/21/21 08/22/21 08/23/21 08/24/21 11:59 11:59 11:59 11:59 Intake Total 700.31 / 700.31 1340 / 1340 2343 / 2343 Output Total 800 / 800 2900 / 2900 1200 / 1200 Balance -99.69 / -99.69 -1560 / -1560 1143 / 1143 Weight 195 lb 195 lb 1 oz 143 lb 8.335 oz 144 lb 3.2 oz Microbiology Reports for the Last 24 Hours: Microbiology 08/21/21 07:40 Blood Blood Culture - Preliminary NO GROWTH AFTER 48 HOURS 08/21/21 07:40 Blood Blood Culture - Preliminary NO GROWTH AFTER 48 HOURS - *Routine Abdominal Exam Present: soft. Absent: tenderness
--- NOTE | 2021-08-24 09:11 | HMH.DCSUM ---
General - General Admission date:: 08/21/21 Discharge date: 08/24/21 HPI HPI: Ms. Barragan is a 66yo female with history significant for COPD dependent on 4 L of O2 at home, CHF, T2DM, HTN, and bilateral pulmonary emboli on 20 mg of daily Xarelto who presented to the ER for weakness, increased shortness of breath, and some mild chest/abdominal pain. Symptoms have been worsening for the past week. Pain in her belly worse when she eats. Her daughter is with her at bedside. States she has had a cough that is mildly productive. Denies melena, hematochezia, bright red blood per rectum. Initial work-up concerning for marked anemia, chest x-ray with some hyperinflation but no focal consolidation, tachycardia, mild electrolyte abnormalities, and elevated BNP. Admitted to medicine for severe anemia and COPD exacerbation. After arriving to the floor, I evaluated her at bedside. Daughter at bedside with her. Report consistent as per report from the ER. Currently on her home trilogy device. She wears it 4 hours on 4 hours off. Started on steroids, antibiotics, breathing treatments, diuretics, and receiving her second unit of blood. Feeling some slight improvement. Is alert and oriented and answers questions appropriately. Further history elicits that she has been in the hospital twice in the past 4 months necessitating intubation. Once in April and once again exactly a month ago. Both times were due to hypercarbic respiratory failure. First time in April there was discussion about possibly placing a trach. Follows with Dr. Fleming with pulmonology. Hospital Course Hospital Course: Mrs. Barragan is a 65yo white female with history significant for COPD dependent on 4 L of O2 at home, CHF, T2DM, HTN, and bilateral pulmonary emboli on 20 mg of daily Xarelto admitted for abdominal pain, marked anemia concerning for GI bleed, COPD exacerbation and mild CHF exacerbation. Transfused with good response. Hemoglobin stable through admission. Problems addressed as follows: Acute anemia Suspected blood loss from GI source Long-term anticoagulation -History of DVTs and PEs. On long-term Xarelto. Significant anemia secondary to suspected blood loss. Noted to have 1 black stool overnight. No bright red stools. H&H stable after transfusion. Goal hemoglobin greater than 7. Consulted surgery, EGD performed. Findings of prepyloric nonbleeding ulcer, surrounding edematous tissue, moderately large nonbleeding duodenal ulcer. Protonix. Held anticoagulation. Advance diet without difficulty. Risk of bleed outweighed benefit of anticoagulation. Plan for close follow-up in the outpatient setting. Holding Xarelto at discharge, will reevaluate in the outpatient setting. Candid conversation with family about risks versus benefits. Agree with holding at this time. COPD exacerbation CHF exacerbation Chronic hypoxemic respiratory failure -Continue trilogy device per home regimen. Goal saturation greater than 90%, continue with 4 L nasal cannula oxygen. Recent as needed during hospitalization. Continue steroids, antibiotics, breathing treatments. Plan for outpatient consult to pulmonology. Patient's underlying lung disease appears end-stage. Hypertension, POA - resumed home regimen when appropriate and blood pressure able to handle. Stable for discharge home no further bleeding, ability to advance diet, and stable hemoglobin. Has significant help at home with nursing checking on her daily. Home health involved. PT involved. Needs close follow-up with primary care. If has further signs of bleeding, recommend returning to the hospital. Objective Vital signs: Temp Pulse Resp BP Pulse Ox 98.8 F 118 H 18 133/65 94 L 08/24/21 08:00 08/24/21 08:00 08/24/21 08:00 08/24/21 08:00 08/24/21 08:00 Narrative: - Constitutional mild distress, obese, chronically ill appearing, cooperative - *Routine HEENT Exam Head:
--- NOTE | 2021-08-24 11:30 | PC.NURSE ---
patient was to receive her iv potassium before she could be discharged. currently waiting on those to finish
--- NOTE | 2021-08-24 12:15 | PC.NURSE ---
Potassium IV 20mEq x 2 doses are completed. Two runs took 4hrs hrs to completed. Ambulance called at 1215 to transport home to [place]. [facility] reports that they have a transport to [facility] and then they will transport her.
--- NOTE | 2021-08-24 14:32 | PC.NURSE ---
waiting on ambulance service to return from [facility] for transport
--- NOTE | 2021-08-24 14:52 | PC.NURSE ---
pt left with ambulance personnel
[2021-08-25 01:07] LABS: POC Glucose,Bedside 107 (70-110)
[2021-08-25 01:07] LABS: POC Glucose,Bedside 83 (70-110)
--- NOTE | 2021-08-25 17:19 | CARE MANAGER ---
Called and discussed post discharge status with patient's daughter, whom answered the phone. She stated that Ms. Barragan is doing much better. She confirmed that they were able to get the 2 new medications from the pharmacy. No known needs at this time.
== END 2021-08-24 14:53 | disposition home health service (06) | DRG 377 ==
LOC: ER 07:56 → 2ND 15:02
PROVIDERS: Internal Medicine Adolescent Medicine; Surgery; Admitting Provider Internal Medicine Adolescent Medicine; Emergency Provider Student in an Organized Health Care Education/Training Program; PCP Nurse Practitioner Family; Visit Provider Internal Medicine Adolescent Medicine
PROC: 0DJ08ZZ Inspection of Upper Intestinal Tract, Via Natural or Artificial Opening Endoscopic (ICD-10-PCS; CPT 43235; principal; 2021-08-23 09:00)
DX: K25.4 Chronic or unspecified gastric ulcer with hemorrhage (principal); J96.21 Acute and chronic respiratory failure with hypoxia; J44.1 Chronic obstructive pulmonary disease with (acute) exacerbation; K26.4 Chronic or unspecified duodenal ulcer with hemorrhage; D64.9 Anemia, unspecified; Z86.718 Personal history of other venous thrombosis and embolism; Z86.711 Personal history of pulmonary embolism; Z99.81 Dependence on supplemental oxygen; Z79.01 Long term (current) use of anticoagulants; I10 Essential (primary) hypertension; Z87.891 Personal history of nicotine dependence; E11.9 Type 2 diabetes mellitus without complications
CPT/HCPCS: 43235; 36415; 71045; 80048; 80053; 81001; 82803; 82962; 83605; 83690; 83735; 83880; 84145; 84484; 85014; 85018; 85025; 85378; 85610; 86850; 87040; 93005; 94640; 94761; 97163; 99285; C9803; P9016; U0003; U0005

== ENCOUNTER 2021-08-28 14:19 | Inpatient (IN) | payer MEDICAID, MEDICARE, SELFPAY ==
[2021-08-28] VITALS (11 sets, daily range): BP systolic 112–135; BP diastolic 55–85; PULSE 89–99; RESP 17–28; TEMP 36.7–37.2; O2SAT 5–97; BMI 27.4; BMI 23.8
--- NOTE | 2021-08-28 14:16 | ECG_ITS ---
APPROVED REPORT Exam: Resting ECG HR:96 bpm ECG Measurements Heart Rate 96 AXES WA 105 P 73 QRSd 82 QRS 57 QT 347 T 30 QTc 401 Conclusion SINUS RHYTHM WITH MARKED SINUS ARRHYTHMIA WITH SHORT WA INTERVAL MINIMAL ST DEPRESSION [0.025+ mV ST DEPRESSION] BORDERLINE ECG UNCONFIRMED REPORT Electronically signed by : Ricardo Myers MD 08/29/2021 18:42:46
--- NOTE | 2021-08-28 14:25 | XR_ITS ---
PROCEDURE INFORMATION: Exam: XR Chest Exam date and time: 08/28/2021 2:47 PM Age: 66 years old Clinical indication: Shortness of breath; Additional info: SOB TECHNIQUE: Imaging protocol: Radiologic exam of the chest. Views: 1 view. COMPARISON: CR XR CHEST PORTABLE 08/21/2021 6:56 AM FINDINGS: Lungs: Regions of patchy interstitial infiltrates in the right upper lobe as well as at the lung base. Increase in the lung volumes is demonstrated. Pleural spaces: Unremarkable. No pleural effusion. No pneumothorax. Heart/Mediastinum: Unremarkable. No cardiomegaly. Diaphragm: There is flattening of the hemidiaphragms. Bones/joints: Unremarkable. IMPRESSION: 1. Patchy bilateral interstitial infiltrates. Findings suggestive of interstitial pneumonitis. Clinically correlate. 2. Chronic obstructive pulmonary disease.
[2021-08-28 14:43] LABS: Chloride 100 mmol/L (98-107); Sodium 135 mmol/L (136-145)
[2021-08-28 14:44] LABS: Basophils # 0.1 K/mm3 (0-0.2); Basophils % 0.9 % (0.1-2.0); Eosinophils # 0.1 K/mm3 (0.0-0.4); Eosinophils % 0.9 % (0.1-12.0); Hematocrit 24.1 % (37.0-47.0); Hemoglobin 7.7 g/dL (12.2-16.2); Lymphocytes # 1.8 K/mm3 (0.7-4.5); Lymphocytes % 18.1 % (10-50); Mean Corpuscular Hemoglobin 25.2 pg (27.0-31.2); Mean Corpuscular Volume 78.7 fl (81-99); Mean Platelet Volume 8.2 fl (7.4-10.4); Monocytes # 0.6 K/mm3 (0.1-1.0); Monocytes % 5.6 % (1.7-9.3); Neutrophils # 7.5 K/mm3 (1.8-7.8); Neutrophils % 74.5 % (37.0-80.0); Platelet Count 301 K/mm3 (142-424); Potassium 4.3 mmoL/L (3.5-5.1); Red Blood Count 3.07 M/mm3 (4.20-5.40); Red Cell Distribution Width 19.1 % (11.5-17.5)
[2021-08-28 14:46] LABS: Alanine Aminotransferase 12 U/L (12-78); Albumin Level 2.8 g/dl (3.5-5.0); Albumin/Globulin Ratio 1.1 (1.1-1.8); Alkaline Phosphatase 59 U/L (38-126); Anion Gap 6.3 mEq/L (5-15); Aspartate Amino Transferase 19 U/L (14-36); Bilirubin,Total 0.4 mg/dl (0.2-1.3); Blood Urea Nitrogen 12 mg/dl (7-17); Carbon Dioxide 33 mmol/L (22.0-30.0); Creatinine Clearance Estimated 63 mL/min (50-200); Estimated Glomerular Filt Rate 160 ml/min (>60); GFR (African American) 193 ML/MIN (>60); Globulin 2.6 g/dL (1.3-3.2); Total Protein,Serum 5.4 g/dl (6.3-8.2)
[2021-08-28 14:47] LABS: Glucose 101 mg/dl (74-100)
[2021-08-28 14:52] LABS: Lactic Acid 1.7 mmol/L (0.7-2.1)
[2021-08-28 14:56] LABS: NT Pro Brain Natriuretic Pep. 1310 pg/mL (0-125)
[2021-08-28 15:00] LABS: Troponin I < 0.01 ng/ml (0.00-0.034)
--- NOTE | 2021-08-28 15:26 | PC.NURSE ---
Respiratory has been called for patient's breathing treatment.
--- NOTE | 2021-08-28 15:31 | PC.NURSE ---
respiratory at bs
--- NOTE | 2021-08-28 15:32 | PC.NURSE ---
PT TO RIGHT TILT FOR COMFORT, DAUGHTER AT BEDSIDE
--- NOTE | 2021-08-28 15:59 | PC.NURSE ---
pt taken off bed villalba, stool noted, pt cleaned and place back to a comfortable position
--- NOTE | 2021-08-28 16:00 | PC.NURSE ---
daughter at bedside
--- NOTE | 2021-08-28 17:15 | HMH.EDGENADL ---
ED Disposition Clinical Impression: Pneumonia Qualifiers: Pneumonia type: due to unspecified organism Laterality: unspecified laterality Lung location: unspecified part of lung Qualified Code(s): J18.9 - Pneumonia, unspecified organism Disposition: Admitted As Inpatient Condition on Discharge: Undetermined Referrals: Tashia De La Cruz APRN [Primary Care Provider] - - Critical Care Critical Care Time: No Attestation: On 08/28/21, the high probability of a clinically significant, sudden or life threatening deterioration of the following system(s) required my full and direct attention, intervention and personal management. The time I documented below is in addition to time spent performing reported procedures but includes the following listed in this critical care notation. Medical Decision Making - Medical Records Medical records reviewed: Yes: I reviewed the patient's medical records. - [place] Inquiry Pt receiving controlled substance: No Vital Signs: 08/28/21 14:19 08/28/21 15:35 08/28/21 15:38 Temperature 99 F Temperature Source Oral Pulse Rate 97 H 96 H Pulse Rate [Radial] 93 H Respiratory Rate 28 H 17 Blood Pressure 133/67 Blood Pressure [Right Radial Artery] 116/68 Blood Pressure Mean 81 Blood Pressure Mean [Right Radial Artery] 84 Blood Pressure Position [Right Radial Artery] Sitting 02 Sat by Pulse Oximetry 89 L 97 Oxygen Delivery Method Nasal Cannula Oxygen Flow Rate (LPM) 4 08/28/21 16:01 08/28/21 16:30 08/28/21 17:01 Temperature Temperature Source Pulse Rate 96 H 93 H 94 H Pulse Rate [Radial] Respiratory Rate 19 23 20 Blood Pressure 112/56 L 115/58 L 115/55 L Blood Pressure [Right Radial Artery] Blood Pressure Mean 87 78 75 Blood Pressure Mean [Right Radial Artery] Blood Pressure Position [Right Radial Artery] 02 Sat by Pulse Oximetry 95 96 93 L Oxygen Delivery Method Nasal Cannula Nasal Cannula Oxygen Flow Rate (LPM) 4 4 08/28/21 18:00 08/28/21 18:31 Temperature Temperature Source Pulse Rate 90 94 H Pulse Rate [Radial] Respiratory Rate 20 24 Blood Pressure 127/68 135/85 Blood Pressure [Right Radial Artery] Blood Pressure Mean 84 99 Blood Pressure Mean [Right Radial Artery] Blood Pressure Position [Right Radial Artery] 02 Sat by Pulse Oximetry 91 L 92 L Oxygen Delivery Method Nasal Cannula Nasal Cannula Oxygen Flow Rate (LPM) 4 5 - Lab Data Lab Results 08/28/21 14:22: WBC 10.0, RBC 3.07 L, Hgb 7.7 L, Hct 24.1 L, MCV 78.7 L, MCH 25.2 L, MCHC 32.0, RDW 19.1 H, Plt Count 301, MPV 8.2, Neut % (Auto) 74.5, Lymph % (Auto) 18.1, Quay % (Auto) 5.6, Eos % (Auto) 0.9, Baso % (Auto) 0.9, Neut # (Auto) 7.5, Lymph # (Auto) 1.8, Quay # (Auto) 0.6, Eos # (Auto) 0.1, Baso # (Auto) 0.1 08/28/21 14:22: Sodium 135 L, Potassium 4.3, Chloride 100, Carbon Dioxide 33 H, Anion Gap 6.3, BUN 12, Creatinine 0.40 L, Estimated Creat Clear 63, Estimated GFR 160, Est GFR ( Amer) 193, Glucose 101 H, Calcium 9.0, Total Bilirubin 0.4, AST 19, ALT 12, Alkaline Phosphatase 59, Troponin I < 0.01, Total Protein 5.4 L, Albumin 2.8 L, Globulin 2.6, Albumin/Globulin Ratio 1.1 08/28/21 14:22: NT-Pro-B Natriuret Pep 1310 H 08/28/21 14:22: Lactate 1.7 08/28/21 17:41: Specimen Source rr, O2 % 4, ABG pH 7.45, ABG pCO2 39.8, ABG pO2 63.5 L, ABG HCO3 27.2 H, ABG Total CO2 28.5 H, ABG O2 Saturation 91, ABG Base Excess 3.3 H, Liban Test y 08/28/21 19:08: SARS-CoV-2 (PCR) Not detected, Influenza A Untype (PCR) Not detected, Influenza Type B (PCR) Not detected Result diagrams: 08/28/21 14:22 08/28/21 14:22 Orders (Tests/Meds): ED MEDICATIONS Generic Name Dose Route Start Last Admin Trade Name Freq PRN Reason Stop Dose Admin Albuterol/Ipratropium 3 ml 08/28/21 15:30 08/28/21 15:38 Ipratropium/Albuterol 3 Ml [facility] 09/27/21 15:29 3 ml Q1H NADIA Administration Ceftriaxone Sodium 1 gm/ 50 mls @ 100 mls/hr 08/28/21 17:15 08/28/21 17:16 Sodium Chlorid
--- NOTE | 2021-08-28 17:27 | PC.NURSE ---
IV SITE INFILTRATED, ANGIOCATH REMOVED INTACT. SITE WRAPPED WITH COBAN AND 2X2
[2021-08-28 17:54] LABS: ABG Base Excess 3.3 mmol/L (-2.4-2.3); ABG HCO3 27.2 mmhg (22.0-26.0); ABG Oxygen Saturation 91 % (90-100); ABG PCO2 39.8 mmhg (35.0-45.0); ABG PH 7.45 mmol/L (7.35-7.45); ABG PO2 63.5 mmhg (80-100); ABG TCO2 28.5 mmhg (23-27)
[2021-08-28 17:55] LABS: Allen's Test y; Oxygen 4 %; Source rr
--- NOTE | 2021-08-28 18:45 | PC.NURSE ---
daughter at bedside updated on plan of care
[2021-08-28 19:17] LABS: Coronavirus 19, PCR Not Detected (NotDetected); Influenza A, PCR Not Detected (NotDetected); Influenza B, PCR Not Detected (NotDetected)
[2021-08-28 19:53] LABS: Troponin I < 0.01 ng/ml (0.00-0.034)
--- NOTE | 2021-08-28 20:30 | PC.NURSE ---
PT ARRIVED TO FLOOR VIA STRETCHER FROM ED W/STAFF@ 2030
[2021-08-28 21:00] LABS: Troponin I < 0.01 ng/ml (0.00-0.034)
--- NOTE | 2021-08-28 22:15 | PC.NURSE ---
Spoke with Gala at 1999 to get report. Patient arrived on unit between [id number]. Daughter at bedside, patient continues with Trelogy machine with 7.5 L of oxygen going through. Patient is alert and oriented at this time. pvc monitor in place and working. Complaints of pain with headache and tail bone. Will continue to monitor.
--- NOTE | 2021-08-28 23:07 | PC.NURSE ---
Patient has history of type [address] Myers denied fingersticks, wants a BMP drawn in the AM labs. It has already been ordered.
[2021-08-29] VITALS (10 sets, daily range): BP systolic 91–134; BP diastolic 49–70; PULSE 70–110; RESP 16–20; TEMP 36.4–37.1; O2SAT 88–96
--- NOTE | 2021-08-29 03:57 | PC.NURSE ---
Wound on coccyx 0.5cm x 0.5cm x 0.1cm deep. No drainage or dressing applied. Barrier cream applied per family's request.
--- NOTE | 2021-08-29 04:20 | PC.NURSE ---
Patient has rested well throughout the night. Only c/o pain is from the wound on her bottom. She has kept the Trilogy machine on since admission, with oxygen flow at 7.5L. According to the daughter, patient has kept machine on continuously except for eating. Her oxygen level has maintained between 90-96%. She has been turned every 2 hours. Call light in place and working appropriately. Will continue to monitor.
--- NOTE | 2021-08-29 08:45 | HMH.HP ---
*Admission Date: 08/28/21 *Chief complaint: Dyspnea and cough *History of present illness: 66-year-old extremely fragile and tenuous female with severe, end-stage emphysema who suffers from chronic hypercapnic respiratory failure. She has an assist device at home that she uses on a daily basis-the trilogy positive pressure device and was recently in the hospital here and discharged last week with COPD exacerbation She follows with Dr. Orozco in the pulmonary clinic. She was at home yesterday and became dyspneic, coughed and had some worsening of her symptomatology and became extremely nervous which did not do any positive things for her breathing. She came back to the hospital here as she was recently admitted last week. In the ER she was found to have patchy infiltrates, evidence of leukocytosis and was admitted for COPD exacerbation, worsening respiratory failure and IV antibiotics. [facility] History I have reviewed the patient's past medical history: Yes Medical History: Reports:: Anxiety, Atrial Fibrillation, Cancer, Congestive Heart Failure, Chronic Obstructive Pulmonary Disease (COPD), Deep Vein Thrombosis, Diabetes Mellitus Type 2, Hypertension, Palpitations, Pulmonary Embolism Denies:: Diabetes Mellitus Type 1, Internal Pacemaker, MRSA *Have you ever received a pneumonia vaccine?: Yes *Have you received a flu vaccine this season?: Yes Other Medical History: Reports: Anemia Other Surgeries: Yes: Cardiac Catheterization, Cholecystectomy, Colonoscopy, Hysterectomy-Total, Sinus Surgery. No: Pacemaker Amputation: No Fractures: No - *Social History Last grade of school completed: 7th or 8th Smoking Status: Former smoker Tobacco Type: cigarettes # Packs/Day (cigarettes): 1 #Yrs smoked (if former smoker): 53 Smoking End Date: 13 years ago Alcohol Intake: former Alcohol Intake Frequency:: 0-2 drinks per day Substance Use Type: denies use *Occupational Status:: unemployed Housing: apartment Household Members: caregiver *Travel in the last 8 weeks: None - Psychiatric History Pschychiatric History:: Reports:: Anxiety Family Hx:: Diabetes, Heart Attack, Hypertension, Stroke, Mental illness Review of Systems - Review of Systems Review of systems:: pertinent systems reviewed and negative unless documented below - *Neurologic Denies confusion, Denies localized weakness, Denies tingling/numbness/burning sensations, Denies fainting Meds Home Medications Medication Instructions Recorded Confirmed Type carvedilol 25 mg tablet 12.5 mg PO BID 11/27/19 08/28/21 History fluticasone propionate 50 2 spray INTRANASAL DAILY 11/27/19 08/28/21 History mcg/actuation nasal spray,suspension furosemide 20 mg tablet 20 mg PO DAILY 11/27/19 08/28/21 History Albuterol Sulfate [Albuterol 1 neb INHALATION Q4-6H PRN 02/13/20 08/28/21 History 0.042% 1.25mg/3mL neb] Montelukast Sodium [Singulair 10mg 10 mg PO HS 02/17/20 08/28/21 History tablet] albuterol sulfate 90 mcg/actuation 1 inh INHALATION QID PRN #8.5 g 07/09/20 08/28/21 Rx aerosol inhaler Azithromycin 250 mg PO MOWEFR 08/21/21 08/28/21 History Fluticasone/Umeclidin/Vilanter 1 puff PO DAILY 30 Days #1 each 08/24/21 08/28/21 Rx [Trelegy Ellipta 200/62.5/25mcg Inhaler] Pantoprazole Sodium 40 mg PO BID 30 Days #60 tab 08/24/21 08/28/21 Rx Allergies Allergy/AdvReac Type Severity Reaction Status Date / Time codeine Allergy Intermediate CHEST PAIN Verified 07/09/20 11:24 ketorolac [From Toradol] Allergy Intermediate MENTAL Verified 07/09/20 11:24 STATUS CHANGES prednisone Allergy Intermediate Unknown Verified 01/25/21 08:04 allergy reaction Exam Vital signs and Labs for Last 24 Hours: Temp Pulse Resp BP Pulse Ox 98.4 F 95 H 16 107/60 L 91 L 08/29/21 08:00 08/29/21 08:00 08/29/21 08:00 08/29/21 08:00 08/29/21 08:00 Laboratory Results - last 24 hr 08/28/21 14:22: WBC 10.0, RBC 3.07 L, Hgb 7.7 L, Hct 24.1 L, MCV 78.
--- NOTE | 2021-08-29 09:07 | HMH.PHAVTE ---
[facility] Pharmacy VTE Monitoring - Patient Demographics Admission date: 08/29/21 Report Date: 08/29/21 Time: 09:07 Allergies/Adverse Reactions: Patient Allergies codeine Allergy (Intermediate, Verified 07/09/20 11:24) CHEST PAIN ketorolac [From Toradol] Allergy (Intermediate, Verified 07/09/20 11:24) MENTAL STATUS CHANGES prednisone Allergy (Intermediate, Verified 01/25/21 08:04) Unknown allergy reaction Height: 1.63 m Weight: 63.503 kg Patient Problems: Current Active Problems Acute exacerbation of chronic obstructive airways disease (Acute) Anxiety (Chronic) Type 2 diabetes mellitus (Chronic) History of congestive heart failure (Chronic) Pneumonia (Acute) Acute on chronic respiratory failure with hypoxemia (Acute) - VTE Risk Labs: VTE Related Lab Results Hgb 7.7 g/dL (12.2-16.2) L 08/28/21 14:22 Hct 24.1 % (37.0-47.0) L 08/28/21 14:22 Plt Count 301 K/mm3 (142-424) 08/28/21 14:22 BUN 12 mg/dl (7-17) 08/28/21 14:22 Creatinine 0.40 mg/dl (0.52-1.04) L 08/28/21 14:22 Estimated Creat Clear 63 mL/min (50-200) 08/28/21 14:22 Clinical Trial Participant: No - Prophylaxis VTE Prophylaxis Ordered?: Yes Types of VTE Prophylaxis: TEDS Knee High
[2021-08-29 11:33] LABS: Basophils % 0.2 % (0.1-2.0); Hemoglobin 7.2 g/dL (12.2-16.2); Lymphocytes # 1.1 K/mm3 (0.7-4.5); Lymphocytes % 20.5 % (10-50); Mean Corpuscular HGB Conc 31.3 g/dL (31.8-35.4); Mean Corpuscular Hemoglobin 24.6 pg (27.0-31.2); Mean Corpuscular Volume 78.5 fl (81-99); Mean Platelet Volume 8.8 fl (7.4-10.4); Monocytes # 0.3 K/mm3 (0.1-1.0); Monocytes % 6.2 % (1.7-9.3); Neutrophils # 3.7 K/mm3 (1.8-7.8); Platelet Count 282 K/mm3 (142-424); Red Blood Count 2.93 M/mm3 (4.20-5.40); Red Cell Distribution Width 18.8 % (11.5-17.5); White Blood Count 5.1 K/mm3 (4.8-10.8)
[2021-08-29 11:36] LABS: Chloride 102 mmol/L (98-107); Sodium 134 mmol/L (136-145)
[2021-08-29 11:39] LABS: Blood Urea Nitrogen 16 mg/dl (7-17); Creatinine Clearance Estimated 55 mL/min (50-200); Estimated Glomerular Filt Rate 100 ml/min (>60); GFR (African American) 121 ML/MIN (>60); Potassium 3.6 mmoL/L (3.5-5.1)
[2021-08-29 11:40] LABS: Anion Gap 5.6 mEq/L (5-15); Carbon Dioxide 30 mmol/L (22.0-30.0)
[2021-08-29 11:46] LABS: Glucose 139 mg/dl (74-100)
[2021-08-29 12:00] LABS: Calcium 8.4 mg/dl (8.4-10.2)
--- NOTE | 2021-08-29 18:06 | PC.NURSE ---
PT HAS BEEN ALERT AND ORIENTED X4. HAS BEEN ON HER TRILOGY MOST OF THE DAY. HAS TOLERATED BREIF PERIODS ON NASAL CANNULA FOR MEALS BUT REQUEST TO BE PLACED BACK ON TRILOGY AFTER. PRUSED LIP BREATHING NOTED WHILE ON NASAL CANNULA AND PT STATES SOB. APPETITE IS GOOD AND HAS EATEN WELL. LUNG SOUNDS ARE DEMINISHED AT THE BASES.
[2021-08-30] VITALS (32 sets, daily range): BP systolic 84–137; BP diastolic 49–73; PULSE 65–108; RESP 18–27; TEMP 36.3–37.2; O2SAT 88–98; BMI 25.7; BMI 23.8
--- NOTE | 2021-08-30 | ECG_ITS ---
APPROVED REPORT Exam: Resting ECG HR:79 bpm ECG Measurements Heart Rate 79 AXES QRSd 88 QRS 54 QT 362 T 46 QTc 396 Conclusion Sinus arrythmia with short VA ABNORMAL RHYTHM ECG INTERPRETATION BASED ON A DEFAULT AGE OF 40 YEARS UNCONFIRMED REPORT Electronically signed by : Ricardo Myers MD 09/01/2021 14:46:25
[2021-08-30 06:29] LABS: Basophils % 0.5 % (0.1-2.0); Eosinophils # 0.1 K/mm3 (0.0-0.4); Mean Corpuscular Volume 75.3 fl (81-99); Neutrophils # 4.3 K/mm3 (1.8-7.8)
[2021-08-30 06:31] LABS: Eosinophils % 0.7 % (0.1-12.0); Lymphocytes # 1.9 K/mm3 (0.7-4.5); Lymphocytes % 28.7 % (10-50); Mean Corpuscular Hemoglobin 24.9 pg (27.0-31.2); Mean Platelet Volume 9.3 fl (7.4-10.4); Monocytes # 0.4 K/mm3 (0.1-1.0); Monocytes % 6.5 % (1.7-9.3); Neutrophils % 63.6 % (37.0-80.0); Platelet Count 249 K/mm3 (142-424); Red Blood Count 2.62 M/mm3 (4.20-5.40); Red Cell Distribution Width 19.3 % (11.5-17.5); White Blood Count 6.8 K/mm3 (4.8-10.8)
[2021-08-30 06:32] LABS: Hematocrit 19.7 % (37.0-47.0); Hemoglobin 6.5 g/dL (12.2-16.2)
[2021-08-30 06:39] LABS: Chloride 108 mmol/L (98-107); Sodium 136 mmol/L (136-145)
[2021-08-30 06:40] LABS: Potassium 4.4 mmoL/L (3.5-5.1)
[2021-08-30 06:42] LABS: Blood Urea Nitrogen 18 mg/dl (7-17); Creatinine Clearance Estimated 55 mL/min (50-200); Estimated Glomerular Filt Rate 160 ml/min (>60); GFR (African American) 193 ML/MIN (>60)
[2021-08-30 06:43] LABS: Anion Gap 6.4 mEq/L (5-15); Carbon Dioxide 26 mmol/L (22.0-30.0)
[2021-08-30 06:49] LABS: Calcium 8.2 mg/dl (8.4-10.2); Glucose 88 mg/dl (74-100)
--- NOTE | 2021-08-30 07:32 | PC.NURSE ---
Called Dr Kingsley with critical HGB 6.5 and HCT of 19.7. Telephone order to type and cross. and transfuse 2 units. Order placed in chart. Pt wore her triligy all night tolerated well. Voiced 0 needs. Did c/o back pain x1 medication with IBU and was effective.
--- NOTE | 2021-08-30 10:26 | HMH.ACPN2 ---
Internal Medicine - PN: Subj *Date: 08/30/21 *Time: 10:26 Interval history: Overnight patient used her trilogy device. And has been doing fairly well. She this morning however-as usual states I feel lousy. She is concerned about needing blood products again this morning. Exam Vital signs and Labs for Last 24 Hours: Temp Pulse Resp BP Pulse Ox 97.8 F 73 18 122/70 88 L 08/30/21 08:00 08/30/21 09:18 08/30/21 09:18 08/30/21 08:00 08/30/21 08:00 Laboratory Results - last 24 hr 08/29/21 11:12: WBC 5.1 D, RBC 2.93 L, Hgb 7.2 L, Hct 23.0 L, MCV 78.5 L, MCH 24.6 L, MCHC 31.3 L, RDW 18.8 H, Plt Count 282, MPV 8.8, Neut % (Auto) 73.0, Lymph % (Auto) 20.5, [place] % (Auto) 6.2, Eos % (Auto) 0.0 L, Baso % (Auto) 0.2, Neut # (Auto) 3.7, Lymph # (Auto) 1.1, [place] # (Auto) 0.3, Eos # (Auto) 0.0, Baso # (Auto) 0.0 08/29/21 11:12: Sodium 134 L, Potassium 3.6, Chloride 102, Carbon Dioxide 30, Anion Gap 5.6, BUN 16 D, Creatinine 0.60 D, Estimated Creat Clear 55, Estimated GFR 100, Est GFR ( Amer) 121 D, Glucose 139 H D, Calcium 8.4 08/30/21 06:18: WBC 6.8 D, RBC 2.62 L, Hgb 6.5 L*, Hct 19.7 L*, MCV 75.3 L, MCH 24.9 L, MCHC 33.0, RDW 19.3 H, Plt Count 249, MPV 9.3, Neut % (Auto) 63.6, Lymph % (Auto) 28.7, [place] % (Auto) 6.5, Eos % (Auto) 0.7, Baso % (Auto) 0.5, Neut # (Auto) 4.3, Lymph # (Auto) 1.9, [place] # (Auto) 0.4, Eos # (Auto) 0.1, Baso # (Auto) 0.0 08/30/21 06:18: Sodium 136, Potassium 4.4 D, Chloride 108 H, Carbon Dioxide 26, Anion Gap 6.4, BUN 18 H, Creatinine 0.40 L D, Estimated Creat Clear 55, Estimated GFR 160, Est GFR ( Amer) 193 D, Glucose 88 D, Calcium 8.2 L 08/30/21 08:00: Blood Type A Positive, Antibody Screen Negative, Crossmatch (AHG) See Detail I & O for Last 24 hours: Intake & Output 08/27/21 08/28/21 08/29/21 08/30/21 11:59 11:59 11:59 11:59 Intake Total 1672 / 1672 720 / 720 Output Total 0 / 0 Balance 1672 / 1672 720 / 720 Weight 140 lb Narrative: Patient is alert, appears somewhat pale. Comfortable on her trilogy device. Lots of rhonchi in her chest, heart rate regular. Abdomen is soft and nontender. No edema or clubbing. Assessment and Plan (1) Acute exacerbation of chronic obstructive airways disease Status: Acute Category: Medical Code(s): J44.1 - Chronic obstructive pulmonary disease with (acute) exacerbation (2) Acute on chronic respiratory failure with hypoxemia Status: Acute Category: Medical Code(s): J96.21 - Acute and chronic respiratory failure with hypoxia (3) Anxiety Status: Chronic Category: Medical Code(s): F41.9 - Anxiety disorder, unspecified (4) History of congestive heart failure Status: Chronic Category: Medical Code(s): Z86.79 - Personal history of other diseases of the circulatory system (5) Type 2 diabetes mellitus Status: Chronic Qualifiers: Category: Medical Code(s): E11.9 - Type 2 diabetes mellitus without complications (6) Microcytic anemia Status: Acute Category: Medical Code(s): D50.9 - Iron deficiency anemia, unspecified - Assessment and plan all Dx Assessment and Plan for all problems:: 1. Respiratory failure-chronic with acute exacerbation. Continue current antibiotics. Pulmonary consultation today as she follows with pulmonary on regular basis. I discussed with patient and her terminal COPD status and the possibility of hospice care versus continued aggressive management and possible tracheostomy. She seems to have no idea of this discussion that apparently has been had on her previous admission when she was intubated. She does not recall being intubated she keeps saying my daughter is my POA and she can make decisions. Emphasized to her that she was oriented, alert and she is a woman who needs to decide about further interventions versus palliative care. I will defer to pulmonary who has talked to her before about this issue. 2. Anemia-hemoglobin down to 6.5 this morning.
--- NOTE | 2021-08-30 11:11 | HMH.PULMCON ---
*Admission Date: 08/29/21 *Reason for consult:: Acute on chronic hypoxic respiratory failure *History of present illness: Ms. Barragan is a 66-year-old female history of COPD on chronic long-term oxygen therapy at 4 L, chronic hypercarbic respiratory failure on Trilogy, recently admitted to the hospital respiratory distress found to have acute blood loss anemia status post endoscopy found nonbleeding gastric and duodenal ulcers initiate PPI drip, disc and anticoagulant discharge home presented hospital worsening respiratory distress again and pulmonary was called for further management. [facility] History Medical History: Reports:: Anxiety, Atrial Fibrillation, Cancer, Congestive Heart Failure, Chronic Obstructive Pulmonary Disease (COPD), Deep Vein Thrombosis, Diabetes Mellitus Type 2, Hypertension, Palpitations, Pulmonary Embolism Denies:: Diabetes Mellitus Type 1, Internal Pacemaker, MRSA *Have you ever received a pneumonia vaccine?: Yes *Have you received a flu vaccine this season?: Yes Other Medical History: Reports: Anemia Other Surgeries: Yes: Cardiac Catheterization, Cholecystectomy, Colonoscopy, Hysterectomy-Total, Sinus Surgery. No: Pacemaker Amputation: No Fractures: No - *Social History Last grade of school completed: 7th or 8th Smoking Status: Former smoker Tobacco Type: cigarettes # Packs/Day (cigarettes): 1 #Yrs smoked (if former smoker): 53 Smoking End Date: 13 years ago Alcohol Intake: former Alcohol Intake Frequency:: 0-2 drinks per day Substance Use Type: denies use *Occupational Status:: unemployed Housing: apartment Household Members: caregiver *Travel in the last 8 weeks: None - Psychiatric History Pschychiatric History:: Reports:: Anxiety Family Hx:: Diabetes, Heart Attack, Hypertension, Stroke, Mental illness ROS - Cons Reports fatigue - Eyes Reports blurry vision - ENT Denies bleeding gums - Card Reports shortness of breath, Reports shortness of breath with activity, Reports leg swelling - Resp Respiratory: Reports chest congestion, Reports cough, Denies excessive phlegm production, Reports cough with sputum production - GI Gastrointestingal: Reports: dyspepsia - [place] Musculoskeletal: Reports back pain - Psych Denies thoughts of hurting/killing others, Denies thoughts of hurting/killing yourself Meds Home Medications Medication Instructions Recorded Confirmed Type carvedilol 25 mg tablet 12.5 mg PO BID 11/27/19 08/28/21 History fluticasone propionate 50 2 spray INTRANASAL DAILY 11/27/19 08/28/21 History mcg/actuation nasal spray,suspension furosemide 20 mg tablet 20 mg PO DAILY 11/27/19 08/28/21 History Albuterol Sulfate [Albuterol 1 neb INHALATION Q4-6H PRN 02/13/20 08/28/21 History 0.042% 1.25mg/3mL neb] Montelukast Sodium [Singulair 10mg 10 mg PO HS 02/17/20 08/28/21 History tablet] albuterol sulfate 90 mcg/actuation 1 inh INHALATION QID PRN #8.5 g 07/09/20 08/28/21 Rx aerosol inhaler Azithromycin 250 mg PO MOWEFR 08/21/21 08/28/21 History Fluticasone/Umeclidin/Vilanter 1 puff PO DAILY 30 Days #1 each 08/24/21 08/28/21 Rx [Trelegy Ellipta 200/62.5/25mcg Inhaler] Pantoprazole Sodium 40 mg PO BID 30 Days #60 tab 08/24/21 08/28/21 Rx Allergies Allergy/AdvReac Type Severity Reaction Status Date / Time codeine Allergy Intermediate CHEST PAIN Verified 07/09/20 11:24 ketorolac [From Toradol] Allergy Intermediate MENTAL Verified 07/09/20 11:24 STATUS CHANGES prednisone Allergy Intermediate Unknown Verified 01/25/21 08:04 allergy reaction Exam - Constitutional Constitutional:: Present: no acute distress. Absent: comfortable - HENMT Exam HENMT: Present: normocephalic - Eye Exam Eyes:: Present: normal appearance both eyes and related structures - Neck Exam Neck:: Present: normal visual inspection - Respiratory Exam Respiratory:: Present: able to speak in complete sentences, respiratory distress, wheezing - Car
--- NOTE | 2021-08-30 11:33 | PC.NURSE ---
1133- rapid response called r/t hypotension/chest pain/severe anxiety. blood transfusion was paused. pt was placed in high fowlers. 1136- rapid response team arrived. 1140- pt placed in trendelenburg, fsbs obtained 138, new iv place per ultrasound to left arm by ER MD. 1141- pt o2 flow meter was not operating correctly. o2 support was restored and pt to become more alert. 1145- dr stanford from the er told this rn that pt status change was related to vagal or o2 retention and that it was okay to restart blood transfusion. 1200- dr bell made aware of event
[2021-08-30 11:52] LABS: ABG Base Excess 1.5 mmol/L (-2.4-2.3); ABG HCO3 25.1 mmhg (22.0-26.0); ABG Oxygen Saturation 93 % (90-100); ABG PH 7.47 mmol/L (7.35-7.45); ABG PO2 66.5 mmhg (80-100); ABG TCO2 26.1 mmhg (23-27)
[2021-08-30 11:53] LABS: Allen's Test Patient Unable; Oxygen 4 LPM %; Source Right Radial
--- NOTE | 2021-08-30 14:28 | CARE MANAGER ---
COPD (Symptom or finding within 24h)?(Excludes PO medications unless noted)? Episode Day 1, One: 2MN ? ACUTE, All: o Short-acting beta-agonist administered prior to admission by licensed medical professional = 2 doses o Post treatment finding, = One: ? O2 sat =?89%(0.89) and < baseline o Intervention, Both: Care ? Bronchodilator =?4x/24h (includes inhaled) ? Corticosteroid (includes PO or inhaled)
[2021-08-30 19:27] LABS: ABG Base Excess 0.7 mmol/L (-2.4-2.3); ABG HCO3 25.2 mmhg (22.0-26.0); ABG Oxygen Saturation 87 % (90-100); ABG PCO2 39.8 mmhg (35.0-45.0); ABG PH 7.42 mmol/L (7.35-7.45); ABG PO2 55.5 mmhg (80-100); ABG TCO2 26.4 mmhg (23-27)
[2021-08-30 19:30] LABS: Allen's Test Acceptable; Oxygen 4LPM %; Source Right Radial
[2021-08-30 20:36] LABS: POC Glucose,Bedside 138 (70-110)
[2021-08-30 23:16] LABS: Hematocrit 31.3 % (37.0-47.0)
[2021-08-30 23:34] LABS: Hemoglobin 10.4 g/dL (12.2-16.2)
[2021-08-31] VITALS (10 sets, daily range): BP systolic 113–140; BP diastolic 64–81; PULSE 77–112; RESP 18–24; TEMP 36.4–37.6; O2SAT 87–98; BMI 25.3
[2021-08-31 06:17] LABS: Basophils # 0.1 K/mm3 (0-0.2); Basophils % 0.5 % (0.1-2.0); Eosinophils # 0.2 K/mm3 (0.0-0.4); Eosinophils % 1.5 % (0.1-12.0); Hematocrit 30.6 % (37.0-47.0); Lymphocytes # 1.4 K/mm3 (0.7-4.5); Lymphocytes % 13.7 % (10-50); Mean Corpuscular HGB Conc 32.6 g/dL (31.8-35.4); Mean Corpuscular Volume 79.7 fl (81-99); Monocytes # 0.8 K/mm3 (0.1-1.0); Monocytes % 7.3 % (1.7-9.3); Neutrophils # 8.2 K/mm3 (1.8-7.8); Platelet Count 213 K/mm3 (142-424); Red Blood Count 3.84 M/mm3 (4.20-5.40); Red Cell Distribution Width 19.3 % (11.5-17.5); White Blood Count 10.6 K/mm3 (4.8-10.8)
[2021-08-31 06:31] LABS: Chloride 109 mmol/L (98-107); Potassium 4.8 mmoL/L (3.5-5.1); Sodium 135 mmol/L (136-145)
[2021-08-31 06:33] LABS: Alanine Aminotransferase 10 U/L (12-78); Aspartate Amino Transferase 43 U/L (14-36); Blood Urea Nitrogen 11 mg/dl (7-17); Creatinine Clearance Estimated 59 mL/min (50-200); Estimated Glomerular Filt Rate 160 ml/min (>60); GFR (African American) 193 ML/MIN (>60)
[2021-08-31 06:34] LABS: Albumin Level 2.4 g/dl (3.5-5.0); Alkaline Phosphatase 42 U/L (38-126); Anion Gap 4.8 mEq/L (5-15); Bilirubin,Total 0.6 mg/dl (0.2-1.3); Calcium 8.2 mg/dl (8.4-10.2); Carbon Dioxide 26 mmol/L (22.0-30.0); Globulin 2.3 g/dL (1.3-3.2); Glucose 94 mg/dl (74-100); Magnesium 1.5 mg/dl (1.6-2.3); Total Protein,Serum 4.7 g/dl (6.3-8.2)
--- NOTE | 2021-08-31 07:06 | PC.NURSE ---
Pt slept all night. Pt is now more anxious about her 02 being left off her trilogy machine. She ask that this nurse examine the machine several times last night to verify that it was hooked up to 02. to relieve 02 fears nasal cannula left at bedside within reach as well. Effective in reducing anxiety. Pt prefers to wear the trilogy and gets anxiuos when she has to wear nc only.
--- NOTE | 2021-08-31 07:37 | HMH.ACPN2 ---
Internal Medicine - PN: Subj *Date: 08/31/21 *Time: 08:50 Interval history: Still quite short of breath this morning. No fever. Hemoglobin stable. Discussion about the severity of patient's illness/lung disease. Concern on discussion that she does not fully grasp the severity of her illness. Family at bedside. Stressed they want her to continue to be full code. Wanted everything possible to prolong life. Brought up discussion of tracheostomy. Has previously been discussed with them by an outside hospital. Denies any nausea, vomiting. Very anxious. Exam Vital signs and Labs for Last 24 Hours: Temp Pulse Resp BP Pulse Ox 99.6 F 98 H 21 115/65 90 L 08/31/21 04:00 08/31/21 06:15 08/31/21 04:00 08/31/21 04:00 08/31/21 06:15 Laboratory Results - last 24 hr 08/30/21 08:00: Blood Type A Positive, Antibody Screen Negative, Crossmatch (AHG) See Detail 08/30/21 11:38: POC Glucose 138 H 08/30/21 11:49: Specimen Source Right radial, O2 % 4 lpm, ABG pH 7.47 H, ABG pCO2 35.0, ABG pO2 66.5 L, ABG HCO3 25.1, ABG Total CO2 26.1, ABG O2 Saturation 93, ABG Base Excess 1.5, Liban Test Patient unable 08/30/21 18:00: Specimen Source Right radial, O2 % 4lpm, ABG pH 7.42, ABG pCO2 39.8, ABG pO2 55.5 L, ABG HCO3 25.2, ABG Total CO2 26.4, ABG O2 Saturation 87 L*, ABG Base Excess 0.7, Liban Test Acceptable 08/30/21 23:06: Hgb 10.4 L D, Hct 31.3 L 08/31/21 06:10: WBC 10.6 D, RBC 3.84 L D, Hgb 10.0 L, Hct 30.6 L, MCV 79.7 L, MCH 26.0 L, MCHC 32.6, RDW 19.3 H, Plt Count 213, MPV 10.0, Neut % (Auto) 77.0, Lymph % (Auto) 13.7, [place] % (Auto) 7.3, Eos % (Auto) 1.5, Baso % (Auto) 0.5, Neut # (Auto) 8.2 H, Lymph # (Auto) 1.4, [place] # (Auto) 0.8, Eos # (Auto) 0.2, Baso # (Auto) 0.1 08/31/21 06:10: Sodium 135 L, Potassium 4.8, Chloride 109 H, Carbon Dioxide 26, Anion Gap 4.8 L, BUN 11 D, Creatinine 0.40 L, Estimated Creat Clear 59, Estimated GFR 160, Est GFR ( Amer) 193, Glucose 94, Calcium 8.2 L, Magnesium 1.5 L, Total Bilirubin 0.6, AST 43 H D, ALT 10 L, Alkaline Phosphatase 42, Total Protein 4.7 L, Albumin 2.4 L, Globulin 2.3, Albumin/Globulin Ratio 1.0 L I & O for Last 24 hours: Intake & Output 08/28/21 08/29/21 08/30/21 08/31/21 23:59 23:59 23:59 23:59 Intake Total 350 / 470 1802 / 1802 1330 / 1330 Output Total 0 / 0 Balance 350 / 470 1802 / 1802 1330 / 1330 Weight 63.503 kg 63.5 kg 67.358 kg Microbiology Reports for the Last 24 Hours: Microbiology 08/28/21 14:22 Blood Blood Culture - Preliminary NO GROWTH AFTER 48 HOURS 08/28/21 14:22 Blood Blood Culture - Preliminary NO GROWTH AFTER 48 HOURS 08/30/21 09:15 Sputum - Expectorated Sputum Gram Stain - Final - Constitutional moderate distress, chronically ill appearing - *Routine HEENT Exam Head: Present: normocephalic Eye: Present: EOMI, PERRL ENT: Present: mucous membranes moist - *Routine Neck Exam Present: supple. Absent: lymphadenopathy - *Routine Respiratory Exam Present: accessory muscle use, prolonged expiratory phase, wheezes, diminished air movement - *Routine Cardiovascular Exam Present: RRR - *Routine Abdominal Exam Present: soft, normoactive bowel sounds. Absent: tenderness - *Routine Extremities Exam Present: edema (1+ in BLE). Absent: cyanosis, clubbing - *Routine Skin Exam Present: warm. Absent: rash - *Routine Neurological Exam Present: alert, oriented X3 Assessment and Plan (1) Acute exacerbation of chronic obstructive airways disease Status: Acute Category: Medical Code(s): J44.1 - Chronic obstructive pulmonary disease with (acute) exacerbation (2) Acute on chronic respiratory failure with hypoxemia Status: Acute Category: Medical Code(s): J96.21 - Acute and chronic respiratory failure with hypoxia (3) Anxiety Status: Chronic Category: Medical Code(s): F41.9 - Anxiety disorder, unspecified (4) History of congestive heart failure S
--- NOTE | 2021-08-31 09:40 | HMH.PULMPN ---
Internal Medicine - PN: Subj *Date: 08/31/21 *Time: 11:15 Interval history: Patient denies any new respiratory complaints. Exam - Constitutional Constitutional:: Present: no acute distress, comfortable - HENMT Exam HENMT: Present: normocephalic - Eye Exam Eyes:: Present: normal appearance both eyes and related structures - Neck Exam Neck:: Present: normal visual inspection - Respiratory Exam Respiratory:: Present: able to speak in complete sentences, respiratory distress, wheezing - Cardiovascular Exam Cardiac:: Present: S1, S2 - GI Exam GI:: Present: soft - Skin Exam Skin: Present: warm, no rash - Neurological Exam Neurological: Present: alert, awake - Extremities Exam Extremities: Present: no cyanosis, no clubbing, edema Assessment and Plan (1) Acute exacerbation of chronic obstructive airways disease Status: Acute Category: Medical Code(s): J44.1 - Chronic obstructive pulmonary disease with (acute) exacerbation (2) Acute on chronic respiratory failure with hypoxemia Status: Acute Category: Medical Code(s): J96.21 - Acute and chronic respiratory failure with hypoxia (3) Anxiety Status: Chronic Category: Medical Code(s): F41.9 - Anxiety disorder, unspecified (4) History of congestive heart failure Status: Chronic Category: Medical Code(s): Z86.79 - Personal history of other diseases of the circulatory system (5) Type 2 diabetes mellitus Status: Chronic Qualifiers: Category: Medical Code(s): E11.9 - Type 2 diabetes mellitus without complications (6) Microcytic anemia Status: Acute Category: Medical Code(s): D50.9 - Iron deficiency anemia, unspecified - Assessment and plan all Dx Assessment and Plan for all problems:: #Acute on chronic hypoxic hypercarbic respiratory failure: #Right pleural effusion Ms. Barragan is a 66-year-old female history of COPD on chronic long-term oxygen therapy at 4 L, chronic hypercarbic respiratory failure on Trilogy, recently admitted to the hospital respiratory distress found to have acute blood loss anemia status post endoscopy found nonbleeding gastric and duodenal ulcers initiate PPI drip, disc and anticoagulant discharge home presented hospital worsening respiratory distress again and pulmonary was called for further management. Prior history of hypercarbic respiratory failure initiated on trilogy inhaler. Symptoms improved after that, however patient also admitted to hospital admissions to [facility] hypercarbic respiratory failure needing intubation mechanical ventilator support around April 2021. Patient also stated that she was recent admitted to the [facility] during which her trilogy settings were changed. She had multiple no-shows to pulmonary clinic. Patient currently trilogy 4 hours during the daytime and 12 hours at night. Her most 2 recent hospital admissions here at [facility] this month did not show any evidence of hypercarbic respiratory failure. Chest x-ray from this admission showed worsening right lower lobe infiltrate along with new right lower lobe pleural effusion. Patient also noted to have bilateral 2+ lower extremity edema. Auscultation will bilateral decreased breath sounds with wheezing. Patient on this admission with ceftriaxone and azithromycin along with her home inhaler therapy. Interval update: Patient denies any new respiratory complaints. She continues to use Trilogy. Chest x-ray this morning no acute change from prior, continue to show bilateral lower lobe infiltrates with bilateral effusions Pulmonary here at [facility] has never discussed with this patient regarding the need for tracheostomy and in fact the patient will not benefit from tracheostomy at this point of time. We will continue her home noninvasive ventilator therapy at this point of time and pt admits compliance We will optimize her home nebulizer medications. Agree with primary teams plans in discussions
--- NOTE | 2021-08-31 09:41 | XR_ITS ---
FINAL REPORT CLINICAL HISTORY: PNM COMPARISON: August 28, 2021 FINDINGS: A single portable view of the chest was obtained. The heart size and pulmonary vascularity are within normal limits. The mediastinum is within normal limits. The lungs are hyperinflated consistent with COPD. There are stable bilateral pulmonary opacities worrisome for pneumonia. There are small pleural effusions. The bony thorax is intact. IMPRESSION: Bilateral pulmonary opacities worrisome for pneumonia. Small pleural effusions. Reviewed, Interpreted and Dictated by Cj Garrett III, MD Transcribed by Arlen Calderon Authenticated and [facility]
--- NOTE | 2021-08-31 13:10 | PC.NURSE ---
iv in r forearm labeled with date 08/29
[2021-09-01] VITALS (9 sets, daily range): BP systolic 105–137; BP diastolic 58–75; PULSE 83–117; RESP 14–20; TEMP 36.4–37.2; O2SAT 3–96; BMI 25.7
[2021-09-01 06:39] LABS: Basophils # 0.1 K/mm3 (0-0.2); Basophils % 0.7 % (0.1-2.0); Eosinophils # 0.3 K/mm3 (0.0-0.4); Eosinophils % 2.5 % (0.1-12.0); Hematocrit 31.3 % (37.0-47.0); Hemoglobin 10.1 g/dL (12.2-16.2); Mean Corpuscular HGB Conc 32.2 g/dL (31.8-35.4); Mean Corpuscular Hemoglobin 25.6 pg (27.0-31.2); Mean Corpuscular Volume 79.6 fl (81-99); Mean Platelet Volume 9.7 fl (7.4-10.4); Monocytes # 0.8 K/mm3 (0.1-1.0); Monocytes % 7.8 % (1.7-9.3); Neutrophils # 6.9 K/mm3 (1.8-7.8); Platelet Count 219 K/mm3 (142-424); Red Blood Count 3.93 M/mm3 (4.20-5.40); Red Cell Distribution Width 19.3 % (11.5-17.5)
[2021-09-01 06:51] LABS: Chloride 109 mmol/L (98-107); Potassium 5.1 mmoL/L (3.5-5.1); Sodium 137 mmol/L (136-145)
[2021-09-01 06:53] LABS: Blood Urea Nitrogen 10 mg/dl (7-17); Creatinine Clearance Estimated 60 mL/min (50-200); Estimated Glomerular Filt Rate 223 ml/min (>60); GFR (African American) 269 ML/MIN (>60)
[2021-09-01 06:54] LABS: Albumin Level 2.4 g/dl (3.5-5.0); Albumin/Globulin Ratio 1.1 (1.1-1.8); Globulin 2.2 g/dL (1.3-3.2); Magnesium 1.9 mg/dl (1.6-2.3); Total Protein,Serum 4.6 g/dl (6.3-8.2)
[2021-09-01 06:56] LABS: Alanine Aminotransferase 10 U/L (12-78); Alkaline Phosphatase 40 U/L (38-126); Anion Gap 6.1 mEq/L (5-15); Aspartate Amino Transferase 42 U/L (14-36); Bilirubin,Total 0.5 mg/dl (0.2-1.3); Calcium 8.3 mg/dl (8.4-10.2); Carbon Dioxide 27 mmol/L (22.0-30.0); Glucose 102 mg/dl (74-100)
--- NOTE | 2021-09-01 08:24 | HMH.ACPN2 ---
Internal Medicine - PN: Subj *Date: 09/01/21 *Time: 08:24 Exam Vital signs and Labs for Last 24 Hours: Temp Pulse Resp BP Pulse Ox 98.9 F 84 20 105/58 L 94 L 09/01/21 04:00 09/01/21 06:00 09/01/21 04:00 09/01/21 04:00 09/01/21 06:00 Laboratory Results - last 24 hr 09/01/21 06:20: WBC 10.0, RBC 3.93 L, Hgb 10.1 L, Hct 31.3 L, MCV 79.6 L, MCH 25.6 L, MCHC 32.2, RDW 19.3 H, Plt Count 219, MPV 9.7, Neut % (Auto) 69.0, Lymph % (Auto) 20.0, Barbour % (Auto) 7.8, Eos % (Auto) 2.5, Baso % (Auto) 0.7, Neut # (Auto) 6.9, Lymph # (Auto) 2.0, Barbour # (Auto) 0.8, Eos # (Auto) 0.3, Baso # (Auto) 0.1 09/01/21 06:20: Sodium 137, Potassium 5.1, Chloride 109 H, Carbon Dioxide 27, Anion Gap 6.1, BUN 10, Creatinine 0.30 L D, Estimated Creat Clear 60, Estimated GFR 223, Est GFR ( Amer) 269 D, Glucose 102 H, Calcium 8.3 L, Magnesium 1.9 D, Total Bilirubin 0.5, AST 42 H, ALT 10 L, Alkaline Phosphatase 40, Total Protein 4.6 L, Albumin 2.4 L, Globulin 2.2, Albumin/Globulin Ratio 1.1 I & O for Last 24 hours: Intake & Output 08/29/21 08/30/21 08/31/21 09/01/21 23:59 23:59 23:59 23:59 Intake Total 1802 / 1802 1330 / 1330 280 / 280 Output Total 0 / 0 0 / 200 200 / 200 Balance 1802 / 1802 1330 / 1330 280 / 80 -200 / -200 Weight 63.5 kg 67.358 kg 68.356 kg Microbiology Reports for the Last 24 Hours: Microbiology 08/30/21 09:15 Sputum - Expectorated Sputum Gram Stain - Final 08/30/21 09:15 Sputum - Expectorated Sputum Sputum Culture - Preliminary Assessment and Plan (1) Acute exacerbation of chronic obstructive airways disease Status: Acute Category: Medical Code(s): J44.1 - Chronic obstructive pulmonary disease with (acute) exacerbation (2) Acute on chronic respiratory failure with hypoxemia Status: Acute Category: Medical Code(s): J96.21 - Acute and chronic respiratory failure with hypoxia (3) Anxiety Status: Chronic Category: Medical Code(s): F41.9 - Anxiety disorder, unspecified (4) History of congestive heart failure Status: Chronic Category: Medical Code(s): Z86.79 - Personal history of other diseases of the circulatory system (5) Type 2 diabetes mellitus Status: Chronic Qualifiers: Category: Medical Code(s): E11.9 - Type 2 diabetes mellitus without complications (6) Microcytic anemia Status: Acute Category: Medical Code(s): D50.9 - Iron deficiency anemia, unspecified The patient's infection will respond to the chosen ABx?: Yes (SPUTUM PENDING, GPC CLUSTERS/PAIRS, ID AND SENSITIVITY PENDING) Is the patient receiving the right drug, dose, and route?: Yes Could a more targeted ABx be ordered?: No
--- NOTE | 2021-09-01 09:59 | HMH.PULMPN ---
Internal Medicine - PN: Subj *Date: 09/01/21 *Time: 13:21 Interval history: No acute respiratory events overnight. Patient denies any worsening respiratory symptoms. Exam - Constitutional Constitutional:: Present: no acute distress, comfortable - HENMT Exam HENMT: Present: normocephalic - Eye Exam Eyes:: Present: normal appearance both eyes and related structures - Neck Exam Neck:: Present: normal visual inspection - Respiratory Exam Respiratory:: Present: able to speak in complete sentences, no respiratory distress, wheezing - Cardiovascular Exam Cardiac:: Present: S1, S2 - GI Exam GI:: Present: soft - Skin Exam Skin: Present: warm, no rash - Neurological Exam Neurological: Present: alert, awake, normal cognition - Extremities Exam Extremities: Present: no cyanosis, no clubbing, edema - Psychiatric Exam Psychiatric: Present: normal affect Assessment and Plan (1) Acute exacerbation of chronic obstructive airways disease Status: Acute Category: Medical Code(s): J44.1 - Chronic obstructive pulmonary disease with (acute) exacerbation (2) Acute on chronic respiratory failure with hypoxemia Status: Acute Category: Medical Code(s): J96.21 - Acute and chronic respiratory failure with hypoxia (3) Anxiety Status: Chronic Category: Medical Code(s): F41.9 - Anxiety disorder, unspecified (4) History of congestive heart failure Status: Chronic Category: Medical Code(s): Z86.79 - Personal history of other diseases of the circulatory system (5) Type 2 diabetes mellitus Status: Chronic Qualifiers: Category: Medical Code(s): E11.9 - Type 2 diabetes mellitus without complications (6) Microcytic anemia Status: Acute Category: Medical Code(s): D50.9 - Iron deficiency anemia, unspecified - Assessment and plan all Dx Assessment and Plan for all problems:: #Acute on chronic hypoxic hypercarbic respiratory failure: #Right pleural effusion Ms. Barragan is a 66-year-old female history of COPD on chronic long-term oxygen therapy at 4 L, chronic hypercarbic respiratory failure on Trilogy, recently admitted to the hospital respiratory distress found to have acute blood loss anemia status post endoscopy found nonbleeding gastric and duodenal ulcers initiate PPI drip, disc and anticoagulant discharge home presented hospital worsening respiratory distress again and pulmonary was called for further management. Prior history of hypercarbic respiratory failure initiated on trilogy inhaler. Symptoms improved after that, however patient also admitted to hospital admissions to [facility] hypercarbic respiratory failure needing intubation mechanical ventilator support around April 2021. Patient also stated that she was recent admitted to the [facility] during which her trilogy settings were changed. She had multiple no-shows to pulmonary clinic. Patient currently trilogy 4 hours during the daytime and 12 hours at night. Her most 2 recent hospital admissions here at [facility] this month did not show any evidence of hypercarbic respiratory failure. Chest x-ray from this admission showed worsening right lower lobe infiltrate along with new right lower lobe pleural effusion. Patient also noted to have bilateral 2+ lower extremity edema. Auscultation will bilateral decreased breath sounds with wheezing. Patient on this admission with ceftriaxone and azithromycin along with her home inhaler therapy. Interval update: ABG on BiPAP for 4 hours did not show any evidence of hypercarbic respiratory failure. Continue to show hypoxic respiratory failure with PO2 55.5 on the ABG. Anxiety issues improved after initiating Xanax as needed Plan: -40 mgIV lasix. F/U Echo. We will hold off on thoracentesis at this point of time. -Continue NIV with trilogy, currently on AVAPS-AP mode with VT 450 EPAP 8 RR 18 PS 10-12. Continue NIV while asleep. Nasal cannula during the daytime with
--- NOTE | 2021-09-01 17:08 | PC.NURSE ---
Pt has had a uneventful day during my shift. Pt has been off trilogy since out 1030 this morning. She has had a xanax and this helped with her anxiety. No changes since last assessment. Will continue to monitor.
--- NOTE | 2021-09-01 18:40 | HMH.ACPN2 ---
Internal Medicine - PN: Subj *Date: 09/01/21 *Time: 13:00 Interval history: Stable overnight. Some improvement with Xanax. Labs stable. No nausea or vomiting. Tolerating good p.o. intake. Remains afebrile. Exam Vital signs and Labs for Last 24 Hours: Temp Pulse Resp BP Pulse Ox 98.4 F 102 H 14 111/62 94 L 09/01/21 16:00 09/01/21 16:00 09/01/21 16:00 09/01/21 16:00 09/01/21 16:00 Laboratory Results - last 24 hr 09/01/21 06:20: WBC 10.0, RBC 3.93 L, Hgb 10.1 L, Hct 31.3 L, MCV 79.6 L, MCH 25.6 L, MCHC 32.2, RDW 19.3 H, Plt Count 219, MPV 9.7, Neut % (Auto) 69.0, Lymph % (Auto) 20.0, Wallace % (Auto) 7.8, Eos % (Auto) 2.5, Baso % (Auto) 0.7, Neut # (Auto) 6.9, Lymph # (Auto) 2.0, Wallace # (Auto) 0.8, Eos # (Auto) 0.3, Baso # (Auto) 0.1 09/01/21 06:20: Sodium 137, Potassium 5.1, Chloride 109 H, Carbon Dioxide 27, Anion Gap 6.1, BUN 10, Creatinine 0.30 L D, Estimated Creat Clear 60, Estimated GFR 223, Est GFR ( Amer) 269 D, Glucose 102 H, Calcium 8.3 L, Magnesium 1.9 D, Total Bilirubin 0.5, AST 42 H, ALT 10 L, Alkaline Phosphatase 40, Total Protein 4.6 L, Albumin 2.4 L, Globulin 2.2, Albumin/Globulin Ratio 1.1 I & O for Last 24 hours: Intake & Output 08/29/21 08/30/21 08/31/21 09/01/21 23:59 23:59 23:59 23:59 Intake Total 1802 / 1802 1330 / 1330 280 / 280 480 / 480 Output Total 0 / 0 0 / 200 2200 / 2200 Balance 1802 / 1802 1330 / 1330 280 / 80 -1720 / -1720 Weight 63.5 kg 67.358 kg 68.356 kg Microbiology Reports for the Last 24 Hours: Microbiology 08/30/21 09:15 Sputum - Expectorated Sputum Gram Stain - Final 08/30/21 09:15 Sputum - Expectorated Sputum Sputum Culture - Preliminary Gram Negative Rods Assessment and Plan (1) Acute exacerbation of chronic obstructive airways disease Status: Acute Category: Medical Code(s): J44.1 - Chronic obstructive pulmonary disease with (acute) exacerbation (2) Acute on chronic respiratory failure with hypoxemia Status: Acute Category: Medical Code(s): J96.21 - Acute and chronic respiratory failure with hypoxia (3) Anxiety Status: Chronic Category: Medical Code(s): F41.9 - Anxiety disorder, unspecified (4) History of congestive heart failure Status: Chronic Category: Medical Code(s): Z86.79 - Personal history of other diseases of the circulatory system (5) Type 2 diabetes mellitus Status: Chronic Qualifiers: Category: Medical Code(s): E11.9 - Type 2 diabetes mellitus without complications (6) Microcytic anemia Status: Acute Category: Medical Code(s): D50.9 - Iron deficiency anemia, unspecified - Assessment and plan all Dx Assessment and Plan for all problems:: 66-year-old female with chronic respiratory failure. Presented with acute exacerbation, anxiety, anemia. Status posttransfusion, hemoglobin stable. Problems addressed as follows: Anemia -Secondary to GI bleed. Status posttransfusion. Stable this morning. No further bleeding. -Monitor daily. -Continue to hold anticoagulation given bleeding. Risks outweigh benefit. Patient unfortunately in a difficult position between history of DVTs, PEs, and recurrent GI bleeds. Acute on chronic hypoxemic respiratory failure. -Pulmonology consulted, appreciate their recommendations. -Echo obtained, suggests volume overload. EF preserved. - Lasix 40 mg IV again today. Monitor for improvement with diuresis. -See pulm George for noninvasive ventilation use just at night. -Pulmonology recommends continuing duo nebs, budesonide, Trelegy inhaler. Continue steroids. -Continue broad-spectrum antibiotics for now. Given anxiety and its impact on her breathing, initiated Xanax as needed. tolerating well with some improvement. - Consider a longer acting anxiolytic such as Zoloft. Patient is full code Regular diet Poor insight into complexity of her disease process and terminal nature. Continues to require inpatient managemen
--- NOTE | 2021-09-01 23:24 | CA_ITS ---
APPROVED REPORT EXAM: Comprehensive 2D, Doppler, and color-flow Echocardiogram Stacking Machine Operator: Josselyn Townsend CRT Ht: 5 ft 4 in Wt: 148lbs BSA: 1.72 BP: 122/70 mmHg Indications: COPD, Shortness of Breath, Diabetes, Hyperlipidemia, Hypertension/HDD, pt on bi-pap sitting up in the bed 2D Dimensions LVOT 1.90 cm (M/F) 1.5-2.5 M-Mode Dimensions RVDd 3.43 cm (0.9-2.6) LA Diam 3.17 cm (1.9-4.0) LVDd 3.63 cm (3.5-5.7) Ao Diam 3.69 cm (2.0-3.7) LVDs 2.26 cm (3.5-5.7) IVSd 1.09 cm (0.6-1.1) PWd 0.85 cm (0.6-1.1) EF (Teich) 68.80% FS 37.70% EDV (Teich) 55.50 mL ESV (Teich) 17.30 mL LV Diastology E Decel Time 107.00 (160-240 msec) E/A Ratio 0.93 Aortic Valve AO Peak GR. 0.40 mmHg Mitral Valve MV E Max Garry. 45.00 (40-130 cm/s) MV A Velocity 48.00 (40-130 cm/s) E/A Ratio 0.93 MV Decel. Time 107.00 (160-240 ms) MV PHT 31.00 ms Pulmonary Valve PV Peak Velocity 171.00 (50-150 cm/s) Tricuspid Valve TR P. Velocity 325.00 cm/s RAP Estimate 10.00 mmHg RVSP 52.30 mmHg Left Ventricle Clinically difficult study because of the patient factors and poor acoustic windows. Left atrium is mildly enlarged, left ventricle is normal size mild concentric left ventricular hypertrophy, estimated ejection fraction 55% with no regional wall motion abnormality, there is flattening of the interventricular septum during systole and diastole consistent with pressure and volume overload on right ventricle. Diastolic parameters are inconclusive. Right Ventricle Right atrium is moderately enlarged, right ventricle is markedly dilated with severe reduction right ventricular systolic function. Aortic Valve Aortic valve is minimally thickened and fibrosed there is no aortic stenosis or aortic insufficiency. Mitral Valve Mitral valve is grossly normal, there is trace mitral regurgitation. Tricuspid Valve Tricuspid valve grossly normal, there is mild tricuspid regurgitation, calculated right ventricular systolic pressure is 42 mmHg. Pulmonic Valve Pulmonic valve is poorly visualized. Great Vessels Aortic root is normal size. Inferior vena cava is mildly dilated without significant inspiratory collapse. Pericardium No significant pericardial effusion noted. Conclusion 1. Technically difficult study because of the patient factors and poor acoustic windows. 2. Biatrial enlargement, normal left ventricular size, mild concentric left ventricular hypertrophy, estimated ejection fraction 55% with no regional wall motion abnormality, diastolic parameters are inconclusive, there is flattening of the interventricular septum during systole and diastole consistent with pressure and volume overload on right ventricle. 3. Markedly enlarged right ventricle with severe reduction left ventricular systolic function. 4. Mild mitral and tricuspid regurgitation, calculated right ventricular systolic pressure 42 mmHg. 5. No significant pericardial effusion. 6. Inferior vena cava is mildly dilated without significant inspiratory collapse. Electronically signed by : Maximo Yeung MD 09/01/2021 19:07:23
[2021-09-02] VITALS (22 sets, daily range): BP systolic 83–120; BP diastolic 48–69; PULSE 88–111; RESP 15–20; TEMP 36.2–36.9; O2SAT 90–99; BMI 26.6
--- NOTE | 2021-09-02 | IR_ITS ---
APPROVED REPORT Patient Location: Inpatient [facility] Master: CECILIA Valentin RT (R) PROCEDURES Right internal jugular vein central catheter placement Catheter placement in the inferior vena cava Inferior vena cavogram Placement of vena caval interruption filter/ligation device Post vena cava interruption filter device inferior venacavogram INDICATION Pulmonary emboli, Current GI bleed, Recurrent GI bleed, Contraindication to anticoagulation, Right ventricular strain Informed consent was obtained prior to the procedure. COMPLICATIONS NONE Estimated Blood Loss: LESS THAN 10 ML TECHNIQUE 1% lidocaine used anesthetize right anterior aspect of the right neck. The right internal jugular vein was accessed via the sounder technique and a 6 Slovak sheath was placed under fluoroscopic guidance into the right internal jugular vein down into the inferior vena cava. Selective vena caval venography was performed highlighting the location of the right renal vein. The vena caval interruption filter was placed through the sheath 1 cm distal to the origin of the right renal vein. Post deployment venography revealed excellent placement and location. The apparatus was removed the sheath was removed good hemostasis was achieved using manual pressure patient was transferred to the postop putting in stable condition IMPRESSION Successful placement of inferior vena caval interruption filter PLAN 1. Supportive care Electronically signed by : Eduardo Aguero MD 09/02/2021 15:04:09
--- NOTE | 2021-09-02 04:26 | PC.NURSE ---
No acute changes this shift. Patient has rested well. Continues with Trilogy machine during the night. Wound on bottom with dressing c/d/i. No c/o pain or discomfort. Call light in place.
[2021-09-02 06:39] LABS: Basophils # 0.1 K/mm3 (0-0.2); Basophils % 0.6 % (0.1-2.0); Eosinophils # 0.3 K/mm3 (0.0-0.4); Eosinophils % 2.5 % (0.1-12.0); Hematocrit 29.7 % (37.0-47.0); Hemoglobin 9.2 g/dL (12.2-16.2); Lymphocytes % 19.8 % (10-50); Mean Corpuscular HGB Conc 31.1 g/dL (31.8-35.4); Mean Corpuscular Hemoglobin 25.5 pg (27.0-31.2); Mean Platelet Volume 9.4 fl (7.4-10.4); Monocytes # 0.6 K/mm3 (0.1-1.0); Monocytes % 6.3 % (1.7-9.3); Neutrophils # 7.2 K/mm3 (1.8-7.8); Neutrophils % 70.8 % (37.0-80.0); Platelet Count 206 K/mm3 (142-424); Red Blood Count 3.62 M/mm3 (4.20-5.40); Red Cell Distribution Width 19.5 % (11.5-17.5); White Blood Count 10.1 K/mm3 (4.8-10.8)
[2021-09-02 07:32] LABS: Chloride 104 mmol/L (98-107); Potassium 3.8 mmoL/L (3.5-5.1); Sodium 136 mmol/L (136-145)
[2021-09-02 07:35] LABS: Alanine Aminotransferase 10 U/L (12-78); Albumin Level 2.3 g/dl (3.5-5.0); Alkaline Phosphatase 43 U/L (38-126); Anion Gap 6.8 mEq/L (5-15); Aspartate Amino Transferase 25 U/L (14-36); Bilirubin,Total 0.3 mg/dl (0.2-1.3); Blood Urea Nitrogen 13 mg/dl (7-17); Calcium 8.4 mg/dl (8.4-10.2); Carbon Dioxide 29 mmol/L (22.0-30.0); Creatinine Clearance Estimated 62 mL/min (50-200); Estimated Glomerular Filt Rate 160 ml/min (>60); GFR (African American) 193 ML/MIN (>60); Globulin 2.3 g/dL (1.3-3.2); Glucose 115 mg/dl (74-100); Magnesium 1.7 mg/dl (1.6-2.3); Total Protein,Serum 4.6 g/dl (6.3-8.2)
--- NOTE | 2021-09-02 09:30 | HMH.PULMPN ---
Internal Medicine - PN: Subj *Date: 09/02/21 *Time: 10:53 Interval history: No acute respiratory vents overnight. Exam - Constitutional Constitutional:: Present: no acute distress, comfortable - HENMT Exam HENMT: Present: normocephalic - Eye Exam Eyes:: Present: normal appearance both eyes and related structures - Neck Exam Neck:: Present: normal visual inspection - Respiratory Exam Respiratory:: Present: able to speak in complete sentences, no respiratory distress. Absent: wheezing - Cardiovascular Exam Cardiac:: Present: S1, S2 - GI Exam GI:: Present: soft - Skin Exam Skin: Present: warm, no rash - Neurological Exam Neurological: Present: alert, awake - Extremities Exam Extremities: Present: no cyanosis, no clubbing, edema Assessment and Plan (1) Acute exacerbation of chronic obstructive airways disease Status: Acute Category: Medical Code(s): J44.1 - Chronic obstructive pulmonary disease with (acute) exacerbation (2) Acute on chronic respiratory failure with hypoxemia Status: Acute Category: Medical Code(s): J96.21 - Acute and chronic respiratory failure with hypoxia (3) Anxiety Status: Chronic Category: Medical Code(s): F41.9 - Anxiety disorder, unspecified (4) History of congestive heart failure Status: Chronic Category: Medical Code(s): Z86.79 - Personal history of other diseases of the circulatory system (5) Type 2 diabetes mellitus Status: Chronic Qualifiers: Category: Medical Code(s): E11.9 - Type 2 diabetes mellitus without complications (6) Microcytic anemia Status: Acute Category: Medical Code(s): D50.9 - Iron deficiency anemia, unspecified - Assessment and plan all Dx Assessment and Plan for all problems:: #Acute on chronic hypoxic hypercarbic respiratory failure: #Right pleural effusion #H/O PE and DVT Ms. Barragan is a 66-year-old female history of COPD on chronic long-term oxygen therapy at 4 L, chronic hypercarbic respiratory failure on Trilogy, recently admitted to the hospital respiratory distress found to have acute blood loss anemia status post endoscopy found nonbleeding gastric and duodenal ulcers initiate PPI drip, disc and anticoagulant discharge home presented hospital worsening respiratory distress again and pulmonary was called for further management. Prior history of hypercarbic respiratory failure initiated on trelegy NIV. Symptoms improved after that, however patient also admitted to hospital admissions to [facility] hypercarbic respiratory failure needing intubation mechanical ventilator support around April 2021. Patient also stated that she was recent admitted to the [facility] during which her trilogy settings were changed. She had multiple no-shows to pulmonary clinic. Patient currently trilogy 4 hours during the daytime and 12 hours at night. Her most 2 recent hospital admissions here at [facility] this month did not show any evidence of hypercarbic respiratory failure. Chest x-ray from this admission showed worsening right lower lobe infiltrate along with new right lower lobe pleural effusion. Patient also noted to have bilateral 2+ lower extremity edema. Auscultation will bilateral decreased breath sounds with wheezing. Patient on this admission with ceftriaxone and azithromycin along with her home inhaler therapy. Interval update: Echocardiogram performed yesterday - showed normal EF, inconclusive diastolic parameters. Severe RV strain with septal flattening. We will follow with CT PE protocol. Plan: -CT PE protocol -40 mgIV lasix BID. F/U Echo. We will hold off on thoracentesis at this point of time. -No change with respect to antibiotics, NIV and nebulizer medications at this point of time. Continue NIV with trilogy, currently on AVAPS-AP mode with VT 450 EPAP 8 RR 18 PS 10-12. Continue NIV while asleep. Nasal cannula during the daytime with O2 sats goal of 90% and above (Patient
--- NOTE | 2021-09-02 09:33 | CT_ITS ---
FINAL REPORT TECHNIQUE: Then section axial CT images of the chest were obtained with contrast. Three-D reformatted images were also obtained.This study was performed with techniques to keep radiation doses as low as reasonably achievable (ALARA). Individualized dose reduction techniques using automated exposure control or adjustment of mA and/or kV according to the patient''s size were employed. CLINICAL HISTORY: Hypoxia FINDINGS: There are small pulmonary emboli involving the segmental branches of the right upper lobe, right lower lobe and medial left lower lobe. The overall clot burden is small. The RV/LV ratio is 1.2 worrisome for right heart strain. There is no evidence of thoracic aortic aneurysm or dissection. There are multiple enlarged mediastinal lymph nodes, precarinal 22 and subcarinal 26. There are bilateral enlarged hilar nodes. There are multifocal bilateral pulmonary opacities of uncertain etiology that may represent multifocal pneumonia. A neoplasm is not excluded but felt less likely. There is mild bibasilar atelectasis. There are small pleural effusions. Limited images of the upper abdomen demonstrate the patient is status post cholecystectomy. IMPRESSION: Small pulmonary emboli. Evidence of right heart strain. Multifocal pulmonary opacities, favor pneumonia/inflammatory neoplasm. Recommend follow-up chest CT. Reviewed, Interpreted and Dictated by Cj Garrett III, MD Transcribed by Arlen Calderon Authenticated and [facility]
--- NOTE | 2021-09-02 10:20 | SW/DCPLANNER ---
Addendum entered by Pam Castro 09/03/21 11:43: Cathie helm/ [facility] stated that medication is covered at 100%. Addendum entered by Pam Castro 09/03/21 10:37: Patient will discharge home today. Patient will require 6 days of IV antibiotics at time of discharge. Patient's daughter is comfortable with patient being discharged home and she will administer medication at home. Patient information has been faxed to [facility] and [employer] [employer] [facility]. Original Note: The plan for this patient is to discharge home today. [facility]: I will fax patient information/order to resume services today. Patient also has all other DME needed at home including [employer] and home O2.
--- NOTE | 2021-09-02 12:58 | PC.NURSE ---
Spoke with Dr. Borrego about Chest CT results he is aware.
--- NOTE | 2021-09-02 13:09 | PC.NURSE ---
Called and left a message for Dr. Rodriguez about CT results.
--- NOTE | 2021-09-02 13:28 | PC.NURSE ---
Spoke with Alyssa from Dr. Rodriguez's office I let him know about CTA results.
--- NOTE | 2021-09-02 13:48 | HMH.ACPN2 ---
Internal Medicine - PN: Subj *Date: 09/02/21 *Time: 08:45 Interval history: Patient dyspneic but somewhat better this morning. On 4 L nasal cannula with saturations in the low 90s. Wore BiPAP overnight. No fever. Cough not productive. CT of chest and echo obtained. Echo with concern for some right heart strain and flattening of septum, increased right ventricular pressures. CT pending at time of rounds. Denies nausea, vomiting, diarrhea. Exam Vital signs and Labs for Last 24 Hours: Temp Pulse Resp BP Pulse Ox 97.1 F L 88 20 105/58 L 94 L 09/02/21 12:00 09/02/21 12:55 09/02/21 12:00 09/02/21 12:00 09/02/21 12:00 Laboratory Results - last 24 hr 09/02/21 06:05: WBC 10.1, RBC 3.62 L, Hgb 9.2 L, Hct 29.7 L, MCV 82.0, MCH 25.5 L, MCHC 31.1 L, RDW 19.5 H, Plt Count 206, MPV 9.4, Neut % (Auto) 70.8, Lymph % (Auto) 19.8, [place] % (Auto) 6.3, Eos % (Auto) 2.5, Baso % (Auto) 0.6, Neut # (Auto) 7.2, Lymph # (Auto) 2.0, [place] # (Auto) 0.6, Eos # (Auto) 0.3, Baso # (Auto) 0.1 09/02/21 06:05: Sodium 136, Potassium 3.8 D, Chloride 104, Carbon Dioxide 29, Anion Gap 6.8, BUN 13 D, Creatinine 0.40 L D, Estimated Creat Clear 62, Estimated GFR 160, Est GFR ( Amer) 193 D, Glucose 115 H, Calcium 8.4, Magnesium 1.7 D, Total Bilirubin 0.3, AST 25 D, ALT 10 L, Alkaline Phosphatase 43, Total Protein 4.6 L, Albumin 2.3 L, Globulin 2.3, Albumin/Globulin Ratio 1.0 L I & O for Last 24 hours: Intake & Output 08/30/21 08/31/21 09/01/21 09/02/21 23:59 23:59 23:59 23:59 Intake Total 1330 / 1330 280 / 280 480 / 960 960 / 960 Output Total 0 / 0 0 / 200 2200 / 2200 Balance 1330 / 1330 280 / 80 -1720 / -1240 960 / 960 Weight 63.5 kg 67.358 kg 68.356 kg 70.67 kg Microbiology Reports for the Last 24 Hours: Microbiology 08/30/21 09:15 Sputum - Expectorated Sputum Gram Stain - Final 08/30/21 09:15 Sputum - Expectorated Sputum Sputum Culture - Final Pseudomonas aeruginosa Narrative: - Constitutional moderate distress, chronically ill appearing, 4L NC - *Routine HEENT Exam Head: Present: normocephalic Eye: Present: EOMI, PERRL ENT: Present: mucous membranes moist - *Routine Neck Exam Present: supple. Absent: lymphadenopathy - *Routine Respiratory Exam Present: accessory muscle use, prolonged expiratory phase, wheezes, diminished air movement - *Routine Cardiovascular Exam Present: RRR - *Routine Abdominal Exam Present: soft, normoactive bowel sounds. Absent: tenderness - *Routine Extremities Exam Present: edema (1+ in BLE). Absent: cyanosis, clubbing - *Routine Skin Exam Present: warm. Absent: rash - *Routine Neurological Exam Present: alert, oriented X3 Assessment and Plan (1) Acute exacerbation of chronic obstructive airways disease Status: Acute Category: Medical Code(s): J44.1 - Chronic obstructive pulmonary disease with (acute) exacerbation (2) Acute on chronic respiratory failure with hypoxemia Status: Acute Category: Medical Code(s): J96.21 - Acute and chronic respiratory failure with hypoxia (3) Anxiety Status: Chronic Category: Medical Code(s): F41.9 - Anxiety disorder, unspecified (4) History of congestive heart failure Status: Chronic Category: Medical Code(s): Z86.79 - Personal history of other diseases of the circulatory system (5) Type 2 diabetes mellitus Status: Chronic Qualifiers: Category: Medical Code(s): E11.9 - Type 2 diabetes mellitus without complications (6) Microcytic anemia Status: Acute Category: Medical Code(s): D50.9 - Iron deficiency anemia, unspecified (7) Pulmonary emboli Status: Acute Qualifiers: Pulmonary embolism type: multiple subsegmental (without acute cor pulmonale) Qualified Code(s): I26.94 - Multiple subsegmental pulmonary emboli without acute cor pulmonale Category: Medical Code(s): I26.99 - Other pulmonary embolism without acute cor pulmonale (
--- NOTE | 2021-09-02 15:52 | PC.NURSE ---
rounded on patient. no family at bedside at that time. patient appears comfortable and resting. no needs noted. no concerns or questions in regards to meds or plan of care. did have filter placed in cathlab after noted to have pe's.
[2021-09-02 17:01] LABS: D-Dimer 1.98 ug/mL (0.0-0.5)
[2021-09-02 17:42] LABS: NT Pro Brain Natriuretic Pep. 8330 pg/mL (0-125)
--- NOTE | 2021-09-02 19:45 | PC.NURSE ---
Pt had uneventful day during shift. No change since last assessment. Will continue to monitor.
[2021-09-03] VITALS (9 sets, daily range): BP systolic 92–120; BP diastolic 53–78; PULSE 10–110; RESP 14–20; TEMP 36.8–37.1; O2SAT 86–91; BMI 26.4
--- NOTE | 2021-09-03 06:10 | PC.NURSE ---
Patient has had no acute changes this shift, has slept well with keeping the Trilogy mask/machine on. Call light in place and will continue to monitor.
[2021-09-03 06:16] LABS: Chloride 102 mmol/L (98-107); Sodium 138 mmol/L (136-145)
[2021-09-03 06:19] LABS: Alanine Aminotransferase 10 U/L (12-78); Albumin Level 2.4 g/dl (3.5-5.0); Alkaline Phosphatase 38 U/L (38-126); Aspartate Amino Transferase 34 U/L (14-36); Bilirubin,Total 0.3 mg/dl (0.2-1.3); Blood Urea Nitrogen 15 mg/dl (7-17); Calcium 8.3 mg/dl (8.4-10.2); Carbon Dioxide 34 mmol/L (22.0-30.0); Creatinine Clearance Estimated 61 mL/min (50-200); Estimated Glomerular Filt Rate 160 ml/min (>60); GFR (African American) 193 ML/MIN (>60); Globulin 2.3 g/dL (1.3-3.2); Glucose 118 mg/dl (74-100); Total Protein,Serum 4.7 g/dl (6.3-8.2)
[2021-09-03 06:20] LABS: Magnesium 1.4 mg/dl (1.6-2.3)
[2021-09-03 07:25] LABS: Basophils # 0.1 K/mm3 (0-0.2)
[2021-09-03 08:23] LABS: Basophils % 0.8 % (0.1-2.0); Eosinophils % 2.7 % (0.1-12.0); Hematocrit 35.6 % (37.0-47.0); Hemoglobin 10.5 g/dL (12.2-16.2); Lymphocytes % 22.1 % (10-50); Mean Corpuscular HGB Conc 29.4 g/dL (31.8-35.4); Mean Corpuscular Hemoglobin 24.6 pg (27.0-31.2); Mean Corpuscular Volume 83.5 fl (81-99); Mean Platelet Volume 8.9 fl (7.4-10.4); Monocytes % 4.9 % (1.7-9.3); Neutrophils % 69.6 % (37.0-80.0); Platelet Count 286 K/mm3 (142-424); Red Blood Count 4.26 M/mm3 (4.20-5.40); Red Cell Distribution Width 19.1 % (11.5-17.5)
[2021-09-03 08:24] LABS: Eosinophils # 0.3 K/mm3 (0.0-0.4); Lymphocytes # 2.2 K/mm3 (0.7-4.5); Monocytes # 0.5 K/mm3 (0.1-1.0); Neutrophils # 6.9 K/mm3 (1.8-7.8)
--- NOTE | 2021-09-03 08:31 | HMH.ACPN2 ---
Internal Medicine - PN: Subj *Date: 09/03/21 *Time: 08:31 Exam Vital signs and Labs for Last 24 Hours: Temp Pulse Resp BP Pulse Ox 98.8 F 105 H 15 116/60 88 L 09/03/21 07:47 09/03/21 07:47 09/03/21 07:47 09/03/21 07:47 09/03/21 07:47 Laboratory Results - last 24 hr 09/02/21 16:23: NT-Pro-B Natriuret Pep 8330 H 09/02/21 16:23: D-Dimer 1.98 H 09/03/21 05:50: Sodium 138, Potassium 4.0, Chloride 102, Carbon Dioxide 34 H, Anion Gap 6.0, BUN 15, Creatinine 0.40 L, Estimated Creat Clear 61, Estimated GFR 160, Est GFR ( Amer) 193, Glucose 118 H, Calcium 8.3 L, Magnesium 1.4 L D, Total Bilirubin 0.3, AST 34 D, ALT 10 L, Alkaline Phosphatase 38, Total Protein 4.7 L, Albumin 2.4 L, Globulin 2.3, Albumin/Globulin Ratio 1.0 L 09/03/21 08:10: WBC 10.0, RBC 4.26, Hgb 10.5 L, Hct 35.6 L, MCV 83.5, MCH 24.6 L, MCHC 29.4 L, RDW 19.1 H, Plt Count 286 D, MPV 8.9, Neut % (Auto) 69.6, Lymph % (Auto) 22.1, [place] % (Auto) 4.9, Eos % (Auto) 2.7, Baso % (Auto) 0.8, Neut # (Auto) 6.9, Lymph # (Auto) 2.2, [place] # (Auto) 0.5, Eos # (Auto) 0.3, Baso # (Auto) 0.1 I & O for Last 24 hours: Intake & Output 08/31/21 09/01/21 09/02/21 09/03/21 23:59 23:59 23:59 23:59 Intake Total 280 / 280 480 / 960 1440 / 1920 600 / 600 Output Total 0 / 200 2200 / 2200 2650 / 2650 500 / 500 Balance 280 / 80 -1720 / -1240 -1210 / -730 100 / 100 Weight 67.358 kg 68.356 kg 70.67 kg 70.08 kg Microbiology Reports for the Last 24 Hours: Microbiology 08/28/21 14:22 Blood Blood Culture - Final NO GROWTH AFTER 5 DAYS 08/28/21 14:22 Blood Blood Culture - Final NO GROWTH AFTER 5 DAYS 08/30/21 09:15 Sputum - Expectorated Sputum Gram Stain - Final 08/30/21 09:15 Sputum - Expectorated Sputum Sputum Culture - Final Pseudomonas aeruginosa Narrative: - Constitutional Baseline mild distress, chronically ill appearing, 4L NC, eating breakfast - *Routine HEENT Exam Head: Present: normocephalic Eye: Present: EOMI, PERRL ENT: Present: mucous membranes moist - *Routine Neck Exam Present: supple. Absent: lymphadenopathy - *Routine Respiratory Exam Present: accessory muscle use, prolonged expiratory phase, diminished air movement - *Routine Cardiovascular Exam Present: RRR - *Routine Abdominal Exam Present: soft, normoactive bowel sounds. Absent: tenderness - *Routine Extremities Exam Present: edema (1+ in BLE). Absent: cyanosis, clubbing - *Routine Skin Exam Present: warm. Absent: rash - *Routine Neurological Exam Present: alert, oriented X3 Assessment and Plan (1) Acute exacerbation of chronic obstructive airways disease Status: Acute Category: Medical Code(s): J44.1 - Chronic obstructive pulmonary disease with (acute) exacerbation (2) Acute on chronic respiratory failure with hypoxemia Status: Acute Category: Medical Code(s): J96.21 - Acute and chronic respiratory failure with hypoxia (3) Anxiety Status: Chronic Category: Medical Code(s): F41.9 - Anxiety disorder, unspecified (4) History of congestive heart failure Status: Chronic Category: Medical Code(s): Z86.79 - Personal history of other diseases of the circulatory system (5) Type 2 diabetes mellitus Status: Chronic Qualifiers: Category: Medical Code(s): E11.9 - Type 2 diabetes mellitus without complications (6) Microcytic anemia Status: Acute Category: Medical Code(s): D50.9 - Iron deficiency anemia, unspecified (7) Pulmonary emboli Status: Acute Qualifiers: Pulmonary embolism type: multiple subsegmental (without acute cor pulmonale) Qualified Code(s): I26.94 - Multiple subsegmental pulmonary emboli without acute cor pulmonale Category: Medical Code(s): I26.99 - Other pulmonary embolism without acute cor pulmonale (8) Elevated right ventricular end-diastolic pressure Status: Acute Category: Medical Cod
--- NOTE | 2021-09-03 08:57 | HMH.DCSUM ---
General - General Admission date:: 08/28/21 Discharge date: 09/03/21 HPI HPI: 66-year-old extremely fragile and tenuous female with severe, end-stage emphysema who suffers from chronic hypercapnic respiratory failure. She has an assist device at home that she uses on a daily basis-the trilogy positive pressure device and was recently in the hospital here and discharged last week with COPD exacerbation She follows with Dr. Orozco in the pulmonary clinic. She was at home yesterday and became dyspneic, coughed and had some worsening of her symptomatology and became extremely nervous which did not do any positive things for her breathing. She came back to the hospital here as she was recently admitted last week. In the ER she was found to have patchy infiltrates, evidence of leukocytosis and was admitted for COPD exacerbation, worsening respiratory failure and IV antibiotics. Hospital Course Hospital Course: 66-year-old female with chronic respiratory failure. Presented with acute exacerbation, anxiety, anemia. Status posttransfusion, hemoglobin stable. Continues to have dyspnea. CT and echo obtained at pulmonology recommendation. Echo showing right heart strain and CT with bilateral subsegmental PEs of acute versus chronic nature. Radiology consulted today. Problems addressed as follows: Anemia -Secondary to GI bleed. Status posttransfusion. Stable on daily checks. Had no further bleeding. Continue to hold anticoagulation given bleeding. Risks outweigh benefit. Patient unfortunately in a difficult position between history of DVTs, PEs, and recurrent GI bleeds. Additionally we will continue PPI twice daily to minimize risk for recurrent GI bleed. Acute on chronic hypoxemic respiratory failure. Sub-Segmental PEs Right ventricular strain Pneumonia - Pulmonology consulted, appreciate their recommendations. Cardiology consulted appreciate their assistance - Echo obtained, suggests volume overload, right heart strain (elevated RV pressures), flattened IV Septum, EF preserved. Started on Lasix IV. Will transition to Lasix 40 mg daily for continued fluid management. Had some improvement in breathing with diuresis. Imaging of chest showed subsegmental PEs. Cardiology was consulted for placement of an IVC filter. Placed today before discharge. Tolerated well. We will have close follow-up with pulmonology and cardiology for continued management of respiratory failure. Plan to follow with surgery for possible repeat EGD to consider resumption of anticoagulation if ulcers (diagnosed at previous admission) have healed. We will continue BiPAP/trilogy device per pulmonology recommendations. Duo nebs and Trelegy inhaler at discharge. Sputum grew Pseudomonas, resistant to fluoroquinolones. Will transition to cefepime for a total of 7 days. PICC placed today. Med sent through home health. Given anxiety and its impact on her breathing, initiated Xanax as needed. tolerating well with some improvement. Additionally was initiated on Zoloft, will increase to 50 mg for daily use at home. Patient is medically fragile, at high risk for readmission. We will have close follow-up in the outpatient setting. Medically stable for discharge home as acute issues have been addressed. Further management with home health in the outpatient setting and close follow-up with subspecialists. Encourage close follow-up with her primary care in the coming 1 to 2 weeks. Objective Vital signs: Temp Pulse Resp BP Pulse Ox 98.8 F 105 H 15 116/60 88 L 09/03/21 07:47 09/03/21 07:47 09/03/21 07:47 09/03/21 07:47 09/03/21 07:47 Narrative: - Constitutional Baseline mild distress, chronically ill appearing, 4L NC, eating breakfast - *Routine HEENT Exam Head: Present: normocephalic Eye: Present: EOMI, PERRL ENT: Present: mucous membranes moist - *Routine Neck Exam Present: supple. Absent: lymphadenopathy - *Routine Resp
--- NOTE | 2021-09-03 09:44 | HMH.PULMPN ---
Internal Medicine - PN: Subj *Date: 09/03/21 *Time: 10:34 Interval history: No acute respiratory events overnight. Patient denies any new complaints. Exam - Constitutional Constitutional:: Present: no acute distress, comfortable - HENMT Exam HENMT: Present: normocephalic - Eye Exam Eyes:: Present: normal appearance both eyes and related structures - Neck Exam Neck:: Present: normal visual inspection - Respiratory Exam Respiratory:: Present: able to speak in complete sentences, no respiratory distress, crackles, wheezing - Cardiovascular Exam Cardiac:: Present: S1, S2 - GI Exam GI:: Present: organomegaly - Skin Exam Skin: Present: warm - Neurological Exam Neurological: Present: alert, awake, normal cognition - Extremities Exam Extremities: Present: no cyanosis, no clubbing, edema Assessment and Plan (1) Acute exacerbation of chronic obstructive airways disease Status: Acute Category: Medical Code(s): J44.1 - Chronic obstructive pulmonary disease with (acute) exacerbation (2) Acute on chronic respiratory failure with hypoxemia Status: Acute Category: Medical Code(s): J96.21 - Acute and chronic respiratory failure with hypoxia (3) Anxiety Status: Chronic Category: Medical Code(s): F41.9 - Anxiety disorder, unspecified (4) History of congestive heart failure Status: Chronic Category: Medical Code(s): Z86.79 - Personal history of other diseases of the circulatory system (5) Type 2 diabetes mellitus Status: Chronic Qualifiers: Category: Medical Code(s): E11.9 - Type 2 diabetes mellitus without complications (6) Microcytic anemia Status: Acute Category: Medical Code(s): D50.9 - Iron deficiency anemia, unspecified (7) Pulmonary emboli Status: Acute Qualifiers: Pulmonary embolism type: multiple subsegmental (without acute cor pulmonale) Qualified Code(s): I26.94 - Multiple subsegmental pulmonary emboli without acute cor pulmonale Category: Medical Code(s): I26.99 - Other pulmonary embolism without acute cor pulmonale (8) Elevated right ventricular end-diastolic pressure Status: Acute Category: Medical Code(s): R94.30 - Abnormal result of cardiovascular function study, unspecified - Assessment and plan all Dx Assessment and Plan for all problems:: #Acute on chronic hypoxic hypercarbic respiratory failure: #Right pleural effusion #Acute PE with RV strain and DVT #Pseudomonas Pneumonia Ms. Yung is a 66-year-old female history of COPD on chronic long-term oxygen therapy at 4 L, chronic hypercarbic respiratory failure on Trilogy, recently admitted to the hospital respiratory distress found to have acute blood loss anemia status post endoscopy found nonbleeding gastric and duodenal ulcers initiate PPI drip, disc and anticoagulant discharge home presented hospital worsening respiratory distress again and pulmonary was called for further management. Prior history of hypercarbic respiratory failure initiated on trelegy NIV. Symptoms improved after that, however patient also admitted to hospital admissions to [facility] hypercarbic respiratory failure needing intubation mechanical ventilator support around April 2021. Patient also stated that she was recent admitted to the [facility] during which her trilogy settings were changed. She had multiple no-shows to pulmonary clinic. Patient currently trilogy 4 hours during the daytime and 12 hours at night. Her most 2 recent hospital admissions here at [facility] this month did not show any evidence of hypercarbic respiratory failure. Chest x-ray from this admission showed worsening right lower lobe infiltrate along with new right lower lobe pleural effusion. Echocardiogram performed yesterday - showed normal EF, inconclusive diastolic parameters. Severe RV strain with septal flattening. CT-PE showed bilateral PE. Patient seems to be having a CT PE and echocardiogram at
--- NOTE | 2021-09-03 10:22 | CARE MANAGER ---
Patient is established with home health. She is going to need IV antibiotics x 6 days due to her sputum culture. Discussed with daughter who can do the administration as she is a nurse and is comfortable with this. Discussed that patient would need to have ambulance to take home once discharged as patient is non-ambulatory. Related this to nursing staff and told them pre-cert is not required as she has traditional Medicaid. RICA Davis
--- NOTE | 2021-09-03 10:29 | HMH.ACPN ---
Internal Medicine - PN: Subj *Date: 09/03/21 *Time: 10:29 Exam Vital signs and Labs for Last 24 Hours: Temp Pulse Resp BP Pulse Ox 98.8 F 105 H 15 116/60 88 L 09/03/21 07:47 09/03/21 07:47 09/03/21 07:47 09/03/21 07:47 09/03/21 07:47 Laboratory Results - last 24 hr 09/02/21 16:23: NT-Pro-B Natriuret Pep 8330 H 09/02/21 16:23: D-Dimer 1.98 H 09/03/21 05:50: Sodium 138, Potassium 4.0, Chloride 102, Carbon Dioxide 34 H, Anion Gap 6.0, BUN 15, Creatinine 0.40 L, Estimated Creat Clear 61, Estimated GFR 160, Est GFR ( Amer) 193, Glucose 118 H, Calcium 8.3 L, Magnesium 1.4 L D, Total Bilirubin 0.3, AST 34 D, ALT 10 L, Alkaline Phosphatase 38, Total Protein 4.7 L, Albumin 2.4 L, Globulin 2.3, Albumin/Globulin Ratio 1.0 L 09/03/21 08:10: WBC 10.0, RBC 4.26, Hgb 10.5 L, Hct 35.6 L, MCV 83.5, MCH 24.6 L, MCHC 29.4 L, RDW 19.1 H, Plt Count 286 D, MPV 8.9, Neut % (Auto) 69.6, Lymph % (Auto) 22.1, [place] % (Auto) 4.9, Eos % (Auto) 2.7, Baso % (Auto) 0.8, Neut # (Auto) 6.9, Lymph # (Auto) 2.2, [place] # (Auto) 0.5, Eos # (Auto) 0.3, Baso # (Auto) 0.1 I & O for Last 24 hours: Intake & Output 08/31/21 09/01/21 09/02/21 09/03/21 23:59 23:59 23:59 23:59 Intake Total 280 / 280 480 / 960 1440 / 1920 600 / 600 Output Total 0 / 200 2200 / 2200 2650 / 2650 500 / 500 Balance 280 / 80 -1720 / -1240 -1210 / -730 100 / 100 Weight 67.358 kg 68.356 kg 70.67 kg 70.08 kg Microbiology Reports for the Last 24 Hours: Microbiology 08/28/21 14:22 Blood Blood Culture - Final NO GROWTH AFTER 5 DAYS 08/28/21 14:22 Blood Blood Culture - Final NO GROWTH AFTER 5 DAYS 08/30/21 09:15 Sputum - Expectorated Sputum Gram Stain - Final 08/30/21 09:15 Sputum - Expectorated Sputum Sputum Culture - Final Pseudomonas aeruginosa Assessment and Plan (1) Acute exacerbation of chronic obstructive airways disease Status: Acute Category: Medical Code(s): J44.1 - Chronic obstructive pulmonary disease with (acute) exacerbation (2) Acute on chronic respiratory failure with hypoxemia Status: Acute Category: Medical Code(s): J96.21 - Acute and chronic respiratory failure with hypoxia (3) Anxiety Status: Chronic Category: Medical Code(s): F41.9 - Anxiety disorder, unspecified (4) History of congestive heart failure Status: Chronic Category: Medical Code(s): Z86.79 - Personal history of other diseases of the circulatory system (5) Type 2 diabetes mellitus Status: Chronic Qualifiers: Category: Medical Code(s): E11.9 - Type 2 diabetes mellitus without complications (6) Microcytic anemia Status: Acute Category: Medical Code(s): D50.9 - Iron deficiency anemia, unspecified (7) Pulmonary emboli Status: Acute Qualifiers: Pulmonary embolism type: multiple subsegmental (without acute cor pulmonale) Qualified Code(s): I26.94 - Multiple subsegmental pulmonary emboli without acute cor pulmonale Category: Medical Code(s): I26.99 - Other pulmonary embolism without acute cor pulmonale (8) Elevated right ventricular end-diastolic pressure Status: Acute Category: Medical Code(s): R94.30 - Abnormal result of cardiovascular function study, unspecified The patient's infection will respond to the chosen ABx?: No (PSEUDOMONAS IN SPUTUM CX. CALLED MD.) Is the patient receiving the right drug, dose, and route?: No Could a more targeted ABx be ordered?: Yes (MD CHANGING FROM AZITH/ROCEPHIN TO CEFEPIME DUE TO SPUTUM CX.)
--- NOTE | 2021-09-03 10:53 | HMH.CNCARD ---
History of Present Illness Consult date: 09/03/21 Requesting physician: Jonh Borrego Chief complaint: SOB History of present illness: This is a 66-year-old white female who presented to the emergency department with shortness of breath, cough and was admitted for an acute exacerbation of her COPD. While hospitalized the patient was found to have acute versus chronic pulmonary emboli and her echocardiogram showed flattening of the interventricular septum during systole and diastole consistent with pressure and volume overload on the right ventricle. The patient was having right heart strain from these pulmonary emboli. She was taken to the cardiac catheterization laboratory and had an IVC filter placed secondary to the PE and right heart strain. The patient has a history of DVTs as well. She was previously on anticoagulation but due to a GI bleed and anemia she is no longer on anticoagulation. This morning she states that she is feeling much better. She states her shortness of breath is improved. She denies any chest pain or pressure. She denies any fever, chills, nausea, vomiting, diarrhea, PND or orthopnea. [facility] History I have reviewed the patient's past medical history: Yes Medical History: Reports:: Anxiety, Atrial Fibrillation, Cancer, Congestive Heart Failure, Chronic Obstructive Pulmonary Disease (COPD), Deep Vein Thrombosis, Diabetes Mellitus Type 2, Hypertension, Palpitations, Pulmonary Embolism Denies:: Diabetes Mellitus Type 1, Internal Pacemaker, MRSA *Have you ever received a pneumonia vaccine?: Yes *Have you received a flu vaccine this season?: Yes Other Medical History: Reports: Anemia Other Surgeries: Yes: Cardiac Catheterization, Cholecystectomy, Colonoscopy, Hysterectomy-Total, Sinus Surgery. No: Pacemaker Amputation: No Fractures: No - *Social History Last grade of school completed: 7th or 8th Smoking Status: Former smoker Tobacco Type: cigarettes # Packs/Day (cigarettes): 1 #Yrs smoked (if former smoker): 53 Smoking End Date: 13 years ago Alcohol Intake: former Alcohol Intake Frequency:: 0-2 drinks per day Substance Use Type: denies use *Occupational Status:: unemployed Housing: apartment Household Members: caregiver *Travel in the last 8 weeks: None - Psychiatric History Pschychiatric History:: Reports:: Anxiety Family Hx:: Diabetes, Heart Attack, Hypertension, Stroke, Mental illness Meds Home Medications Medication Instructions Recorded Confirmed Type carvedilol 25 mg tablet 12.5 mg PO BID 11/27/19 08/28/21 History fluticasone propionate 50 2 spray INTRANASAL DAILY 11/27/19 08/28/21 History mcg/actuation nasal spray,suspension furosemide 20 mg tablet 20 mg PO DAILY 11/27/19 08/28/21 History Albuterol Sulfate [Albuterol 1 neb INHALATION Q4-6H PRN 02/13/20 08/28/21 History 0.042% 1.25mg/3mL neb] Montelukast Sodium [Singulair 10mg 10 mg PO HS 02/17/20 08/28/21 History tablet] albuterol sulfate 90 mcg/actuation 1 inh INHALATION QID PRN #8.5 g 07/09/20 08/28/21 Rx aerosol inhaler Azithromycin 250 mg PO MOWEFR 08/21/21 08/28/21 History Fluticasone/Umeclidin/Vilanter 1 puff PO DAILY 30 Days #1 each 08/24/21 08/28/21 Rx [Trelegy Ellipta 200/62.5/25mcg Inhaler] Pantoprazole Sodium 40 mg PO BID 30 Days #60 tab 08/24/21 08/28/21 Rx Allergies Allergy/AdvReac Type Severity Reaction Status Date / Time codeine Allergy Intermediate CHEST PAIN Verified 07/09/20 11:24 ketorolac [From Toradol] Allergy Intermediate MENTAL Verified 07/09/20 11:24 STATUS CHANGES prednisone Allergy Intermediate Unknown Verified 01/25/21 08:04 allergy reaction Exam Vital signs and Labs for Last 24 Hours: Temp Pulse Resp BP Pulse Ox 98.8 F 105 H 15 116/60 88 L 09/03/21 07:47 09/03/21 07:47 09/03/21 07:47 09/03/21 07:47 09/03/21 07:47 Laboratory Results - last 24 hr 09/02/21 16:23: NT-Pro-B Natriuret Pep 8330 H 09/02/21 16:23: D-Dimer 1.98 H 09/03/21
--- NOTE | 2021-09-03 11:27 | PC.NURSE ---
Pam Alvarado RN Charge nurse and myself rounded on patient at this time. Pt just finished midline insertion procedure. Pt states everything went well. Pt denies pain. Pure wick in place that is functioning properly. Pt denies any needs. Pt requests discharge education be discussed with daughter. Daughter brought to bedside as she was in the waiting room during procedure. Pt is being discharged home with home health and antibiotic infusions. Medication was discussed with daughter, she denies any questions at this time. Pt had home health services prior to admission. Care management has contacted them and arranged for infusions at home. Pt transports via ambulance. Follow up appts were rescheduled to better accommodate the pt for fewer trips to the hospital and daughter stated that PCP appts were telehealth so we ensured that PCP follow up was telehealth per daughters request. Informed pt to call out if she has any further questions regarding her hospital stay or discharge.
--- NOTE | 2021-09-03 14:14 | PC.NURSE ---
MORNING ROUNDS DONE WITH MD. PATIENT WAS EDUCATED ON PLAN OF CARE AND POSSIBLE PLAN FOR DISCHARGE. REEDUCATED ON YESTERDAYS PROCEDURE BY MD. PATIENT FAMILY WAS NOT AT BEDSIDE DURING MORNING ROUNDS. PATIENT STATED TYPICALLY HER DAUGHTER HANDLES HER CARE. NO COMPLAINTS OR CONCERNS.
--- NOTE | 2021-09-03 14:29 | PC.NURSE ---
Addendum entered by Pam Alvarado RN 09/03/21 14:58: FLEETS ENEMA ORDERED PER MD Original Note: PATIENT WAS YELLING OUT STATED SHE WAS IN PAIN FROM NEEDING TO HAVE A BM. STATED IT WAS HARD AND WOULDNT COME OUT. NOTIFIED MD AWAITING CALL BACK
--- NOTE | 2021-09-03 18:09 | CA_ITS ---
FINAL REPORT CLINICAL HISTORY: PE,SOA,LEG PAIN FINDINGS: Color Doppler, duplex Doppler and compression sonography of the bilateral lower extremities was performed. There is no evidence of deep venous thrombosis from the level of the groin to the calf. The deep veins are patent and compressible. IMPRESSION: No evidence of deep venous thrombosis bilateral lower extremities. Reviewed, Interpreted and Dictated by Cj Garrett III, MD Transcribed by Rebecca Donahue Authenticated and [facility]
[2021-09-15 12:47] LABS: MRSA DNA PCR Negative
== END 2021-09-03 16:45 | disposition home health service (06) | DRG 177 ==
LOC: ER 20:09 → 2ND 20:16
PROVIDERS: Internal Medicine; Internal Medicine Adolescent Medicine; Internal Medicine Pulmonary Disease; Admitting Provider Internal Medicine Adolescent Medicine; Emergency Provider Emergency Medicine; PCP Nurse Practitioner Family; Visit Provider Internal Medicine Adolescent Medicine
PROC: 06H04DZ Insertion of Intraluminal Device into Inferior Vena Cava, Percutaneous Endoscopic Approach (ICD-10-PCS; CPT 37191; principal; 2021-09-02 14:45)
DX: J15.1 Pneumonia due to Pseudomonas (principal); J96.21 Acute and chronic respiratory failure with hypoxia; I26.99 Other pulmonary embolism without acute cor pulmonale; J43.9 Emphysema, unspecified; Z99.81 Dependence on supplemental oxygen; Z87.891 Personal history of nicotine dependence; F41.9 Anxiety disorder, unspecified; I48.91 Unspecified atrial fibrillation; I50.9 Heart failure, unspecified; Z86.718 Personal history of other venous thrombosis and embolism; E11.9 Type 2 diabetes mellitus without complications; D50.0 Iron deficiency anemia secondary to blood loss (chronic)
CPT/HCPCS: 36556; 36410; 36415; 37191; 71045; 71275; 80048; 80053; 82803; 82962; 83605; 83735; 83880; 84484; 85014; 85018; 85025; 85378; 86850; 87040; 87070; 87077; 87186; 87205; 87641; 93005; 93306; 93970; 94640; 94761; 99152; 99285; C1769; C1880; C9803; J0456; J0696; J1644; J3475; P9016; Q9967; U0003; U0005

== ENCOUNTER → 2021-09-07 15:22 | Outpatient (CLI) | payer MEDICARE, MEDICAID, SELFPAY ==
--- NOTE | 2021-09-07 15:22 | CT_ITS ---
FINAL REPORT TECHNIQUE: Axial images were obtained from the lung apex to the mid abdomen by computed tomography. Coronal reformatted images were obtained. This study was performed with techniques to keep radiation doses as low as reasonably achievable, (ALARA). Individualized dose reduction techniques using automated exposure control or adjustment of mA and/or kV according to the patient''s size were employed. CLINICAL HISTORY: Nodules COMPARISON: September 02, 2021 FINDINGS: There is no axillary adenopathy. There are multiple enlarged mediastinal lymph nodes, stable from prior. A precarinal lymph node measures 27 mm, stable. Heart size is normal. There are small bilateral pleural effusions, right greater than left. The left pleural effusion is slightly smaller than on the prior exam. There is a small pericardial effusion, worse from prior. There are mild changes of emphysema. Multifocal nodular opacities are stable. Largest on the right in the posterior right upper thorax measures 35 mm. A lateral left upper lobe nodular opacity measures 28 mm. There is new inferior right upper lobe alveolar opacity worrisome for pneumonia. Images through the upper abdomen demonstrate changes from cholecystectomy. There is a partially imaged IVC filter. IMPRESSION: New inferior right upper lobe opacity worrisome for pneumonia. Stable nodular opacities could be infectious or neoplastic. Recommend follow-up chest CT in 3 months. Stable mediastinal adenopathy could be reactive or neoplastic. Reviewed, Interpreted and Dictated by Cj Garrett III, MD Transcribed by Reza Pacheco Authenticated and [facility]
== END ==
PROVIDERS: PCP Nurse Practitioner Family; Visit Provider Internal Medicine Pulmonary Disease
DX: R91.8 Other nonspecific abnormal finding of lung field (principal)
CPT/HCPCS: 71250